=== PATIENT | female | born 1985 | race Caucasian/White ===

== ENCOUNTER 2019-08-31 03:33 | Inpatient (IN) | payer SELFPAY ==
[~2019-08-31] VITALS: Ht 162 cm; Wt 81.0 kg
[2019-08-31] VITALS (14 sets, daily range): BP systolic 118–153; BP diastolic 70–91
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
[2019-08-31 04:26] LABS: BASOPHILS % (AUTO) 0 % (0-10); EOSINOPHILS # (AUTO) 0.4 10^3/uL (0.0-0.3); EOSINOPHILS % (AUTO) 3 % (0-10); HEMATOCRIT 26 % (35-52); HEMOGLOBIN 8.3 G/DL (11.5-16.0); LYMPHOCYTES # (AUTO) 3.6 X 10^3 (1.0-4.0); LYMPHOCYTES % (AUTO) 32 % (12-44); MEAN CORPUSCULAR HEMOGLOBIN 25 PG (25-34); MEAN CORPUSCULAR HGB CONC 32 G/DL (32-36); MEAN CORPUSCULAR VOLUME 80 FL (80-99); MEAN PLATELET VOLUME 10.6 FL (7.4-10.4); MONOCYTES # (AUTO) 0.9 X 10^3 (0.0-1.0); MONOCYTES % (AUTO) 8 % (0-12); NEUTROPHILS # (AUTO) 6.4 X 10^3 (1.8-7.8); NEUTROPHILS % (AUTO) 57 % (42-75); PLATELET COUNT 359 10^3/uL (130-400); RED CELL DISTRIBUTION WIDTH 16.3 % (10.0-14.5); WHITE BLOOD COUNT 11.3 10^3/uL (4.3-11.0)
[2019-08-31 05:22] LABS: ALBUMIN 2.4 GM/DL (3.2-4.5); BILIRUBIN,TOTAL 0.2 MG/DL (0.1-1.0); CALCIUM 8.7 MG/DL (8.5-10.1); CREATININE SERUM 1.35 MG/DL (0.60-1.30); MAGNESIUM 1.5 MG/DL (1.6-2.4); TOTAL PROTEIN 6.1 GM/DL (6.4-8.2)
[2019-08-31] MEDS: NITROGLYCERIN 0.4 MG SL TABS BTL 25'S SL PRN (05:33)
[2019-08-31 05:40] LABS: FIBRIN DEGRADATION PRODUCTS 2.12 UG/ML (0.00-0.49); INR 1.1 (0.8-1.4); PROTHROMBIN TIME PATIENT 14.8 SEC (12.2-14.7)
[2019-08-31] MEDS ORDERED: HEParin 1000 UNIT/ML (10ML VIAL) FOR BOLUS IV ONE (05:54)
[2019-08-31] MEDS ORDERED: HEParin DRIP 25000 UNIT/500ML 500 ML IV ONE (05:54)
[2019-08-31] MEDS ORDERED: morphine INJ 10 MG/ML 1ML (SYR OR VIAL) IVP STA ×2 (05:54→06:23)
[2019-08-31] MEDS ORDERED: meTOprolol SUCCINATE 100 MG (TOPROL XL) TAB PO ONE (06:00)
[2019-08-31] MEDS ORDERED: CLOPIDOGREL 300 MG (PLAVIX) TABLET PO ONE ×2 (06:00→07:51)
[2019-08-31] MEDS ORDERED: meTOproloL SUCCINATE 50 MG (TOPROL XL) TAB PO ONE (06:03)
[2019-08-31] MEDS: meTOproloL SUCCINATE 50 MG (TOPROL XL) TAB PO SCH ×3 (06:13→11:41)
[2019-08-31] MEDS ORDERED: HEParin 1000 UNIT/ML (10ML VIAL) FOR BOLUS ONE (06:17)
[2019-08-31] MEDS ORDERED: LIDOCAINE 1% INJ 20 ML 20 ML VIAL ONE ×2 (06:17→07:09)
[2019-08-31] MEDS ORDERED: NS IV 1000 ML 3,000 ML ONE (06:17)
[2019-08-31] MEDS ORDERED: methylPREDNISolone 125 MG (Solu-MEDROL) VIAL ONE ×2 (06:27→07:26)
[2019-08-31] MEDS ORDERED: MIDAZOLAM 5 MG/5 ML (VERSED) VIAL ONE ×2 (06:27→08:47)
[2019-08-31] MEDS ORDERED: fentaNYL INJECTION 100 MCG/2 ML AMP ONE (06:27)
[2019-08-31] MEDS ORDERED: diphenhydrAMINE 50 MG/ML INJ (BENADRYL) ONE (06:27)
--- NOTE | 2019-08-31 06:44 | Diagnostic Imaging Report ---
INDICATION: Intermittent substernal chest pain that is relieved by lying on her side. Patient has had previous cardiac stents. FINDINGS: Portable upright view of the chest demonstrates cardiomegaly with previous sternotomy changes. Vascularity is slightly increased. Right basilar infiltrates are present. IMPRESSION: There is cardiomegaly with slight increase of the pulmonary vascularity. Right basilar infiltrates are present. Dictated by: Dictated on workstation # [id number]
--- NOTE | 2019-08-31 07:01 | Cardiology History & Physical ---
HPI-Cardiology Cardiology H&P Date of Admission 08/31/19 Primary Care Physician Svetlana Nicholas APRN Attending Physician Consulting Physician [facility] CC: Chest discomfort HPI: 34 yo woman with nearly 24 hours of chest discomfort, waxing and waning, but w/o complete resolution, varying from mild to severe, pressure-like, in the upper mid-chest, at times associated with diaphoresis, somewhat worse with activity, partially improved with NTG, experienced previously with previous myocardial infarctions, still ongoing. Has chronic exertional shortness of breath. Denies palp or syncope. Has had multiple toe amputations for diabetic gangrene. Does not report leg discomfort. Review of Systems-Cardiology Review of Systems Constitutional: malaise, tiredness; No weight loss, No weight gain Eyes: No vision change Ears/Nose/Throat: No ear discharge, No nasal drainage, No recent hearing loss, No ulcerations Respiratory: As described under HPI Cardiovascular: As described under HPI Gastrointestinal: No diarrhea, No nausea, No vomiting, No stool coloration changes Genitourinary: No dysuria, No hematuria, No urine frequency changes Musculoskeletal: No back pain, No joint pain Skin: No rash; other (amputation for 2nd R gangrenous toe several days ago, wound vac in place); No ulcerations Psychiatric/Neurological: No seizure, No focal weakness, No syncope Hematologic: No bleeding abnormalities All Other Systems Reviewed Negative Unless Noted: Yes RYG-Xdzvgy-Weharh Hx Patient Social History Alcohol Use: Denies Use Recreational Drug Use: Yes Drug of Choice: MJ Smoking Status: Current Everyday Smoker Type Used: Cigarettes 2nd Hand Smoke Exposure: Yes Recent Foreign Travel: No Recent Infectious Disease Expo: No Hospitalization with Isolation: Denies Past Medical History PMH As described under Assessment. Family Medical History Family Medical History: Reports fam h/o early CAD (father had DE in his 50s) Allergies and Home Medications Allergies Coded Allergies: codeine (Verified Allergy, Unknown, 08/31/19) nalbuphine (Verified Allergy, Unknown, 08/31/19) tramadol (Verified Allergy, Unknown, 08/31/19) Uncoded Allergies: CONTRAST (Allergy, Unknown, 08/31/19) Patient Home Medication List Home Medication List Reviewed: Yes Physical Exam-Cardiology Physical Exam Vital Signs/I&O 08/31/19 08/31/19 08/31/19 03:38 04:30 06:47 Temp 36.8 36.8 Pulse 101 86 Resp 22 22 B/P (MAP) 189/119 (142) 166/94 (142) Pulse Ox 96 98 O2 Delivery Room Air Room Air Room Air Capillary Refill : Less Than 3 Seconds Constitutional: AAO x 3, well-developed, well-nourished HEENT: EOMI, hearing is well preserved; No xanthelasmas are seen Neck: No carotid pulses are 2 + bilaterally, No with good upstrokes Respiratory: No accessory muscle use; other (good bilat air entry) Cardiovascular: regular rate-rhythm, S1 and S2, systolic murmur (faint HARISH at card base) Gastrointestinal: No tender; soft; No guarding, No rebound; audible bowel sounds Extremities: other (mild, bilateral leg edema; amputated great toes on both sides; s/p amputation of R 2nd toe (under dressing, wound vac in place, not removed)); No clubbing, No cyanosis Neurologic/Psychiatric: oriented x 3, other (moves all limbs equally) Skin: No rash on exposed areas, No ulcerations on exposed areas; other (see above under Extremities exam) Data Review Labs Laboratory Tests 08/31/19 03:49: Glucometer 101 08/31/19 04:15: White Blood Count 11.3H, Red Blood Count 3.29L, Hemoglobin 8.3L, Hematocrit 26L, Mean Corpuscular Volume 80, Mean Corpuscular Hemoglobin 25, Mean Corpuscular Hemoglobin Concent 32, Red Cell Distribution Width 16.3H, Platelet Count 359, M oluise Platelet Volume 10.6H, Neutrophils (%) (Auto) 57, Lymphocytes (%) (Auto) 32, Monocytes (%) (Auto) 8, Eosinophils (%) (Auto) 3, Basophils (%) (Auto) 0, Neutrophils # (Auto) 6.4, Lymphocytes # (Auto) 3.6, Monocytes # (Auto) 0.9, Eosinophils # (Auto) 0.4H, Basophils # (Auto) 0.0, B-Type Natriuretic Peptide 988.9H 08/31/19 04:42: Sodium Level 140, Potassium Level 4.0, Chloride Level 109H, Carbon Dioxide Level 21, Anion Gap 10, Blood Urea Nitrogen 20H, Creatinine 1.35H, Estimat Glomerular Filtration Rate 44, BUN/Creatinine Ratio 15, Glucose Level 93, Calcium Level 8.7, Corrected Calcium 10.0, Magnesium Level 1.5L, Total Bilirubin 0.2, Aspartate Amino Transf (AST/SGOT) 23, Alanine Aminotransferase (ALT/SGPT) 13, Alkaline Phosphatase 139H, Myoglobin 125.4H, Troponin I 1.474*H, Total Protein 6.1L, Albumin 2.4L 08/31/19 05:20: Prothrombin Time 14.8H, INR Comment 1.1, Activated Partial Thromboplast Time 36H , D-Dimer 2.12H Microbiology 08/31/19 Influenza Types A,B Antigen (JEN) - Final, Complete Laboratory Tests 08/31/19 04:15 08/31/19 04:42 A/P-Cardiology Assessment/Admission Diagnosis Ac NSTEMI and continuing unstable angina CAD, treated in the past with coronary stents and CABG at [place], [place]. Details unknown at time of this dictation DM II Amputations for diabetic, gangrenous toes: both great toes and R 2nd toe PAD. Has had stents in leg arteries, but does not know any details Hypertension S/p bilateral tubal ligation. Urine test performed to (01/29/19) is negative for Admission Status: Inpatient Order (span 2 midnights) Reason for Inpatient Admission: Ac DE Discussion and Recomendations * Given presentation with ac NSTEMI, known CAD, and continuing unstable angina, we recommend emergency card cath * I discussed the rationale, procedure, risks, benefits potential complications and alternatives of card cath and possible ad hoc cor / graft intervention. She understands and provides informed consent and wishes to proceed. She does understand risk is higher than usual given extensive h/o CAD and PAD at young age. Clinical Quality Measures AMI/AHF: ASA po Prior to arrival: Yes ([phone]) LEILANI GALE MD FACP [facility] Aug 31, 2019 07:01 POS
[2019-08-31] MEDS ORDERED: FAMOTIDINE 20MG/2ML IV (PEPCID) ONE (07:27)
[2019-08-31] MEDS ORDERED: EPTIFIBATIDE BOLUS 20 ML IV ONE (07:31)
[2019-08-31] MEDS ORDERED: NITRO DRIP 25000 MCG/D5W 250 ML IV ONE (07:36)
[2019-08-31] MEDS ORDERED: NS IV 1000 ML 1,000 ML IV SCH (08:13)
[2019-08-31] MEDS ORDERED: PATIENT MAY USE OWN MEDS, ALL PO SCH (08:15)
[2019-08-31] MEDS ORDERED: ACETAMINOPHEN 325 MG TABLET PO PRN (08:15)
--- NOTE | 2019-08-31 08:20 | CARDIAC CATHETERIZATION ---
DATE OF SERVICE: CARDIAC CATHETERIZATION AND CORONARY INTERVENTION REPORT HISTORY OF PRESENT ILLNESS: The patient is a 34-year-old woman who has an extensive cardiac history and a history of diabetes mellitus that has led to multiple complications. She has had multiple coronary and peripheral interventions performed, but does not know any details. This is the first time that she has presented to this hospital. Upon presentation to the emergency room, she underwent a workup for myocardial infarction and was found to have elevated troponin, indicative of acute non-ST elevation myocardial infarction. She has been continuing to have chest pain and symptoms of unstable angina. Given her history and continuing symptoms of unstable angina and her acute myocardial infarction, emergency cardiac catheterization was recommended. Informed consent was obtained. She understood all the potential risks and benefits and provided informed consent. Unfortunately, she is not aware of the details of all of her percutaneous coronary interventions and coronary artery bypass surgery. She is also unaware of the details of her peripheral intervention. DESCRIPTION OF PROCEDURE: Prior to initiation of the procedure, we did obtain a urine sample for testing and this was negative. The patient did understand the potential risks of the procedure and advised us to proceed. She was brought to the cardiac catheterization laboratory. Both groins were prepared and draped in usual sterile fashion. Under fluoroscopy, we found that the right iliac and femoral arterial system was extensively stented and did not appear suitable for catheterization. We chose the left groin. We used 1% lidocaine for local anesthesia. We used a Modified Seldinger technique to advance a 6-[place] sheath in the right femoral artery. We used a 6-[place] JL4 catheter to carry out angiography. Left internal mammary artery graft to the left anterior descending artery and for angiography of the left coronary system. We used a pigtail catheter to PERCUTANEOUS INTERVENTION TO THE RIGHT CORONARY ARTERY: We used a 6[place] JR4 guide catheter to engage the right coronary artery. We used a 6-[place] JR4 guide catheter with side holes to engage the right coronary artery. The patient had received 5000 units of intravenous heparin in the emergency room and we gave 2000 units in the cardiac catheterization laboratory. The patient also received a double bolus of Integrilin during the procedure. We used the guide catheter to advance a BMW wire across the lesion and a BMW wire to extend across the lesion that was present in a long stented segment of the right coronary artery. The tip of the wire was placed in the distal vessel. We then advanced Emerge 3.0 x 20 mm balloon and carried out balloon angioplasty at the site of the lesion. This reduced the stenosis from approximately 90% to essentially no residual. The patient tolerated the procedure well. Flow throughout the vessel was normal. Angioplasty equipment was removed. Mynx was used to achieve hemostasis. HEMODYNAMICS: Left ventricular end-diastolic pressure following coronary angiography was 30 mmHg. There was no significant pressure gradient on pullback across the aortic valve. Ascending aortic pressure was 147/85 with a mean of 107 mmHg. CORONARY ANGIOGRAPHY: Left main coronary artery does not exhibit significant disease. Left anterior descending artery is occluded in its proximal portion. Left circumflex artery is stented in its proximal portion and in the proximal portion of the terminal obtuse marginal branch. The stents are patent. Mid left circumflex artery has approximately 40% stenosis. Right coronary artery is extensively stented in its proximal and mid portions and had 80% to 90% stenosis within the distal part of the stented segment. To this, successful balloon angioplasty was carried out, which reduced the stenosis to no significant residual. LEFT VENTRICULAR ANGIOGRAPHY: Left ventricular angiography was carried out in the right anterior oblique projection. Global left ventricular systolic function is impaired. There is global hypokinesis. Left ventricular ejection fraction is approximately 40%. AORTIC ROOT ANGIOGRAPHY: Aortic root angiography did not indicate any significant thoracic aortic aneurysm or dissection. Aortic valve leaflets exhibit good leaflet excursion. There is no significant aortic regurgitation. The left and the right coronary arteries are seen. No patent aortocoronary grafts are seen. CONCLUSIONS: 1. Coronary artery disease consisting of proximal occlusion of the left anterior descending and patent proximal and distal stents within the left circumflex and 80% to 90% in-stent restenosis within an extensively stented segment of the right coronary. Balloon angioplasty was carried out to the in- stent restenosis in the right coronary, which reduced the stenosis to no significant residual. 2. Patent left internal mammary artery graft to distal left anterior descending with good runoff. 3. Impaired left ventricular systolic function with ejection fraction of 40% and moderate global hypokinesis of the left ventricle. DISCUSSION AND RECOMMENDATIONS: We discussed findings with her in detail. She is already aware of her coronary artery disease and cardiomyopathy. She states that she has previously been on aspirin, Plavix, beta blockers and JESSE inhibitors (lisinopril). She states that she has mostly been compliant. She is aware that all pregnancies need to be planned because of the nature of the medicines that she is on. She states that she has had tubal ligation and does not intend to be . We have advised her to quit smoking immediately and completely. Other risk factor modification and medication compliance was also reviewed in detail. Job ID: [id number] DocumentID: [id number] Dictated Date: 08/31/2019 08:00:20 Cut [employer] Log Date: 08/31/2019 08:20:30 Dictated By: LEILANI GALE MD, MA, FACP, FACC, MTDD
[2019-08-31] MEDS ORDERED: NS IV 1000 ML 1,000 ML ONE (08:41)
[2019-08-31] MEDS ORDERED: MIDAZOLAM 2 MG/2 ML (VERSED) VIAL IVP ONE (09:00)
[2019-08-31 09:15] LABS: BASOPHILS % (AUTO) 0 % (0-10); EOSINOPHILS # (AUTO) 0.2 10^3/uL (0.0-0.3); EOSINOPHILS % (AUTO) 2 % (0-10); HEMATOCRIT 22 % (35-52); LYMPHOCYTES # (AUTO) 3.7 X 10^3 (1.0-4.0); LYMPHOCYTES % (AUTO) 27 % (12-44); MEAN CORPUSCULAR HEMOGLOBIN 26 PG (25-34); MEAN CORPUSCULAR HGB CONC 31 G/DL (32-36); MEAN CORPUSCULAR VOLUME 82 FL (80-99); MEAN PLATELET VOLUME 10.3 FL (7.4-10.4); MONOCYTES # (AUTO) 0.5 X 10^3 (0.0-1.0); MONOCYTES % (AUTO) 4 % (0-12); NEUTROPHILS # (AUTO) 9.3 X 10^3 (1.8-7.8); NEUTROPHILS % (AUTO) 67 % (42-75); PLATELET COUNT 401 10^3/uL (130-400); RED CELL DISTRIBUTION WIDTH 16.2 % (10.0-14.5); WHITE BLOOD COUNT 13.7 10^3/uL (4.3-11.0)
[2019-08-31] MEDS ORDERED: fentaNYL INJECTION 100 MCG/2 ML AMP IVP PRN (09:15)
[2019-08-31 09:20] LABS: HEMOGLOBIN 6.9 G/DL (11.5-16.0)
--- NOTE | 2019-08-31 09:59 | Consultation - Hospitalist ---
HPI History of Present Illness: HPI/Chief Complaint CC: Severe anemia HPI: This is a 34yoWF with a history of severe comorbidities that was [facility] the [facility] and was admitted for altered mental status, underwent cardiac catheterization due to history of bypass surgery with elevated troponin and currently she is having significant difficulties with managing organ system function. She did lose some blood from the cardiac cath, left pressure bag was placed on the femoral region and at this current time pt appears to be very fatigued. We will initiate Fentanyl 50 micrograms IV Q3hrs and provide supportive care. She is homeless. Source: patient Exam Limitations: no limitations Date Seen 08/31/19 Attending Physician Jennifer Grimes MD [facility]p [facility] PCP Svetlana Nicholas Aprn Referring Physician Date of Admission Aug 31, 2019 at 08:50 Home Medications & Allergies Home Medications Reviewed patient Home Medication Reconciliation performed by pharmacy medication reconciliations elevator service technician and/or nursing. Patients Allergies have been reviewed. Allergies Allergies Coded Allergies codeine (Verified Allergy, Unknown, 08/31/19) nalbuphine (Verified Allergy, Unknown, 08/31/19) tramadol (Verified Allergy, Unknown, 08/31/19) Uncoded Allergies CONTRAST ( Allergy, Unknown, 08/31/19) Past Nyqmwdx-Ageuyk-Cdbfbm Hx Past Med/Social Hx: Reviewed Nursing Past Med/Soc Hx, Reviewed and Corrections made Patient Social History Marrital Status: single Employed/Student: unemployed Alcohol Use: Denies Use Recreational Drug Use: Yes Drug of Choice: MJ Smoking Status: Current Everyday Smoker Type Used: Cigarettes 2nd Hand Smoke Exposure: Yes Recent Foreign Travel: No Contact w/other who traveled: No Recent Hopitalizations: Yes (toe amputation with wound vac 08/2019) Recent Infectious Disease Expo: No Seasonal Allergies Seasonal Allergies: No Past Medical History Surgeries: Amputation, Section, Coronary Stent, Tonsillectomy Cardiac: Hypertension, Peripheral Vascular Neurological: Neuropathy Hysterectomy, 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 Gastrointestinal: Irritable Bowel Musculoskeletal: Amputee Endocrine: Diabetes, Non-Insulin dep Review of Systems Constitutional: see HPI, weakness Cardiovascular: chest pain Psychiatric/Neurological: See HPI Physical Exam Physical Exam Vital Signs Vital Signs - First Documented 08/31/19 08/31/19 03:38 10:09 Temp 36.8 Pulse 101 Resp 22 B/P (MAP) 189/119 (142) Pulse Ox 96 O2 Delivery Room Air O2 Flow Rate 3.00 Capillary Refill : Less Than 3 Seconds Height, Weight, BMI Height: '" Weight: lbs. oz. kg; 30.00 BMI Method: General Appearance: No Apparent Distress, WD/WN, Chronically ill HEENT: PERRL/EOMI, Moist Mucous Membranes Neck: Full Range of Motion, Normal Inspection, Non Tender, Supple Respiratory: No Chest Non Tender (chest wall pain is reproduced by direct palpation over the sternum); Lungs Clear, Normal Breath Sounds, No Accessory Muscle Use, No Respiratory Distress Cardiovascular: Regular Rate, Rhythm, No Edema, No JVD, Normal Peripheral Pulses Gastrointestinal: Normal Bowel Sounds, Non Tender, Soft Extremity: Normal Capillary Refill, No Pedal Edema, Other (wound VAC in place over her right foot from previous forefoot amputation) Neurologic/Psychiatric: Alert, Oriented x3, No Motor/Sensory Deficits, Other (flat affect) Skin: Normal Color, Warm/Dry Results Results/Procedures Labs Laboratory Tests 08/31/19 04:15 08/31/19 04:42 08/31/19 09:05 08/31/19 15:08 Patient resulted labs reviewed. Assessment/Plan Assessment and Plan Assess & Plan/Chief Complaint Assessment: NSTEMI Unstable angina s/p RCA intervention PVD h/o CABG Smoker DM HTN Anemia s/p 1 unit of blood Plan: Monitor hgb Transfusion Pain control Prognosis guarded Diagnosis/Problems Diagnosis/Problems (1) S/P right coronary artery (RCA) stent placement (2) PVD (peripheral vascular disease) (3) Smoker (4) Hx of CABG (5) Homelessness (6) NSTEMI (non-ST elevated myocardial infarction) Status: Acute (7) Acute LA (8) Anemia (9) Transfusion of blood during current hospitalization (10) History of amputation of toe Clinical Quality Measures AMI/AHF: ASA po Prior to arrival: Yes (324) SANDRA MA DO Aug 31, 2019 09:59 POS
[2019-08-31] MEDS: lisINopril 10 MG (PRINIVIL) TABLET PO SCH (11:41)
[2019-08-31] MEDS: SPIRONOLACTONE 25 MG (ALDACTONE) TAB PO SCH (11:41)
[2019-08-31] MEDS: ASPIRIN 81 MG CHEW (CHILDREN'S ASA) PO SCH (12:03)
[2019-08-31] MEDS: CLOPIDOGREL 75 MG (PLAVIX) TABLET PO SCH (12:03)
[2019-08-31] MEDS: NS IV 1000 ML 1,000 ML IV SCH ×2 (12:05→19:03)
[2019-08-31] MEDS: FUROSEMIDE 40 MG (LASIX) TAB PO SCH (12:26)
[2019-08-31] MEDS ORDERED: ISOS30TA3 PO (15:04)
[2019-08-31] MEDS ORDERED: PROM25TA14 PO (15:04)
[2019-08-31] MEDS ORDERED: ASPI-983 PO (15:04)
[2019-08-31] MEDS ORDERED: GBPN600T PO (15:04)
[2019-08-31 15:13] LABS: HEMOGLOBIN 9.1 G/DL (11.5-16.0)
[2019-08-31] MEDS ORDERED: CLOP75TA28 PO (15:19)
[2019-08-31] MEDS ORDERED: INSU100V16 SC (15:19)
[2019-08-31] MEDS ORDERED: INSU100V5 SC (15:19)
[2019-08-31] MEDS ORDERED: AMLO10TA7 PO (15:19)
--- NOTE | 2019-08-31 15:23 | NUR ---
SPOKE WITH THE PATIENT ABOUT HER MEDICATIONS. SHE LISTED WHAT SHE IS TAKING AND SHE STATES SHE FILLS THEM AT [facility]. I CALLED [facility] BUT THEY HAVE ONLY FILLED A FEW MEDICATIONS FOR HER THIS YEAR. I CALLED [facility] IN [place], THEY STATE THE PATIENT HAS INSURANCE SO THEY DO NOT GIVE HER ANY MEDS THROUGH THE REPOSITORY, THEY SEND ALL HER MEDS TO [facility] OR [facility]. THEY DID FAX OVER A CURRENT MEDICATION LIST. [facility] FILLED: 07-02-19 ISOSORBIDE 30MG #30 07-02-19 GABAPENTIN 600MG #90 06-30-19 PROMETHAZINE 25MG #60 [facility] INFORMATION IS SHOWN IN THE EXT MED HX: CYMBALTA - SHE STATES SHE NO LONGER TAKES THIS, IT IS NOT ON MED LIST FROM [facility]. 03-17-19 PLAVIX 75MG #30 01-23-19 LEVEMIR 12 UNITS HS #10 01-23-19 NOVOLOG SSB #20 01-18-19 AMLODIPINE 10MG #30 ALSO ON THE LIST FROM [facility] WAS LIPITOR 80MG HS AND METOPROLOL ER 100MG DAILY. THESE ARE NOT ON FILE WITH [facility] OR [facility]. I HAVE NOT INCLUDED SEVERAL OF THESE MEDS ON THE MED REC DUE TO THE PAST DUE FILL DATES OR NOT BEING ABLE TO IDENTIFY THE LAST TIME THEY WERE FILLED. SHE STATES SHE DOES NOT HAVE THE NITROGLYCERIN, IT WAS PRESCRIBED BUT SHE WAS NOT ABLE TO AFFORD IT SO HAS NOT PICKED THEM UP. SHE STATES SHE TAKES ASPIRIN 81MG OTC.
--- NOTE | 2019-08-31 18:59 | Consultation - Surgery ---
History of Present Illness History of Present Illness Patient Consulted On(darien/time) 08/31/19 18:53 Date Seen by Provider: Aug 31, 2019 Time Seen by Provider: 12:39 History of Present Illness Consult requested for right forefoot partial amputation. patient is a 34 year old female who presented to hospital with chest pain. She had a right forefoot partial amputation about 2 weeks ago in [place], [place] she states. She has a wound vac on it and states she is scheduled to see wound care in [place] tomorrow to have it changed and for follow up. Her pain in the right foot is under control. She states that she has not had any issues with right foot since having surgery. She has had about 3 surgeries on the right foot she states. Patient underwent cardiac catheterization earlier today. She has no other complaints at this time. Denies n/v fever sweats chills shortness of breath or chest pain. Allergies and Home Medications Allergies Coded Allergies: codeine (Verified Allergy, Unknown, 08/31/19) nalbuphine (Verified Allergy, Unknown, 08/31/19) tramadol (Verified Allergy, Unknown, 08/31/19) Uncoded Allergies: CONTRAST (Allergy, Unknown, 08/31/19) Home Medications Aspirin 81 Mg Tablet.dr, 81 MG PO DAILY, (Reported) Gabapentin 600 Mg Tablet, 600 MG PO TID, (Reported) LAST FILLED #90 07-02-19 Isosorbide Mononitrate 30 Mg Tab.er.24h, 30 MG PO DAILY, (Reported) LAST FILLED #30 07-02- Promethazine HCl 25 Mg Tablet, 25 MG PO Q8H PRN for NAUSEA/VOMITING-2ND LINE, (Reported) Patient Home Medication List Home Medication List Reviewed: Yes Past Tpjxqhe-Cfvdjt-Bxaqvf Hx Patient Social History Alcohol Use: Denies Use Recreational Drug Use: Yes Drug of Choice: MJ Smoking Status: Current Everyday Smoker Type Used: Cigarettes 2nd Hand Smoke Exposure: Yes Recent Foreign Travel: No Contact w/Someone Who Travel: No Recent Infectious Disease Expo: No Recent Hopitalizations: Yes (toe amputation with wound vac 08/2019) Seasonal Allergies Seasonal Allergies: No Surgeries History of Surgeries: Yes (3 amputations (foot and toes), 5 stents) Surgeries: Amputation, Section, Coronary Stent, Tonsillectomy Respiratory History of Respiratory Disorde: No Cardiovascular History of Cardiac Disorders: Yes (5 stents) Cardiac Disorders: Hypertension Neurological History of Neurological Disord: Yes Neurological Disorders: Neuropathy 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, 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 Genitourinary History of Genitourinary Disor: No Gastrointestinal History of Gastrointestinal Di: Yes Gastrointestinal Disorders: Irritable Bowel Musculoskeletal History of Musculoskeletal Dis: Yes Musculoskeletal Disorders: Amputee Endocrine History of Endocrine Disorders: Yes Endocrine Disorders: Diabetes, Non-Insulin dep HEENT History of HEENT Disorders: No Cancer History of Cancer: No Psychosocial History of Psychiatric Problem: No Integumentary History of Skin or Integumenta: No Reviewed Nursing Assessment Reviewed/Agree w Nursing PMH: Yes Family Medical History Significant Family History: No Pertinent Family Hx Review of Systems-General Constitutional: no symptoms reported EENTM: no symptoms reported Respiratory: no symptoms reported Cardiovascular: see HPI Gastrointestinal: no symptoms reported Genitourinary: no symptoms reported Musculoskeletal: see HPI Skin: no symptoms reported Psychiatric/Neurological: No Symptoms Reported Physical Exam-General Problems Physical Exam Vital Signs Vital Signs - First Documented 08/31/19 08/31/19 03:38 10:09 Temp 36.8 Pulse 101 Resp 22 B/P (MAP) 189/119 (142) Pulse Ox 96 O2 Delivery Room Air O2 Flow Rate 3.00 Capillary Refill : NONE HEENT: PERRL/EOMI, normal ENT inspection Neck: non-tender Respiratory: chest non-tender, no respiratory distress, no accessory muscle use Cardiovascular: regular rate, rhythm Gastrointestinal: non tender, soft, no organomegaly Back: no CVA tenderness Extremities: other (right foot with partial forefoot amputation with wound vac in place. 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 nml as tested, alert, oriented x 3 Skin: normal color, warm/dry Lymphatic: no adenopathy Data Review Labs Laboratory Tests 08/31/19 03:49: Glucometer 101 08/31/19 04:15: White Blood Count 11.3H, Red Blood Count 3.29L, Hemoglobin 8.3L, Hematocrit 26L, Mean Corpuscular Volume 80, Mean Corpuscular Hemoglobin 25, Mean Corpuscular Hemoglobin Concent 32, Red Cell Distribution Width 16.3H, Platelet Count 359, Mean Platelet Volume 10.6H, Neutrophils (%) (Auto) 57, Lymphocytes (%) (Auto) 32, Monocytes (%) (Auto) 8, Eosinophils (%) (Auto) 3, Basophils (%) (Auto) 0, Neutrophils # (Auto) 6.4, Lymphocytes # (Auto) 3.6, Monocytes # (Auto) 0.9, Eosinophils # (Auto) 0.4H, Basophils # (Auto) 0.0, B-Type Natriuretic Peptide 988.9H 08/31/19 04:42: Sodium Level 140, Potassium Level 4.0, Chloride Level 109H, Carbon Dioxide Level 21, Anion Gap 10, Blood Urea Nitrogen 20H, Creatinine 1.35H, Estimat Glomerular Filtration Rate 44, BUN/Creatinine Ratio 15, Glucose Level 93, Calcium Level 8.7, Corrected Calcium 10.0, Magnesium Level 1.5L, Total Bilirubin 0.2, Aspartate Amino Transf (AST/SGOT) 23, Alanine Aminotransferase (ALT/SGPT) 13, Alkaline Phosphatase 139H, Myoglobin 125.4H, Troponin I 1.474*H, Total Protein 6.1L, Albumin 2.4L 08/31/19 05:20: Prothrombin Time 14.8H, INR Comment 1.1, Activated Partial Thromboplast Time 36H , D-Dimer 2.12H 08/31/19 09:05: White Blood Count 13.7H, Red Blood Count 2.69L, Hemoglobin 6.9*L, Hematocrit 22L , Mean Corpuscular Volume 82, Mean Corpuscular Hemoglobin 26, Mean Corpuscular Hemoglobin Concent 31L, Red Cell Distribution Width 16.2H, Platelet Count 401H, Mean Platelet Volume 10.3, Neutrophils (%) (Auto) 67, Lymphocytes (%) (Auto) 27, Monocytes (%) (Auto) 4, Eosinophils (%) (Auto) 2, Basophils (%) (Auto) 0, Neutrophils # (Auto) 9.3H, Lymphocytes # (Auto) 3.7, Monocytes # (Auto) 0.5, Eosinophils # (Auto) 0.2, Basophils # (Auto) 0.0 08/31/19 15:08: Hemoglobin 9.1#L, Hematocrit 29L Microbiology 08/31/19 Influenza Types A,B Antigen (JEN) - Final, Complete Assessment/Plan Assessment/Plan Assessment/Plan s/p right forefoot partial amputation from outlying facility patient needs continued wound care to the right foot will have wound care nurse come change wound vac will follow no surgical intervention at this time. Clinical Quality Measures AMI/AHF: ASA po Prior to arrival: Yes (324) MIKE TAFOYA DO Aug 31, 2019 18:59 POS
[2019-08-31] MEDS: traZODone 100 MG (DESYREL) TAB PO SCH (20:00)
[2019-08-31] MEDS: HYDROcodone/APAP 5 MG/325 MG (LORTAB) TAB PO PRN ×2 (20:00→20:30)
[2019-08-31] MEDS ORDERED: PROMETHAZINE 25 MG (PHENERGAN) TAB PO PRN (20:45)
[2019-08-31] MEDS: GABAPENTIN 600 MG (NEURONTIN) TAB PO SCH (21:35)
[2019-09-01] VITALS (21 sets, daily range): BP systolic 100–179; BP diastolic 64–119
[2019-09-01] MEDS: NS IV 1000 ML 1,000 ML IV SCH ×2 (01:50→15:02)
[2019-09-01 05:29] LABS: MEAN PLATELET VOLUME 10.4 FL (7.4-10.4); RED CELL DISTRIBUTION WIDTH 16.4 % (10.0-14.5); WHITE BLOOD COUNT 15.6 10^3/uL (4.3-11.0)
[2019-09-01 05:31] LABS: HEMOGLOBIN 6.6 G/DL (11.5-16.0)
[2019-09-01 05:56] LABS: ALBUMIN 2.1 GM/DL (3.2-4.5); BILIRUBIN,TOTAL 0.1 MG/DL (0.1-1.0); CALCIUM 7.3 MG/DL (8.5-10.1); CREATININE SERUM 2.21 MG/DL (0.60-1.30)
[2019-09-01 06:13] LABS: HEMOGLOBIN 6.3 G/DL (11.5-16.0)
--- NOTE | 2019-09-01 06:20 | NUR ---
THIS RN RETRIEVED ONE UNIT PRBC FROM LAB AT THIS TIME. CAMPGROUND MANAGER AND THIS RN VERIFIED PATIENT ID, MEDICAL RECORD NUMBER, PATIENT'S DOCTOR, BLOOD BANK ID NUMBER, BLOOD UNIT NUMBER, PATIENT BLOOD TYPE, UNIT BLOOD TYPE, BLOOD COMPATIBILITY, AND BLOOD EXPIRATION DATE.
--- NOTE | 2019-09-01 08:29 | Progress Note - Surgery ---
NICO CHEEMA MED STUDENT 09/01/19 0829: Subjective Date Seen by a Provider: Sep 01, 2019 Time Seen by a Provider: 07:15 Subjective/Events-last exam Ms. Faust reports feeling slightly improved today, wanted to know when she would be able to go home. Her main complaints today are of the discomfort from the swelling that occurred after her reaction to dye used in her toe amputation, as well as constipation since her toe amputation, with no BM for the past 5 days. She reports that she has had mild pain in her foot by her toe that was recently amputated, describes as 'pain you feel after surgery'. She also reports having LLQ pain, the quality of which she had difficulty describing, which she has been feeling for the past several days. Review of Systems General: No Chills; Fatigue (tired, but normal for her) HEENT: No Sinus Congestion, No Sore Throat Pulmonary: No Dyspnea, No Cough Cardiovascular: Edema (feels as if swollen in LE and abdomen); No: Chest Pain, Palpitations, Lt Headedness Gastrointestinal: Abdominal Pain (LLQ), Constipation (no BM in 5 days); No: Nausea, Vomiting Genitourinary: No Dysuria, No Hematuria Musculoskeletal: foot pain (R foot by toe that was amputated) Neurological: No: Weakness, Numbness Objective Exam Vital Signs Date Time Temp Pulse Resp B/P (MAP) Pulse Ox O2 Delivery O2 Flow Rate FiO2 09/01/19 08:06 36.0 71 18 138/79 (98) 98 Room Air 09/01/19 07:00 36.2 60 14 104/68 95 Room Air 09/01/19 07:00 36.2 60 14 104/68 (80) 94 Room Air 09/01/19 06:45 36.4 66 16 101/65 (77) 94 Room Air 09/01/19 06:45 36.4 66 16 101/65 94 Room Air 09/01/19 06:42 60 09/01/19 06:30 36.0 60 18 100/64 97 Room Air 09/01/19 06:30 36.0 60 18 100/64 (76) 97 Room Air 09/01/19 03:35 35.9 59 14 114/72 (86) 96 Room Air 09/01/19 01:00 56 09/01/19 00:20 35.5 61 14 112/70 (84) 98 Room Air 08/31/19 20:00 Room Air 08/31/19 20:00 36.0 61 18 130/76 (94) 97 08/31/19 19:00 61 08/31/19 16:00 35.7 63 18 128/85 (99) 99 08/31/19 14:00 36.2 63 18 142/90 (107) 98 08/31/19 13:59 78 08/31/19 13:00 36.2 63 18 138/86 (103) 98 08/31/19 12:21 36.2 61 20 153/91 99 Nasal Cannula 3.00 08/31/19 12:00 35.8 61 16 135/84 (101) 98 08/31/19 11:00 35.9 60 16 129/79 (96) 99 08/31/19 10:30 36.2 61 16 136/80 (98) 99 08/31/19 10:29 35.8 61 18 136/86 99 Nasal Cannula 3.00 08/31/19 10:09 35.7 63 18 118/77 99 Nasal Cannula 3.00 08/31/19 10:00 36.2 62 18 126/70 (88) 99 08/31/19 09:45 35.9 65 19 132/86 (101) 99 08/31/19 09:25 36.0 60 18 122/80 (94) 99 08/31/19 09:10 35.7 62 18 119/78 (92) 98 I & O 09/01/19 07:00 Intake Total 2550 ml Output Total 900 ml Balance 1650 ml Capillary Refill : NONE General Appearance: No Apparent Distress, Chronically ill, Obese HEENT: PERRL/EOMI; No Scleral Icterus (L), No Scleral Icterus (R) Neck: Normal Inspection, Non Tender, Supple Respiratory: Lungs Clear, Normal Breath Sounds, No Accessory Muscle Use, No Respiratory Distress Cardiovascular: Regular Rate, Rhythm, No Edema, No Murmur, Normal Peripheral Pulses Peripheral Pulses: 0 Dorsalis Pedis (R) (2+ posterior tibial pulse); 2+ Left Dors-Pedis (L), 2+ Radial Pulses (R), 2+ Radial Pulses (L) Gastrointestinal: soft, no organomegaly, tenderness (LLQ and hypogastric t enderness) Extremity: Non Tender, No Calf Tenderness, Pedal Edema (2+ BLE), Other (wound VAC in place over her right foot from previous forefoot amputation) Neurologic/Psychiatric: Alert, Oriented x3, Normal Mood/Affect Skin: Normal Color, Warm/Dry Results Lab Laboratory Tests 08/31/19 09:05: White Blood Count 13.7H, Red Blood Count 2.69L, Hemoglobin 6.9*L, Hematocrit 22L , Mean Corpuscular Volume 82, Mean Corpuscular Hemoglobin 26, Mean Corpuscular Hemoglobin Concent 31L, Red Cell Distribution Width 16.2H, Platelet Count 401H, Mean Platelet Volume 10.3, Neutrophils (%) (Auto) 67, Lymphocytes (%) (Auto) 27, Monocytes (%) (Auto) 4, Eosinophils (%) (Auto) 2, Basophils (%) (Auto) 0, Neutrophils # (Auto) 9.3H, Lymphocytes # (Auto) 3.7, Monocytes # (Auto) 0.5, Eosinophils # (Auto) 0.2, Basophils # (Auto) 0.0 08/31/19 15:08: Hemoglobin 9.1#L, Hematocrit 29L 09/01/19 05:09: White Blood Count 15.6H, Red Blood Count 2.53L, Hemoglobin 6.6#*L, Hematocrit 20*L, Mean Corpuscular Volume 80, Mean Corpuscular Hemoglobin 26, Mean Corpuscular Hemoglobin Concent 33, Red Cell Distribution Width 16.4H, Platelet Count 269, Mean Platelet Volume 10.4, Sodium Level 136, Potassium Level 5.0, Chloride Level 109H, Carbon Dioxide Level 15L, Anion Gap 12, Blood Urea Nitrogen 32H, Creatinine 2.21H, Estimat Glomerular Filtration Rate 25, BUN/Creatinine Ratio 14, Glucose Level 156H, Calcium Level 7.3L, Corrected Calcium 8.8, Total Bilirubin 0.1, Aspartate Amino Transf (AST/SGOT) 14, Alanine Aminotransferase (ALT/SGPT) 10, Alkaline Phosphatase 94, Total Protein 5.0L, Albumin 2.1L, Triglycerides Level 141, Cholesterol Level 114, LDL Cholesterol Direct 67, VLDL Cholesterol 28, HDL Cholesterol 29L, Thyroid Stimulating Hormone (TSH) 2.39 09/01/19 06:05: Hemoglobin 6.3*L, Hematocrit 19*L Microbiology 08/31/19 Influenza Types A,B Antigen (JEN) - Final, Complete Assessment/Plan Assessment/Plan Assessment/Plan s/p right forefoot partial amputation NSTEMI s/p RCA intervention PVD DM Anemia s/p 1 unit of blood She reports mild pain in her right foot, will assess wound and woundvac today. She has LLQ pain and no BM for past 5 days, consider abdominal x-ray. Hgb and Hct today are 6.6 and 20 respectively, decreased from yesterday. Consider another transfusion. Clinical Quality Measures AMI/AHF: ASA po Prior to arrival: Yes (324) TITI TAFOYA DO 09/01/192137: Subjective Subjective/Events-last exam Pain controlled to right foot. Wound vac changed by wound care nurse and reports looking great no concerns. Patient with drop in hgb. Ct show extraperitoneal pelvic hematoma. Being transfused PRBC. Having BM. No other complaints at this time. Denies n/v fever sweats chills shortness of breath or chest pain. Objective Exam General Appearance: No Apparent Distress HEENT: PERRL/EOMI, Other (slight facial features swollen) Neck: Normal Inspection, Non Tender, Supple Respiratory: Chest Non Tender, No Accessory Muscle Use, No Respiratory Distress Cardiovascular: Regular Rate, Rhythm, No Edema Gastrointestinal: soft, tenderness (LLQ minimal) Extremity: Other (wound VAC in place over her right foot from previous forefoot amputation) Neurologic/Psychiatric: Alert, Oriented x3, Normal Mood/Affect Skin: Normal Color, Warm/Dry Lymphatic: No Adenopathy Assessment/Plan Assessment/Plan Assessment/Plan s/p irght forefoot partial amputation- wound vac in place and wound care nurse also following for wound vac changes. extraperitoneal pelvic hematoma with anemia being transfused, follow hgb, transfuse prn nstemi PVD DM no surgical intervention will follow Supervisory-Addendum Brief Verification & Attestation Participated in pt care: history, MDM, physical Personally performed: exam, history, MDM, supervision of care Care discussed with: Medical Student Procedures: n/a Results interpretation: Verified all documentation Verification and Attestation of Medical Student E/M Service A medical student performed and documented this service in my presence. I reviewed and verified all information documented by the medical student and made modifications to such information, when appropriate. I personally performed the physical exam and medical decision making. Titi Tafoya, Sep 01, 2019,21:38 NICO CHEEMA MED STUDENT Sep 01, 2019 08:29 TITI IBARRA DO Sep 01, 2019 21:38 POS
[2019-09-01] MEDS: SPIRONOLACTONE 25 MG (ALDACTONE) TAB PO SCH (09:06)
[2019-09-01] MEDS: GABAPENTIN 600 MG (NEURONTIN) TAB PO SCH ×3 (09:06→20:47)
[2019-09-01] MEDS: lisINopril 10 MG (PRINIVIL) TABLET PO SCH (09:06)
[2019-09-01] MEDS: FUROSEMIDE 40 MG (LASIX) TAB PO SCH (09:06)
[2019-09-01] MEDS: HYDROcodone/APAP 5 MG/325 MG (LORTAB) TAB PO PRN ×2 (09:06→17:11)
[2019-09-01] MEDS: meTOproloL SUCCINATE 50 MG (TOPROL XL) TAB PO SCH (09:07)
[2019-09-01] MEDS: CLOPIDOGREL 75 MG (PLAVIX) TABLET PO SCH (09:43)
[2019-09-01] MEDS: ASPIRIN 81 MG CHEW (CHILDREN'S ASA) PO SCH (09:43)
[2019-09-01] MEDS ORDERED: NS IV 500 ML 500 ML IV SCH (09:45)
--- NOTE | 2019-09-01 09:56 | Progress Note - Cardiology ---
Cardiology SOAP Progress Note Objective: I&O/Vital Signs 09/01/19 09/01/19 09/01/19 09/01/19 06:30 06:30 06:42 06:45 Temp 36.0 36.0 36.4 Pulse 60 60 60 66 Resp 18 18 16 B/P (MAP) 100/64 (76) 100/64 101/65 Pulse Ox 97 97 94 O2 Delivery Room Air Room Air Room Air 09/01/19 09/01/19 09/01/19 09/01/19 06:45 07:00 07:00 08:00 Temp 36.4 36.2 36.2 Pulse 66 60 60 Resp 16 14 14 B/P (MAP) 101/65 (77) 104/68 (80) 104/68 Pulse Ox 94 94 95 O2 Delivery Room Air Room Air Room Air Room Air 09/01/19 09/01/19 09/01/19 09/01/19 08:06 09:45 10:51 11:06 Temp 36.0 36.3 35.9 35.9 Pulse 71 65 64 63 Resp 18 16 B/P (MAP) 138/79 (98) 136/84 148/88 149/101 Pulse Ox 98 96 97 O2 Delivery Room Air Room Air Room Air 09/01/19 09/01/19 09/01/19 09/01/19 11:42 12:21 12:36 12:50 Temp 35.9 36.5 36.0 Pulse 65 64 72 72 Resp 16 16 18 B/P (MAP) 149/101 (117) 153/97 160/99 Pulse Ox 97 99 99 O2 Delivery Room Air Room Air Room Air 09/01/19 09/01/19 09/01/19 09/01/19 13:20 13:35 14:10 14:18 Temp 36.0 36.1 35.9 36.1 Pulse 67 69 65 65 Resp 18 18 18 18 B/P (MAP) 160/108 150/109 166/114 166/114 Pulse Ox 97 96 95 95 O2 Delivery Room Air Room Air Room Air 09/01/19 09/01/19 09/01/19 14:33 15:58 15:59 Temp 35.9 36.4 36.4 Pulse 65 67 67 Resp 20 18 18 B/P (MAP) 168/103 169/119 169/119 (136) Pulse Ox 95 96 96 O2 Delivery Room Air 09/01/19 00:00 Intake Total 1030 ml Output Total 900 ml Balance 130 ml Constitutional: AAO x 3, well-developed, well-nourished Respiratory: No accessory muscle use; other (good bilat air entry) Cardiovascular: regular rate-rhythm, S1 and S2, systolic murmur (faint HARISH at card base) Gastrointestional: No tender; soft; No guarding, No rebound; audible bowel sounds Extremities: other (mild, bilateral leg edema; amputated great toes on both sides; s/p amputation of R 2nd toe (under dressing, wound vac in place, not removed)); No clubbing, No cyanosis Neurologic/Psychiatric: oriented x 3, other (moves all limbs equally) Skin: No rash on exposed areas, No ulcerations on exposed areas; other (see above under Extremities exam) Results/Procedures: Labs Laboratory Tests 09/01/19 05:09: White Blood Count 15.6H, Red Blood Count 2.53L, Hemoglobin 6.6#*L, Hematocrit 20*L, Mean Corpuscular Volume 80, Mean Corpuscular Hemoglobin 26, Mean Corpuscular Hemoglobin Concent 33, Red Cell Distribution Width 16.4H, Platelet Count 269, Mean Platelet Volume 10.4, Sodium Level 136, Potassium Level 5.0, Chloride Level 109H, Carbon Dioxide Level 15L, Anion Gap 12, Blood Urea Nitrogen 32H, Creatinine 2.21H, Estimat Glomerular Filtration Rate 25, BUN/Creatinine Ratio 14, Glucose Level 156H, Calcium Level 7.3L, Corrected Calcium 8.8, Total Bilirubin 0.1, Aspartate Amino Transf (AST/SGOT) 14, Alanine Aminotransferase (ALT/SGPT) 10, Alkaline Phosphatase 94, Total Protein 5.0L, Albumin 2.1L, Triglycerides Level 141, Cholesterol Level 114, LDL Cholesterol Direct 67, VLDL Cholesterol 28, HDL Cholesterol 29L, Thyroid Stimulating Hormone (TSH) 2.39 09/01/19 06:05: Hemoglobin 6.3*L, Hematocrit 19*L 09/01/19 12:05: Glucometer 169H 09/01/19 15:05: White Blood Count 17.3H, Red Blood Count 4.75, Hemoglobin 12.9#, Hematocrit 39, Mean Corpuscular Volume 82, Mean Corpuscular Hemoglobin 27, Mean Corpuscular Hemoglobin Concent 33, Red Cell Distribution Width 17.8H, Platelet Count 270, Mean Platelet Volume 10.2, Sodium Level 135, Potassium Level 5.5H, Chloride Level 109H, Anion Gap 14, Blood Urea Nitrogen 39H, Creatinine 2.46H, Estimat Glomerular Filtration Rate 22, BUN/Creatinine Ratio 16, Glucose Level 181H, Calcium Level 7.7L Microbiology 08/31/19 Influenza Types A,B Antigen (JEN) - Final, Complete A/P: Assessment: Ac NSTEMI and continuing unstable angina CAD, treated in the past with coronary stents and CABG at [place], [place]. Details unknown at time of this dictation DM II Amputations for diabetic, gangrenous toes: both great toes and R 2nd toe PAD. Has had stents in leg arteries, but does not know any details Hypertension S/p bilateral tubal ligation. Urine test performed toda (01/29/19) is negative for Plan: * S/P cardiac cath with angioplasty - please refer to cardiac cath report of 08-31-19 * Anemia of undetermined etiology - received one unit yesterday - anemia worse today - transfuse * CT of abd/pelvis/groin to eval for possible bleed * Hold Plavix d/t anemia and intervention was angioplasty * Continue ASA * Continue other medications * Worsening renal function * Further recs will be based on her hospital course Clinical Quality Measures AMI/AHF: ASA po Prior to arrival: Yes (324) EVERT HERRMANN Sep 01, 2019 09:56 POS
--- NOTE | 2019-09-01 10:16 | Progress Note - Hospitalist ---
Subjective HPI/CC On Admission Date Seen by Provider: Sep 01, 2019 Time Seen by Provider: 09:00 CC: Severe anemia HPI: This is a 34yoWF with a history of severe comorbidities that [facility] and was admitted for altered mental status, underwent cardiac catheterization due to history of bypass surgery with elevated troponin and currently she is having significant difficulties with managing organ system function. She did lose some blood from the cardiac cath, left pressure bag was placed on the femoral region and at this current time pt appears to be very fatigued. We will initiate Fentanyl 50 micrograms IV Q3hrs and provide supportive care. She is homeless. Subjective/Events-last exam Transfused another unit of blood due to Hgb of 6.6 this morning. Changing wound vac on the left foot partial amputation, it does look good, no infection. Echocardiogram obtained today. Plavix and Aspirin questionable whether we will give that today, but we will consult cardiology regarding that. She had this toe amputation two weeks ago. Review of Systems General: Fatigue Pulmonary: Dyspnea Objective Exam Vital Signs Vital Signs Date Time Temp Pulse Resp B/P (MAP) Pulse Ox O2 Delivery O2 Flow Rate FiO2 09/01/19 20:00 36.4 66 16 169/116 (133) 100 Room Air 08/31/19 12:21 3.00 Capillary Refill : NONE General Appearance: No Apparent Distress, WD/WN, Chronically ill, Other (pale) Respiratory: Chest Non Tender, Lungs Clear, Normal Breath Sounds, No Accessory Muscle Use, No Respiratory Distress Cardiovascular: Regular Rate, Rhythm, No Edema, No Gallop, No JVD, No Murmur, Normal Peripheral Pulses Neurologic/Psychiatric: Alert, Oriented x3, No Motor/Sensory Deficits, Normal Mood/Affect Skin: Normal Color, Warm/Dry, Other (left metatarsal amputation) Results/Procedures Lab Laboratory Tests 09/01/19 05:09 09/01/19 06:05 09/01/19 15:05 Patient resulted labs reviewed. Assessment/Plan Assessment and Plan Assess & Plan/Chief Complaint Assessment: NSTEMI Unstable angina s/p RCA intervention PVD h/o CABG Smoker DM HTN Anemia s/p 2 units of blood since admit Left metatarsal amputation 2 weks ago on wound vac CRI Plan: Monitor hgb Transfusion Pain control Prognosis guarded Wound vac Diagnosis/Problems Diagnosis/Problems (1) S/P right coronary artery (RCA) stent placement (2) PVD (peripheral vascular disease) (3) Smoker (4) Hx of CABG (5) Homelessness (6) NSTEMI (non-ST elevated myocardial infarction) Status: Acute (7) Acute MD (8) Anemia (9) Transfusion of blood during current hospitalization (10) History of amputation of toe Clinical Quality Measures AMI/AHF: ASA po Prior to arrival: Yes (324) SANDRA MA DO Sep 01, 2019 10:16 POS
--- NOTE | 2019-09-01 11:00 | NUR ---
CALL RECEIVED FROM RADIOLOGIST WITH CT RESULTS. RESULTS CALLED TO DR GALE AT 1110.
--- NOTE | 2019-09-01 11:05 | Progress Note - Cardiology ---
Cardiology SOAP Progress Note Subjective: No cp or palp or syncope or shortness of breath or groin discomfort No N/V/D Objective: I&O/Vital Signs 09/01/19 09/01/19 09/01/19 09/01/19 00:20 01:00 03:35 06:30 Temp 35.5 35.9 36.0 Pulse 61 56 59 60 Resp 14 14 18 B/P (MAP) 112/70 (84) 114/72 (86) 100/64 (76) Pulse Ox 98 96 97 O2 Delivery Room Air Room Air Room Air 09/01/19 09/01/19 09/01/19 09/01/19 06:30 06:42 06:45 06:45 Temp 36.0 36.4 36.4 Pulse 60 60 66 66 Resp 18 16 16 B/P (MAP) 100/64 101/65 101/65 (77) Pulse Ox 97 94 94 O2 Delivery Room Air Room Air Room Air 09/01/19 09/01/19 09/01/19 09/01/19 07:00 07:00 08:00 08:06 Temp 36.2 36.2 36.0 Pulse 60 60 71 Resp 14 14 18 B/P (MAP) 104/68 (80) 104/68 138/79 (98) Pulse Ox 94 95 98 O2 Delivery Room Air Room Air Room Air Room Air 09/01/19 09/01/19 09/01/19 09:45 10:51 11:06 Temp 36.3 35.9 35.9 Pulse 65 64 63 Resp 16 B/P (MAP) 136/84 148/88 149/101 Pulse Ox 96 97 O2 Delivery Room Air Room Air 09/01/19 00:00 Intake Total 1030 ml Output Total 900 ml Balance 130 ml Constitutional: AAO x 3, well-developed, well-nourished Respiratory: No accessory muscle use; other (good bilat air entry) Cardiovascular: regular rate-rhythm, S1 and S2, systolic murmur (faint HARISH at card base) Gastrointestional: No tender; soft; No guarding, No rebound; audible bowel sounds Extremities: other (mild, bilateral leg edema; amputated great toes on both sides; s/p amputation of R 2nd toe (under dressing, wound vac in place, not removed)); No clubbing, No cyanosis Neurologic/Psychiatric: oriented x 3, other (moves all limbs equally) Skin: No rash on exposed areas, No ulcerations on exposed areas; other (see above under Extremities exam) Results/Procedures: Labs Laboratory Tests 08/31/19 15:08: Hemoglobin 9.1#L, Hematocrit 29L 09/01/19 05:09: Hemoglobin 6.6#*L, Hematocrit 20*L, White Blood Count 15.6H, Red Blood Count 2.53L, Mean Corpuscular Volume 80, Mean Corpuscular Hemoglobin 26, Mean Corpuscular Hemoglobin Concent 33, Red Cell Distribution Width 16.4H, Platelet Count 269, Mean Platelet Volume 10.4, Sodium Level 136, Potassium Level 5.0, Chloride Level 109H, Carbon Dioxide Level 15L, Anion Gap 12, Blood Urea Nitrogen 32H, Creatinine 2.21H, Estimat Glomerular Filtration Rate 25, BUN/Creatinine Ratio 14, Glucose Level 156H, Calcium Level 7.3L, Corrected Calcium 8.8, Total Bilirubin 0.1, Aspartate Amino Transf (AST/SGOT) 14, Alanine Aminotransferase (ALT/SGPT) 10, Alkaline Phosphatase 94, Total Protein 5.0L, Albumin 2.1L, Triglycerides Level 141, Cholesterol Level 114, LDL Cholesterol Direct 67, VLDL Cholesterol 28, HDL Cholesterol 29L, Thyroid Stimulating Hormone (TSH) 2.39 09/01/19 06:05: Hemoglobin 6.3*L, Hematocrit 19*L Microbiology 08/31/19 Influenza Types A,B Antigen (JEN) - Final, Complete A/P: Assessment: ETHEL - 3 on CKD - 3. ETHEL likely due to contrast nephropathy. CKD likely due to diabetic nephropathy Large L pelvic hematoma post card cath on 08/31/19 Acute blood loss anemia on top of svere chronic anemia of undetermined etiology Ac NSTEMI and continuing unstable angina treated with PCI on 08/31/19 (see below) CAD with multiple coronary interventions at different centers (pt unaware of or unwilling to provide details). She states today that she had CABG in [place], [place], has had PCIs, too, but does not know any details Card cath on 08/31/19: Proximally occluded LAD, patent QIU to LAD, mod stenoses of the LCX, extensively stented RCA with 80% instent (culprit) to which successful balloon angioplasty was carried out, LVEF 40%, global hypokinesis ( more in the inf wall) Echo on 09/01/19: LVEF 40-45%, global hypokinesis (more prominent in the midseptal wall), mild to mod MR & TR, mild AI, RVSP 37 mmHg DM II Amputations for diabetic, gangrenous toes: both great toes and R 2nd toe PAD. Has had stents in leg arteries, but does not know any details Hypertension S/p bilateral tubal ligation. Urine test performed toda (01/29/19) is negative for Plan: * Very complex management due to multiple comorbidities * D/c Plavix: had only balloon angioplasty yesterday and has had a large hematoma and anemia requiring transfusions * D/c lisinopril and spironolactone due renal failure and K at upper end of [place] * Blood transfusion as needed * Monitor closely Clinical Quality Measures AMI/AHF: ASA po Prior to arrival: Yes (324) LEILANI GALE MD FACP FAC CCDS Sep 01, 2019 11:05 POS
--- NOTE | 2019-09-01 11:12 | Diagnostic Imaging Report ---
PROCEDURE: CT abdomen and pelvis without contrast. TECHNIQUE: Multiple contiguous axial images were obtained through the abdomen and pelvis without the use of intravenous contrast. Auto Exposure Controls were utilized during the CT exam to meet ALARA standards for radiation dose reduction. INDICATION: Anemia, post catheterization. Extraperitoneal pelvic hematoma on the left is present blood products are ventral to the partly opacified and largely decompressed urinary bladder along the space of Retzius. In axial plane the largest area of the hematoma is roughly 15 cm by AP thickness or depth of 5 cm. It extends from the pelvic floor terminating below the level of the umbilicus. There is some diffuse integumentary edema and an abnormal persistent retention of contrast media within the unobstructed renal cortices suggestive of a tubular dysfunction, correlate with renal function studies. No ileus or bowel obstruction. The patient has bilateral pleural effusions nonloculated, slightly greater right layering to a maximal depth of 3.2 cm with dependent bibasilar zones of atelectasis. Tiny stones versus vicarious excretion of contrast into the dependent gallbladder. The gallbladder nondilated. There is no bile duct dilatation. The adrenals, pancreas and spleen are unremarkable. Osseous structures nonacute. IMPRESSION: Moderate sized extraperitoneal pelvic hematoma. Abnormal persistent retention of contrast within the renal cortical parenchyma without obstruction suggestive of acute tubular dysfunction. Nonloculated pleural effusions and basilar atelectasis. Questionable cholelithiasis. Results phoned to the inpatient nurse. Dictated by: Dictated on workstation # [id number]
--- NOTE | 2019-09-01 12:26 | NUR ---
PRESSURE APPLIED TO LEFT GROIN BY ALAN FROM NETWORK ENGINEER ADMINISTRATOR PER DR BALJINDER MACDONALD.
[2019-09-01 15:14] LABS: HEMOGLOBIN 12.9 G/DL (11.5-16.0); MEAN PLATELET VOLUME 10.2 FL (7.4-10.4); RED CELL DISTRIBUTION WIDTH 17.8 % (10.0-14.5); WHITE BLOOD COUNT 17.3 10^3/uL (4.3-11.0)
[2019-09-01 15:31] LABS: CALCIUM 7.7 MG/DL (8.5-10.1); POTASSIUM 5.5 MMOL/L (3.6-5.0)
[2019-09-01 15:58] LABS: CREATININE SERUM 2.46 MG/DL (0.60-1.30)
[2019-09-01] MEDS ORDERED: SOD POLYSTYRENE 30 GM/120 ML (KAYEXALATE) BULK BOTTLE PR NR (17:00)
[2019-09-01] MEDS ORDERED: SOD POLYSTERENE 15 GM/60 ML (KAYEXALATE) UNIT DOSE PR NR (17:15)
[2019-09-01] MEDS: SODIUM BICARBONATE 8.4% VIAL 100 MEQ in 1/2 NS IV SOLUTION 1,000 ML IV SCH (18:09)
[2019-09-01] MEDS: NITROGLYCERIN 0.4 MG SL TABS BTL 25'S SL PRN (19:57)
[2019-09-01] MEDS: traZODone 100 MG (DESYREL) TAB PO SCH (20:08)
--- NOTE | 2019-09-01 20:25 | NUR ---
CALLED DR. GALE AND INFORMED HIM THAT PATIENT WAS C/O OF CHEST PAIN. NITRO X2 ADMINISTERED WITH NO RELIEF. EKG OBTAINED WITH NO SIGNIFICANT CHANGE FROM PREVIOUS EKG. REPORTED BP OF 156/98 WITH HR OF 69. RECEIVED ORDER FOR MORPHINE 2MG Q 2 FOR CHEST PAIN.
[2019-09-01] MEDS ORDERED: morphine INJ 4 MG/ML 1 ML (VIAL/SYRINGE) IVP PRN ×2 (20:30→20:45)
[2019-09-01 21:06] LABS: BASOPHILS % (AUTO) 0 % (0-10); EOSINOPHILS % (AUTO) 0 % (0-10); HEMATOCRIT 39 % (35-52); HEMOGLOBIN 13.2 G/DL (11.5-16.0); LYMPHOCYTES # (AUTO) 3.9 X 10^3 (1.0-4.0); LYMPHOCYTES % (AUTO) 26 % (12-44); MEAN CORPUSCULAR HEMOGLOBIN 27 PG (25-34); MEAN CORPUSCULAR HGB CONC 34 G/DL (32-36); MEAN CORPUSCULAR VOLUME 80 FL (80-99); MEAN PLATELET VOLUME 10.4 FL (7.4-10.4); MONOCYTES # (AUTO) 1.2 X 10^3 (0.0-1.0); MONOCYTES % (AUTO) 8 % (0-12); NEUTROPHILS # (AUTO) 9.7 X 10^3 (1.8-7.8); NEUTROPHILS % (AUTO) 66 % (42-75); PLATELET COUNT 249 10^3/uL (130-400); RED CELL DISTRIBUTION WIDTH 16.8 % (10.0-14.5); WHITE BLOOD COUNT 14.8 10^3/uL (4.3-11.0)
[2019-09-01 21:30] LABS: CALCIUM 7.6 MG/DL (8.5-10.1); CREATININE SERUM 2.48 MG/DL (0.60-1.30); POTASSIUM 4.6 MMOL/L (3.6-5.0)
--- NOTE | 2019-09-01 21:55 | NUR ---
CALLED DR. GALE AND INFORMED HIM OF 2044 LAB VALUES INCLUDING BUN/CREAT, POTASSIUM AND CO2. ALSO INFORMED HIM THAT PATIENT IS CURRENTLY SLEEPING AND CHEST PAIN APPEARS IMPROVED. NO NEW ORDERS AT THIS TIME.
[2019-09-02] VITALS (9 sets, daily range): BP systolic 145–177; BP diastolic 90–121
--- NOTE | 2019-09-02 00:30 | NUR ---
CALLED DR. GALE AND INFORMED HIM THAT PATIENT'S CURRENT BLOOD PRESSURE IS 177/113, HEART RATE IS 67. RECEIVED ORDER FOR NORVASC 5MG X1, RECHECK BLOOD PRESSURE IN 2 HOURS AND THEN GIVE AN ADDITIONAL 5 MG NORVASC IF SYSTOLIC PRESSURE IS ABOVE 170.
[2019-09-02] MEDS ORDERED: amLODIPine 5 MG (NORVASC) TAB PO ONE (01:00)
[2019-09-02] MEDS: HYDROcodone/APAP 5 MG/325 MG (LORTAB) TAB PO PRN ×3 (01:15→20:32)
[2019-09-02] MEDS: SODIUM BICARBONATE 8.4% VIAL 100 MEQ in 1/2 NS IV SOLUTION 1,000 ML IV SCH ×3 (01:26→19:21)
[2019-09-02 05:22] LABS: CALCIUM 7.6 MG/DL (8.5-10.1); CREATININE SERUM 2.29 MG/DL (0.60-1.30); POTASSIUM 4.6 MMOL/L (3.6-5.0)
[2019-09-02 05:30] LABS: BASOPHILS % (AUTO) 0 % (0-10); EOSINOPHILS % (AUTO) 1 % (0-10); HEMATOCRIT 39 % (35-52); HEMOGLOBIN 13.3 G/DL (11.5-16.0); LYMPHOCYTES # (AUTO) 4.8 X 10^3 (1.0-4.0); LYMPHOCYTES % (AUTO) 32 % (12-44); MEAN CORPUSCULAR HEMOGLOBIN 28 PG (25-34); MEAN CORPUSCULAR HGB CONC 4 G/DL (32-36); MEAN CORPUSCULAR VOLUME 81 FL (80-99); MEAN PLATELET VOLUME 10.1 FL (7.4-10.4); MONOCYTES # (AUTO) 1.3 X 10^3 (0.0-1.0); MONOCYTES % (AUTO) 9 % (0-12); NEUTROPHILS # (AUTO) 8.9 X 10^3 (1.8-7.8); NEUTROPHILS % (AUTO) 59 % (42-75); PLATELET COUNT 206 10^3/uL (130-400); WHITE BLOOD COUNT 15.2 10^3/uL (4.3-11.0)
[2019-09-02 05:31] LABS: BASOPHILS # (AUTO) 0.1 10^3/uL (0.0-0.1); EOSINOPHILS # (AUTO) 0.1 10^3/uL (0.0-0.3)
[2019-09-02 05:46] LABS: ANISOCYTOSIS MARKED; BAND NEUTROPHILS 0 %; BASOPHILS % (MANUAL) 0 %; EOSINOPHILS % (MANUAL) 1 %; LYMPHOCYTES % (MANUAL) 29 %; MONOCYTES % (MANUAL) 4 %; NEUTROPHILS % (MANUAL) 66 %; POLYCHROMASIA SLIGHT
[2019-09-02] MEDS: ASPIRIN 81 MG CHEW (CHILDREN'S ASA) PO SCH (08:17)
[2019-09-02] MEDS: meTOproloL SUCCINATE 50 MG (TOPROL XL) TAB PO SCH (08:17)
[2019-09-02] MEDS: GABAPENTIN 600 MG (NEURONTIN) TAB PO SCH ×3 (08:17→20:32)
--- NOTE | 2019-09-02 08:28 | Progress Note - Cardiology ---
Cardiology SOAP Progress Note Subjective: Vague chest discomfort last night responsive only to narcotic analgesic No cp this am No palp or syncope or shortness of breath No abd pain or leg pain Objective: I&O/Vital Signs 09/02/19 09/02/19 09/02/19 09/02/19 00:00 01:00 03:15 04:00 Temp 36.2 35.6 Pulse 67 78 81 Resp 16 18 B/P (MAP) 177/113 (134) 162/99 (120) 164/114 (131) Pulse Ox 95 97 O2 Delivery Room Air Room Air 09/01/19 23:59 Intake Total 1788 ml Output Total 200 ml Balance 1588 ml Constitutional: AAO x 3, well-developed, well-nourished Respiratory: No accessory muscle use; other (good bilat air entry) Cardiovascular: regular rate-rhythm, S1 and S2, systolic murmur (faint HARISH at card base) Gastrointestional: No tender; soft; No guarding, No rebound; audible bowel sounds Extremities: other (mild, bilateral leg edema; amputated great toes on both sides; s/p amputation of R 2nd toe (under dressing, wound vac in place, not removed)); No clubbing, No cyanosis Neurologic/Psychiatric: oriented x 3, other (moves all limbs equally) Skin: No rash on exposed areas, No ulcerations on exposed areas; other (see above under Extremities exam) Results/Procedures: Labs Laboratory Tests 09/01/19 12:05: Glucometer 169H 09/01/19 15:05: White Blood Count 17.3H, Red Blood Count 4.75, Hemoglobin 12.9#, Hematocrit 39, Mean Corpuscular Volume 82, Mean Corpuscular Hemoglobin 27, Mean Corpuscular Hemoglobin Concent 33, Red Cell Distribution Width 17.8H, Platelet Count 270, Mean Platelet Volume 10.2, Sodium Level 135, Potassium Level 5.5H, Chloride L evel 109H, Carbon Dioxide Level 12L, Anion Gap 14, Blood Urea Nitrogen 39H, Creatinine 2.46H, Estimat Glomerular Filtration Rate 22, BUN/Creatinine Ratio 16, Glucose Level 181H, Calcium Level 7.7L 09/01/19 16:11: Glucometer 184H 09/01/19 20:33: Glucometer 170H 09/01/19 20:55: White Blood Count 14.8H, Red Blood Count 4.82, Hemoglobin 13.2, Hematocrit 39, Mean Corpuscular Volume 80, Mean Corpuscular Hemoglobin 27, Mean Corpuscular Hemoglobin Concent 34, Red Cell Distribution Width 16.8H, Platelet Count 249, Mean Platelet Volume 10.4, Neutrophils (%) (Auto) 66, Lymphocytes (%) (Auto) 26, Monocytes (%) (Auto) 8, Eosinophils (%) (Auto) 0, Basophils (%) (Auto) 0, Neutrophils # (Auto) 9.7H, Lymphocytes # (Auto) 3.9, Monocytes # (Auto) 1.2H, Eosinophils # (Auto) 0.0, Basophils # (Auto) 0.0, Sodium Level 137, Potassium Level 4.6, Chloride Level 108H, Carbon Dioxide Level 16L, Anion Gap 13, Blood Urea Nitrogen 42H, Creatinine 2.48H, Estimat Glomerular Filtration Rate 22, BUN/Creatinine Ratio 17, Glucose Level 149H, Calcium Level 7.6L 09/02/19 04:03: White Blood Count 15.2H, Red Blood Count 4.80, Hemoglobin 13.3, Hematocrit 39, Mean Corpuscular Volume 81, Mean Corpuscular Hemoglobin 28, Mean Corpuscular Hemoglobin Concent 4L, Red Cell Distribution Width 17.0H, Platelet Count 206, Mean Platelet Volume 10.1, Neutrophils (%) (Auto) 59, Lymphocytes (%) (Auto) 32, Monocytes (%) (Auto) 9, Eosinophils (%) (Auto) 1, Basophils (%) (Auto) 0, Neutrophils # (Auto) 8.9H, Lymphocytes # (Auto) 4.8H, Monocytes # (Auto) 1.3H, Eosinophils # (Auto) 0.1, Basophils # (Auto) 0.1, Sodium Level 139, Potassium Level 4.6, Chloride Level 110H, Carbon Dioxide Level 16L, Anion Gap 13, Blood Urea Nitrogen 41H, Creatinine 2.29H, Estimat Glomerular Filtration Rate 24, BUN/Creatinine Ratio 18, Glucose Level 114H, Calcium Level 7.6L, Neutrophils % (Manual) 66, Lymphocytes % (Manual) 29, Monocytes % (Manual) 4, Eosinophils % (Manual) 1, Basophils % (Manual) 0, Band Neutrophils 0, Polychromasia SLIGHT, Anisocytosis MARKED Microbiology 08/31/19 Influenza Types A,B Antigen (JEN) - Final, Complete Laboratory Tests 08/31/19 09:05 08/31/19 15:08 09/01/19 05:09 09/01/19 06:05 09/01/19 15:05 09/01/19 20:55 09/02/19 04:03 A/P: Assessment: ETHEL - 3 on CKD - 3. ETHEL likely due to contrast nephropathy. CKD likely due to diabetic nephropathy Large L pelvic hematoma post card cath on 08/31/19 Acute blood loss anemia on top of svere chronic anemia of undetermined etiology Ac NSTEMI and continuing unstable angina treated with PCI on 08/31/19 (see below) CAD with multiple coronary interventions at different centers (pt unaware of or unwilling to provide details). She states today that she had CABG in [place], [place], has had PCIs, too, but does not know any details Card cath on 08/31/19: Proximally occluded LAD, patent QIU to LAD, mod stenoses of the LCX, extensively stented RCA with 80% instent (culprit) to which successful balloon angioplasty was carried out, LVEF 40%, global hypokinesis (more in the inf wall) Echo on 09/01/19: LVEF 40-45%, global hypokinesis (more prominent in the midseptal wall), mild to mod MR & TR, mild AI, RVSP 37 mmHg DM II Amputations for diabetic, gangrenous toes: both great toes and R 2nd toe PAD. Has had stents in leg arteries, but does not know any details Hypertension S/p bilateral tubal ligation. Urine test performed toda (01/29/19) is negative for Plan: * Very complex management due to multiple comorbidities * D/c Plavix: had only balloon angioplasty yesterday and has had a large hematoma and anemia requiring transfusions * D/c lisinopril and spironolactone due renal failure and K at upper end of normal * CBC appears stable now after transfusion * Renal function appears to have stabilized and shows mild improvement * Acidosis has improved * Monitor closely Clinical Quality Measures AMI/AHF: ASA po Prior to arrival: Yes (324) LEILANI GALE MD FACP FAC CCDS Sep 02, 2019 08:28
[2019-09-02] MEDS ORDERED: meTOproloL SUCCINATE 50 MG (TOPROL XL) TAB PO NR (08:30)
[2019-09-02] MEDS: amLODIPine 5 MG (NORVASC) TAB PO SCH (08:52)
--- NOTE | 2019-09-02 09:16 | Progress Note - Surgery ---
NICO CHEEMA MED STUDENT 09/02/19 0916: Subjective Date Seen by a Provider: Sep 02, 2019 Time Seen by a Provider: 08:30 Subjective/Events-last exam Ms. Faust reports feeling much improved today. Since she received transfusions she feels much less fatigued. The pain she reported in her LLQ and in her foot yesterday have both improved, are still present but do not bother her much. She reports having diarrhea with Kayexalate, none today. She was constipated before. She does report having chest pain yesterday that did not respond to nitro, but responded to morphine. No CP today. No signs of erythema or drainage around wound vac. Review of Systems General: No Chills, No Fatigue HEENT: No Sinus Congestion, No Sore Throat Pulmonary: No Dyspnea, No Cough Cardiovascular: Chest Pain; No: Palpitations, Lt Headedness Gastrointestinal: Abdominal Pain (LLQ), Diarrhea (none today), Constipation (none today); No: Nausea, Vomiting, Melena Genitourinary: No Dysuria, No Hematuria Neurological: No: Weakness, Numbness Objective Exam Vital Signs Date Time Temp Pulse Resp B/P (MAP) Pulse Ox O2 Delivery O2 Flow Rate FiO2 09/02/19 04:00 35.6 81 18 164/114 (131) 97 Room Air 09/02/19 03:15 162/99 (120) 09/02/19 01:00 78 09/02/19 00:00 36.2 67 16 177/113 (134) 95 Room Air 09/01/19 20:00 Room Air 09/01/19 20:00 36.4 66 16 169/116 (133) 100 Room Air 09/01/19 19:00 73 09/01/19 19:00 72 09/01/19 16:00 36.4 66 21 179/109 (132) 96 Room Air 09/01/19 15:59 36.4 67 18 169/119 (136) 96 09/01/19 15:58 36.4 67 18 169/119 96 Room Air 09/01/19 14:33 35.9 65 20 168/103 95 09/01/19 14:18 36.1 65 18 166/114 95 09/01/19 14:10 35.9 65 18 166/114 95 Room Air 09/01/19 13:35 36.1 69 18 150/109 96 Room Air 09/01/19 13:20 36.0 67 18 160/108 97 Room Air 09/01/19 12:50 72 09/01/19 12:36 36.0 72 18 160/99 99 Room Air 09/01/19 12:21 36.5 64 16 153/97 99 Room Air 09/01/19 11:42 35.9 65 16 149/101 (117) 97 Room Air 09/01/19 11:06 35.9 63 149/101 09/01/19 10:51 35.9 64 148/88 97 Room Air 09/01/19 09:45 36.3 65 16 136/84 96 Room Air I & O 09/02/19 07:00 Intake Total 2188 ml Output Total 1100 ml Balance 1088 ml Capillary Refill : NONE General Appearance: No Apparent Distress, Obese HEENT: PERRL/EOMI; No Pale Conjunctivae (L), No Pale Conjunctivae (R), No Scleral Icterus (L), No Scleral Icterus (R); Other (slight facial features swollen, improved today) Neck: Normal Inspection, Non Tender, Supple Respiratory: Lungs Clear, Normal Breath Sounds, No Accessory Muscle Use, No Respiratory Distress Cardiovascular: Regular Rate, Rhythm, No Edema, No Murmur, Normal Peripheral Pulses Peripheral Pulses: 0 Dorsalis Pedis (R) (2+ posterior tibial pulse); 2+ Left Dors-Pedis (L), 2+ Radial Pulses (R), 2+ Radial Pulses (L) Gastrointestinal: soft, tenderness (LLQ) Extremity: Non Tender, No Calf Tenderness, Pedal Edema (BLE edema, improving), Other (wound VAC in place over her right foot from previous forefoot amputation) Neurologic/Psychiatric: Alert, Oriented x3, Normal Mood/Affect Skin: Normal Color, Warm/Dry Lymphatic: No Adenopathy Results Lab Laboratory Tests 09/01/19 12:05: Glucometer 169H 09/01/19 15:05: White Blood Count 17.3H, Red Blood Count 4.75, Hemoglobin 12.9#, Hematocrit 39, Mean Corpuscular Volume 82, Mean Corpuscular Hemoglobin 27, Mean Corpuscular Hemoglobin Concent 33, Red Cell Distribution Width 17.8H, Platelet Count 270, Mean Platelet Volume 10.2, Sodium Level 135, Potassium Level 5.5H, Chloride Level 109H, Carbon Dioxide Level 12L, Anion Gap 14, Blood Urea Nitrogen 39H, Creatinine 2.46H, Estimat Glomerular Filtration Rate 22, BUN/Creatinine Ratio 16, Glucose Level 181H, Calcium Level 7.7L 09/01/19 16:11: Glucometer 184H 09/01/19 20:33: Glucometer 170H 09/01/19 20:55: White Blood Count 14.8H, Red Blood Count 4.82, Hemoglobin 13.2, Hematocrit 39, Mean Corpuscular Volume 80, Mean Corpuscular Hemoglobin 27, Mean Corpuscular Hemoglobin Concent 34, Red Cell Distribution Width 16.8H, Platelet Count 249, Mean Platelet Volume 10.4, Neutrophils (%) (Auto) 66, Lymphocytes (%) (Auto) 26, Monocytes (%) (Auto) 8, Eosinophils (%) (Auto) 0, Basophils (%) (Auto) 0, Neutrophils # (Auto) 9.7H, Lymphocytes # (Auto) 3.9, Monocytes # (Auto) 1.2H, Eosinophils # (Auto) 0.0, Basophils # (Auto) 0.0, Sodium Level 137, Potassium Level 4.6, Chloride Level 108H, Carbon Dioxide Level 16L, Anion Gap 13, Blood Urea Nitrogen 42H, Creatinine 2.48H, Estimat Glomerular Filtration Rate 22, BUN/Creatinine Ratio 17, Glucose Level 149H, Calcium Level 7.6L 09/02/19 04:03: White Blood Count 15.2H, Red Blood Count 4.80, Hemoglobin 13.3, Hematocrit 39, Mean Corpuscular Volume 81, Mean Corpuscular Hemoglobin 28, Mean Corpuscular Hemoglobin Concent 4L, Red Cell Distribution Width 17.0H, Platelet Count 206, Mean Platelet Volume 10.1, Neutrophils (%) (Auto) 59, Lymphocytes (%) (Auto) 32, Monocytes (%) (Auto) 9, Eosinophils (%) (Auto) 1, Basophils (%) (Auto) 0, Neutrophils # (Auto) 8.9H, Lymphocytes # (Auto) 4.8H, Monocytes # (Auto) 1.3H, Eosinophils # (Auto) 0.1, Basophils # (Auto) 0.1, Sodium Level 139, Potassium Level 4.6, Chloride Level 110H, Carbon Dioxide Level 16L, Anion Gap 13, Blood Urea Nitrogen 41H, Creatinine 2.29H, Estimat Glomerular Filtration Rate 24, BUN/Creatinine Ratio 18, Glucose Level 114H, Calcium Level 7.6L, Neutrophils % (Manual) 66, Lymphocytes % (Manual) 29, Monocytes % (Manual) 4, Eosinophils % (Manual) 1, Basophils % (Manual) 0, Band Neutrophils 0, Polychromasia SLIGHT, Anisocytosis MARKED Microbiology 08/31/19 Influenza Types A,B Antigen (JEN) - Final, Complete Assessment/Plan Assessment/Plan Assessment/Plan s/p right forefoot partial amputation w/ woundvac extraperitoneal pelvic hematoma with anemia NSTEMI PVD DM Wound vac in place for partial amputation, wound care nurse following for wound vac changes. Has undergone several transfusions, hgb and hct in normal range, monitor for anemia Clinical Quality Measures AMI/AHF: ASA po Prior to arrival: Yes (324) TITI PARSONS DO 09/03/19 1213: Subjective Subjective/Events-last exam Feeling better. Less swelling. No issues with right foot. No abdominal discomfort. Denies n/v fever sweats chills shortness of breath or chest pain. Objective Exam General Appearance: No Apparent Distress HEENT: PERRL/EOMI, Other (slight facial features swollen, improved today) Neck: Non Tender, Supple Respiratory: Chest Non Tender, No Accessory Muscle Use, No Respiratory Distress Cardiovascular: Regular Rate, Rhythm Gastrointestinal: soft, tenderness (LLQ minimal) Extremity: Other (wound VAC in place over her right foot from previous parital forefoot amputation) Neurologic/Psychiatric: Alert, Oriented x3, Normal Mood/Affect Skin: Normal Color, Warm/Dry Lymphatic: No Adenopathy Assessment/Plan Assessment/Plan Assessment/Plan s/p right forefoot partial amputation w/ woundvac extraperitoneal pelvic hematoma with anemia NSTEMI PVD DM wound vac in place no issues will change tomorrow anemia replace prbc prn pelivc hematoma should resolve on its own. will follow. Supervisory-Addendum Brief Verification & Attestation Participated in pt care: history, MDM, physical Personally performed: exam, history, MDM, supervision of care Care discussed with: Medical Student Procedures: n/a Results interpretation: Verified all documentation Verification and Attestation of Medical Student E/M Service A medical student performed and documented this service in my presence. I reviewed and verified all information documented by the medical student and made modifications to such information, when appropriate. I personally performed the physical exam and medical decision making. Titi Parsons, Sep 02, 2019,17:13 NICO CHEEMA MED STUDENT Sep 02, 2019 09:16 TITI PARSONS DO Sep 03, 2019 12:13
--- NOTE | 2019-09-02 10:11 | Progress Note - Hospitalist ---
Subjective HPI/CC On Admission Date Seen by Provider: Sep 02, 2019 Time Seen by Provider: 09:00 CC: Severe anemia HPI: This is a 34yoWF with a history of severe comorbidities that was at the crisis long term and was admitted for altered mental status, underwent cardiac catheterization due to history of bypass surgery with elevated troponin and currently she is having significant difficulties with managing organ system function. She did lose some blood from the cardiac cath, left pressure bag was placed on the femoral region and at this current time pt appears to be very fatigued. We will initiate Fentanyl 50 micrograms IV Q3hrs and provide supportive care. She is homeless. Subjective/Events-last exam Pt doing very well Cardiology stated that she will be ready to go home tomorrow Will initiate PT and OT She has her own portable wound vac for her left foot Bowels are moving Hgb now completely normal after blood Review of Systems General: Fatigue Objective Exam Vital Signs Vital Signs Date Time Temp Pulse Resp B/P (MAP) Pulse Ox O2 Delivery O2 Flow Rate FiO2 09/02/19 20:00 36.8 69 16 154/96 (115) 94 Room Air 08/31/19 12:21 3.00 Capillary Refill : NONE General Appearance: No Apparent Distress, WD/WN, Chronically ill Respiratory: Lungs Clear, Normal Breath Sounds Cardiovascular: Regular Rate, Rhythm Neurologic/Psychiatric: Alert, Oriented x3, No Motor/Sensory Deficits, Normal Mood/Affect Results/Procedures Lab Laboratory Tests 09/01/19 20:55 09/02/19 04:03 Patient resulted labs reviewed. Assessment/Plan Assessment and Plan Assess & Plan/Chief Complaint Assessment: NSTEMI Unstable angina s/p RCA intervention PVD h/o CABG Smoker DM HTN Anemia s/p 2 units of blood since admit Left metatarsal amputation 2 weeks ago on wound vac CRI Plan: DC PT/OT Monitor closely Diagnosis/Problems Diagnosis/Problems (1) S/P right coronary artery (RCA) stent placement (2) PVD (peripheral vascular disease) (3) Smoker (4) Hx of CABG (5) Homelessness (6) NSTEMI (non-ST elevated myocardial infarction) Status: Acute (7) Acute [place] (8) Anemia (9) Transfusion of blood during current hospitalization (10) History of amputation of toe Clinical Quality Measures AMI/AHF: ASA po Prior to arrival: Yes (324) SANDRA MA DO Sep 02, 2019 10:11
--- NOTE | 2019-09-02 11:38 | Physical Therapy Evaluation ---
PT Evaluation-General Medical Diagnosis Admission Date Aug 31, 2019 at 08:50 Medical Diagnosis: acute NSTEMI s/p cath Onset Date: Aug 31, 2019 Therapy Diagnosis Therapy Diagnosis: none Precautions Precautions/Isolations: Standard Precautions Weight Bear Status Right Lower Extremity: Right Partial Weight Bearing Left Lower Extremity: Left Full Weight Bearing Pt unable to recall specific weight bearing precautions s/p toe amputation. Reports she has been WB since discharge for amputation. Has post-op shoe but states she hasn't always worn it. 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 Dx acute NSTEMI with continuing unstable angina, s/p cath with balloon angioplasty Reviewed History: Yes Social History Home: Single Level Current Living Status: Spouse Entry Into Home: Stairs Without Railing PT Steps Into Home: 20 Prior Prior Level of Function SCALE: Activities may be completed with or without assistive devices. 9-Zpzbpenobw-lfrgoak completes the activity by him/herself with no assistance from a helper. 5-Set-up or Clean-up Assistance-helper sets up or cleans up; patient completes activity. [place] assists only prior to or following the activity. 4-Supervision or Touching Assistance-helper provides verbal cues and/or touching/steadying and/or contact guard assistance as patient completes activity. Assistance may be provided throughout the activity or intermittently. 3-Partial/Moderate Assistance-helper does LESS THAN HALF the effort. [place] lifts, holds or supports trunk or limbs, but provides less than half the effort. 2-Substantial/Maximal Assistance-helper does MORE THAN HALF the effort. [place] lifts or holds trunk or limbs and provides more than half the effort. 4-Tldmoghhu-venqxe does ALL the effort. Patient does none of the effort to complete the activity. Or, the assistance of 2 or more helpers is required for the patient to complete the activity. If activity was not attempted, code reason: 7-Patient Refused. 9-Not Applicable-not attempted and the patient did not perform the activity before the current illness, exacerbation or injury. 10-Not Attempted due to Environmental Limitations-(lack of equipment, weather restraints, etc.). 88-Not Attempted due to Medical Conditions or Safety Concerns. Bed Mobility: 6 Transfers (B,C,W/C): 6 Gait: 6 Stairs: 3 Wheelchair Mobility: 9 Indoor Mobility (Ambulation): Independent Stairs: Needed Some Help (Just since toe amputation) Prior Devices Use: None Pt reports that prior to toe amputation she was (I). Since toe amputation she reports (I) in the home, no AD, WBAT (R). assisting with flight of stairs at entry with no issues. PT Evaluation-Current Subjective Pt in bed, agreeable. Reports that she has been up to BR with nursing assist with IV. Reports her LE are swollen "due to a reaction to the dye used and my legs just feel so heavy. It's going down, just not as fast as I would like". Pt declined to ambulate farther due to this but states she feels she is near her PLOF prior to this admission. Pt/Family Goals Home Objective Patient Orientation: Person, Place, Time, Situation Attachments: Other-See Comments (wound vac), IV ROM/Strength ROM Upper Extremities See OT ROM Lower Extremities WFL for mobility Strength Upper Extremities See OT Strength Lower Extremities grossly WFL for mobility Integumentary/Posture Integumentary See nurses' notes Sensory Vision: Functional Hearing: Functional Transfers Roll Left to Right (QC): 6 Sit to Lying (QC): 6 Lying to Sitting/Side of Bed(Q: 6 Sit to Stand (QC): 6 Chair/Zhd-wd-Tylhv Xfer(QC): 5 Car Transfer (QC): 10 Gait Mode of Locomotion: Walk Anticipated Mode of Locomotion: Walk Walk 10 feet (QC): 6 Walk 50 ft with 2 Turns(QC): 7 Walk 150 ft (QC): 7 Walking 10ft/uneven surface-QC: 7 Distance: 20 Gait Assistive Device: None Comments/Gait Description Pt ambulated to/from BR in room without AD. Safe gait, no safety concerns. Wheelchair Training Does the Pt Use a Wheelchair?: No Wheel 50 ft with 2 turns (QC): 9 Wheel 150 ft (QC): 99 Type of Wheelchair: Manual Stairs 1 Step (curb) (QC): 7 4 Steps (QC): 7 12 Steps (QC): 7 Balance Sitting Static: Normal Sitting Dynamic: Normal Standing Static: Good Standing Dynamic: Good Picking up an Object (QC): 6 Treatment Eval. Pt requested up to chair with all needs met. Assessment/Needs Pt is a 34 y.o. female who is mod (I) with functional mobility within the room, no safety concerns. Pt reports she is near PLOF s/p (R) toe amputation as she was limiting ambulation secondary to this. Encouraged Pt to utilize post-op shoe and WB through heel to allow good seal on wound vac and promote healing, verbalized understanding. At this time, skilled PT intervention is not indicated. Rehab Potential: Good PT Half-Way Goals Half-Way Goals PT Fish Cake Maker Goals Time Frame: Sep 02, 2019 Roll Left & Right (QC): 6 Sit to Lying (QC): 6 Lying-Sitting on Side/Bed(QC): 6 Sit to Stand (QC): 6 Chair/Pqw-rg-Xwgro Xfer(QC): 6 Toilet Transfer (QC): 6 Car Transfer (QC): 6 Does the Patient Walk: Yes Walk 10 feet (QC): 6 Walk 50ft with 2 Turns (QC): 9 Walk 150 ft (QC): 9 Walking 10ft on Uneven Surface: 9 1 Step (curb) (QC): 3 4 Steps (QC): 3 12 Steps (QC): 3 Picking up an Object (QC): 6 Does the Pt use WC or Scooter?: No Type: N/A Type: N/A PT goals met this date. Pt reports she is at PLOF s/p (R) toe amputation as spouse was assisting with stairs and she was limiting herself to household mobility to/from BR. PT Plan Problem List Problem List: Gait (limited by recent (R) toe amputation) Treatment/Plan Treatment Plan: Discontinue PT Treatment Duration: Sep 02, 2019 Frequency: 1 time per week Estimated Hrs Per Day: .25 hour per day Patient and/or Family Agrees t: Yes Pt reports at PLOF s/p (R) toe amputation, agreeable to PT discharge at this time as skilled intervention is not indicated. Safety Risks/Education Patient Education: Gait Training Teaching Recipient: Patient Teaching Methods: Discussion Response to Teaching: Verbalize Understanding Discussed use of post-op shoe (issued previously) and WB through heel to promote healing, good seal on wound vac. Discharge Recommendations Therapy Discharge Recommendati: Home & Family Time/GCodes Time In: 1055 Time Out: 1109 Total Billed Treatment Time: 14 Total Billed Treatment 1, ESHA HUNTER DPT Sep 02, 2019 11:38
--- NOTE | 2019-09-02 12:56 | Occupational Therapy Eval ---
OT Evaluation-General/PLF Medical Diagnosis Admission Date Aug 31, 2019 at 08:50 Medical Diagnosis: acute NSTEMI s/p cath Onset Date: Aug 31, 2019 Therapy Diagnosis Therapy Diagnosis: Decreased ADL abilities Precautions Precautions/Isolations: Standard Precautions Weight Bear Status Weight Bearing Restriction: Partial Weight Bearing Location Restriction: R LE Referral Physician: Mari Escudero Reason: Activity Tolerance, Self Care, Evaluation/Treatment, Strengthening/ROM Medical History Pertinent Medical History: CABG, CAD, DM, HTN Additional Medical History toe amputation 09/03, HTN, PVD, NIDDM, unstable angina, CABG (3 vessel), [place], anemia, 3 toe amputation (2 RLE, 1 LLE), high cholesterol Reviewed History: Yes Social History Home: Single Level Current Living Status: Spouse Entry Into Home: Stairs Without Railing Steps Into Home: 20 ADL-Prior Level of Function SCALE: Activities may be completed with or without assistive devices. 3-Yjzdixqqbf-ljstklk completes the activity by him/herself with no assistance from a helper. 5-Set-up or Clean-up Assistance-helper sets up or cleans up; patient completes activity. [place] assists only prior to or following the activity. 4-Supervision or Touching Assistance-helper provides verbal cues and/or touching/steadying and/or contact guard assistance as patient completes activity. Assistance may be provided throughout the activity or intermittently. 3-Partial/Moderate Assistance-helper does LESS THAN HALF the effort. [place] lifts, holds or supports trunk or limbs, but provides less than half the effort. 2-Substantial/Maximal Assistance-helper does MORE THAN HALF the effort. [place] lifts or holds trunk or limbs and provides more than half the effort. 5-Cqmrtswwo-tqemfg does ALL the effort. Patient does none of the effort to complete the activity. Or, the assistance of 2 or more helpers is required for the patient to complete the activity. If activity was not attempted, code reason: 7-Patient Refused. 9-Not Applicable-not attempted and the patient did not perform the activity before the current illness, exacerbation or injury. 10-Not Attempted due to Environmental Limitations-(lack of equipment, weather restraints, etc.). 88-Not Attempted due to Medical Conditions or Safety Concerns. ADL PLOF Comments Pt states IND with ADL abilities with use of single point cane. Self Care: Independent Functional Cognition: Independent DME/Equipment: Tub/Shower Occupation: disabled Drive Self: No Leisure Interests: TV OT Current Status Subjective Pt seen in recliner, alert/ awake. Pt's vitals being assessed by nursing educator, pt on phone. Pt agreeable to OT eval. Pt denies pain, states more "pressure" in LE. Mental Status/Objective Patient Orientation: Person, Place, Situation, Normal For Age Attachments: IV, Telemetry, Other-See Comments (wound vac) Current Glasses/Contacts: Yes Hearing Aids: No Dentures/Partials: No Hand Dominance: Right Upper Extremity ROM WFL BUE Upper Extremity Coordination WFL BUE Upper Extremity Sensation WFL BUE Upper Extremity Strength WFL BUE ADL-Treatment Eating (QC): 6 Oral Hygiene (QC): 7 Shower/Bathe Self (QC): 7 Upper Body Dressing (QC): 7 Lower Body Dressing (QC): 6 (Per pt) On/Off Footwear (QC): 6 (Per pt) Toileting Hygiene (QC): 6 (Per pt, pt has been taking self to bathroom and hygiene with IND.) Toilet Transfer (QC): 6 (with use of FWW) Other Treatments Pt seen in recliner, BP: 160/100, 65 BPM, 98% O2. Pt states she was having chest pain and came into EMS. Pt completed R toe amputation last week, wound vac in place. Pt states limbs feel "heavy," pitting edema to proximal thigh, non-p itting distal calf. Pt denies taking socks off, states minimal pain but "bloated" but would be able to with increased time. Pt describes home lay-out as apartment with ~20 stairs to get into home, assists pt with functional mobility and safety outside of home. Pt states she does not complete IADLs, but is IND with ADLs with cane. Pt states she is excited both children are being adopted, states is "very good to (her)." and that there was "stuff" that went on that lead her to [facility]. Pt plans to d/c to home with , states main concern is swelling but states is home throughout the day as he is disabled as well. Pt states is physically capable of assisting pt if needed. OT recommends tub transfer bench and grab bars at toilet and shower. Pt educated of elevation of LE to decrease swelling, feet brought up with recliner chair; pt educated on alerting someone if feeling SOB/ chest pains. Pt states knowledge of doing so. Pt left in recliner chair, all needs met, call light in reach. Education OT Patient Education: Correct positioning, Modified ADL techniques, Progress toward Goal/Update tx plan, Safety issues Teaching Recipient: Patient Teaching Methods: Demonstration, Discussion Response to Teaching: Verbalize Understanding, Return Demonstration OT Make Up Artist Goals Make Up Artist Goals Time Frame: Sep 02, 2019 Eating (QC): 6 Oral Hygiene (QC): 7 Toileting Hygiene (QC): 6 Shower/Bathe Self (QC): 7 Upper Body Dressing (QC): 7 Lower Body Dressing (QC): 6 On/Off Footwear (QC): 6 1=Demonstrate adherence to instructed precautions during ADL tasks. 2=Patient will verbalize/demonstrate understanding of assistive devices/modifications for ADL. 3=Patient will improve strength/tolerance for activity to enable patient to perform ADL's. OT Education/Plan Problem List/Assessment Assessment: No Skilled OT Needs ID'd Discharge Recommendations Plan/Recommendations: Discharge/Goals Met Therapy Discharge Recommendati: Home & Family Equpiment Recommendations-D/C: Extended Bath Bench, Rails on Tub/Shower, Rails on Toilet Treatment Plan/Plan of Care Treatment,Training & Education: Yes Patient would benefit from OT for education, treatment and training to promote independence in ADL's, mobility, safety and/or upper extremity function for ADL's. Plan of Care: OTHER (eval only) Treatment Duration: Sep 02, 2019 Frequency: 1 time per week (eval only) Agreement: Yes Rehab Potential: Good Time/GCodes Start Time: 11:38 Stop Time: 11:54 Total Time Billed (hr/min): 16 Billed Treatment Time 1, LEONEL (16) RONALDO MICHEL OTR Sep 02, 2019 12:56
--- NOTE | 2019-09-02 15:58 | NUR ---
CM/SS: Visited with pt as to plan for discharge per consult. Plan: Pt is unclear about returning to the [facility] or returning to her home in [place], [place]. DME: Pt has a wound vac and at this time no other identified equipment Summary: Pt reports she is in recovering from having had toes removed at [facility], and heart procedure here at the hospital. Pt reports extensive heart history and medical issues. Pt reports having applied for Medicaid, however she has not been approved. Call to financial services, pt does not have medicaid. Pt reports having issues with transportation, she will need to get back to her home in [place] if she decides that. Pt reports no supports. [facility] ( [phone]) [facility] is contacted and pt is ok for them to come and talk with her about services or supports. Pt can return there if she should desire. Pt is unclear as to if she want to return home or return to [facility]. This worker talks with pt about safety and getting her medical needs met. Pt is tearful and shares that having all of these health issues is difficult and can put stress on relationships. Pt feels as if things will be better between her and spouse. Spouse is identified as being on disability and having some mental health issues. Pt is encouraged to get into some mental health services and also establish a primary care physician. This worker will follow up and determine where pt has decided to go.
[2019-09-02] MEDS: traZODone 100 MG (DESYREL) TAB PO SCH (20:32)
[2019-09-03 03:18] VITALS: BP 157/100
[2019-09-03] MEDS: HYDROcodone/APAP 5 MG/325 MG (LORTAB) TAB PO PRN (04:12)
[2019-09-03 05:43] LABS: CALCIUM 7.5 MG/DL (8.5-10.1); CREATININE SERUM 1.81 MG/DL (0.60-1.30); MAGNESIUM 1.5 MG/DL (1.6-2.4); POTASSIUM 4.1 MMOL/L (3.6-5.0)
[2019-09-03 06:11] LABS: BASOPHILS % (AUTO) 0 % (0-10); EOSINOPHILS # (AUTO) 0.3 10^3/uL (0.0-0.3); EOSINOPHILS % (AUTO) 3 % (0-10); HEMATOCRIT 39 % (35-52); HEMOGLOBIN 12.9 G/DL (11.5-16.0); LYMPHOCYTES # (AUTO) 3.4 X 10^3 (1.0-4.0); LYMPHOCYTES % (AUTO) 26 % (12-44); MEAN CORPUSCULAR HEMOGLOBIN 27 PG (25-34); MEAN CORPUSCULAR HGB CONC 33 G/DL (32-36); MEAN CORPUSCULAR VOLUME 82 FL (80-99); MEAN PLATELET VOLUME 10.3 FL (7.4-10.4); MONOCYTES # (AUTO) 1.1 X 10^3 (0.0-1.0); MONOCYTES % (AUTO) 9 % (0-12); NEUTROPHILS % (AUTO) 62 % (42-75); PLATELET COUNT 209 10^3/uL (130-400); RED CELL DISTRIBUTION WIDTH 17.7 % (10.0-14.5); WHITE BLOOD COUNT 12.8 10^3/uL (4.3-11.0)
--- NOTE | 2019-09-03 07:00 | Progress Note - Surgery ---
NICO CHEEMA MED STUDENT 09/03/19 0700: Subjective Date Seen by a Provider: Sep 03, 2019 Time Seen by a Provider: 06:10 Subjective/Events-last exam Ms. Faust reports feeling improved today, and that she may go home today. Her swelling has improved, and she denies having any pain in her foot. The woundvac on her forefoot does not have any erythema or drainage. She denies feeling fatigued like she did before while anemic, and denies any LLQ pain at rest. Review of Systems General: No Chills, No Fatigue HEENT: No Sinus Congestion, No Sore Throat Pulmonary: No Dyspnea, No Cough Cardiovascular: No: Chest Pain, Lt Headedness Gastrointestinal: No: Nausea, Abdominal Pain, Diarrhea, Constipation, Melena Genitourinary: No Dysuria, No Hematuria Neurological: No: Weakness, Numbness Objective Exam Vital Signs Date Time Temp Pulse Resp B/P (MAP) Pulse Ox O2 Delivery O2 Flow Rate FiO2 09/03/19 03:18 36.9 66 16 157/100 (119) 96 Room Air 09/03/19 01:00 60 09/02/19 23:44 36.0 60 18 145/90 (108) 93 Room Air 09/02/19 20:00 Room Air 09/02/19 20:00 36.8 69 16 154/96 (115) 94 Room Air 09/02/19 19:00 73 09/02/19 15:17 35.5 65 20 160/96 (117) 100 Room Air 09/02/19 12:48 67 09/02/19 12:00 36.2 83 20 158/98 (118) 98 Room Air 09/02/19 08:00 36.5 77 18 165/121 (136) 98 Room Air 09/02/19 08:00 Room Air I & O 09/03/19 07:00 Intake Total 1480 ml Output Total 1775 ml Balance -295 ml Capillary Refill : NONE General Appearance: No Apparent Distress, WD/WN, Chronically ill HEENT: PERRL/EOMI; No Pale Conjunctivae (L), No Pale Conjunctivae (R), No Scleral Icterus (L), No Scleral Icterus (R); Other (slight facial features swollen, improved today) Neck: Normal Inspection, Non Tender, Supple Respiratory: Lungs Clear, Normal Breath Sounds, No Accessory Muscle Use, No Respiratory Distress Cardiovascular: Regular Rate, Rhythm, No Murmur, Normal Peripheral Pulses Peripheral Pulses: 0 Dorsalis Pedis (R) (2+ posterior tibial pulse); 2+ Left Dors-Pedis (L), 2+ Radial Pulses (R), 2+ Radial Pulses (L) Gastrointestinal: normal bowel sounds, soft, tenderness (LLQ) Extremity: Non Tender, No Calf Tenderness, Pedal Edema (BLE edema), Other (wound VAC in place over her right foot from previous forefoot amputation) Neurologic/Psychiatric: Alert, Oriented x3, No Motor/Sensory Deficits, Normal Mood/Affect Skin: Normal Color, Warm/Dry Results Lab Laboratory Tests 09/02/19 11:36: Glucometer 115H 09/02/19 15:37: Glucometer 138H 09/02/19 20:38: Glucometer 147H 09/03/19 04:12: Sodium Level 139, Potassium Level 4.1, Chloride Level 110H, Carbon Dioxide Level 15L, Anion Gap 14, Blood Urea Nitrogen 39H, Creatinine 1.81H, Estimat Glomerular Filtration Rate 32, BUN/Creatinine Ratio 22, Glucose Level 153H, Calcium Level 7.5L, Magnesium Level 1.5L 09/03/19 05:34: White Blood Count 12.8H, Red Blood Count 4.77, Hemoglobin 12.9, Hematocrit 39, Mean Corpuscular Volume 82, Mean Corpuscular Hemoglobin 27, Mean Corpuscular Hemoglobin Concent 33, Red Cell Distribution Width 17.7H, Platelet Count 209, Me an Platelet Volume 10.3, Neutrophils (%) (Auto) 62, Lymphocytes (%) (Auto) 26, Monocytes (%) (Auto) 9, Eosinophils (%) (Auto) 3, Basophils (%) (Auto) 0, Neutrophils # (Auto) 8.0H, Lymphocytes # (Auto) 3.4, Monocytes # (Auto) 1.1H, Eosinophils # (Auto) 0.3, Basophils # (Auto) 0.0 09/03/19 05:41: Glucometer 191H Microbiology 08/31/19 Influenza Types A,B Antigen (JEN) - Final, Complete Assessment/Plan Assessment/Plan Assessment/Plan s/p right forefoot partial amputation w/ woundvac extraperitoneal pelvic hematoma with anemia NSTEMI PVD DM Wound vac in place for partial amputation, wound care nurse following for wound vac changes. Wound vac looks fine as it is today, and patient denies any issues, continue to monitor. Hgb and Hct in normal range and about the same as the past several days, much improved from prior anemia. She denies having any bruising in her LLQ. Continue to monitor for anemia. Clinical Quality Measures AMI/AHF: ASA po Prior to arrival: Yes (324) TITI PARSONS DO 09/03/19 1220: Subjective Subjective/Events-last exam Feeling well. No issues or complaints at this time. Denies n/v fever sweats chills shortness of breath or chest pain at this time. No issues with wound vac. Objective Exam General Appearance: No Apparent Distress Neck: Normal Inspection, Non Tender Respiratory: Chest Non Tender, No Accessory Muscle Use, No Respiratory Distress Cardiovascular: Regular Rate, Rhythm Gastrointestinal: non tender, soft; No tenderness Extremity: Non Tender, Other (wound right foot clean good granulation tissue) Neurologic/Psychiatric: Alert, Oriented x3, No Motor/Sensory Deficits, Normal Mood/Affect Skin: Normal Color, Warm/Dry Lymphatic: No Adenopathy Assessment/Plan Assessment/Plan Assessment/Plan s/p right forefoot partial amputation w/ woundvac extraperitoneal pelvic hematoma with anemia NSTEMI PVD DM anemia stable wound vac changed today at bedside, continue follow up with her wound care dr outpatient will sign off call if needed. Supervisory-Addendum Brief Verification & Attestation Participated in pt care: history, MDM, physical Personally performed: exam, history, MDM, supervision of care Care discussed with: Medical Student Procedures: n/a Results interpretation: Verified all documentation Verification and Attestation of Medical Student E/M Service A medical student performed and documented this service in my presence. I reviewed and verified all information documented by the medical student and made modifications to such information, when appropriate. I personally performed the physical exam and medical decision making. Titi Parsons, Sep 03, 2019,12:20 NICO CHEEMA MED STUDENT Sep 03, 2019 07:00 TITI PARSONS DO Sep 03, 2019 12:20
[2019-09-03 08:00] VITALS: BP 158/95
--- NOTE | 2019-09-03 08:53 | Progress Note - Cardiology ---
Cardiology SOAP Progress Note Subjective: Sitting up in bed. States she feels much better today. No c/o CP, palpitations. C/O gen fatigue. Wants to go home. Objective: I&O/Vital Signs 09/02/19 09/03/19 09/03/19 09/03/19 23:44 01:00 03:18 07:00 Temp 36.0 36.9 Pulse 60 60 66 74 Resp 18 16 B/P (MAP) 145/90 (108) 157/100 (119) Pulse Ox 93 96 O2 Delivery Room Air Room Air 09/03/19 00:00 Intake Total 1280 ml Output Total 875 ml Balance 405 ml Constitutional: AAO x 3, well-developed, well-nourished Respiratory: No accessory muscle use; other (good bilat air entry) Cardiovascular: regular rate-rhythm, S1 and S2, systolic murmur (faint HARISH at card base) Gastrointestional: No tender; soft; No guarding, No rebound; audible bowel sounds Extremities: other (mild, bilateral leg edema; amputated great toes on both sides; s/p amputation of R 2nd toe (under dressing, wound vac in place, not removed)); No clubbing, No cyanosis Neurologic/Psychiatric: oriented x 3, other (moves all limbs equally) Skin: No rash on exposed areas, No ulcerations on exposed areas; other (see above under Extremities exam) Results/Procedures: Labs Laboratory Tests 09/02/19 11:36: Glucometer 115H 09/02/19 15:37: Glucometer 138H 09/02/19 20:38: Glucometer 147H 09/03/19 04:12: Sodium Level 139, Potassium Level 4.1, Chloride Level 110H, Carbon Dioxide Level 15L, Anion Gap 14, Blood Urea Nitrogen 39H, Creatinine 1.81H, Estimat Glomerular Filtration Rate 32, BUN/Creatinine Ratio 22, Glucose Level 153H, Calcium Level 7.5L, Magnesium Level 1.5L 09/03/19 05:34: White Blood Count 12.8H, Red Blood Count 4.77, Hemoglobin 12.9, Hematocrit 39, Mean Corpuscular Volume 82, Mean Corpuscular Hemoglobin 27, Mean Corpuscular Hemoglobin Concent 33, Red Cell Distribution Width 17.7H, Platelet Count 209, Mean Platelet Volume 10.3, Neutrophils (%) (Auto) 62, Lymphocytes (%) (Auto) 26, Monocytes (%) (Auto) 9, Eosinophils (%) (Auto) 3, Basophils (%) (Auto) 0, Neutrophils # (Auto) 8.0H, Lymphocytes # (Auto) 3.4, Monocytes # (Auto) 1.1H, Eosinophils # (Auto) 0.3, Basophils # (Auto) 0.0 09/03/19 05:41: Glucometer 191H Microbiology 08/31/19 Influenza Types A,B Antigen (JEN) - Final, Complete A/P: Assessment: ETHEL - 3 on CKD - 3. ETHEL likely due to contrast nephropathy. CKD likely due to diabetic nephropathy - renal function improved Large L pelvic hematoma post card cath on 08/31/19 Acute blood loss anemia on top of svere chronic anemia of undetermined etiology - H/H stable Ac NSTEMI and continuing unstable angina treated with PCI on 08/31/19 (see below) CAD with multiple coronary interventions at different centers (pt unaware of or unwilling to provide details). She states today that she had CABG in [place], [place], has had PCIs, too, but does not know any details Card cath on 08/31/19: Proximally occluded LAD, patent QIU to LAD, mod stenoses of the LCX, extensively stented RCA with 80% instent (culprit) to which successful balloon angioplasty was carried out, LVEF 40%, global hypokinesis (more in the inf wall) Echo on 09/01/19: LVEF 40-45%, global hypokinesis (more prominent in the midseptal wall), mild to mod MR & TR, mild AI, RVSP 37 mmHg DM II Amputations for diabetic, gangrenous toes: both great toes and R 2nd toe Peripheral angio of Aug 21, [address] Mcgovern at [facility] showed widely patent aorta. Angioplasty of the deep femoral artery, stenting of the external iliac and common femoral and SFA with a total of 3 stents, 2 of which were drug-eluting (7 x 140 drug eluting Zilver PTX proximally followed by a 6 x 140 Zilver PTX in the mid to distal SFA and an 8 x 150 Innova stent from the common iliac artery down into the distal common femoral artery) PAD. Has had stents in leg arteries, but does not know any details Hypertension S/p bilateral tubal ligation. Urine test performed (01/29/19) is negative for Plan: * Very complex management due to multiple comorbidities * D/c Plavix: had only balloon angioplasty and has had a large hematoma and anemia requiring transfusions * BP not well controlled - BB increased * CBC appears stable now after transfusion * Renal function appears to have stabilized and shows continued improvement * hosted services analyst has been to see to eval for in home needs * Discharge today - she wishes to f/u with Dr. Mcgovern of [facility] - advise appt in 2 weeks. She wishes to f/u with Yanick Nicholas APRN of [facility] - advise f/u in one week. * Discharge meds to [facility] Clinical Quality Measures AMI/AHF: ASA po Prior to arrival: Yes (324) EVERT HERRMANN Sep 03, 2019 08:53
[2019-09-03] MEDS ORDERED: meTOprolol SUCCINATE 100 MG (TOPROL XL) TAB PO SCH (09:00)
--- NOTE | 2019-09-03 09:28 | NUR ---
CM/SS: Visited with pt about discharge plan per consult Plan: Pt plans to return to her home in [place], [place] Summary: Pt reports that she talked with [facility] staff (Shellie [phone]) and they are willing and able to provide transportation to her back to her home in [place], [place]. [facility] has also given her some resources to help pt in her current situation with spouse. This worker will follow up and arrange transportation upon discharge.
[2019-09-03] MEDS ORDERED: AMLO5TAB9 PO (09:36)
[2019-09-03] MEDS ORDERED: METO-395 PO (09:36)
[2019-09-03] MEDS ORDERED: ASPI-999 PO (09:36)
[2019-09-03] MEDS ORDERED: ATOR80TA76 PO (09:36)
--- NOTE | 2019-09-03 09:38 | Discharge Inst-Cardiology ---
Discharge Inst-Cardiac Discharge Medications New Medications: Amlodipine Besylate (Amlodipine Besylate) 5 Mg Tablet 5 MG PO DAILY, #20 TAB 1 Refill Aspirin (Aspirin) 81 Mg Tab.chew 81 MG PO DAILY, #30 TAB 1 Refill Atorvastatin Calcium (Atorvastatin Calcium) 80 Mg Tablet 80 MG PO HS, #30 TAB 1 Refill Metoprolol Succinate (Metoprolol Succinate) 100 Mg Tab.er.24h 100 MG PO DAILY, #30 TAB 1 Refill Continued Medications: Gabapentin (Gabapentin) 600 Mg Tablet 600 MG PO TID, TAB LAST FILLED #90 07-02-19 Promethazine HCl (Promethazine Tablet) 25 Mg Tablet 25 MG PO Q8H PRN for NAUSEA/VOMITING-2ND LINE, TAB Discontinued Medications: Aspirin (Aspirin EC) 81 Mg Tablet.dr 81 MG PO DAILY, TAB Isosorbide Mononitrate (Isosorbide Mononitrate ER) 30 Mg Tab.er.24h 30 MG PO DAILY, TAB LAST FILLED #30 07-02-19 New, Converted or Re-Newed RX: Transmitted to Pharmacy Patient Instructions Patient Instructions: Please schedule follow up appointment to see Dr. Mcgovern in 2 weeks Please schedule follow up appointment to see Svetlana Nicholas APRN in one week EVERT HERRMANN Sep 03, 2019 09:38
--- NOTE | 2019-09-03 10:02 | Progress Note - Hospitalist ---
Subjective HPI/CC On Admission Date Seen by Provider: Sep 03, 2019 Time Seen by Provider: 09:00 CC: Severe anemia HPI: This is a 34yoWF with a history of severe comorbidities that [facility] and was admitted for altered mental status, underwent cardiac catheterization due to history of bypass surgery with elevated troponin and currently she is having significant difficulties with managing organ system function. She did lose some blood from the cardiac cath, left pressure bag was placed on the femoral region and at this current time pt appears to be very fatigued. We will initiate Fentanyl 50 micrograms IV Q3hrs and provide supportive care. She is homeless. Subjective/Events-last exam Pt doing well. Will heplock IV fluid. Creatinine down to 1.8. Has a portable wound vac. Discharge today. Cardiology will have nurse arrange for follow up with Dr. Mcgovern since that is where she wants to go. [facility]. Review of Systems General: Fatigue Objective Exam Vital Signs Vital Signs Date Time Temp Pulse Resp B/P (MAP) Pulse Ox O2 Delivery O2 Flow Rate FiO2 09/03/19 12:29 36.2 71 18 158/95 94 Room Air 08/31/19 12:21 3.00 Capillary Refill : NONE General Appearance: No Apparent Distress, WD/WN, Chronically ill Respiratory: Lungs Clear Cardiovascular: Regular Rate, Rhythm Neurologic/Psychiatric: Alert, Oriented x3, No Motor/Sensory Deficits, Normal Mood/Affect Results/Procedures Lab Patient resulted labs reviewed. Assessment/Plan Assessment and Plan Assess & Plan/Chief Complaint Assessment: NSTEMI Unstable angina s/p RCA intervention PVD h/o CABG Smoker DM HTN Anemia s/p 2 units of blood since admit Left metatarsal amputation 2 weeks ago on wound vac CRI Plan: DC today PT/OT Monitor closely Diagnosis/Problems Diagnosis/Problems (1) S/P right coronary artery (RCA) stent placement (2) PVD (peripheral vascular disease) (3) Smoker (4) Hx of CABG (5) Homelessness (6) NSTEMI (non-ST elevated myocardial infarction) Status: Acute (7) Acute OK (8) Anemia (9) Transfusion of blood during current hospitalization (10) History of amputation of toe Clinical Quality Measures AMI/AHF: ASA po Prior to arrival: Yes (324) SANDRA MA DO Sep 03, 2019 10:02
[2019-09-03] MEDS: GABAPENTIN 600 MG (NEURONTIN) TAB PO SCH (10:28)
[2019-09-03] MEDS: amLODIPine 5 MG (NORVASC) TAB PO SCH (10:29)
[2019-09-03] MEDS: ASPIRIN 81 MG CHEW (CHILDREN'S ASA) PO SCH (10:29)
[2019-09-03 12:29] VITALS: BP 158/95
--- NOTE | 2019-09-03 17:42 | Progress Note - Cardiology ---
Cardiology SOAP Progress Note Subjective: No cp or palp or syncope or shortness of breath No weakness No groin or leg or abd pain No N/V Wishes to go home Objective: I&O/Vital Signs 09/03/19 09/03/19 09/03/19 09/03/19 07:00 08:00 08:15 12:29 Temp 36.2 36.2 Pulse 74 71 71 Resp 18 18 B/P (MAP) 158/95 (116) 158/95 Pulse Ox 94 94 O2 Delivery Room Air Room Air Room Air 09/03/19 00:00 Intake Total 1280 ml Output Total 875 ml Balance 405 ml Constitutional: AAO x 3, well-developed, well-nourished Respiratory: No accessory muscle use; other (good bilat air entry) Cardiovascular: regular rate-rhythm, S1 and S2, systolic murmur (faint HARISH at card base) Gastrointestional: No tender; soft; No guarding, No rebound; audible bowel sounds Extremities: other (mild, bilateral leg edema; amputated great toes on both sides; s/p amputation of R 2nd toe (under dressing, wound vac in place, not removed)); No clubbing, No cyanosis Neurologic/Psychiatric: oriented x 3, other (moves all limbs equally) Skin: No rash on exposed areas, No ulcerations on exposed areas; other (see above under Extremities exam) Results/Procedures: Labs Laboratory Tests 09/02/19 20:38: Glucometer 147H 09/03/19 04:12: Sodium Level 139, Potassium Level 4.1, Chloride Level 110H, Carbon Dioxide Level 15L, Anion Gap 14, Blood Urea Nitrogen 39H, Creatinine 1.81H, Estimat Glomerular Filtration Rate 32, BUN/Creatinine Ratio 22, Glucose Level 153H, Calcium Level 7.5L, Magnesium Level 1.5L 09/03/19 05:34: White Blood Count 12.8H, Red Blood Count 4.77, Hemoglobin 12.9, Hematocrit 39, Mean Corpuscular Volume 82, Mean Corpuscular Hemoglobin 27, Mean Corpuscular Hemoglobin Concent 33, Red Cell Distribution Width 17.7H, Platelet Count 209, Mean Platelet Volume 10.3, Neutrophils (%) (Auto) 62, Lymphocytes (%) (Auto) 26, Monocytes (%) (Auto) 9, Eosinophils (%) (Auto) 3, Basophils (%) (Auto) 0, Neutrophils # (Auto) 8.0H, Lymphocytes # (Auto) 3.4, Monocytes # (Auto) 1.1H, Eosinophils # (Auto) 0.3, Basophils # (Auto) 0.0 09/03/19 05:41: Glucometer 191H 09/03/19 11:16: Glucometer 147H Microbiology 08/31/19 Influenza Types A,B Antigen (JEN) - Final, Complete Laboratory Tests 09/01/19 20:55 09/02/19 04:03 09/03/19 04:12 09/03/19 05:34 A/P: Assessment: ETHEL - 3 on CKD - 3. ETHEL likely due to contrast nephropathy. CKD likely due to diabetic nephropathy. Renal function now much improved Large L pelvic hematoma post card cath on 08/31/19, stable Acute blood loss anemia on top of svere chronic anemia of undetermined etiology - H/H stable Ac NSTEMI and continuing unstable angina treated with PCI on 08/31/19 (see below) CAD with multiple coronary interventions at different centers (pt unaware of or unwilling to provide details). She states today that she had CABG in [place], [place], has had PCIs, too, but does not know any details Card cath on 08/31/19: Proximally occluded LAD, patent QIU to LAD, mod stenoses of the LCX, extensively stented RCA with 80% instent (culprit) to which successful balloon angioplasty was carried out, LVEF 40%, global hypokinesis (more in the inf wall) Echo on 09/01/19: LVEF 40-45%, global hypokinesis (more prominent in the mids eptal wall), mild to mod MR & TR, mild AI, RVSP 37 mmHg DM II Amputations for diabetic, gangrenous toes: both great toes and R 2nd toe Peripheral angio of Aug 21, [address] Mcgovern at [facility] showed widely patent aorta. Angioplasty of the deep femoral artery, stenting of the external iliac and common femoral and SFA with a total of 3 stents, 2 of which were drug-eluting (7 x 140 drug eluting Zilver PTX proximally followed by a 6 x 140 Zilver PTX in the mid to distal SFA and an 8 x 150 Innova stent from the common iliac artery down into the distal common femoral artery) Hypertension S/p bilateral tubal ligation. Urine test performed (01/29/19) is negative for Plan: * Very complex management due to multiple comorbidities * She insists on going home today * Reasons for d/c Plavix: had only balloon angioplasty and has had a large hematoma and anemia requiring transfusions * BP not well controlled - BB increased * CBC appears stable now after transfusion * Renal function appears to have stabilized and shows continued improvement * web services manager has been to see to eval for in home needs. We reviewed their plan * Discharge today - she wishes to f/u with Dr. Mcgovern of [facility] - advise appt in 2 weeks. She wishes to f/u with Yanick Nicholas APRN of [facility] - advise f/u in one week. * Discharge meds to [place], [place] * I had long and detailed discussion with her regarding her CV issues, i nterventions undertaken, and her multiple comorbidities. I advised compliance with meds and close outpt f/u with her physicians (see above) Clinical Quality Measures AMI/AHF: ASA po Prior to arrival: Yes (324) ELILANI GALE MD FACP FAC CCDS Sep 03, 2019 17:41
--- NOTE | 2019-09-03 17:45 | Cardiology Discharge Summary ---
Diagnosis/Chief Complaint Date of Admission Aug 31, 2019 at 08:50 Date of Discharge Sep 03, 2019 at 12:25 Final/Discharge Diagnosis ETHEL - 3 on CKD - 3. ETHEL likely due to contrast nephropathy. CKD likely due to diabetic nephropathy. Renal function now much improved Large L pelvic hematoma post card cath on 08/31/19, stable Acute blood loss anemia on top of svere chronic anemia of undetermined etiology - H/H stable Ac NSTEMI and continuing unstable angina treated with PCI on 08/31/19 (see below) CAD with multiple coronary interventions at different centers (pt unaware of or unwilling to provide details). She states today that she had CABG in [place], [place], has had PCIs, too, but does not know any details Card cath on 08/31/19: Proximally occluded LAD, patent QIU to LAD, mod stenoses of the LCX, extensively stented RCA with 80% instent (culprit) to which successful balloon angioplasty was carried out, LVEF 40%, global hypokinesis (more in the inf wall) Echo on 09/01/19: LVEF 40-45%, global hypokinesis (more prominent in the midseptal wall), mild to mod MR & TR, mild AI, RVSP 37 mmHg DM II Amputations for diabetic, gangrenous toes: both great toes and R 2nd toe Peripheral angio of Aug 21, [address] Mcgovern at [facility] showed wi antolin patent aorta. Angioplasty of the deep femoral artery, stenting of the external iliac and common femoral and SFA with a total of 3 stents, 2 of which were drug-eluting (7 x 140 drug eluting Zilver PTX proximally followed by a 6 x 140 Zilver PTX in the mid to distal SFA and an 8 x 150 Innova stent from the common iliac artery down into the distal common femoral artery) Hypertension S/p bilateral tubal ligation. Urine test performed (01/29/19) is negative for Chief Complaint/HPI Chief Complaint/HPI CC: Chest discomfort HPI: 34 yo woman with nearly 24 hours of chest discomfort, waxing and waning, but w/o complete resolution, varying from mild to severe, pressure-like, in the upper mid-chest, at times associated with diaphoresis, somewhat worse with activity, partially improved with NTG, experienced previously with previous myocardial infarctions, still ongoing. Has chronic exertional shortness of breath. Denies palp or syncope. Has had multiple toe amputations for diabetic gangrene. Does not report leg discomfort. Hospital course: Please refer to our progress note of today's date for hosp course and condition at discharge * Very complex management due to multiple comorbidities * She insists on going home today * Reasons for d/c Plavix: had only balloon angioplasty and has had a large hematoma and anemia requiring transfusions * BP not well controlled - BB increased * CBC appears stable now after transfusion * Renal function appears to have stabilized and shows continued improvement * financial services internship has been to see to eval for in home needs. We reviewed their plan * Discharge today - she wishes to f/u with Dr. Mcgovern of [facility] - advise appt in 2 weeks. She wishes to f/u with Yanick Nicholas APRN of [facility] - advise f/u in one week. * Discharge meds to [place], [place] * I had long and detailed discussion with her regarding her CV issues, interventions undertaken, and her multiple comorbidities. I advised compliance with meds and close outpt f/u with her physicians (see above) Time spent by us in seeing pt, evaluating her needs, answering questions, reviewing d/c plan, ordering meds: 09:15 - 09:50 Discharge Summary Procedures None. Hospital Course Pending Labs Laboratory Tests 09/03/19 11:16: Glucometer 147 Discussion & Recommendations Home Medications Reviewed patient Home Medication Reconciliation performed by pharmacy medication reconciliations all source intelligence technician and/or nursing. Patients Allergies have been reviewed. Discharge Home Medications: Reviewed and agree with Discharge Medication list on patient's Discharge Instruction sheet Clinical Quality Measures AMI/AHF: ASA po Prior to arrival: Yes ([phone]) LEILANI GALE MD FACP FACC CCDS Sep 03, 2019 17:45
== END 2019-09-03 12:25 | disposition home or self-care (01) | DRG 250 ==
LOC: ER 03:35 → ICU 08:50 → CSD 08:51
PROVIDERS: ADMIT Internal Medicine Cardiovascular Disease; ATTEND Internal Medicine Cardiovascular Disease
PROC: 02703ZZ Dilation of Coronary Artery, One Artery, Percutaneous Approach (ICD-10-PCS; principal; 2019-08-31)
PROC: 4A023N7 Measurement of Cardiac Sampling and Pressure, Left Heart, Percutaneous Approach (ICD-10-PCS; 2019-08-31)
PROC: B2111ZZ Fluoroscopy of Multiple Coronary Arteries using Low Osmolar Contrast (ICD-10-PCS; 2019-08-31)
PROC: B2151ZZ Fluoroscopy of Left Heart using Low Osmolar Contrast (ICD-10-PCS; 2019-08-31)
PROC: B3101ZZ Fluoroscopy of Thoracic Aorta using Low Osmolar Contrast (ICD-10-PCS; 2019-08-31)
DX: T82.855A Stenosis of coronary artery stent, initial encounter (principal); I21.4 Non-ST elevation (NSTEMI) myocardial infarction; I25.110 Atherosclerotic heart disease of native coronary artery with unstable angina pectoris; I42.9 Cardiomyopathy, unspecified; I97.630 Postprocedural hematoma of a circulatory system organ or structure following a cardiac catheterization; N17.9 Acute kidney failure, unspecified; D62 Acute posthemorrhagic anemia; I12.9 Hypertensive chronic kidney disease with stage 1 through stage 4 chronic kidney disease, or unspecified chronic kidney disease; N18.3 Chronic kidney disease, stage 3 (moderate); I70.201 Unspecified atherosclerosis of native arteries of extremities, right leg; E11.59 Type 2 diabetes mellitus with other circulatory complications; E11.40 Type 2 diabetes mellitus with diabetic neuropathy, unspecified; E11.22 Type 2 diabetes mellitus with diabetic chronic kidney disease; K59.00 Constipation, unspecified; E78.00 Pure hypercholesterolemia, unspecified; F17.210 Nicotine dependence, cigarettes, uncomplicated; Z79.4 Long term (current) use of insulin; Z95.828 Presence of other vascular implants and grafts; Z95.1 Presence of aortocoronary bypass graft; Z95.5 Presence of coronary angioplasty implant and graft; Z82.49 Family history of ischemic heart disease and other diseases of the circulatory system; Z89.411 Acquired absence of right great toe; Z89.412 Acquired absence of left great toe; Z89.421 Acquired absence of other right toe(s); Z59.0 Homelessness; T50.8X5A Adverse effect of diagnostic agents, initial encounter
CPT/HCPCS: 36415; 71045; 74176; 80048; 80053; 80061; 82962; 83735; 83874; 83880; 84443; 84484; 85007; 85014; 85018; 85025; 85027; 85379; 85610; 85730; 86850; 86900; 86901; 86920; 87804; 93005; 93041; 93306; 93459; 93567; 96365; 96375

== ENCOUNTER 2020-07-20 03:36 | Emergency (ER) | payer MEDICAID ==
[~2020-07-20] VITALS: Ht 162 cm; Wt 100.0 kg
[~2020-07-20 03:36] MED LIST: ACET-2840 PO; ACHD5005 PO; AMLO-250 PO; AMLO-251 PO; AMPI500C9 PO; ASPI-1238 PO; ASPI-999 PO; ATOR40TA70 PO; ATOR80TA76 PO; BENZ5.1G MM; BISA10SU58 RC; BLOO-625 MC; CALC500T64 PO; CARV3.12 PO; CARV6.252 PO; CITA20TA9 PO; CLOP75TA28 PO; CYAN-41 PO; DOCU100C37 PO; FERR325T18 PO; FOLI0.8C PO; FOLIC ACID PO; FURO40TA4 PO; GBPN600T PO; HYDR-3781 PO; HYDR-3923 PO; HYDR-3924 PO; HYDR-700 PO; INSU100I29 SQ; INSU100V16 SC; INSU100V5 SC; ISOS120T9 PO; ISOS30TA3 PO; LANC-659 MC; LANC1COM6 MC; LORA-405 PO; MELA3TAB39 PO; MTP100TCR PO; NF-SODBICA PO; NICO1PAT38 TD; ONDA4TAB11 PO; PANT40TA2 PO; PANT40TA52 PO; PATI8.4P PO; PROM25TA14 PO; ZOLP5TAB PO; [UNRECOGNIZED DRUG - CODE] MC
--- NOTE | 2020-07-20 03:40 | NUR ---
Pt arrives by EMS after falling while transferring to her w/c to get to the bathroom. Pt has a R. AKA from April. Rehab also has concerns about weight gain; pt has large, round and distended abdomen. Records indicate a 40lb weight gain since April. Pt is alert and oriented x 3 but appears sleepy. Nurse from rehab reports she had Ambien and Hydrocodone at midnight and fell at 0200.
[2020-07-20 03:54] LABS: BASOPHILS # (AUTO) 0.1 10^3/uL (0.0-0.1); BASOPHILS % (AUTO) 1 % (0-10); EOSINOPHILS # (AUTO) 0.3 10^3/uL (0.0-0.3); EOSINOPHILS % (AUTO) 4 % (0-10); HEMATOCRIT 29 % (35-52); HEMOGLOBIN 9.3 g/dL (11.5-16.0); LYMPHOCYTES # (AUTO) 1.8 10^3/uL (1.0-4.0); LYMPHOCYTES % (AUTO) 26 % (12-44); MEAN CORPUSCULAR HEMOGLOBIN 28 pg (25-34); MEAN CORPUSCULAR HGB CONC 32 g/dL (32-36); MEAN CORPUSCULAR VOLUME 87 fL (80-99); MEAN PLATELET VOLUME 10.8 fL (9.0-12.2); MONOCYTES # (AUTO) 0.7 10^3/uL (0.0-1.0); MONOCYTES % (AUTO) 9 % (0-12); NEUTROPHILS # (AUTO) 4.2 10^3/uL (1.8-7.8); NEUTROPHILS % (AUTO) 60 % (42-75); PLATELET COUNT 177 10^3/uL (130-400)
--- NOTE | 2020-07-20 03:58 | NUR ---
Pt to CT.
--- NOTE | 2020-07-20 04:01 | NUR ---
Rehab also reports significant weight gain since her admission. Reports she was taken off Lasix last wk.
[2020-07-20 04:03] LABS: ALBUMIN 3.1 GM/DL (3.2-4.5); POTASSIUM 5.4 MMOL/L (3.6-5.0)
[2020-07-20 04:04] LABS: CALCIUM 8.1 MG/DL (8.5-10.1)
[2020-07-20 04:05] LABS: TOTAL PROTEIN 6.7 GM/DL (6.4-8.2)
[2020-07-20 04:07] LABS: BILIRUBIN,TOTAL 0.3 MG/DL (0.1-1.0); INR 1.2 (0.8-1.4); PROTHROMBIN TIME PATIENT 15.9 SEC (12.2-14.7)
[2020-07-20 04:09] LABS: CREATININE SERUM 3.81 MG/DL (0.60-1.30)
--- NOTE | 2020-07-20 04:13 | NUR ---
Pt back from CT.
--- NOTE | 2020-07-20 04:31 | ED Fall/Injury ---
General Chief Complaint: Trauma-Non Activation Stated Complaint: FALL Nursing Triage Note: Pt fell trying to transfer to her w/c to use the restroom; pt is a new RAKA. Source: patient (VERY LIMITED HISTORIAN--FALLS ASLEEP MID-SENTENCE AND IS OTHERWISE IS VERY POOR HISTORIAN ABOUT PAST MEDICAL HISTORY ), EMS, care home records, old records (ALL PMH IS FROM OLD CHARTS) History of Present Illness Date Seen by Provider: Jul 20, 2020 Time Seen by Provider: 03:39 Initial Comments PT ARRIVES VIA EMS FROM [facility] PT HAD AN UNWITNESSED FALL JUST PRIOR TO ARRIVAL PT HAS HAD A RIGHT AKA IN MARCH OF THIS YEAR AT [place], AND USES A WHEELCHAIR FOR AMBULATION--DOES NOT HAVE A PROSTHETIC--GOT UP TO GO TO THE BATHROOM, USING HER WHEELCHAIR ( REPORTEDLY DID NOT CALL NURSING STAFF FOR ASSISTANCE) AND FELL AND HIT THE BACK OF HER HEAD ON THE WALL. DENIES LOSS OF CONSCIOUSNESS C/O PAIN TO BACK OF HEAD ALSO C/O NECK PAIN--CERVICAL COLLAR IMMEDIATELY PLACED ON ARRIVAL NO VISION CHANGES NO PARESTHESIAS OR MOTOR DEFICITS NO NAUSEA/VOMITING NO DIZZINESS PT IS ON ASPIRIN AND PLAVIX NO PRIOR HEAD INJURIES, OR SIGNIFICANT NECK INJURIES NO FEVER OR RECENT ILLNESS PT HAS CHRONIC RENAL FAILURE, NOT ON DIALYSIS. HAS FIRST APPOINTMENT WITH PLANNING OFFICIAL 08/02/20--AT [place] PT'S PIEDAD WAS DC'D A COUPLE OF WEEKS AGO AND HAS HAD A 40 # WEIGHT GAIN SINCE THE END OF APRIL, AND HAS GAINED 7# IN THE LAST WEEK HAS AN APPOINTMENT WITH DR. GALE TOMORROW. PT HAS HISTORY OF CAD WITH CABG AND STENTS AND ANGIOPLASTIES Location Injury Occurred: Head Allergies and Home Medications Allergies Coded Allergies: codeine (Verified Allergy, Unknown, has received Lortab and Hydromorphone in the past, 04/22/20) nalbuphine (Verified Allergy, Unknown, 08/31/19) tramadol (Verified Allergy, Unknown, 08/31/19) Uncoded Allergies: CONTRAST (Allergy, Unknown, 08/31/19) Home Medications Aspirin 81 Mg Tablet., 81 MG PO HS Prescribed by: SANDRA MA on 04/24/202037 Atorvastatin Calcium 40 Mg Tablet, 40 MG PO DAILY Prescribed by: SANDRA AM on 04/24/202037 Benzocaine/Menthol/Zinc Chlor 5.1 Gm Gel..gram., 1 APPLIC MM Q4H PRN for ORAL PAIN, (Reported) Bisacodyl 10 Mg Supp.rect, 10 MG RC DAILY PRN for CONSTIPATION-1ST LINE Prescribed by: SANDRA MA on 04/27/20 112 Carvedilol 6.25 Mg Tablet, 6.25 MG PO BID Prescribed by: SANDRA MA on 04/24/202037 Citalopram Hydrobromide 20 Mg Tablet, 20 MG PO DAILY Prescribed by: SANDRA MA on 04/24/202037 Clopidogrel Bisulfate 75 Mg Tablet, 75 MG PO DAILY Prescribed by: SANDRA MA on 04/24/202037 Cyanocobalamin (Vitamin B-12) 1,000 Mcg Tablet, 1,000 MCG PO DAILY Prescribed by: SANDRA MA on 04/24/202037 Docusate Sodium 100 Mg Capsule, 100 MG PO BID PRN for CONSTIPATION-1ST LINE Prescribed by: SANDRA MA on 04/24/202037 Ferrous Sulfate 325 Mg Tablet, 325 MG PO BID WITH MEALS Prescribed by: SANDRA MA on 04/24/202037 Folic Acid 0.8 Mg Capsule, 0.8 MG PO DAILY Prescribed by: SANDRA MA on 04/24/202037 Hydralazine HCl 50 Mg Tablet, 75 MG PO Q8H TAKES 1.5 OF A 50MG TAB Prescribed by: SANDRA MA on 04/24/202037 Hydrocodone/Acetaminophen 1 Each Tablet, 2 TAB PO Q4H PRN for PAIN-MODERATE (5- 7) Prescribed by: SANDRA MA on 04/24/202038 Hydroxyzine Pamoate 25 Mg Capsule, 25 MG PO TID PRN for ANXIETY Prescribed by: SANDRA MA on 04/24/202037 Insulin Detemir 100 Unit/1 Ml Insuln.pen, 10 UNIT SQ HS Prescribed by: SANDRA MA on 04/24/202037 Isosorbide Mononitrate 120 Mg Tab.er.24h, 120 MG PO DAILY Prescribed by: SANDRA MA on 04/24/202037 Lorazepam 1 Mg Tablet, 1 MG PO Q8H PRN for ANXIETY Prescribed by: SANDRA MA on 04/24/202038 Melatonin 3 Mg Tablet, 3 MG PO HS PRN for INSOMNIA Prescribed by: SANDRA MA on 04/24/202037 Nicotine 1 Each Patch.td24, 14 MG TD DAILY@0900 Prescribed by: SANDRA MA on 04/24/202037 Ondansetron 4 Mg Tab.rapdis, 4 MG PO Q6H PRN for NAUSEA/VOMITING-1ST LINE Prescribed by: SANDRA MA on 04/24/202037 Pantoprazole Sodium 40 Mg Tablet.dr, 40 MG PO DAILY Prescribed by: SANDRA MA on 04/24/202037 Patiromer Calcium Sorbitex 8.4 Gm Powd.pack, 8.4 GM PO DAILY, (Reported) Promethazine HCl 25 Mg Tablet, 25 MG PO Q8H PRN for NAUSEA/VOMITING-2ND LINE Prescribed by: SANDRA MA on 04/24/202037 Zolpidem Tartrate 5 Mg Tablet, 5 MG PO HS PRN for INSOMNIA Prescribed by: SANDRA MA on 04/24/202038 Patient Home Medication List Home Medication List Reviewed: Yes Review of Systems Review of Systems Constitutional: no symptoms reported Eyes: No Symptoms Reported Ears, Nose, Mouth, Throat: no symptoms reported Respiratory: no symptoms reported Cardiovascular: no symptoms reported Gastrointestinal: no symptoms reported Genitourinary: no symptoms reported Musculoskeletal: see HPI, neck pain Skin: no symptoms reported Psychiatric/Neurological: See HPI; Denies Numbness, Denies Paresthesia, Denies Seizure, Denies Tingling, Denies Weakness Past Flnqcry-Ugmevr-Tjglac Hx Past Med/Social Hx: Reviewed and Corrections made Patient Social History Alcohol Use: Occasionally Uses Recreational Drug Use: Yes (THC) Drug of Choice: THC Smoking Status: Former Smoker Type Used: Cigarettes 2nd Hand Smoke Exposure: Yes Recent Foreign Travel: No Contact w/Someone Who Travel: No Recent Infectious Disease Expo: No Recent Hopitalizations: Yes (toe amputation with wound vac 08/2019) Immunizations Up To Date Date of Pneumonia Vaccine: Jul 25, 2018 Seasonal Allergies Seasonal Allergies: No Past Medical History Surgeries: Yes (4 amputations (foot and toes, right ATK), 5 stents) Amputation, Section, Coronary Stent, Tonsillectomy Respiratory: No Cardiac: Yes (5 stents; NSTEMI 07/2019) Coronary Artery Disease, Heart Attack, High Cholesterol, Hypertension, Peripheral Vascular Neurological: Yes Neuropathy 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[employer] History: Hysterectomy, 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 Genitourinary: Yes (CKD) Bladder Infection, Renal Failure Gastrointestinal: Yes (CHRONIC NAUSEA/VOMITING) Irritable Bowel Musculoskeletal: Yes Amputee, Spasms Endocrine: Yes Diabetes, Non-Insulin dep HEENT: No Cancer: No Psychosocial: Yes Anxiety Integumentary: Yes (CHRONIC FOOT WOUNDS) Blood Disorders: Yes (ANEMIA) Adverse Reaction/Blood Tranf: No YES--MOST RECENT TRANSFUSION 04/2020 Family Medical History No Pertinent Family Hx SOCIAL HISTORY: -ETOH--OCCASIONAL USE, NO RECENT USE, PER PT 07/20/20 -DRUGS-+THC USE ( ALSO HX OF OPIATES AND BENZODIAZEPINE ABUSE) -SMOKED 1 PPD, QUIT 03/2020 PAST SURGICAL HISTORY: -CARDIAC CATHS--MULTIPLE STENTS PLUS ANGIOPLASTIES AT MULTIPLE FACILITIES--LAST CATH HERE 08/31/[address] GALE-- RCA ANGIOPLASTY -MULTIPLE CARDIAC AND PERIPHERAL INTERVENTIONS AT MULTIPLE FACILITIES--PERIPHERAL ANGIOGRAM AT [place] 08/21/2019--ANGIOPLASTY OF DEEP FEMORAL ARTERY, STENTS X 3 TO EXTERNAL ILIAC, COMMON FEMORAL AND SUPERFICIAL FEMORAL ARTERY -S/P 3 VESSEL CABG -RIGHT TOES AND PARTIAL FOOT AMPUTATIONS (MULTIPLE SURGERIES) , EVENTUALLY FOLLOWED BY RIGHT ABOVE THE KNEE AMPUTATION 03/27/20- AT [place] - -HYSTERECTOMY -BILATERAL TUBAL LIGATION -TONSILLECTOMY ADDITIONAL PAST MEDICAL HISTORY: -VENTRICULAR ARRHYTHMIA DURING DOBUTAMINE TEST -NSTEMI 07/2019 LONG HISTORY OF NON-COMPLIANCE HX OF HOMELESSNESS UNTIL ADMITTED TO [facility] AFTER LAST HOSPITALIZATION HX OF NARCOTIC AND BENZODIAZEPAM ABUSE Physical Exam Vital Signs Vital Signs - First Documented 07/20/20 03:40 Temp 35.9 Pulse 70 Resp 18 B/P (MAP) 107/73 (84) Pulse Ox 94 O2 Delivery Room Air Capillary Refill : Less Than 3 Seconds Height, Weight, BMI Height: '" Weight: lbs. oz. kg; 38.00 BMI Method: General Appearance: no apparent distress, obese, other (DROWSY AND FALLS ASLEEP MID SENTENCE. ) HEENT: PERRL/EOMI, TMs normal, other (PUPILS PIN POINT AND EQUAL. NO EXTERNAL EVIDENCE OF TRAUMA TO HEAD AND NO TENDERNESS TO HEAD) Neck: other (CERVICAL COLLAR APPLIED ON ADMIT) Cardiovascular: regular rate, rhythm, no murmur Respiratory: chest non-tender, normal breath sounds Gastrointestinal: non tender, distended, other (ABDOMEN IS MASSIVE AND VERY FIRM, AND APPEARS TO BE EDEMATOUS) Extremities: other (RIGHT AKA. LEFT LOWER LEG WITH 3+ EDEMA) Neurologic/Psychiatric: no motor/sensory deficits (GROSSLY INTACT. MOVES ALL EXTREMITIES), other (DROWSY, FALLS ASLEEP MID SENTENCE. VERY POOR MEMORY) Shereen Coma Score Best Eye Response: (4) Open Spontaneously Best Verbal Response: (5) Oriented Best Motor Response: (6) Obeys Commands [place] Total: 15 Progress/Results/Core Measures Results/Orders Lab Results Laboratory Tests Test 07/20/20 03:40 Range/Units White Blood Count 7.0 4.3-11.0 10^3/uL Red Blood Count 3.38 L 3.80-5.11 10^6/uL Hemoglobin 9.3 L 11.5-16.0 g/dL Hematocrit 29 L 35-52 % Mean Corpuscular Volume 87 80-99 fL Mean Corpuscular Hemoglobin 28 25-34 pg Mean Corpuscular Hemoglobin Concent 32 32-36 g/dL Red Cell Distribution Width 14.7 H 10.0-14.5 % Platelet Count 177 130-400 10^3/uL Mean Platelet Volume 10.8 9.0-12.2 fL Immature Granulocyte % (Auto) 1 % Neutrophils (%) (Auto) 60 42-75 % Lymphocytes (%) (Auto) 26 12-44 % Monocytes (%) (Auto) 9 0-12 % Eosinophils (%) (Auto) 4 0-10 % Basophils (%) (Auto) 1 0-10 % Neutrophils # (Auto) 4.2 1.8-7.8 10^3/uL Lymphocytes # (Auto) 1.8 1.0-4.0 10^3/uL Monocytes # (Auto) 0.7 0.0-1.0 10^3/uL Eosinophils # (Auto) 0.3 0.0-0.3 10^3/uL Basophils # (Auto) 0.1 0.0-0.1 10^3/uL Immature Granulocyte # (Auto) 0.0 0.0-0.1 10^3/uL Prothrombin Time 15.9 H 12.2-14.7 SEC INR Comment 1.2 0.8-1.4 Activated Partial Thromboplast Time 32 24-35 SEC Sodium Level 138 135-145 MMOL/L Potassium Level 5.4 H 3.6-5.0 MMOL/L Chloride Level 106 98-107 MMOL/L Carbon Dioxide Level 19 L 21-32 MMOL/L Anion Gap 13 5-14 MMOL/L Blood Urea Nitrogen 71 H 7-18 MG/DL Creatinine 3.81 H 0.60-1.30 MG/DL Estimat Glomerular Filtration Rate 13 BUN/Creatinine Ratio 19 Glucose Level 117 H 70-105 MG/DL Calcium Level 8.1 L 8.5-10.1 MG/DL Corrected Calcium 8.8 8.5-10.1 MG/DL Total Bilirubin 0.3 0.1-1.0 MG/DL Aspartate Amino Transf (AST/SGOT) 52 H 5-34 U/L Alanine Aminotransferase (ALT/SGPT) 45 0-55 U/L Alkaline Phosphatase 141 H 40-136 U/L Total Protein 6.7 6.4-8.2 GM/DL Albumin 3.1 L 3.2-4.5 GM/DL My Orders Orders - OPAL MORENO DO Ed Iv/Invasive Line Start (07/20/20 03:46) Monitor-Rhythm Ecg Trace Only (07/20/20 03:46) Ct Head/Cervical Spine Wo (07/20/20 03:46) Chest 1 View, Ap/Pa Only (07/20/20 03:46) Cbc With Automated Diff (07/20/20 03:46) Comprehensive Metabolic Panel (07/20/20 03:46) Protime With Inr (07/20/20 03:46) Partial Thromboplastin Time (07/20/20 03:46) Vital Signs/I&O 07/20/20 07/20/20 03:40 03:45 Temp 35.9 Pulse 70 64 Resp 18 18 B/P (MAP) 107/73 (84) 135/78 (97) Pulse Ox 94 96 O2 Delivery Room Air Room Air Blood Pressure Mean: 84 Progress Progress Note : Progress Note CERVICAL COLLAR IMMEDIATELY PLACED ON ARRIVAL LATER REMOVED AFTER RECEIVING CT OF CERVICAL SPINE RADIOLOGIST REPORT OF NO ACUTE PROCESS PT DOES NOT HAVE ANY NECK TENDERNESS. [facility] LATER REPORTS THAT PT DID HAVE AMBIEN AND HYDROCODONE AT BEDTIME TONIGHT SLEPT SOUNDLY THROUGH ENTIRE ER STAY. NO SNORING OR APNEA. O2 SATS NORMAL VITALS STABLE NO DETERIORATION IN PT'S CONDITION DURING ER STAY, AND PT HAD NO COMPLAINTS OF ANY KIND DURING ENTIRE ER STAY Diagnostic Imaging Comments CXR--NO ACUTE PROCESS, OVERLYING BREAST TISSUE--PENDING RADIOLOGIST REVIEW CT HEAD/CERVICAL SPINE--5 MM HYERDENSE AREA IN LEFT TEMPORAL LOBE--ARTIFACT VS SMALL INTRAPARENCHYMAL BLEED --SUSPECT SMALL HEMORRHAGIC CONTUSION.DUE TO PT BEING ON PLAVIX AND ASPIRIN. ADVISES REPEAT CT IN 6 HOURS. NO ACUTE ABNORMALITIES OF CERVICAL SPINE PER [facility] RADIOLOGIST VIA PHONE AT 0503 Reviewed: Reviewed by Dc Departure Communication (Admissions) 0512--SPOKE WITH DR. TAFOYA, TRAUMA SURGEON, ADVISES TRANSFER 0516--CALLED [place]. 0525--SPOKE WITH DR. MAYORGA, NEUROSURGEON, ACCEPTS PT FOR TRANSFER. 0527--SPOKE WITH DR. BLAND, ER PHYSICIAN, ACCEPTS PT FOR TRANSFER. 0614--EMS HERE FOR TRANSPORT Impression Primary Impression: S/P UNWITNESSED FALL Additional Impressions: Closed head injury without loss of consciousness Worsening body fluid retention WORSENING OF CHRONIC RENAL FAILURE PLAVIX AND ASPIRIN THERAPY IDDM (insulin dependent diabetes mellitus) INTRAPARENCHYMAL BLEED LEFT TEMPORAL LOBE Right above-knee amputee HX OF CAD WITH CABG, STENTS AND ANGIOPLASTIES HX OF SEVERE PERIPHERAL VASCULAR DISEASE Disposition: 02 XFER SHT-TRM HOSP Condition: Stable Transfer Transfer Reason: Exceeds level of care Transfer Facility: [place], [place] Method of Transfer: EMS Departure-Patient Inst. Referrals: FRANCI COLE APRN (PCP/Family) Primary Care Physician OPAL MORENO DO Jul 20, 2020 04:31
--- NOTE | 2020-07-20 05:15 | NUR ---
Pt will go to [facility]
--- NOTE | 2020-07-20 05:30 | NUR ---
Report to STEFANIE Landon called to [facility].
--- NOTE | 2020-07-20 06:15 | NUR ---
EMS here for patient transport; Report given and care assumed by EMS. Pt remains oriented when aroused by name.
[2020-07-20 06:30] VITALS: BP 115/83
--- NOTE | 2020-07-20 07:01 | Diagnostic Imaging Report ---
INDICATION: Fall. Comparison with 08/31/2019. FINDINGS: There is mild cardiomegaly with median sternotomy changes. The lungs are well-aerated and clear. No pneumothorax or pleural effusion. IMPRESSION: Cardiomegaly without evidence of pulmonary edema. The interstitial infiltrates noted previously are not present today. Dictated by: Dictated on workstation # [id number]
--- NOTE | 2020-07-20 07:04 | Diagnostic Imaging Report ---
PROCEDURE: CT head and CT cervical spine without contrast. TECHNIQUE: Multiple contiguous axial images were obtained through the brain and cervical spine without the use of intravenous contrast. Sagittal and coronal reformations through the cervical spine were then performed. Auto Exposure Controls were utilized during the CT exam to meet ALARA standards for radiation dose reduction. INDICATION: Trauma. Altered mental status. FINDINGS: Ventricles and cortical gyral pattern appear normal. There is question of very subtle area of increased density along the lateral left temporal gyri measuring approximately 5 mm demonstrated both on the coronal and axial images on series two-page 28 and series 601 page 44. There is calcification noted in the basal nuclei bilaterally. Ventricles are not dilated. The basal cisterns are clear. Mastoid air cells are clear. Pituitary is not enlarged. No evidence of calvarial fracture. There is noted mucosal thickening with polyps in right maxillary sinus. IMPRESSION: 1. There is a 5 mm hyperdense area noted laterally in the left temporal cortical gyri which may represent hemorrhage with patient's symptoms. This does correlate with the preliminary report. Would recommend short-term CT follow-up depending on patient's symptoms. 2. Benign calcifications basal nuclei bilaterally. This is concordant with the preliminary report. CT cervical spine: Sagittal and coronal reformatted images show good alignment. Body heights and disc spaces are well-maintained. The atlantoaxial joint appears normal. No spinal stenosis. No fracture. There are scattered cervical chain and submandibular lymph nodes noted throughout both sides largest measuring approximately 1.5 cm. IMPRESSION: 1. Negative bony CT cervical spine. 2. Nonspecific scattered bilateral cervical chain adenopathy and submandibular adenopathy noted. This was not mentioned on the preliminary report. Dictated by: Dictated on workstation # [id number]
== END 2020-07-20 06:21 | disposition short-term general hospital (02) ==
LOC: EDUNIT# 03:36 → ER 03:38
DX: S09.90XA Unspecified injury of head, initial encounter (principal); M54.2 Cervicalgia; I12.9 Hypertensive chronic kidney disease with stage 1 through stage 4 chronic kidney disease, or unspecified chronic kidney disease; E11.22 Type 2 diabetes mellitus with diabetic chronic kidney disease; N18.9 Chronic kidney disease, unspecified; I61.8 Other nontraumatic intracerebral hemorrhage; E11.51 Type 2 diabetes mellitus with diabetic peripheral angiopathy without gangrene; I25.10 Atherosclerotic heart disease of native coronary artery without angina pectoris; I25.2 Old myocardial infarction; E78.00 Pure hypercholesterolemia, unspecified; D64.9 Anemia, unspecified; F41.9 Anxiety disorder, unspecified; Z77.22 Contact with and (suspected) exposure to environmental tobacco smoke (acute) (chronic); Z91.19 Patient's noncompliance with other medical treatment and regimen; Z95.1 Presence of aortocoronary bypass graft; Z95.5 Presence of coronary angioplasty implant and graft; Z95.9 Presence of cardiac and vascular implant and graft, unspecified; Z79.4 Long term (current) use of insulin; Z79.82 Long term (current) use of aspirin; Z79.02 Long term (current) use of antithrombotics/antiplatelets; Z89.611 Acquired absence of right leg above knee; Z89.421 Acquired absence of other right toe(s); Z88.5 Allergy status to narcotic agent; Z91.041 Radiographic dye allergy status; Z98.51 Tubal ligation status; Z99.3 Dependence on wheelchair; V00.811A Fall from moving wheelchair (powered), initial encounter
CPT/HCPCS: 36415; 70450; 71045; 72125; 80053; 85025; 85610; 85730; 93041

== ENCOUNTER 2020-07-20 15:37 | Emergency (ER) | payer MEDICAID ==
[~2020-07-20] VITALS: Ht 162 cm; Wt 104.0 kg
--- NOTE | 2020-07-20 16:00 | NUR ---
PT IS A/O X2. CONFUSED ON WHAT HAPPENED THIS AM ET STATES SHE DOES NOT REMEMBER GOING TO ANOTHER HOSPITAL. WILL FALL ASLEEP QUICKLY AFTER BEING TALKED TOO.
[2020-07-20 16:03] LABS: BASOPHILS % (AUTO) 1 % (0-10); EOSINOPHILS # (AUTO) 0.3 10^3/uL (0.0-0.3); EOSINOPHILS % (AUTO) 4 % (0-10); HEMATOCRIT 31 % (35-52); HEMOGLOBIN 9.8 g/dL (11.5-16.0); LYMPHOCYTES # (AUTO) 1.7 10^3/uL (1.0-4.0); LYMPHOCYTES % (AUTO) 25 % (12-44); MEAN CORPUSCULAR HEMOGLOBIN 28 pg (25-34); MEAN CORPUSCULAR HGB CONC 31 g/dL (32-36); MEAN CORPUSCULAR VOLUME 88 fL (80-99); MONOCYTES # (AUTO) 0.6 10^3/uL (0.0-1.0); MONOCYTES % (AUTO) 8 % (0-12); NEUTROPHILS # (AUTO) 4.2 10^3/uL (1.8-7.8); NEUTROPHILS % (AUTO) 62 % (42-75); PLATELET COUNT 168 10^3/uL (130-400); WHITE BLOOD COUNT 6.8 10^3/uL (4.3-11.0)
--- NOTE | 2020-07-20 16:05 | ED General ---
General Stated Complaint: ABDOMINAL SWELLING;FACIAL SWELLING;LEG SWELLING Source of Information: Patient Exam Limitations: No Limitations History of Present Illness Date Seen by Provider: Jul 20, 2020 Time Seen by Provider: 16:00 Initial Comments To ER by retirement van from Dr. Pyle (cardiology) office with altered mental status including falling asleep in a wheelchair during exam and confused, disoriented to events of this morning. Apparently, she was here early this morning about 530 and diagnosed with intracranial hemorrhage (5 mm hyperdense area laterally in the left temporal cortical gyri) after a fall and sent to [facility]. She is on aspirin and Plavix for history of coronary stenting. She had right ywerj-ofi-elzt amputation at [facility] in March of this year for vascular disease and ulcerations of the lower extremity. She was briefly observed at [facility] and discharged home. Timing/Duration: 1-2 Days Severity: Moderate Associated Systoms: Denies Symptoms Allergies and Home Medications Allergies Coded Allergies: codeine (Verified Allergy, Unknown, has received Lortab and Hydromorphone in the past, 04/22/20) nalbuphine (Verified Allergy, Unknown, 08/31/19) tramadol (Verified Allergy, Unknown, 08/31/19) Uncoded Allergies: CONTRAST (Allergy, Unknown, 08/31/19) Home Medications Aspirin 81 Mg Tablet.dr, 81 MG PO HS Prescribed by: SANDRA MA on 04/24/202037 Atorvastatin Calcium 40 Mg Tablet, 40 MG PO DAILY Prescribed by: SANDRA MA on 04/24/202037 Benzocaine/Menthol/Zinc Chlor 5.1 Gm Gel..gram., 1 APPLIC MM Q4H PRN for ORAL PAIN, (Reported) Bisacodyl 10 Mg Supp.rect, 10 MG RC DAILY PRN for CONSTIPATION-1ST LINE Prescribed by: SANDRA MA on 04/27/20 112 Carvedilol 6.25 Mg Tablet, 6.25 MG PO BID Prescribed by: SANDRA MA on 04/24/202037 Citalopram Hydrobromide 20 Mg Tablet, 20 MG PO DAILY Prescribed by: SANDRA MA on 04/24/202037 Clopidogrel Bisulfate 75 Mg Tablet, 75 MG PO DAILY Prescribed by: SANDRA MA on 04/24/202037 Cyanocobalamin (Vitamin B-12) 1,000 Mcg Tablet, 1,000 MCG PO DAILY Prescribed by: SANDRA MA on 04/24/202037 Docusate Sodium 100 Mg Capsule, 100 MG PO BID PRN for CONSTIPATION-1ST LINE Prescribed by: SANDRA MA on 04/24/202037 Ferrous Sulfate 325 Mg Tablet, 325 MG PO BID WITH MEALS Prescribed by: SANDRA MA on 04/24/202037 Folic Acid 0.8 Mg Capsule, 0.8 MG PO DAILY Prescribed by: SANDRA MA on 04/24/202037 Hydralazine HCl 50 Mg Tablet, 75 MG PO Q8H TAKES 1.5 OF A 50MG TAB Prescribed by: SANDRA MA on 04/24/202037 Hydrocodone/Acetaminophen 1 Each Tablet, 2 TAB PO Q4H PRN for PAIN-MODERATE (5- 7) Prescribed by: SANDRA MA on 04/24/202038 Hydroxyzine Pamoate 25 Mg Capsule, 25 MG PO TID PRN for ANXIETY Prescribed by: SANDRA MA on 04/24/202037 Insulin Detemir 100 Unit/1 Ml Insuln.pen, 10 UNIT SQ HS Prescribed by: SANDRA MA on 04/24/202037 Isosorbide Mononitrate 120 Mg Tab.er.24h, 120 MG PO DAILY Prescribed by: SANDRA MA on 04/24/202037 Lorazepam 1 Mg Tablet, 1 MG PO Q8H PRN for ANXIETY Prescribed by: SANDRA MA on 04/24/202038 Melatonin 3 Mg Tablet, 3 MG PO HS PRN for INSOMNIA Prescribed by: SANDRA MA on 04/24/202037 Nicotine 1 Each Patch.td24, 14 MG TD DAILY@0900 Prescribed by: SANDRA MA on 04/24/202037 Ondansetron 4 Mg Tab.rapdis, 4 MG PO Q6H PRN for NAUSEA/VOMITING-1ST LINE Prescribed by: SANDRA MA on 04/24/202037 Pantoprazole Sodium 40 Mg Tablet.dr, 40 MG PO DAILY Prescribed by: SANDRA MA on 04/24/202037 Patiromer Calcium Sorbitex 8.4 Gm Powd.pack, 8.4 GM PO DAILY, (Reported) Promethazine HCl 25 Mg Tablet, 25 MG PO Q8H PRN for NAUSEA/VOMITING-2ND LINE Prescribed by: SANDRA MA on 04/24/202037 Zolpidem Tartrate 5 Mg Tablet, 5 MG PO HS PRN for INSOMNIA Prescribed by: SANDRA MA on 04/24/202038 Patient Home Medication List Home Medication List Reviewed: Yes Review of Systems Review of Systems Constitutional: see HPI EENTM: see HPI Respiratory: no symptoms reported Cardiovascular: no symptoms reported Genitourinary: no symptoms reported Musculoskeletal: no symptoms reported Skin: no symptoms reported Psychiatric/Neurological: No Symptoms Reported Hematologic/Lymphatic: No Symptoms Reported Immunological/Allergic: no symptoms reported Past Tfvyffn-Bmcwac-Cfyurf Hx Patient Social History Drug of Choice: THC Type Used: Cigarettes 2nd Hand Smoke Exposure: Yes Recent Foreign Travel: No Contact w/Someone Who Travel: No Recent Hopitalizations: Yes (toe amputation with wound vac 08/2019) Immunizations Up To Date Date of Pneumonia Vaccine: Jul 25, 2018 Seasonal Allergies Seasonal Allergies: No Past Medical History Surgeries: Yes (4 amputations (foot and toes, right ATK), 5 stents) Amputation, Section, Coronary Stent, Tonsillectomy Respiratory: No Cardiac: Yes (5 stents; NSTEMI 07/2019) Coronary Artery Disease, Heart Attack, High Cholesterol, Hypertension, Peripheral Vascular Neurological: Yes Neuropathy 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, 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 Genitourinary: Yes (CKD) Bladder Infection, Renal Failure Gastrointestinal: Yes (CHRONIC NAUSEA/VOMITING) Irritable Bowel Musculoskeletal: Yes Amputee, Spasms Endocrine: Yes Diabetes, Non-Insulin dep HEENT: No Cancer: No Psychosocial: Yes Anxiety Integumentary: Yes (CHRONIC FOOT WOUNDS) Blood Disorders: Yes (ANEMIA) Adverse Reaction/Blood Tranf: No Family Medical History No Pertinent Family Hx SOCIAL HISTORY: -ETOH--OCCASIONAL USE, NO RECENT USE, PER PT 07/20/20 -DRUGS-+THC USE ( ALSO HX OF OPIATES AND BENZODIAZEPINE ABUSE) -SMOKED 1 PPD, QUIT 03/2020 PAST SURGICAL HISTORY: -CARDIAC CATHS--MULTIPLE STENTS PLUS ANGIOPLASTIES AT MULTIPLE FACILITIES--LAST CATH HERE 08/31/[address] GALE-- RCA ANGIOPLASTY -MULTIPLE CARDIAC AND PERIPHERAL INTERVENTIONS AT MULTIPLE FACILITIES--PERIPHERAL ANGIOGRAM AT [place] 08/21/2019--ANGIOPLASTY OF DEEP FEMORAL ARTERY, STENTS X 3 TO EXTERNAL ILIAC, COMMON FEMORAL AND SUPERFICIAL FEMORAL ARTERY -S/P 3 VESSEL CABG -RIGHT TOES AND PARTIAL FOOT AMPUTATIONS (MULTIPLE SURGERIES) , EVENTUALLY FOLLOWED BY RIGHT ABOVE THE KNEE AMPUTATION 03/27/20- AT [place] - -HYSTERECTOMY -BILATERAL TUBAL LIGATION -TONSILLECTOMY ADDITIONAL PAST MEDICAL HISTORY: -VENTRICULAR ARRHYTHMIA DURING DOBUTAMINE TEST -NSTEMI 07/2019 LONG HISTORY OF NON-COMPLIANCE HX OF HOMELESSNESS UNTIL ADMITTED TO [facility] AFTER LAST HOSPITALIZATION HX OF NARCOTIC AND BENZODIAZEPAM ABUSE Physical Exam Vital Signs Vital Signs - First Documented 07/20/20 15:40 Temp 35.0 Pulse 71 Resp 16 B/P (MAP) 130/87 (101) Pulse Ox 89 O2 Delivery Room Air Capillary Refill : Height, Weight, BMI Height: '" Weight: lbs. oz. kg; 38.00 BMI Method: General Appearance: Obese, Other (anasarca, diffusely edematous. O2 sats 89% room air. up to 98% with 2L per NC. Falls asleep during conversation. Doesnt remember what happened this morning. ) Eyes: Bilateral Eye Normal Inspection, Bilateral Eye PERRL HEENT: PERRL/EOMI, TMs Normal Neck: Full Range of Motion, Normal Inspection Respiratory: No Accessory Muscle Use, No Respiratory Distress Cardiovascular: Regular Rate, Rhythm, Normal Peripheral Pulses Gastrointestinal: Non Tender, Soft Extremity: Normal Capillary Refill, Normal Inspection, Other (right AKA amputation) Neurologic/Psychiatric: Other (lethargic) Skin: Normal Color, Warm/Dry Focused Exam Lactate Level 07/20/20 18:20: Lactic Acid Level 0.73 Lactic Acid Level Laboratory Tests Test 07/20/20 18:20 Lactic Acid Level 0.73 MMOL/L (0.50-2.00) Progress/Results/Core Measures Suspected Sepsis SIRS Temperature: Pulse: Respiratory Rate: Laboratory Tests 07/20/20 15:50: White Blood Count 6.8 Blood Pressure / Mean: 07/20/20 18:20: Lactic Acid Level 0.73 Laboratory Tests 07/20/20 15:50: Creatinine 3.68H, INR Comment 1.2, Platelet Count 168, Total Bilirubin 0.3 Results/Orders Lab Results Laboratory Tests Test 07/20/20 15:50 11/4/20 16:19 07/20/20 18:20 Range/Units White Blood Count 6.8 4.3-11.0 10^3/uL Red Blood Count 3.57 L 3.80-5.11 10^6/uL Hemoglobin 9.8 L 11.5-16.0 g/dL Hematocrit 31 L 35-52 % Mean Corpuscular Volume 88 80-99 fL Mean Corpuscular Hemoglobin 28 25-34 pg Mean Corpuscular Hemoglobin Concent 31 L 32-36 g/dL Red Cell Distribution Width 14.7 H 10.0-14.5 % Platelet Count 168 130-400 10^3/uL Mean Platelet Volume 10.0 9.0-12.2 fL Immature Granulocyte % (Auto) 0 % Neutrophils (%) (Auto) 62 42-75 % Lymphocytes (%) (Auto) 25 12-44 % Monocytes (%) (Auto) 8 0-12 % Eosinophils (%) (Auto) 4 0-10 % Basophils (%) (Auto) 1 0-10 % Neutrophils # (Auto) 4.2 1.8-7.8 10^3/uL Lymphocytes # (Auto) 1.7 1.0-4.0 10^3/uL Monocytes # (Auto) 0.6 0.0-1.0 10^3/uL Eosinophils # (Auto) 0.3 0.0-0.3 10^3/uL Basophils # (Auto) 0.0 0.0-0.1 10^3/uL Immature Granulocyte # (Auto) 0.0 0.0-0.1 10^3/uL Prothrombin Time 15.7 H 12.2-14.7 SEC INR Comment 1.2 0.8-1.4 Sodium Level 137 135-145 MMOL/L Potassium Level 6.0 H 3.6-5.0 MMOL/L Chloride Level 107 98-107 MMOL/L Carbon Dioxide Level 17 L 21-32 MMOL/L Anion Gap 13 5-14 MMOL/L Blood Urea Nitrogen 72 H 7-18 MG/DL Creatinine 3.68 H 0.60-1.30 MG/DL Estimat Glomerular Filtration Rate 14 BUN/Creatinine Ratio 20 Glucose Level 108 H 70-105 MG/DL Calcium Level 8.2 L 8.5-10.1 MG/DL Corrected Calcium 8.8 8.5-10.1 MG/DL Phosphorus Level 6.9 H 2.3-4.7 MG/DL Total Bilirubin 0.3 0.1-1.0 MG/DL Aspartate Amino Transf (AST/SGOT) 62 H 5-34 U/L Alanine Aminotransferase (ALT/SGPT) 50 0-55 U/L Alkaline Phosphatase 147 H 40-136 U/L Ammonia 106 H 11-32 UMOL/L B-Type Natriuretic Peptide 289.8 H <100.0 PG/ML Total Protein 7.0 6.4-8.2 GM/DL Albumin 3.3 3.2-4.5 GM/DL Procalcitonin 0.72 H <0.10 NG/ML Serum Test, Qualitative NEGATIVE NEGATIVE Urine Color YELLOW Urine Clarity CLEAR Urine pH 7.0 5-9 Urine Specific Sherwood 1.020 1.016-1.022 Urine Protein 3+ H NEGATIVE Urine Glucose (UA) NEGATIVE NEGATIVE Urine Ketones NEGATIVE NEGATIVE Urine Nitrite NEGATIVE NEGATIVE Urine Bilirubin NEGATIVE NEGATIVE Urine Urobilinogen 0.2 < = 1.0 MG/DL Urine Leukocyte Esterase NEGATIVE NEGATIVE Urine RBC (Auto) TRACE-L NEGATIVE Urine RBC RARE /HPF Urine WBC RARE /HPF Urine Squamous Epithelial Cells RARE /HPF Urine Crystals NONE /LPF Urine Bacteria TRACE /HPF Urine Casts NONE /LPF Urine Mucus NEGATIVE /LPF Urine Culture Indicated NO Urine Opiates Screen POSITIVE H NEGATIVE Urine Oxycodone Screen NEGATIVE NEGATIVE Urine Methadone Screen NEGATIVE NEGATIVE Urine Propoxyphene Screen NEGATIVE NEGATIVE Urine Barbiturates Screen NEGATIVE NEGATIVE Ur Tricyclic Antidepressants Screen NEGATIVE NEGATIVE Urine Phencyclidine Screen NEGATIVE NEGATIVE Urine Amphetamines Screen NEGATIVE NEGATIVE Urine Methamphetamines Screen NEGATIVE NEGATIVE Urine Benzodiazepines Screen NEGATIVE NEGATIVE Urine Cocaine Screen NEGATIVE NEGATIVE Urine Cannabinoids Screen NEGATIVE NEGATIVE Lactic Acid Level 0.73 0.50-2.00 MMOL/L My Orders Orders - NENA NICOLE APRN Ct Head Wo (07/20/20 15:39) Cbc With Automated Diff (07/20/20 15:39) Comprehensive Metabolic Panel (07/20/20 15:39) Ua Culture If Indicated (07/20/20 15:39) Drug Screen Stat (Urine) (07/20/20 15:39) Ammonia (07/20/20 15:39) Ed Iv/Invasive Line Start (07/20/20 15:39) Protime With Inr (07/20/20 15:39) Ekg Tracing (07/20/20 15:39) BNP (07/20/20 15:40) Phosphorus (07/20/20 15:45) Chest 1 View, Ap/Pa Only (07/20/20 16:35) Sodium Polystyrene Sulfonate (Kayexalate (07/20/20 16:45) Ns Iv 1000 Ml (Sodium Chloride 0.9%) (07/20/20 16:45) Hcg,Qualitative Serum (07/20/20 16:46) Procalcitonin (Pct) (07/20/20 17:03) Furosemide Injection (Lasix Injection) (07/20/20 17:15) Blood Culture (07/20/20 17:56) Lactic Acid Analyzer (07/20/20 17:56) Ceftriaxone For Iv Use (Rocephin For I (07/20/20 18:00) Promethazine Injection (Phenergan Injec (07/20/20 20:30) Medications Given in ED Current Medications Medications Dose Ordered Sig/Mary Jo Route Start Time Stop Time Status Last Admin Dose Admin Ceftriaxone Sodium 1000 mg/ Sterile Water 10 ml @ 200 mls/hr ONCE ONCE IV 07/20/20 18:00 07/20/20 18:02 DC 07/20/20 18:21 200 MLS/HR Furosemide 40 mg ONCE ONCE IVP 07/20/20 17:15 07/20/20 17:16 DC 07/20/20 17:13 40 MG Promethazine HCl 6.25 mg ONCE ONCE IVP 07/20/20 20:30 07/20/20 20:31 DC 07/20/20 20:38 6.25 MG Sodium Polystyrene Sulfonate 45 gm ONCE ONCE PO 07/20/20 16:45 07/20/20 16:46 DC 07/20/20 17:19 45 GM Vital Signs/I&O 07/20/20 15:40 Temp 35.0 Pulse 71 Resp 16 B/P (MAP) 130/87 (101) Pulse Ox 89 O2 Delivery Room Air Capillary Refill : Diagnostic Imaging Diagonstic Imaging: Xray Plain Films/CT/US/NM/MRI: chest Comments NAME: [facility] REC#: [id number] PT STATUS: REG ER : 1985 PHYSICIAN: NENA NICOLE APRN ADMIT DATE: 07/20/20/ER Signed Date of Exam:07/20/20 CT HEAD WO PROCEDURE: CT head without contrast. TECHNIQUE: Multiple contiguous axial images were obtained through the brain without the use of intravenous contrast. Auto Exposure Controls were utilized during the CT exam to meet ALARA standards for radiation dose reduction. INDICATION: Altered mental status after a fall The ventricles are normal in size, shape and position. There are no masses or hemorrhages. There were small basal ganglia calcifications bilaterally which are stable from earlier in the day. There are no masses or hemorrhages. There are no extra-axial fluid collections. IMPRESSION: Stable unremarkable CT head. There is mild inflammatory change in the mucosa of the right maxillary sinus. Dictated by: Dictated on workstation # [id number] Dict: 07/20/20 1629 Trans: 07/20/20 1632 TB [id number] Interpreted by: CAROLIN ABDULLAHI MD Electronically signed by: CAROLIN ABDULLAHI MD 07/20/20 163 NAME: ADWOA [facility] REC#: [id number] PT STATUS: REG ER : 1985 PHYSICIAN: NENA NICOLE APRN ADMIT DATE: 07/20/20/ER Signed Date of Exam:07/20/20 CHEST 1 VIEW, AP/PA ONLY EXAMINATION: Chest 1 view HISTORY: Altered mental status COMPARISON: None available. FINDINGS: Heart size is enlarged with surgical changes from median sternotomy. Low lung volumes with patchy interstitial opacities. Airspace opacities within the mid and lower lungs. No pleural effusion or pneumothorax. The osseous structures are intact. IMPRESSION: 1. Cardiomegaly with patchy interstitial opacities which could represent pulmonary edema. 2. Patchy opacities in the lung bases could represent a superimposed pneumonia or atelectasis. Dictated by: Dictated on workstation # [id number] Dict: 07/20/20 1658 Trans: 07/20/201658 JCB [id number] Interpreted by: JOSE ABDULLAHI DO Electronically signed by: JOSE ABDULLAHI DO 07/20/201658 Departure Communication (Admissions) [facility] on Diversion. Patient will need hospital with nephrology services as she was a former hemodialysis patient and based on kidney function and potassium she may be heading back that direction. 1741-spoke with Dr. Castelan from over the [facility]. We will transfer the patient there. Oxygen saturation main 99% on 2 L. She is arousable to verbal stimuli and drinking her 45 g of Kayexalate. She has also been given 40 mg of IV Lasix. 2110-She is more alert now, requests phenergan as she takes this at the retirement. Due to sedation earlier during her visit im only ordering 6.25mg. Vitals stable at 164/97, HR 75, O2 98% on 2L. Impression Primary Impression: Anasarca Additional Impressions: Hepatic encephalopathy Metabolic encephalopathy Acute on chronic kidney failure Hyperkalemia Disposition: XFER SHT-TRM HOSP Condition: Stable Transfer Transfer Reason: Exceeds level of care Time Spoke to Accepting Phy: 17:23 Departure-Patient Inst. Referrals: JOSE SMITH MD (PCP) Primary Care Physician NISHA VEE (Family) Primary Care Physician NENA NICOLE APRN Jul 20, 2020 16:04
[2020-07-20 16:18] LABS: INR 1.2 (0.8-1.4); PROTHROMBIN TIME PATIENT 15.7 SEC (12.2-14.7)
--- NOTE | 2020-07-20 16:19 | NUR ---
DRAINED APPPX 200CC OF URINE WHEN SHE WAS ST C[facility].
[2020-07-20 16:30] LABS: ALBUMIN 3.3 GM/DL (3.2-4.5); BILIRUBIN,TOTAL 0.3 MG/DL (0.1-1.0); CALCIUM 8.2 MG/DL (8.5-10.1); PHOSPHORUS 6.9 MG/DL (2.3-4.7)
[2020-07-20 16:31] LABS: CREATININE SERUM 3.68 MG/DL (0.60-1.30)
[2020-07-20 16:32] LABS: BILIRUBIN,URINE NEGATIVE (NEGATIVE); CLARITY,URINE CLEAR; COLOR,URINE YELLOW; GLUCOSE, URINE (UA) NEGATIVE (NEGATIVE); KETONES,URINE NEGATIVE (NEGATIVE); LEUKOCYTE ESTERASE ,URINE NEGATIVE (NEGATIVE); NITRITE,URINE NEGATIVE (NEGATIVE); PROTEIN,URINE 3+ (NEGATIVE)
--- NOTE | 2020-07-20 16:33 | Diagnostic Imaging Report ---
PROCEDURE: CT head without contrast. TECHNIQUE: Multiple contiguous axial images were obtained through the brain without the use of intravenous contrast. Auto Exposure Controls were utilized during the CT exam to meet ALARA standards for radiation dose reduction. INDICATION: Altered mental status after a fall The ventricles are normal in size, shape and position. There are no masses or hemorrhages. There were small basal ganglia calcifications bilaterally which are stable from earlier in the day. There are no masses or hemorrhages. There are no extra-axial fluid collections. IMPRESSION: Stable unremarkable CT head. There is mild inflammatory change in the mucosa of the right maxillary sinus. Dictated by: Dictated on workstation # [id number]
[2020-07-20 16:38] LABS: BACTERIA,URINE TRACE /HPF; RBC,URINE RARE /HPF; SQUAMOUS EPITHELIAL CELL,UR RARE /HPF; WBC,URINE RARE /HPF
[2020-07-20 16:43] LABS: AMPHETAMINE SCREEN, URINE NEGATIVE (NEGATIVE); BARBITURATE SCREEN URINE NEGATIVE (NEGATIVE); BENZODIAZEPINES SCREEN URINE NEGATIVE (NEGATIVE); CANNABINOID SCREEN, URINE NEGATIVE (NEGATIVE); COCAINE SCREEN URINE NEGATIVE (NEGATIVE); METHAMPHETAMINE SCREEN URINE S NEGATIVE (NEGATIVE); OPIATE SCREEN URINE POSITIVE (NEGATIVE)
[2020-07-20 16:44] LABS: METHADONE STAT NEGATIVE (NEGATIVE); OXYCODONE STAT NEGATIVE (NEGATIVE); PROPOXYPHENE STAT NEGATIVE (NEGATIVE); TRICYCLIC ANTIDEPRESSANTS SCRE NEGATIVE (NEGATIVE)
[2020-07-20] MEDS ORDERED: NS IV 1000 ML 1,000 ML IV SCH (16:45)
[2020-07-20] MEDS ORDERED: SOD POLYSTERENE 15 GM/60 ML (KAYEXALATE) UNIT DOSE PO ONE (16:45)
--- NOTE | 2020-07-20 17:01 | Diagnostic Imaging Report ---
EXAMINATION: Chest 1 view HISTORY: Altered mental status COMPARISON: None available. FINDINGS: Heart size is enlarged with surgical changes from median sternotomy. Low lung volumes with patchy interstitial opacities. Airspace opacities within the mid and lower lungs. No pleural effusion or pneumothorax. The osseous structures are intact. IMPRESSION: 1. Cardiomegaly with patchy interstitial opacities which could represent pulmonary edema. 2. Patchy opacities in the lung bases could represent a superimposed pneumonia or atelectasis. Dictated by: Dictated on workstation # [id number]
--- NOTE | 2020-07-20 17:11 | NUR ---
PT SIGNED TRANSFER FORM. REMINDED THAT SHE NEEDED TO DRINK THE KAYEXALATE.
[2020-07-20] MEDS ORDERED: FUROSEMIDE 40 MG/4 ML INJ (LASIX) IVP ONE (17:15)
--- NOTE | 2020-07-20 17:40 | NUR ---
NENA IN ROOM AT THIS TIME.
[2020-07-20] MEDS ORDERED: cefTRIAXone FOR IV USE 1,000 MG in WATER (STERILE) FOR INJECTION 10 ML IV ONE (18:00)
--- NOTE | 2020-07-20 18:16 | NUR ---
LAB IN ROOM AT THIS TIME.
--- NOTE | 2020-07-20 18:19 | NUR ---
[facility] UPDATED ABOUT TRANSFER ET THEY STATE THEY WILL UPDATE THE FAMILY.
--- NOTE | 2020-07-20 18:24 | NUR ---
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
--- NOTE | 2020-07-20 18:50 | NUR ---
NENA TALKED WITH [facility] AGAIN AND WE ARE STILL WAITING ON A BED.
[2020-07-20] MEDS ORDERED: PROMETHAZINE INJ 25 MG/ML (PHENERGAN) AMP IVP ONE (20:30)
[2020-07-20 21:15] VITALS: BP 164/97
--- NOTE | 2020-07-20 21:45 | NUR ---
PT HAD SALAZAR CATHETER PLACED PREVIOUSLY AND ASKED FOR IT TO BE REMOVED. PT REQUESTED ANOTHER SALAZAR TO BE PLACED PRIOR TO BEING SENT TO [facility] VIA AMBULANCE. SOON SALAZAR CATHETER WAS PLACED PT REQUESTED FOR IT TO BE REMOVED. Brenda NICOLE APRN TOLD PT THE SALAZAR WOULD NOT BE REMOVED AT THIS TIME.
--- NOTE | 2020-07-20 22:00 | NUR ---
[facility] NOTIFIED PT W/C AND CLOTHING NEED TO BE PICKED UP W/C UNABLE TO BE TAKING VIA AMBULANCE TO [facility].
== END 2020-07-20 21:54 | disposition short-term general hospital (02) ==
LOC: EDUNIT# 15:37 → ER 15:38
DX: R60.1 Generalized edema (principal); K72.90 Hepatic failure, unspecified without coma; G93.41 Metabolic encephalopathy; E87.5 Hyperkalemia; I12.9 Hypertensive chronic kidney disease with stage 1 through stage 4 chronic kidney disease, or unspecified chronic kidney disease; N18.9 Chronic kidney disease, unspecified; E78.00 Pure hypercholesterolemia, unspecified; E66.9 Obesity, unspecified; F41.9 Anxiety disorder, unspecified; I25.2 Old myocardial infarction; Z68.38 Body mass index [BMI] 38.0-38.9, adult; Z95.5 Presence of coronary angioplasty implant and graft; Z77.22 Contact with and (suspected) exposure to environmental tobacco smoke (acute) (chronic); Z79.82 Long term (current) use of aspirin; Z88.5 Allergy status to narcotic agent; Z88.8 Allergy status to other drugs, medicaments and biological substances; Z91.041 Radiographic dye allergy status
CPT/HCPCS: 36415; 51701; 51702; 70450; 71045; 80053; 80306; 81000; 82140; 83605; 83880; 84100; 84145; 84703; 85025; 85610; 87040; 93005

== ENCOUNTER 2020-10-21 09:05 | Emergency (ER) | payer MEDICAID ==
[~2020-10-21] VITALS: Ht 162.5 cm; Wt 89.8 kg
--- NOTE | 2020-10-21 09:35 | NUR ---
ATTEMPT FOR IV UNSUCCESSFUL. DAY SURGERY CONTACTED FOR MIDLINE.
--- NOTE | 2020-10-21 09:41 | ED General ---
General Chief Complaint: General Problems/Pain Stated Complaint: WANTS TO BE ADMITTED TO [facility] Nursing Triage Note: PT BR[facility] IN BY [facility] WITH COMPLAINT OF INCREASED SWELLING AND WEIGHT GAIN. PT STATES SHE HAS GAINED ALMOST 40LBS IN THE LAST MONTH. STATES HAS STAGE 4 KIDNEY DISEASE, BUT DOES NOT RECIEVE REGULAR DIAYLSIS. PCP WOULD LIKE PT TRANSFERRED TO [facility] Nursing Sepsis Screen: No Definite Risk Source of Information: Patient, EMS, Long Term Records, Old Records Exam Limitations: No Limitations History of Present Illness Date Seen by Provider: Oct 21, 2020 Time Seen by Provider: 09:08 Initial Comments This 35-year-old young lady presents to the emergency room via EMS from [facility] with concerns about swelling and worsening renal failure. She has multiple serious health conditions including insulin-dependent type 2 diabetes, coronary artery disease status post CABG and stenting, congestive heart failure with EF of 35 to 40%, hepatic failure with history of hepatic encephalopathy, and renal failure on the verge of requiring dialysis. She reports a nearly 40 pound weight gain in the last month. She has tight anasarca of her lower extremities and abdomen. She describes some chest discomfort and shortness of breath that occurred this morning which she attributes to anxiety about coming to the emergency room. She seeks her nephrology and cardiology care at [facility]. She received dialysis once last July but is not routinely on dialysis. She denies any cough, fever, or GI symptoms. She continues to make urine. Labs from her longterm chart were reviewed. On October 14 creatinine was 4.3, BUN was 61, and GFR was 12. Albumin was 2.7. Hemoglobin was 8.2. Allergies and Home Medications Allergies Coded Allergies: codeine (Verified Allergy, Unknown, has received Lortab and Hydromorphone in the past, 04/22/20) nalbuphine (Verified Allergy, Unknown, 08/31/19) tramadol (Verified Allergy, Unknown, 08/31/19) Uncoded Allergies: CONTRAST (Allergy, Unknown, 08/31/19) Home Medications Aspirin 81 Mg Tablet.dr, 81 MG PO HS Prescribed by: SANDRA MA on 04/24/202037 Atorvastatin Calcium 40 Mg Tablet, 40 MG PO DAILY Prescribed by: SANDRA MA on 04/24/202037 Benzocaine/Menthol/Zinc Chlor 5.1 Gm Gel..gram., 1 APPLIC MM Q4H PRN for ORAL PAIN, (Reported) Bisacodyl 10 Mg Supp.rect, 10 MG RC DAILY PRN for CONSTIPATION-1ST LINE Prescribed by: SANDRA MA on 04/27/201128 Carvedilol 6.25 Mg Tablet, 6.25 MG PO BID Prescribed by: SANDRA MA on 04/24/202037 Citalopram Hydrobromide 20 Mg Tablet, 20 MG PO DAILY Prescribed by: SANDRA MA on 04/24/202037 Clopidogrel Bisulfate 75 Mg Tablet, 75 MG PO DAILY Prescribed by: SANDRA MA on 04/24/202037 Cyanocobalamin (Vitamin B-12) 1,000 Mcg Tablet, 1,000 MCG PO DAILY Prescribed by: SANDRA MA on 04/24/202037 Docusate Sodium 100 Mg Capsule, 100 MG PO BID PRN for CONSTIPATION-1ST LINE Prescribed by: SANDRA MA on 04/24/202037 Ferrous Sulfate 325 Mg Tablet, 325 MG PO BID WITH MEALS Prescribed by: SANDRA MA on 04/24/202037 Folic Acid 0.8 Mg Capsule, 0.8 MG PO DAILY Prescribed by: SANDRA MA on 04/24/202037 Hydralazine HCl 50 Mg Tablet, 75 MG PO Q8H TAKES 1.5 OF A 50MG TAB Prescribed by: SANDRA MA on 04/24/202037 Hydrocodone/Acetaminophen 1 Each Tablet, 2 TAB PO Q4H PRN for PAIN-MODERATE (5- 7) Prescribed by: SANDRA MA on 04/24/202038 Hydroxyzine Pamoate 25 Mg Capsule, 25 MG PO TID PRN for ANXIETY Prescribed by: SANDRA MA on 04/24/202037 Insulin Detemir 100 Unit/1 Ml Insuln.pen, 10 UNIT SQ HS Prescribed by: SANDRA MA on 04/24/202037 Isosorbide Mononitrate 120 Mg Tab.er.24h, 120 MG PO DAILY Prescribed by: SANDRA MA on 04/24/202037 Lorazepam 1 Mg Tablet, 1 MG PO Q8H PRN for ANXIETY Prescribed by: SANDRA MA on 04/24/202038 Melatonin 3 Mg Tablet, 3 MG PO HS PRN for INSOMNIA Prescribed by: SANDRA MA on 04/24/202037 Metolazone 10 Mg Tablet, 10 MG PO DAILY Prescribed by: MARGARITA VASQUES on 10/21/20 1247 Nicotine 1 Each Patch.td24, 14 MG TD DAILY@0900 Prescribed by: SANDRA MA on 04/24/202037 Ondansetron 4 Mg Tab.rapdis, 4 MG PO Q6H PRN for NAUSEA/VOMITING-1ST LINE Prescribed by: SANDRA MA on 04/24/202037 Pantoprazole Sodium 40 Mg Tablet.dr, 40 MG PO DAILY Prescribed by: SANDRA MA on 04/24/202037 Patiromer Calcium Sorbitex 8.4 Gm Powd.pack, 8.4 GM PO DAILY, (Reported) Promethazine HCl 25 Mg Tablet, 25 MG PO Q8H PRN for NAUSEA/VOMITING-2ND LINE Prescribed by: SANDRA MA on 04/24/202037 Torsemide 100 Mg Tablet, 100 MG PO DAILY Prescribed by: MARGARITA VASQUES on 10/21/20 1247 Zolpidem Tartrate 5 Mg Tablet, 5 MG PO HS PRN for INSOMNIA Prescribed by: SANDRA MA on 04/24/202038 Patient Home Medication List Home Medication List Reviewed: Yes Review of Systems Review of Systems Constitutional: see HPI EENTM: no symptoms reported Respiratory: see HPI Cardiovascular: see HPI Gastrointestinal: see HPI : No Musculoskeletal: no symptoms reported Skin: no symptoms reported Psychiatric/Neurological: No Symptoms Reported Hematologic/Lymphatic: No Symptoms Reported Immunological/Allergic: no symptoms reported Past Cjujwuu-Tajcim-Mhuclv Hx Past Med/Social Hx: Reviewed and Corrections made Patient Social History Alcohol Use: Denies Use Drug of Choice: THC Smoking Status: Former Smoker Type Used: Cigarettes 2nd Hand Smoke Exposure: Yes Recent Infectious Disease Expo: No Recent Hopitalizations: No Immunizations Up To Date Tetanus Booster (TDap): Unknown PED Vaccines UTD: Yes Date of Pneumonia Vaccine: Jul 25, 2018 Seasonal Allergies Seasonal Allergies: No Past Medical History Surgeries: Yes (4 amputations (foot and toes, right ATK), 5 stents) Amputation, CABG, Section, Coronary Stent, Tonsillectomy, 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 Respiratory: No Cardiac: Yes (5 stents; NSTEMI 07/2019, congestive heart failure) Coronary Artery Disease, Heart Attack, High Cholesterol, Hypertension, Peripheral Vascular Neurological: Yes Neuropathy : No 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, 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 Genitourinary: Yes (CKD) Bladder Infection, Renal Failure Gastrointestinal: Yes (CHRONIC NAUSEA/VOMITING) Irritable Bowel Musculoskeletal: Yes Amputee (Right AKA), Spasms Endocrine: Yes Diabetes, Insulin dep HEENT: No Cancer: No Psychosocial: Yes Anxiety Integumentary: Yes (CHRONIC FOOT WOUNDS) Blood Disorders: Yes (ANEMIA) Adverse Reaction/Blood Tranf: No Family Medical History No Pertinent Family Hx SOCIAL HISTORY: -ETOH--OCCASIONAL USE, NO RECENT USE, PER PT 07/20/20 -DRUGS-+THC USE ( ALSO HX OF OPIATES AND BENZODIAZEPINE ABUSE) -SMOKED 1 PPD, QUIT 03/2020 PAST SURGICAL HISTORY: -CARDIAC CATHS--MULTIPLE STENTS PLUS ANGIOPLASTIES AT MULTIPLE FACILITIES--LAST CATH HERE 08/31/[address] GALE-- RCA ANGIOPLASTY -MULTIPLE CARDIAC AND PERIPHERAL INTERVENTIONS AT MULTIPLE FACILITIES--PERIPHERAL ANGIOGRAM AT [facility] 08/21/2019--ANGIOPLASTY OF DEEP FEMORAL ARTERY, STENTS X 3 TO EXTERNAL ILIAC, COMMON FEMORAL AND SUPERFICIAL FEMORAL ARTERY -S/P 3 VESSEL CABG -RIGHT TOES AND PARTIAL FOOT AMPUTATIONS (MULTIPLE SURGERIES) , EVENTUALLY FOLLOWED BY RIGHT ABOVE THE KNEE AMPUTATION 03/27/20- AT [facility] - -HYSTERECTOMY -BILATERAL TUBAL LIGATION -TONSILLECTOMY ADDITIONAL PAST MEDICAL HISTORY: -VENTRICULAR ARRHYTHMIA DURING DOBUTAMINE TEST -NSTEMI 07/2019 LONG HISTORY OF NON-COMPLIANCE HX OF HOMELESSNESS UNTIL ADMITTED TO SENIOR CARE AFTER LAST HOSPITALIZATION HX OF NARCOTIC AND BENZODIAZEPAM ABUSE Physical Exam Vital Signs Vital Signs - First Documented 10/21/20 09:06 Temp 36.7 Pulse 75 Resp 16 B/P (MAP) 129/66 (87) Pulse Ox 100 O2 Delivery Room Air Capillary Refill : Less Than 3 Seconds Height, Weight, BMI Height: '" Weight: lbs. oz. 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 Norm as Tested Skin: Normal Color, Warm/Dry Progress/Results/Core Measures Suspected Sepsis Recent Fever Within 48 Hours: No Infection Criteria Present: None New/Unexplained Altered Menta: No Sepsis Screen: No Definite Risk SIRS Temperature: Pulse: 75 Respiratory Rate: 16 Laboratory Tests 10/21/20 10:15: White Blood Count 8.3 Blood Pressure 129 /66 Mean: 87 Laboratory Tests 10/21/20 10:15: Creatinine 3.83H, INR Comment 1.2, Platelet Count 175, Total Bilirubin 0.2 Results/Orders Lab Results Laboratory Tests Test 10/21/20 10:15 Range/Units White Blood Count 8.3 4.3-11.0 10^3/uL Red Blood Count 3.09 L 3.80-5.11 10^6/uL Hemoglobin 8.0 L 11.5-16.0 g/dL Hematocrit 26 L 35-52 % Mean Corpuscular Volume 85 80-99 fL Mean Corpuscular Hemoglobin 26 25-34 pg Mean Corpuscular Hemoglobin Concent 30 L 32-36 g/dL Red Cell Distribution Width 17.7 H 10.0-14.5 % Platelet Count 175 130-400 10^3/uL Mean Platelet Volume 11.2 9.0-12.2 fL Immature Granulocyte % (Auto) 1 % Neutrophils (%) (Auto) 64 42-75 % Lymphocytes (%) (Auto) 23 12-44 % Monocytes (%) (Auto) 7 0-12 % Eosinophils (%) (Auto) 5 0-10 % Basophils (%) (Auto) 1 0-10 % Neutrophils # (Auto) 5.3 1.8-7.8 10^3/uL Lymphocytes # (Auto) 1.9 1.0-4.0 10^3/uL Monocytes # (Auto) 0.6 0.0-1.0 10^3/uL Eosinophils # (Auto) 0.4 H 0.0-0.3 10^3/uL Basophils # (Auto) 0.1 0.0-0.1 10^3/uL Immature Granulocyte # (Auto) 0.1 0.0-0.1 10^3/uL Prothrombin Time 15.4 H 12.2-14.7 SEC INR Comment 1.2 0.8-1.4 Sodium Level 138 135-145 MMOL/L Potassium Level 5.5 H 3.6-5.0 MMOL/L Chloride Level 112 H 98-107 MMOL/L Carbon Dioxide Level 17 L 21-32 MMOL/L Anion Gap 9 5-14 MMOL/L Blood Urea Nitrogen 54 H 7-18 MG/DL Creatinine 3.83 H 0.60-1.30 MG/DL Estimat Glomerular Filtration Rate 13 BUN/Creatinine Ratio 14 Glucose Level 197 H 70-105 MG/DL Calcium Level 8.0 L 8.5-10.1 MG/DL Corrected Calcium 9.0 8.5-10.1 MG/DL Phosphorus Level 5.2 H 2.3-4.7 MG/DL Magnesium Level 1.9 1.6-2.4 MG/DL Total Bilirubin 0.2 0.1-1.0 MG/DL Aspartate Amino Transf (AST/SGOT) 17 5-34 U/L Alanine Aminotransferase (ALT/SGPT) 14 0-55 U/L Alkaline Phosphatase 122 40-136 U/L Troponin I < 0.028 <0.028 NG/ML B-Type Natriuretic Peptide 481.6 H <100.0 PG/ML Total Protein 6.1 L 6.4-8.2 GM/DL Albumin 2.7 L 3.2-4.5 GM/DL My Orders Orders - MARGARITA HUNT MD BNP (10/21/20 09:13) Cbc With Automated Diff (10/21/20 09:13) Comprehensive Metabolic Panel (10/21/20 09:13) Protime With Inr (10/21/20 09:13) Troponin I (10/21/20 09:13) Ekg Tracing (10/21/20 09:13) Chest 1 View, Ap/Pa Only (10/21/20 09:13) Ua Culture If Indicated (10/21/20 09:13) Magnesium (10/21/20 09:13) Ed Iv/Invasive Line Start (10/21/20 09:13) Phosphorus (10/21/20 09:34) Alprazolam Tablet (Xanax Tablet) (10/21/20 10:30) Torsemide Tablet (Demadex Tablet) (10/21/20 12:30) Metolazone Tablet (Zaroxolyn Tablet) (10/21/20 12:30) Hydrocodone/Apap 5/325 Tablet (Lortab 5 (10/21/20 12:45) Medications Given in ED Current Medications Medications Dose Ordered Sig/Mary Jo Route Start Time Stop Time Status Last Admin Dose Admin Acetaminophen/ Hydrocodone Bitart 1.5 tab ONCE ONCE PO 10/21/20 12:45 10/21/20 12:46 DC 10/21/20 12:54 1.5 TAB Alprazolam 0.5 mg ONCE ONCE PO 10/21/20 10:30 10/21/20 10:31 DC 10/21/20 10:37 0.5 MG Metolazone 10 mg ONCE ONCE PO 10/21/20 12:30 10/21/20 12:31 DC 10/21/20 12:54 10 MG Torsemide 100 mg ONCE ONCE PO 10/21/20 12:30 10/21/20 12:31 DC 10/21/20 12:54 100 MG Vital Signs/I&O 10/21/20 10/21/20 09:06 14:03 Temp 36.7 Pulse 75 67 Resp 16 16 B/P (MAP) 129/66 (87) 121/84 Pulse Ox 100 97 O2 Delivery Room Air Room Air Capillary Refill : Less Than 3 Seconds Blood Pressure Mean: 87 Progress Note : Progress Note Patient was treated with an anxiolytic and work-up was pursued. Creatinine was minimally elevated in comparison to creatinine on October 14. I discussed the situation with Dr. Gwen Luque who recommended stopping the Lasix and starting Demadex 100 mg daily and metolazone 10 mg daily. The first doses were administered in the ER. Patient was stable in regard to her renal function and her vital signs. She did not require admission or emergent dialysis. Instructions from Dr. Painter were to follow-up promptly on Saturday morning to be seen in the office. I discussed the situation with Dr. Issa with [facility] and advised that this patient be monitored closely and repeat labs be obtained if they are not done with nephrology on Saturday. I advised the patient of the same thing. ECG Initial ECG Impression Date: Oct 21, 2020 Initial ECG Impression Time: 09:25 Initial ECG Rate: 72 Initial ECG Rhythm: Normal Sinus Comment Normal sinus rhythm with no ST elevation or depression. No abnormal intervals or axis deviation. Diagnostic Imaging Diagonstic Imaging: Xray Plain Films/CT/US/NM/MRI: chest Comments Chest x-ray viewed by me and report reviewed. See report below: NAME: ADWOA [facility]UM[facility] REC#: [id number] PT STATUS: DEP ER : 1985 PHYSICIAN: MARGARITA HUNT MD ADMIT DATE: 10/21/20/ER Signed Date of Exam:10/21/20 CHEST 1 VIEW, AP/PA ONLY Indication: Dyspnea. Time of exam: 9:50 AM Correlation is made with prior chest from 07/20/2020. Changes of median sternotomy and CABG are noted. Lungs are clear. No infiltrates are seen. There is no effusion or pneumothorax. Impression: No acute abnormality is detected. Dictated by: Dictated on workstation # [id number] Dict: 10/21/20 0949 Trans: 10/21/20 1535 CV [id number] Interpreted by: ELVIRA ROCA MD Electronically signed by: ELVIRA ROCA MD 10/21/20 1535 Departure Impression Primary Impression: Chronic kidney disease Qualified Codes: N18.5 - Chronic kidney disease, stage 5 Additional Impressions: Anasarca Anxiety Disposition: 01 HOME, SELF-CARE Condition: Stable Departure-Patient Inst. Decision time for Depature: 12:41 Referrals: JOSE SMITH MD (PCP) Primary Care Physician NISHA VEE (Family) Primary Care Physician Patient Instructions: Chronic Kidney Disease Add. Discharge Instructions: 1. Stop Lasix (furosemide). 2. Start Demadex (torsemide) 100 mg daily and metolazone 10 mg daily. The first doses of these medications were given in the ER. Fax Rx to pharmacy. Please start them on October 22. 3. Please call Dr. Kym Hidalgo the morning for further instructions. 4. Labs need to be repeated in 48 to 72 hours. Please coordinate this with medical provider. 5. Return to the emergency room for worsening symptoms. All discharge instructions reviewed with patient and/or family. Voiced understanding. Scripts Metolazone (Metolazone) 10 Mg Tablet 10 MG PO DAILY, #30 TAB Prov: MARGARITA HUNT MD 10/21/20 Torsemide (Torsemide) 100 Mg Tablet 100 MG PO DAILY, #30 TAB Prov: MARGARITA HUNT MD 10/21/20 Copy Copies To 1: ARIAN ISSA MD, JOSHUA T MD Oct 21, 2020 09:41
--- NOTE | 2020-10-21 09:56 | Diagnostic Imaging Report ---
Indication: Dyspnea. Time of exam: 9:50 AM Correlation is made with prior chest from 07/20/2020. Changes of median sternotomy and CABG are noted. Lungs are clear. No infiltrates are seen. There is no effusion or pneumothorax. Impression: No acute abnormality is detected. Dictated by: Dictated on workstation # [id number]
[2020-10-21 10:22] LABS: BASOPHILS # (AUTO) 0.1 10^3/uL (0.0-0.1); BASOPHILS % (AUTO) 1 % (0-10); EOSINOPHILS # (AUTO) 0.4 10^3/uL (0.0-0.3); EOSINOPHILS % (AUTO) 5 % (0-10); HEMATOCRIT 26 % (35-52); LYMPHOCYTES # (AUTO) 1.9 10^3/uL (1.0-4.0); LYMPHOCYTES % (AUTO) 23 % (12-44); MEAN CORPUSCULAR HEMOGLOBIN 26 pg (25-34); MEAN CORPUSCULAR HGB CONC 30 g/dL (32-36); MEAN CORPUSCULAR VOLUME 85 fL (80-99); MEAN PLATELET VOLUME 11.2 fL (9.0-12.2); MONOCYTES # (AUTO) 0.6 10^3/uL (0.0-1.0); MONOCYTES % (AUTO) 7 % (0-12); NEUTROPHILS # (AUTO) 5.3 10^3/uL (1.8-7.8); NEUTROPHILS % (AUTO) 64 % (42-75); PLATELET COUNT 175 10^3/uL (130-400); WHITE BLOOD COUNT 8.3 10^3/uL (4.3-11.0)
[2020-10-21] MEDS ORDERED: ALPRAZolam 0.5 MG (XANAX) TAB PO ONE (10:30)
[2020-10-21 10:33] LABS: ALBUMIN 2.7 GM/DL (3.2-4.5); CHLORIDE 112 MMOL/L (98-107); INR 1.2 (0.8-1.4); POTASSIUM 5.5 MMOL/L (3.6-5.0); PROTHROMBIN TIME PATIENT 15.4 SEC (12.2-14.7); SODIUM 138 MMOL/L (135-145)
[2020-10-21 10:35] LABS: GLUCOSE 197 MG/DL (70-105); TOTAL PROTEIN 6.1 GM/DL (6.4-8.2)
[2020-10-21 10:36] LABS: CARBON DIOXIDE 17 MMOL/L (21-32)
[2020-10-21 10:37] LABS: BILIRUBIN,TOTAL 0.2 MG/DL (0.1-1.0)
[2020-10-21 10:38] LABS: PHOSPHORUS 5.2 MG/DL (2.3-4.7)
[2020-10-21 10:39] LABS: ALKALINE PHOSPHATASE 122 U/L (40-136); CREATININE SERUM 3.83 MG/DL (0.60-1.30); GFR ESTIMATED 13
[2020-10-21 10:42] LABS: ALANINE AMINOTRANSFERASE 14 U/L (0-55); MAGNESIUM 1.9 MG/DL (1.6-2.4)
[2020-10-21 11:07] LABS: BUN/CREATININE RATIO 14
[2020-10-21] MEDS ORDERED: TORSEMIDE 20 MG (DEMADEX) TAB PO ONE (12:30)
[2020-10-21] MEDS ORDERED: METOLAZONE 5 MG (ZAROXOLYN) TAB PO ONE (12:30)
[2020-10-21] MEDS ORDERED: METO10TA7 PO ×2 (12:45→12:47)
[2020-10-21] MEDS ORDERED: HYDROcodone/APAP 5 MG/325 MG (LORTAB) TAB PO ONE (12:45)
[2020-10-21] MEDS ORDERED: TORS100T4 PO ×2 (12:45→12:47)
[2020-10-21 14:03] VITALS: BP 121/84
[2020-10-24] MEDS ORDERED: LACT10SO PO (10:13)
== END 2020-10-21 14:03 | disposition home or self-care (01) ==
LOC: EDBD → EDUNIT# 09:05 → ER 09:07
DX: E11.22 Type 2 diabetes mellitus with diabetic chronic kidney disease (principal); I12.9 Hypertensive chronic kidney disease with stage 1 through stage 4 chronic kidney disease, or unspecified chronic kidney disease; N18.9 Chronic kidney disease, unspecified; R60.1 Generalized edema; F41.9 Anxiety disorder, unspecified; E78.00 Pure hypercholesterolemia, unspecified; I25.2 Old myocardial infarction; Z95.5 Presence of coronary angioplasty implant and graft; Z95.1 Presence of aortocoronary bypass graft; Z87.891 Personal history of nicotine dependence; Z88.5 Allergy status to narcotic agent; Z91.041 Radiographic dye allergy status; Z88.8 Allergy status to other drugs, medicaments and biological substances; Z79.4 Long term (current) use of insulin; Z79.82 Long term (current) use of aspirin
CPT/HCPCS: 36415; 71045; 80053; 83735; 83880; 84100; 84484; 85025; 85610; 93005

== ENCOUNTER 2020-10-23 09:38 | Observation (INO) | payer MEDICAID ==
[~2020-10-23] VITALS: Ht 162.5 cm; Wt 88.9 kg
[~2020-10-23 09:38] MED LIST changes: -ISOS30TA3 PO; +ISOS30TA82 PO; +METO10TA7 PO; +TORS100T4 PO
--- NOTE | 2020-10-23 10:04 | ED General ---
General Chief Complaint: Abdominal/GI Problems Stated Complaint: SOB Source of Information: Patient, Old Records Exam Limitations: No Limitations (NOAH MADDOX MD) History of Present Illness Date Seen by Provider: Oct 23, 2020 Time Seen by Provider: 09:50 Initial Comments Patient is a 46-year-old female who presents to the emergency department today with a chief complaint of shortness of breath and "pressure" on her chest. Patient states it feels like her abdomen is pushing up on her chest secondary to swelling possibly from her abdomen. Patient was seen in the emergency department 2 days ago with similar complaints and was started on metolazone and demadex diuretic therapy. Patient states since starting that medication she does not feel like she is urinated quite as frequently as she did before when she was on Lasix 80 mg 4 times daily. She states she woke up with this "pressure" and not feeling well. Patient states that she has had a significant weight gain about 40 pounds in the last month. She has a known history of coronary artery disease, congestive heart failure, end-stage renal disease, high cholesterol and diabetes. Patient recently had right mycts-fdp-mzix amputation in March 2020. She has had coronary artery interventions within the last year at [facility] per Dr. Mcgovern. Patient denies any recent febrile illnesses, cough, congestion, URI symptoms. No other GI or complaints. Per review of the medical record from October 21, Dr. Domingo spoke with Dr. Howard about this patient. He indicated they would follow the patient on October 24. All other review of systems reviewed and negative except as stated. Timing/Duration: Getting Worse Severity: Moderate Associated Systoms: Shortness of Air (NOAH MADDOX MD) Allergies and Home Medications Allergies Coded Allergies: codeine (Verified Allergy, Unknown, has received Lortab and Hydromorphone in the past, 04/22/20) nalbuphine (Verified Allergy, Unknown, 08/31/19) tramadol (Verified Allergy, Unknown, 08/31/19) Uncoded Allergies: CONTRAST (Allergy, Unknown, 08/31/19) Home Medications Aspirin 81 Mg Tablet., 81 MG PO HS Prescribed by: SANDRA MA on 04/24/202037 Atorvastatin Calcium 40 Mg Tablet, 40 MG PO DAILY Prescribed by: SANDRA MA on 04/24/202037 Benzocaine/Menthol/Zinc Chlor 5.1 Gm Gel..gram., 1 APPLIC MM Q4H PRN for ORAL PAIN, (Reported) Bisacodyl 10 Mg Supp.rect, 10 MG RC DAILY PRN for CONSTIPATION-1ST LINE Prescribed by: SANDRA MA on 04/27/201128 Carvedilol 6.25 Mg Tablet, 6.25 MG PO BID Prescribed by: SANDRA MA on 04/24/202037 Citalopram Hydrobromide 20 Mg Tablet, 20 MG PO DAILY Prescribed by: SANDRA MA on 04/24/202037 Clopidogrel Bisulfate 75 Mg Tablet, 75 MG PO DAILY Prescribed by: SANDRA MA on 04/24/202037 Cyanocobalamin (Vitamin B-12) 1,000 Mcg Tablet, 1,000 MCG PO DAILY Prescribed by: SANDRA MA on 04/24/202037 Docusate Sodium 100 Mg Capsule, 100 MG PO BID PRN for CONSTIPATION-1ST LINE Prescribed by: SANDRA MA on 04/24/202037 Ferrous Sulfate 325 Mg Tablet, 325 MG PO BID WITH MEALS Prescribed by: SANDRA MA on 04/24/202037 Folic Acid 0.8 Mg Capsule, 0.8 MG PO DAILY Prescribed by: SANDRA MA on 04/24/202037 Hydralazine HCl 50 Mg Tablet, 75 MG PO Q8H TAKES 1.5 OF A 50MG TAB Prescribed by: SANDRA MA on 04/24/202037 Hydrocodone/Acetaminophen 1 Each Tablet, 2 TAB PO Q4H PRN for PAIN-MODERATE (5- 7) Prescribed by: SANDRA MA on 04/24/202038 Hydroxyzine Pamoate 25 Mg Capsule, 25 MG PO TID PRN for ANXIETY Prescribed by: SANDRA MA on 04/24/202037 Insulin Detemir 100 Unit/1 Ml Insuln.pen, 10 UNIT SQ HS Prescribed by: SANDRA MA on 04/24/202037 Isosorbide Mononitrate 120 Mg Tab.er.24h, 120 MG PO DAILY Prescribed by: SANDRA MA on 04/24/202037 Lorazepam 1 Mg Tablet, 1 MG PO Q8H PRN for ANXIETY Prescribed by: SANDRA MA on 04/24/202038 Melatonin 3 Mg Tablet, 3 MG PO HS PRN for INSOMNIA Prescribed by: SANDRA MA on 04/24/202037 Metolazone 10 Mg Tablet, 10 MG PO DAILY Prescribed by: MARGARITA HAYES on 10/21/20 1247 Nicotine 1 Each Patch.td24, 14 MG TD DAILY@0900 Prescribed by: SANDRA MA on 04/24/202037 Ondansetron 4 Mg Tab.rapdis, 4 MG PO Q6H PRN for NAUSEA/VOMITING-1ST LINE Prescribed by: SANDRA MA on 04/24/202037 Pantoprazole Sodium 40 Mg Tablet.dr, 40 MG PO DAILY Prescribed by: SANDRA MA on 04/24/202037 Patiromer Calcium Sorbitex 8.4 Gm Powd.pack, 8.4 GM PO DAILY, (Reported) Promethazine HCl 25 Mg Tablet, 25 MG PO Q8H PRN for NAUSEA/VOMITING-2ND LINE Prescribed by: SANDRA MA on 04/24/202037 Torsemide 100 Mg Tablet, 100 MG PO DAILY Prescribed by: MARGARITA HAYES on 10/21/20 1247 Zolpidem Tartrate 5 Mg Tablet, 5 MG PO HS PRN for INSOMNIA Prescribed by: SANDRA MA on 04/24/202038 Patient Home Medication List Home Medication List Reviewed: Yes (NOAH MADDOX MD) Review of Systems Review of Systems Constitutional: see HPI EENTM: no symptoms reported Respiratory: dyspnea on exertion, short of breath Cardiovascular: chest pain ("pressure") Gastrointestinal: no symptoms reported Genitourinary: decreased output Musculoskeletal: no symptoms reported Skin: other Psychiatric/Neurological: Anxiety (NOAH MADDOX MD) All Other Systems Reviewed Negative Unless Noted: Yes (NOAH MADDOX MD) Past Yklonbc-Zyjszc-Rubpip Hx Patient Social History Drug of Choice: THC Type Used: Cigarettes 2nd Hand Smoke Exposure: Yes Recent Hopitalizations: No (NOAH MADDOX MD) Immunizations Up To Date Tetanus Booster (TDap): Unknown PED Vaccines UTD: Yes Date of Pneumonia Vaccine: Jul 25, 2018 (NOAH MADDOX MD) Seasonal Allergies Seasonal Allergies: No (NOAH MADDOX MD) Past Medical History Surgeries: Yes (4 amputations (foot and toes, right ATK), 5 stents) Amputation, CABG, Section, Coronary Stent, Tonsillectomy, 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 Respiratory: No Cardiac: Yes (5 stents; NSTEMI 07/2019, congestive heart failure) Coronary Artery Disease, Heart Attack, High Cholesterol, Hypertension, Perip heral Vascular Neurological: Yes Neuropathy 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, 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 Genitourinary: Yes (CKD) Bladder Infection, Renal Failure Gastrointestinal: Yes (CHRONIC NAUSEA/VOMITING) Irritable Bowel Musculoskeletal: Yes Amputee, Spasms Endocrine: Yes Diabetes, Insulin dep HEENT: No Cancer: No Psychosocial: Yes Anxiety Integumentary: Yes (CHRONIC FOOT WOUNDS) Blood Disorders: Yes (ANEMIA) Adverse Reaction/Blood Tranf: No (NOAH MADDOX MD) Family Medical History No Pertinent Family Hx SOCIAL HISTORY: -ETOH--OCCASIONAL USE, NO RECENT USE, PER PT 07/20/20 -DRUGS-+THC USE ( ALSO HX OF OPIATES AND BENZODIAZEPINE ABUSE) -SMOKED 1 PPD, QUIT 03/2020 PAST SURGICAL HISTORY: -CARDIAC CATHS--MULTIPLE STENTS PLUS ANGIOPLASTIES AT MULTIPLE FACILITIES--LAST CATH HERE 08/31/[address] GALE-- RCA ANGIOPLASTY -MULTIPLE CARDIAC AND PERIPHERAL INTERVENTIONS AT MULTIPLE FACILITIES--PERIPHERAL ANGIOGRAM AT [place] 08/21/2019--ANGIOPLASTY OF DEEP FEMORAL ARTERY, STENTS X 3 TO EXTERNAL ILIAC, COMMON FEMORAL AND SUPERFICIAL FEMORAL ARTERY -S/P 3 VESSEL CABG -RIGHT TOES AND PARTIAL FOOT AMPUTATIONS (MULTIPLE SURGERIES) , EVENTUALLY FOLLOWED BY RIGHT ABOVE THE KNEE AMPUTATION 03/27/20- AT [place] - -HYSTERECTOMY -BILATERAL TUBAL LIGATION -TONSILLECTOMY ADDITIONAL PAST MEDICAL HISTORY: -VENTRICULAR ARRHYTHMIA DURING DOBUTAMINE TEST -NSTEMI 07/2019 LONG HISTORY OF NON-COMPLIANCE HX OF HOMELESSNESS UNTIL ADMITTED TO [facility] AFTER LAST HOSPITALIZATION HX OF NARCOTIC AND BENZODIAZEPAM ABUSE (NOAH MADDOX MD) Physical Exam Vital Signs Vital Signs - First Documented 10/23/20 09:40 Temp 37.3 Pulse 83 Resp 16 B/P (MAP) 156/96 (116) Pulse Ox 97 O2 Delivery Room Air (NENA NICOLE APRN) Vital Signs Capillary Refill : (NOAH MADDOX MD) Height, Weight, BMI Height: '" Weight: lbs. oz. kg; 34.00 BMI Method: General Appearance: No Apparent Distress, WD/WN Eyes: Bilateral Eye Normal Inspection, Bilateral Eye PERRL, Bilateral Eye EOMI HEENT: PERRL/EOMI Neck: Normal Inspection Respiratory: Lungs Clear, Normal Breath Sounds, No Respiratory Distress, Other (poor inspiratory effort secondary to enlarged abdomen and discomfort) Cardiovascular: Regular Rate, Rhythm, No Murmur, Normal Peripheral Pulses, Other (significant peripheral edema) Gastrointestinal: Soft, Tenderness (right flank and left flank, secondary to edema in the abdominal wall) Extremity: Normal Capillary Refill, Normal Range of Motion, Pedal Edema, Other (RLE AKA) Neurologic/Psychiatric: Alert, Oriented x3, No Motor/Sensory Deficits, Normal Mood/Affect Skin: Normal Color, Warm/Dry, Other (Skin changes to the anterior abdominal wall bilaterally, peau d'orange changes) (NOAH MADDOX MD) Progress/Results/Core Measures Suspected Sepsis SIRS Temperature: Pulse: Respiratory Rate: Laboratory Tests 10/23/20 09:47: White Blood Count 9.1 Blood Pressure / Mean: Laboratory Tests 10/23/20 09:47: Creatinine 4.33#H, Platelet Count 199 (NOAH MADDOX MD) Results/Orders Lab Results Laboratory Tests Test 10/23/20 09:47 10/23/20 09:53 10/23/20 13:21 10/23/20 18:21 Range/Units White Blood Count 9.1 4.3-11.0 10^3/uL Red Blood Count 3.26 L 3.80-5.11 10^6/uL Hemoglobin 8.5 L 11.5-16.0 g/dL Hematocrit 28 L 35-52 % Mean Corpuscular Volume 85 80-99 fL Mean Corpuscular Hemoglobin 26 25-34 pg Mean Corpuscular Hemoglobin Concent 31 L 32-36 g/dL Red Cell Distribution Width 17.6 H 10.0-14.5 % Platelet Count 199 130-400 10^3/uL Mean Platelet Volume 12.0 9.0-12.2 fL Immature Granulocyte % (Auto) 1 % Neutrophils (%) (Auto) 62 42-75 % Lymphocytes (%) (Auto) 23 12-44 % Monocytes (%) (Auto) 9 0-12 % Eosinophils (%) (Auto) 5 0-10 % Basophils (%) (Auto) 0 0-10 % Neutrophils # (Auto) 5.6 1.8-7.8 10^3/uL Lymphocytes # (Auto) 2.1 1.0-4.0 10^3/uL Monocytes # (Auto) 0.8 0.0-1.0 10^3/uL Eosinophils # (Auto) 0.4 H 0.0-0.3 10^3/uL Basophils # (Auto) 0.0 0.0-0.1 10^3/uL Immature Granulocyte # (Auto) 0.1 0.0-0.1 10^3/uL Sodium Level 138 135-145 MMOL/L Potassium Level 5.2 H 3.6-5.0 MMOL/L Chloride Level 111 H 98-107 MMOL/L Carbon Dioxide Level 16 L 21-32 MMOL/L Anion Gap 11 5-14 MMOL/L Blood Urea Nitrogen 56 H 7-18 MG/DL Creatinine 4.33 #H 0.60-1.30 MG/DL Estimat Glomerular Filtration Rate 11 BUN/Creatinine Ratio 13 Glucose Level 103 70-105 MG/DL Calcium Level 8.1 L 8.5-10.1 MG/DL Troponin I 0.030 H 0.039 H 0.034 H <0.028 NG/ML Glucometer 101 70-110 MG/DL (NENA NICOLE APRN) My Orders Orders - NENA NICOLE APRN Diphenhydramine Tablet (Benadryl Tablet) (10/23/20 18:45) Carvedilol Tablet (Coreg Tablet) (10/23/20 18:45) Clopidogrel Tablet (Plavix Tablet) (10/23/20 18:45) Citalopram Tablet (Celexa Tablet) (10/23/20 18:45) Cyanocobalamin Tablet (Vitamin B-12 Tabl (10/23/20 18:45) Folic Acid Tablet (Folic Acid Tablet) (10/23/20 18:45) Lactulose Oral Solution (Enulose Oral So (10/23/20 18:45) Insulin Determir (Per Unit) (Levemir (Pe (10/23/20 18:45) Hydrocodone/Apap 7.5/325 Tab (Lortab 7. (10/23/20 18:45) Pregabalin Capsule (Lyrica Capsule) (10/23/20 18:45) Melatonin Tablet (Melatonin Tablet) (10/23/20 21:00) Metolazone Tablet (Zaroxolyn Tablet) (10/23/20 18:45) Pantoprazole Tablet (Protonix Tablet) (10/23/20 18:45) Sevelamer Carbonate Tablet (Renvela Tabl (10/23/20 18:45) Torsemide Tablet (Demadex Tablet) (10/23/20 18:45) Zinc Sulfate Capsule (Zinc 50 Mg Capsule (10/23/20 18:45) Enoxaparin Injection (Lovenox Injection) (10/23/20 19:00) (NENA NICOLE APRN) Medications Given in ED Current Medications Medications Dose Ordered Sig/Mary Jo Route Start Time Stop Time Status Last Admin Dose Admin Bumetanide 1 mg ONCE ONCE IV 10/23/20 12:00 10/23/20 12:01 DC 10/23/20 12:33 1 MG (NENA NICOLE APRN) Vital Signs/I&O 10/23/20 10/23/20 09:40 14:14 Temp 37.3 37.3 Pulse 83 81 Resp 16 17 B/P (MAP) 156/96 (116) 156/92 (113) Pulse Ox 97 97 O2 Delivery Room Air Room Air (NENA NICOLE APRN) Vital Signs/I&O Capillary Refill : (NOAH MADDOX MD) Progress Note : Time: 11:17 Progress Note I called and spoke with Dr. Howard at [facility] in [place] as that is who Dr Hayes spoke with on Saturday. They will follow up with her tomorrow. I informed him of the increase in her Creatinine (from 3.83 on Saturday the to 4.33 today) and he stated if her potassium was not elevated (it is not) and she is not i heart failure (she is not), then she should be stable enough to follow up with them tomorrow. Tambi did state she was following up in November with Dr Matthew from [facility], however, Dr Howard stated they would talk to her tomorrow about follow up. I am keeping her for another hour and a half to repeat her troponiin as it was very minimally elevated on her first lab draw at 0.030. SHe is comfortable with this - she also has not taken her morning medications yet this morning. Im going to give her a one time shot of Bumex and then instruct her to continue her Demadex and Metolazone. SHe is comfortable with this plan of care. SHe will be given contact information for nephrology follow up. She is currently pending the second troponin at 12:30. 1413 second troponin is even higher now at 0.039. Discussed transfer with patient and she is agreeable. Secondary to inability to diurese, the elevated troponin, worsening renal failure and anasarca, will transfer to [facility] to her able bodied watchman and nephrology. Dr Baker has graciously accepted the patient to his service. 1736 Weather has been making it difficult to obtain transfer to [facility]. None of the ambulance services will transport at this time. Faustin called back and stated after 5 hours they will need another doc to doc done. Will go ahead and repeat her troponin at this time. Patient's vital signs have been stable. No ongoing complaints of chest pain at this time. (NOAH MADDOX MD) ECG Initial ECG Impression Date: Oct 23, 2020 Initial ECG Impression Time: 10:03 Initial ECG Rate: 79 Initial ECG Rhythm: Normal Sinus Initial ECG Intervals: Normal Initial ECG Impression: Nonspecific Changes Initial ECG Comparisson: Unchanged (NOAH MADDOX MD) Diagnostic Imaging Diagonstic Imaging: Xray Plain Films/CT/US/NM/MRI: chest Comments [facility], [place] NAME: ADWOA CUMMINGS [facility] REC#: [id number] PT STATUS: REG ER : 1985 PHYSICIAN: NOAH MADDOX MD ADMIT DATE: 10/23/20/ER Signed Date of Exam:10/23/20 CHEST 1 VIEW, AP/PA ONLY CHEST 1 VIEW, AP/PA ONLY Indication: Chest pressure and shortness of breath Comparison: 10/21/2020 Findings: Right basilar opacities have mildly increased. No pleural effusion or pneumothorax. Stable cardiomegaly status post CABG. Stable configuration of sternotomy wires. Impression: 1. Increased right basilar opacities could be due to atelectasis. Pneumonia or aspiration could also give this appearance. Dictated by: Dictated on workstation # [id number] Dict: 10/23/20 1038 Trans: 10/23/20 1300 [facility] [id number] Interpreted by: ALICE CLARK MD Electronically signed by: ALICE CLARK MD 10/23/20 1300 (NOAH MADDOX MD) Departure Communication (Admissions) 1833-we have acceptance at [facility] however we have no way to get her there. She does not need to be flown and with the [facility] aircraft are not flying anyway. [facility] has refused to transport given the icy roads. [facility] has refused to transport given the icy roads. [facility] ambulance service from [place] has refused to come get the patient due to icy roads. Her third troponin is pending. Her vitals are stable and she voices no complaints at this time. 1850-roads are forecasted to become more slick overnight. Do not anticipate transfer in the immediate future. Discussed with Dr. Coleman, will admit here observation status until [facility] is able to transport. (NENA NICOLE APRN) Impression Primary Impression: Ireac-ku-vjlykbe renal failure Qualified Codes: N17.9 - Acute kidney failure, unspecified; N18.5 - Chronic kidney disease, stage 5 Additional Impressions: Anasarca Chest pain Qualified Codes: R07.9 - Chest pain, unspecified Elevated troponin I level Disposition: 62 DISC/XFER TO IRF Condition: Stable Transfer Transfer Reason: Exceeds level of care Time Spoke to Accepting Phy: 13:56 Transfer Progress Notes Discussed with Dr Baker at [facility]; Accepts patient for transfer Transfer Facility: [facility] (NOAH MADDOX MD) Departure-Patient Inst. Referrals: KYM HOWARD MD Add. Discharge Instructions: Please call and follow up with Dr Kym Howard TOMORROW regarding your worsening renal failure. Their address and phone number are: [address] [place] [phone] Continue taking your Demadex and Metolazone daily. Continue your other routine daily medications as prescribed. Return to the Emergency Department for any worsening shortness of breath, pain or other emergent concerns. All discharge instructions reviewed with patient and/or family. Voiced understanding. NOAH MADDOX MD Oct 23, 2020 10:04 NENA NICOLE APRN Oct 23, 2020 18:34
[2020-10-23 10:17] LABS: BASOPHILS % (AUTO) 0 % (0-10); EOSINOPHILS # (AUTO) 0.4 10^3/uL (0.0-0.3); EOSINOPHILS % (AUTO) 5 % (0-10); HEMATOCRIT 28 % (35-52); HEMOGLOBIN 8.5 g/dL (11.5-16.0); LYMPHOCYTES # (AUTO) 2.1 10^3/uL (1.0-4.0); LYMPHOCYTES % (AUTO) 23 % (12-44); MEAN CORPUSCULAR HEMOGLOBIN 26 pg (25-34); MEAN CORPUSCULAR HGB CONC 31 g/dL (32-36); MEAN CORPUSCULAR VOLUME 85 fL (80-99); MONOCYTES # (AUTO) 0.8 10^3/uL (0.0-1.0); MONOCYTES % (AUTO) 9 % (0-12); NEUTROPHILS # (AUTO) 5.6 10^3/uL (1.8-7.8); NEUTROPHILS % (AUTO) 62 % (42-75); PLATELET COUNT 199 10^3/uL (130-400); WHITE BLOOD COUNT 9.1 10^3/uL (4.3-11.0)
[2020-10-23 10:21] LABS: POTASSIUM 5.2 MMOL/L (3.6-5.0)
[2020-10-23 10:22] LABS: CALCIUM 8.1 MG/DL (8.5-10.1)
[2020-10-23 10:27] LABS: CREATININE SERUM 4.33 MG/DL (0.60-1.30)
--- NOTE | 2020-10-23 10:43 | Diagnostic Imaging Report ---
CHEST 1 VIEW, AP/PA ONLY Indication: Chest pressure and shortness of breath Comparison: 10/21/2020 Findings: Right basilar opacities have mildly increased. No pleural effusion or pneumothorax. Stable cardiomegaly status post CABG. Stable configuration of sternotomy wires. Impression: 1. Increased right basilar opacities could be due to atelectasis. Pneumonia or aspiration could also give this appearance. Dictated by: Dictated on workstation # [id number]
[2020-10-23] MEDS ORDERED: BUMETANIDE 1 MG/4 ML (BUMEX) VIAL IV ONE (12:00)
[2020-10-23] MEDS ORDERED: ASPIRIN 81 MG CHEW (CHILDREN'S ASA) ONE (14:26)
[2020-10-23] MEDS: ASPIRIN 81 MG CHEW (CHILDREN'S ASA) PO SCH (14:36)
[2020-10-23] MEDS ORDERED: FOLIC ACID 1 MG TAB PO ONE (18:45)
[2020-10-23] MEDS ORDERED: diphenhydrAMINE 25 MG TAB (BENADRYL) PO ONE (18:45)
[2020-10-23] MEDS ORDERED: SEVELAMER CARBONATE 800 MG TABLET (RENVELA) PO SCH (18:45)
[2020-10-23] MEDS ORDERED: PREGABALIN 25 MG (LYRICA) CAPSULE PO ONE (18:45)
[2020-10-23] MEDS ORDERED: PANTOPRAZOLE 40 MG (PROTONIX) TAB PO ONE (18:45)
[2020-10-23] MEDS ORDERED: ZINC SULFATE 220 MG CAPSULE PO SCH (18:45)
[2020-10-23] MEDS ORDERED: METOLAZONE 5 MG (ZAROXOLYN) TAB PO ONE (18:45)
[2020-10-23] MEDS ORDERED: HYDROcodone/APAP 7.5 MG/325 MG (LORTAB, LORCET PLUS) TABLET PO ONE (18:45)
[2020-10-23] MEDS ORDERED: CLOPIDOGREL 75 MG (PLAVIX) TABLET PO ONE (18:45)
[2020-10-23] MEDS ORDERED: CYANOCOBALAMIN 1,000 MCG (VITAMIN B-12) TABLET PO SCH (18:45)
[2020-10-23] MEDS ORDERED: TORSEMIDE 20 MG (DEMADEX) TAB PO ONE (18:45)
[2020-10-23] MEDS ORDERED: CARVEDILOL 6.25 MG (COREG) TAB PO ONE (18:45)
[2020-10-23] MEDS ORDERED: ENOXAPARIN 100 MG/1 ML (LOVENOX) SYR SC ONE (19:00)
[2020-10-23] MEDS: LACTULOSE SYRUP 10GM/15ML (ENULOSE) 30ML UDC PO ONE ×2 (19:06→19:17)
[2020-10-23] MEDS: MELATONIN 3 MG TABLET PO SCH ×2 (19:07→21:23)
[2020-10-23] MEDS ORDERED: ONDANSETRON 4 MG (ZOFRAN) ORAL DISSOLVE TAB PO PRN (20:30)
[2020-10-23] MEDS ORDERED: CATHETER FLUSH 10 ML SYR IV PRN (20:45)
[2020-10-23] MEDS ORDERED: PREGABALIN 25 MG (LYRICA) CAPSULE ONE (20:54)
[2020-10-23] MEDS ORDERED: TORSEMIDE 20 MG (DEMADEX) TAB ONE (20:54)
[2020-10-23] MEDS: CATHETER FLUSH 10 ML SYR IV SCH (21:23)
[2020-10-23 23:54] VITALS: BP 125/70
[2020-10-24 04:00] VITALS: BP 137/75
[2020-10-24] MEDS: CATHETER FLUSH 10 ML SYR IV SCH ×3 (06:12→19:59)
[2020-10-24 07:25] LABS: BASOPHILS # (AUTO) 0.1 10^3/uL (0.0-0.1); BASOPHILS % (AUTO) 1 % (0-10); EOSINOPHILS # (AUTO) 0.5 10^3/uL (0.0-0.3); EOSINOPHILS % (AUTO) 6 % (0-10); HEMATOCRIT 26 % (35-52); HEMOGLOBIN 8.2 g/dL (11.5-16.0); LYMPHOCYTES # (AUTO) 2.4 10^3/uL (1.0-4.0); LYMPHOCYTES % (AUTO) 31 % (12-44); MEAN CORPUSCULAR HEMOGLOBIN 26 pg (25-34); MEAN CORPUSCULAR HGB CONC 31 g/dL (32-36); MEAN CORPUSCULAR VOLUME 84 fL (80-99); MEAN PLATELET VOLUME 11.3 fL (9.0-12.2); MONOCYTES # (AUTO) 0.7 10^3/uL (0.0-1.0); MONOCYTES % (AUTO) 8 % (0-12); NEUTROPHILS # (AUTO) 4.1 10^3/uL (1.8-7.8); NEUTROPHILS % (AUTO) 53 % (42-75); PLATELET COUNT 189 10^3/uL (130-400); WHITE BLOOD COUNT 7.7 10^3/uL (4.3-11.0)
[2020-10-24 07:42] LABS: ALBUMIN 2.5 GM/DL (3.2-4.5); BILIRUBIN,TOTAL 0.3 MG/DL (0.1-1.0); CALCIUM 8.4 MG/DL (8.5-10.1); CREATININE SERUM 4.48 MG/DL (0.60-1.30); POTASSIUM 4.6 MMOL/L (3.6-5.0)
[2020-10-24 08:00] VITALS: BP 136/78
--- NOTE | 2020-10-24 10:12 | History & Physical-Hospitalist ---
History of Present Illness HPI/Chief Complaint CC: Chest pain with elevated Troponin HPI: This is a 35yoWF known to me from right ewuls-fax-caid amputation history i n rehab, sent to [facility] who had been doing pretty well but getting close to dialysis when she presented to the ER with chest pain, found to have creatinine of 4.3 and EMS was not transferring the Pt because of road conditions so she was admitted, I will consult Dr. Grimes, she denies any significant chest pain at this current time and she is needing to see cardiology for possible uma-dialysis in the future. Source: patient Exam Limitations: no limitations Date Seen 10/24/20 Time Seen by a Provider: 10:00 Attending Physician Gertrudis Coleman MD PCP Dawit Giraldo MD Referring Physician Date of Admission Oct 23, 2020 at 18:45 Home Medications & Allergies Home Medications Reviewed patient Home Medication Reconciliation performed by pharmacy medication reconciliations precision lens technician and/or nursing. Patients Allergies have been reviewed. Allergies Allergies Coded Allergies codeine (Verified Allergy, Unknown, has received Lortab and Hydromorphone in the past, 04/22/20) nalbuphine (Verified Allergy, Unknown, 08/31/19) tramadol (Verified Allergy, Unknown, 08/31/19) Uncoded Allergies CONTRAST ( Allergy, Unknown, 08/31/19) Past Qjwdjrs-Xmurmj-Nfhxny Hx Past Med/Social Hx: Reviewed Nursing Past Med/Soc Hx, Reviewed and Corrections made Patient Social History Marrital Status: single Employed/Student: unemployed Alcohol Use: Denies Use Recreational Drug Use: Yes (THC) Drug of Choice: THC Smoking Status: Former Smoker Type Used: Cigarettes 2nd Hand Smoke Exposure: Yes Recent Foreign Travel: No Contact w/other who traveled: No Recent Hopitalizations: No Recent Infectious Disease Expo: No Immunizations Up To Date Tetanus Booster (TDap): Unknown Pediatric: Yes Date of Pneumonia Vaccine: Jul 25, 2018 Seasonal Allergies Seasonal Allergies: No Past Medical History Surgeries: Amputation, CABG, Section, Coronary Stent, Orthopedic, Tonsillectomy, 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 Respiratory: COPD Cardiac: Coronary Artery Disease, Heart Attack, High Cholesterol, Hypertension, Peripheral Vascular Neurological: Neuropathy Hysterectomy, 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 Genitourinary: Bladder Infection, Renal Failure Gastrointestinal: Irritable Bowel Musculoskeletal: Amputee, Spasms Endocrine: Diabetes, Insulin dep Psychosocial: Anxiety History of Blood Disorders: Yes (ANEMIA) Adverse Reaction to Blood Meza: No Family History No Pertinent Family Hx SOCIAL HISTORY: -ETOH--OCCASIONAL USE, NO RECENT USE, PER PT 07/20/20 -DRUGS-+THC USE ( ALSO HX OF OPIATES AND BENZODIAZEPINE ABUSE) -SMOKED 1 PPD, QUIT 03/2020 PAST SURGICAL HISTORY: -CARDIAC CATHS--MULTIPLE STENTS PLUS ANGIOPLASTIES AT MULTIPLE FACILITIES--LAST CATH HERE 08/31/[address] GRIMES-- RCA ANGIOPLASTY -MULTIPLE CARDIAC AND PERIPHERAL INTERVENTIONS AT MULTIPLE FACILITIES--PERIPHERAL ANGIOGRAM AT [place] 08/21/2019--ANGIOPLASTY OF DEEP FEMORAL ARTERY, STENTS X 3 TO EXTERNAL ILIAC, COMMON FEMORAL AND SUPERFICIAL FEMORAL ARTERY -S/P 3 VESSEL CABG -RIGHT TOES AND PARTIAL FOOT AMPUTATIONS (MULTIPLE SURGERIES) , EVENTUALLY FOLLOWED BY RIGHT ABOVE THE KNEE AMPUTATION 03/27/20- AT [place] - -HYSTERECTOMY -BILATERAL TUBAL LIGATION -TONSILLECTOMY ADDITIONAL PAST MEDICAL HISTORY: -VENTRICULAR ARRHYTHMIA DURING DOBUTAMINE TEST -NSTEMI 07/2019 LONG HISTORY OF NON-COMPLIANCE HX OF HOMELESSNESS UNTIL ADMITTED TO [facility] AFTER LAST HOSPITALIZATION HX OF NARCOTIC AND BENZODIAZEPAM ABUSE Review of Systems Constitutional: see HPI Cardiovascular: chest pain Physical Exam Physical Exam Vital Signs Vital Signs - First Documented 10/23/20 09:40 Temp 37.3 Pulse 83 Resp 16 B/P (MAP) 156/96 (116) Pulse Ox 97 O2 Delivery Room Air Capillary Refill : Less Than 3 Seconds Height, Weight, BMI Height: '" Weight: lbs. oz. kg; 33.66 BMI Method: General Appearance: No Apparent Distress, Anxious, Chronically ill Respiratory: Chest Non Tender, Lungs Clear, Normal Breath Sounds, No Accessory Muscle Use, No Respiratory Distress Cardiovascular: Regular Rate, Rhythm, No Edema, No Gallop, No JVD, No Murmur, Normal Peripheral Pulses Neurologic/Psychiatric: Alert, Oriented x3 Results Results/Procedures Labs Laboratory Tests 10/23/20 09:47 10/24/20 07:17 10/25/20 05:31 Patient resulted labs reviewed. Assessment/Plan Admission Diagnosis Assessment: Chest pain Type 2 AK CKD Plan: May need to move to [place] for dialysis Admission Status: Observation Diagnosis/Problems Diagnosis/Problems (1) Elevated troponin I level Status: Acute (2) Muupb-no-tjchanm renal failure Status: Acute Qualifiers: Acute renal failure type: unspecified Chronic kidney disease stage: stage 5, not on chronic dialysis Qualified Codes: N17.9 - Acute kidney failure, unspecified; N18.5 - Chronic kidney disease, stage 5 (3) Chest pain Status: Acute Qualifiers: Chest pain type: unspecified Qualified Codes: R07.9 - Chest pain, unspecified SANDRA MA DO Oct 24, 2020 10:12
[2020-10-24] MEDS ORDERED: CARV6.252 PO (10:13)
[2020-10-24] MEDS ORDERED: MELA3TAB39 PO (10:13)
[2020-10-24] MEDS ORDERED: AMOX500C2 (10:13)
[2020-10-24] MEDS ORDERED: LOPE-134 PO (10:13)
[2020-10-24] MEDS ORDERED: ZINC50TA58 PO (10:13)
[2020-10-24] MEDS ORDERED: FURO80TA3 PO (10:13)
[2020-10-24] MEDS ORDERED: PREG25CA19 PO (10:13)
[2020-10-24] MEDS ORDERED: HYDR-3817 PO ×2 (10:13→10:20)
[2020-10-24] MEDS ORDERED: CHOL500044 PO (10:13)
[2020-10-24] MEDS ORDERED: FURO40TA4 PO (10:13)
[2020-10-24] MEDS ORDERED: PANT40TA52 PO (10:13)
[2020-10-24] MEDS ORDERED: SEVE800T13 PO (10:13)
[2020-10-24] MEDS ORDERED: METO10TA7 PO (10:13)
[2020-10-24] MEDS ORDERED: CYAN-41 PO (10:13)
[2020-10-24] MEDS ORDERED: CLOP75TA69 PO (10:13)
[2020-10-24] MEDS ORDERED: LACT10SO3 PO (10:13)
[2020-10-24] MEDS ORDERED: TORS100T4 PO (10:13)
[2020-10-24] MEDS ORDERED: ONDA-105 PO (10:13)
[2020-10-24] MEDS ORDERED: ASPI-1238 PO (10:13)
[2020-10-24] MEDS ORDERED: CITA20TA9 PO (10:13)
[2020-10-24] MEDS ORDERED: FOLI0.8C PO (10:13)
[2020-10-24] MEDS ORDERED: DIPH25CA48 PO (10:13)
[2020-10-24] MEDS ORDERED: PROM25TA14 PO (10:20)
[2020-10-24] MEDS ORDERED: BISA10SU8 RC (10:20)
[2020-10-24] MEDS ORDERED: INSU100V16 SQ (10:20)
[2020-10-24] MEDS ORDERED: INSU100I29 SQ (10:20)
[2020-10-24 12:00] VITALS: BP 154/70
[2020-10-24] MEDS: HYDROcodone/APAP 7.5 MG/325 MG (LORTAB, LORCET PLUS) TABLET PO PRN ×2 (15:03→22:04)
[2020-10-24 16:00] VITALS: BP 169/81
--- NOTE | 2020-10-24 17:25 | Consultation-Cardiology ---
HPI-Cardiology Cardiology Consultation: Date of Consultation 10/24/20 Time Seen by a Provider: 13:30 Date of Admission Attending Physician Gertrudis Coleman MD Admitting Physician Dawit Giraldo MD Consulting Physician LEILANI GALE MD, MA, FACP, FACC, FSCAI, CCDS HPI: Chief Complaint: Reason for consultation: Elevated troponin HPI 35 yo woman with multiple, longstanding comorbidities admitted to Dr Guerra's surface with gen malaise and feeling unwell and a feeling of shortness of breath and abdominal swelling. She doesn't report any cp to me, today or at time of admission. Is vague in answering questions and providing history. Denies palp or syncope. Review of Systems-Cardiology Review of Systems Constitutional: As described under HPI Eyes: No vision change Ears/Nose/Throat: No ear discharge, No nasal drainage, No recent hearing loss Respiratory: As described under HPI Cardiovascular: As described under HPI Gastrointestinal: No diarrhea, No nausea, No vomiting Genitourinary: No dysuria, No hematuria, No urine frequency changes Musculoskeletal: No back pain, No joint pain Skin: No rash, No ulcerations Psychiatric/Neurological: No seizure, No focal weakness, No syncope Hematologic: No bleeding abnormalities All Other Systems Reviewed Negative Unless Noted: Yes MLM-[id number] Hx Patient Social History Smoking Status: Former Smoker 2nd Hand Smoke Exposure: Yes Have you traveled recently?: No Alcohol Use?: No Pt feels they are or have been: No Immunizations Up To Date Tetanus Booster (TDap): Unknown Date of Pneumonia Vaccine: Jul 25, 2018 Past Medical History PMH As described under Assessment. Family Medical History Family Medical History: Reports fam h/o early CAD (father had VT in his 50s) Allergies and Home Medications Allergies Coded Allergies: codeine (Verified Allergy, Unknown, has received Lortab and Hydromorphone in the past, 04/22/20) nalbuphine (Verified Allergy, Unknown, 08/31/19) tramadol (Verified Allergy, Unknown, 08/31/19) Uncoded Allergies: CONTRAST (Allergy, Unknown, 08/31/19) Home Medications Aspirin 81 Mg Tablet.dr, 81 MG PO DAILY, (Reported) Bisacodyl 10 Mg Supp.rect, 10 MG RC DAILY PRN for CONSTIPATION-4TH LINE, (Reported) Carvedilol 6.25 Mg Tablet, 6.25 MG PO BID, (Reported) Cholecalciferol (Vitamin D3) 125 Mcg Tablet, 125 MCG PO MON, (Reported) Citalopram Hydrobromide 20 Mg Tablet, 20 MG PO DAILY, (Reported) Clopidogrel Bisulfate 75 Mg Tablet, 75 MG PO DAILY, (Reported) Cyanocobalamin (Vitamin B-12) 1,000 Mcg Tablet, 1,000 MCG PO DAILY, (Reported) Diphenhydramine HCl 25 Mg Capsule, 25 MG PO HS, (Reported) Folic Acid 0.8 Mg Capsule, 0.8 MG PO DAILY, (Reported) Hydrocodone/Acetaminophen 1 Each Tablet, 1 EA PO HS, (Reported) Hydrocodone/Acetaminophen 1 Each Tablet, 1 EACH PO BID PRN for PAIN-MODERATE (5- 7), (Reported) Insulin Aspart 100 Unit/1 Ml Susp, 10 UNIT SQ AC, (Reported) Insulin Detemir 100 Unit/1 Ml Insuln.pen, 10 UNIT SQ BID, (Reported) Lactulose 10 Gm/15 Ml Solution, 15 ML PO DAILY, (Reported) Loperamide HCl 2 Mg Tablet, 2-4 MG PO PRN PRN for LOOSE STOOLS, (Reported) Melatonin 3 Mg Tablet, 3 MG PO HS, (Reported) Metolazone 10 Mg Tablet, 10 MG PO DAILY, (Reported) Ondansetron HCl 4 Mg Tablet, 4 MG PO Q6H PRN for NAUSEA/VOMITING-1ST LINE, (Reported) Pantoprazole Sodium 40 Mg Tablet.dr, 40 MG PO DAILY, (Reported) Pregabalin 25 Mg Capsule, 25 MG PO TID, (Reported) Promethazine HCl 25 Mg Tablet, 25 MG PO Q8H PRN for NAUSEA/VOMITING-2ND LINE, (Reported) Sevelamer Carbonate 800 Mg Tablet, 1,600 MG PO TID, (Reported) TAKES 2 (800MG) TABS Torsemide 100 Mg Tablet, 100 MG PO DAILY, (Reported) Zinc 50 Mg Tablet, 50 MG PO DAILY, (Reported) Patient Home Medication List Home Medication List Reviewed: Yes Physical Exam-Cardiology Physical Exam Vital Signs/I&O 10/24/20 10/24/20 10/24/20 10/24/20 06:52 08:00 08:00 12:00 Temp 36.3 36.5 Pulse 62 65 68 Resp 18 18 B/P (MAP) 136/78 (97) 154/70 (98) Pulse Ox 96 96 95 O2 Delivery Room Air Room Air Room Air 10/24/20 10/24/20 12:36 16:00 Temp 36.0 Pulse 67 75 Resp 19 B/P (MAP) 169/81 (110) Pulse Ox 99 O2 Delivery Room Air 10/23/20 23:59 Intake Total 0 ml Output Total 500 ml Balance -500 ml Capillary Refill : Less Than 3 Seconds Constitutional: AAO x 3, well-developed, well-nourished HEENT: EOMI, hearing is well preserved, xanthelasmas are seen Neck: carotid pulses are 2 + bilaterally, with good upstrokes Respiratory: No accessory muscle use; other (good bilateral air entry) Cardiovascular: regular rate-rhythm, S1 and S2, systolic murmur (soft HARISH at card base) Gastrointestinal: No tender, No guarding, No rebound; audible bowel sounds Extremities: other (R AKA); No clubbing, No cyanosis, No significant edema Neurologic/Psychiatric: oriented x 3, other (moves all limbs equally) Skin: No rash on exposed areas, No ulcerations on exposed areas Data Review Labs Laboratory Tests 10/23/20 18:21: Troponin I 0.034H 10/23/20 19:04: Glucometer 123H 10/24/20 07:17: White Blood Count 7.7, Red Blood Count 3.15L, Hemoglobin 8.2L, Hematocrit 26L, Mean Corpuscular Volume 84, Mean Corpuscular Hemoglobin 26, Mean Corpuscular Hemoglobin Concent 31L, Red Cell Distribution Width 17.3H, Platelet Count 189, Mean Platelet Volume 11.3, Immature Granulocyte % (Auto) 1, Neutrophils (%) (Auto) 53, Lymphocytes (%) (Auto) 31, Monocytes (%) (Auto) 8, Eosinophils (%) (Auto) 6, Basophils (%) (Auto) 1, Neutrophils # (Auto) 4.1, Lymphocytes # (Auto) 2.4, Monocytes # (Auto) 0.7, Eosinophils # (Auto) 0.5H, Basophils # (Auto) 0.1, Immature Granulocyte # (Auto) 0.1, Sodium Level 140, Potassium Level 4.6, Chloride Level 113H, Carbon Dioxide Level 17L, Anion Gap 10, Blood Urea Nitrogen 56H, Creatinine 4.48H, Estimat Glomerular Filtration Rate 11, BUN/Creatinine Ratio 13, Glucose Level 70, Calcium Level 8.4L, Corrected Calcium 9.6, Total Bilirubin 0.3, Aspartate Amino Transf (AST/SGOT) 18, Alanine Aminotransferase (ALT/SGPT) 16, Alkaline Phosphatase 126, Total Protein 6.0L, Albumin 2.5L Laboratory Tests 10/23/20 09:47 10/24/20 07:17 A/P-Cardiology Assessment/Admission Diagnosis Ac renal failure on CKD-4, being managed by Dr Guerra Minimal troponin elevation, likely type-2 VT due to uncontrolled hypertension and ac on chroni renal failure CAD - H/O CABG at [facility] in [place], [place] in Jul 2018 - Card cath on 08/31/19 at this facility: Proximally occluded LAD, patent QIU to LAD, mod stenoses of the LCX, extensively stented RCA with 80% instent (culprit) to which successful balloon angioplasty was carried out, LVEF 40%, global hypokinesis (more in the inf wall) - Dobutamine stress test November [address] Cortez did not show any gross ischemia, but did have NSVT at the time - advised med tx at that time. CAD with multiple coronary interventions at different centers (pt unaware of details). Has had multiple coronary PCIs at [facility] (Dr Mcgovern) last in February or March 2020, according to the patient, but we have not been able to find records of this - Last card cath in Apr [address] Matthew: occluded stents in the mid RCA. Successfully revascularized. Severe distal RCA stenosis treated with a bare metal stent 2.0 x 12 mm. ICM - Echo on 09/01/19: LVEF 40-45%, global hypokinesis (more prominent in the midseptal wall), mild to mod MR & TR, mild AI, RVSP 37 mmHg. LVEF 40-45%, global hypokinesis (more prominent in the midseptal wall), mild to mod MR & TR, mild AI, RVSP 37 mmHg. 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
[2020-10-24] MEDS ORDERED: CLOPIDOGREL 75 MG (PLAVIX) TABLET PO NR (17:45)
[2020-10-24 19:34] VITALS: BP_SYST 143; BP_SYST 158; BP_DIAS 74; BP_DIAS 77
[2020-10-24] MEDS: CARVEDILOL 12.5 MG (COREG) TABLET PO SCH (19:57)
[2020-10-24] MEDS ORDERED: diphenhydrAMINE 25 MG TAB (BENADRYL) PO PRN (22:00)
[2020-10-24] MEDS: MELATONIN 3 MG TABLET PO SCH (22:04)
[2020-10-25 00:06] VITALS: BP 160/83
[2020-10-25 03:38] VITALS: BP 119/65
[2020-10-25] MEDS: CATHETER FLUSH 10 ML SYR IV SCH ×2 (05:35→14:18)
[2020-10-25 05:39] LABS: BASOPHILS % (AUTO) 1 % (0-10); EOSINOPHILS # (AUTO) 0.5 10^3/uL (0.0-0.3); EOSINOPHILS % (AUTO) 7 % (0-10); HEMATOCRIT 28 % (35-52); HEMOGLOBIN 8.7 g/dL (11.5-16.0); LYMPHOCYTES # (AUTO) 2.6 10^3/uL (1.0-4.0); LYMPHOCYTES % (AUTO) 34 % (12-44); MEAN CORPUSCULAR HEMOGLOBIN 26 pg (25-34); MEAN CORPUSCULAR HGB CONC 31 g/dL (32-36); MEAN CORPUSCULAR VOLUME 84 fL (80-99); MEAN PLATELET VOLUME 11.5 fL (9.0-12.2); MONOCYTES # (AUTO) 0.6 10^3/uL (0.0-1.0); MONOCYTES % (AUTO) 8 % (0-12); NEUTROPHILS # (AUTO) 3.7 10^3/uL (1.8-7.8); NEUTROPHILS % (AUTO) 49 % (42-75); PLATELET COUNT 186 10^3/uL (130-400); WHITE BLOOD COUNT 7.5 10^3/uL (4.3-11.0)
[2020-10-25 05:43] LABS: ALBUMIN 2.8 GM/DL (3.2-4.5); POTASSIUM 4.9 MMOL/L (3.6-5.0)
[2020-10-25 05:44] LABS: CALCIUM 8.1 MG/DL (8.5-10.1)
[2020-10-25 05:46] LABS: TOTAL PROTEIN 6.3 GM/DL (6.4-8.2)
[2020-10-25 05:47] LABS: BILIRUBIN,TOTAL 0.3 MG/DL (0.1-1.0)
[2020-10-25 05:49] LABS: CREATININE SERUM 4.29 MG/DL (0.60-1.30)
[2020-10-25 08:00] VITALS: BP 127/67
[2020-10-25] MEDS: ASPIRIN 81 MG CHEW (CHILDREN'S ASA) PO SCH (08:03)
[2020-10-25] MEDS: CARVEDILOL 12.5 MG (COREG) TABLET PO SCH (08:03)
[2020-10-25] MEDS ORDERED: CLOPIDOGREL 75 MG (PLAVIX) TABLET PO SCH (09:00)
--- NOTE | 2020-10-25 10:44 | Discharge Summary ---
Discharge Summary Hospital Course Was the Problem List Reviewed?: Yes Problems/Dx: (1) Elevated troponin I level Status: Acute (2) [id number]-tl-[id number] renal failure Status: Acute Qualifiers: Qualified Codes: N17.9 - Acute kidney failure, unspecified; N18.5 - Chronic kidney disease, stage 5 (3) Chest pain Status: Acute Qualifiers: Qualified Codes: R07.9 - Chest pain, unspecified Hospital Course Date of Admission: Oct 23, 2020 at 18:45 Admission Diagnosis : Family Physician/Provider: Vilma Ireland Date of Discharge: 10/25/20 Discharge Diagnosis: chest pain, Type 2 AK, end stage kidney disease Hospital Course: Hospital Course: Pt had an uneventful hospital course, she was admitted for chest pain, elevated Troponin but it was assessed to be type 2 AK with chronic renal insufficiency. Creatinine was 4.5, pt as in need of starting dialysis [facility] non emergently. She was set up for a meeting with the professor of visual arts to set dialysis up, I did update case assistant Stephanie Serrano, and pt was willing to DC back to [facility] and have a zoom meeting. I did add acute viral hepatitis panel to [facility] lab at nephrology request. Labs and Pending Lab Test: Laboratory Tests 10/25/20 05:31: White Blood Count 7.5, Red Blood Count 3.34L, Hemoglobin 8.7L, Hematocrit 28L, Mean Corpuscular Volume 84, Mean Corpuscular Hemoglobin 26, Mean Corpuscular Hemoglobin Concent 31L, Red Cell Distribution Width 17.7H, Platelet Count 186, Mean Platelet Volume 11.5, Immature Granulocyte % (Auto) 1, Neutrophils (%) (Auto) 49, Lymphocytes (%) (Auto) 34, Monocytes (%) (Auto) 8, Eosinophils (%) (Auto) 7, Basophils (%) (Auto) 1, Neutrophils # (Auto) 3.7, Lymphocytes # (Auto) 2.6, Monocytes # (Auto) 0.6, Eosinophils # (Auto) 0.5H, Basophils # (Auto) 0.0, Immature Granulocyte # (Auto) 0.1, Sodium Level 137, Potassium Level 4.9, Chloride Level 110H, Carbon Dioxide Level 16L, Anion Gap 11, Blood Urea Nitrogen 53H, Creatinine 4.29H, Estimat Glomerular Filtration Rate 12, BUN/Creatinine Ratio 12, Glucose Level 132H, Calcium Level 8.1L, Corrected Calcium 9.1, Total Bilirubin 0.3, Aspartate Amino Transf (AST/SGOT) 17, Alanine Aminotransferase (ALT/SGPT) 18, Alkaline Phosphatase 137H, Total Protein 6.3L, Albumin 2.8L Home Meds Active Reported Promethazine Tablet (Promethazine HCl) 25 Mg Tablet 25 Mg PO Q8H PRN Levemir Flextouch (Insulin Detemir) 100 Unit/1 Ml Insuln.pen 10 Unit SQ BID Novolog (Insulin Aspart) 100 Unit/1 Ml Susp 10 Unit SQ AC Hydrocodone-Acetamin 7.5-325 (Hydrocodone/Acetaminophen) 1 Each Tablet 1 Each PO BID PRN Bisacodyl 10 Mg Supp.rect 10 Mg RC DAILY PRN Ondansetron HCl 4 Mg Tablet 4 Mg PO Q6H PRN Imodium A-D (Loperamide HCl) 2 Mg Tablet 2-4 Mg PO PRN PRN Sevelamer Carbonate 800 Mg Tablet 1,600 Mg PO TID TAKES 2 (800MG) TABS Pregabalin 25 Mg Capsule 25 Mg PO TID Carvedilol 6.25 Mg Tablet 6.25 Mg PO BID Zinc 50 Mg Tablet 50 Mg PO DAILY Vitamin D3 (Cholecalciferol (Vitamin D3)) 125 Mcg Tablet 125 Mcg PO MON Torsemide 100 Mg Tablet 100 Mg PO DAILY Pantoprazole Sodium 40 Mg Tablet.dr 40 Mg PO DAILY Metolazone 10 Mg Tablet 10 Mg PO DAILY Melatonin 3 Mg Tablet 3 Mg PO HS Hydrocodone-Acetamin 7.5-325 (Hydrocodone/Acetaminophen) 1 Each Tablet 1 Ea PO HS Lactulose 10 Gm/15 Ml Solution 15 Ml PO DAILY Folic Acid 0.8 Mg Capsule 0.8 Mg PO DAILY Vitamin B-12 (Cyanocobalamin (Vitamin B-12)) 1,000 Mcg Tablet 1,000 Mcg PO DAILY Plavix (Clopidogrel Bisulfate) 75 Mg Tablet 75 Mg PO DAILY Citalopram HBr (Citalopram Hydrobromide) 20 Mg Tablet 20 Mg PO DAILY Diphenhydramine HCl 25 Mg Capsule 25 Mg PO HS Aspirin EC (Aspirin) 81 Mg Tablet. 81 Mg PO DAILY Assessment/Pt Instructions Nephrology appt via Zoom this week Discharge Planning: <30 minutes discharge planning Discharge Instructions Discharge Diet: ADA Diet Activity as Tolerated: Yes Discharge Physical Examination Vital Signs Vital Signs Date Time Temp Pulse Resp B/P (MAP) Pulse Ox O2 Delivery O2 Flow Rate FiO2 10/25/20 08:00 96 Room Air 10/25/20 08:00 35.6 64 20 127/67 (87) 10/24/20 19:34 General Appearance: No Apparent Distress, WD/WN, Chronically ill Allergies: Coded Allergies: codeine (Verified Allergy, Unknown, has received Lortab and Hydromorphone in the past, 04/22/20) nalbuphine (Verified Allergy, Unknown, 08/31/19) tramadol (Verified Allergy, Unknown, 08/31/19) Uncoded Allergies: CONTRAST (Allergy, Unknown, 08/31/19) Discharge Summary Date of Admission Oct 23, 2020 at 18:45 Date of Discharge Discharge Date: Oct 25, 2020 Admission Diagnosis Assessment: Chest pain Type 2 AK CKD Plan: May need to move to [place] for dialysis Discharge Diagnosis (1) Elevated troponin I level Status: Acute (2) Kaniv-io-whezdsn renal failure Status: Acute Qualifiers: Qualified Codes: N17.9 - Acute kidney failure, unspecified; N18.5 - Chronic kidney disease, stage 5 (3) Chest pain Status: Acute Qualifiers: Qualified Codes: R07.9 - Chest pain, unspecified SANDRA MA DO Oct 25, 2020 10:43
--- NOTE | 2020-10-25 11:36 | Progress Note - Cardiology ---
Cardiology SOAP Progress Note Subjective: States she is tired this morning No c/o CP, SOB or palpitations Objective: I&O/Vital Signs 10/25/20 10/25/20 10/25/20 10/25/20 00:06 01:00 03:38 06:26 Temp 36.0 35.9 Pulse 68 71 62 61 Resp 20 18 B/P (MAP) 160/83 (108) 119/65 (83) Pulse Ox 96 94 O2 Delivery Room Air Room Air 10/25/20 10/25/20 08:00 08:00 Temp 35.6 Pulse 64 Resp 20 B/P (MAP) 127/67 (87) Pulse Ox 95 96 O2 Delivery Room Air Room Air 10/25/20 00:00 Intake Total 1115 ml Output Total 675 ml Balance 440 ml Constitutional: AAO x 3, well-developed, well-nourished Respiratory: No accessory muscle use; other (good bilateral air entry) Cardiovascular: regular rate-rhythm, S1 and S2, systolic murmur (soft HARISH at card base) Gastrointestional: No tender, No guarding, No rebound; audible bowel sounds Extremities: other (R AKA); No clubbing, No cyanosis, No significant edema Neurologic/Psychiatric: oriented x 3, other (moves all limbs equally) Skin: No rash on exposed areas, No ulcerations on exposed areas Results/Procedures: Labs Laboratory Tests 10/25/20 05:31: White Blood Count 7.5, Red Blood Count 3.34L, Hemoglobin 8.7L, Hematocrit 28L, Mean Corpuscular Volume 84, Mean Corpuscular Hemoglobin 26, Mean Corpuscular Hemoglobin Concent 31L, Red Cell Distribution Width 17.7H, Platelet Count 186, Mean Platelet Volume 11.5, Immature Granulocyte % (Auto) 1, Neutrophils (%) (Auto) 49, Lymphocytes (%) (Auto) 34, Monocytes (%) (Auto) 8, Eosinophils (%) (Auto) 7, Basophils (%) (Auto) 1, Neutrophils # (Auto) 3.7, Lymphocytes # (Auto) 2.6, Monocytes # (Auto) 0.6, Eosinophils # (Auto) 0.5H, Basophils # (Auto) 0.0, Immature Granulocyte # (Auto) 0.1, Sodium Level 137, Potassium Level 4.9, Chloride Level 110H, Carbon Dioxide Level 16L, Anion Gap 11, Blood Urea Nitrogen 53H, Creatinine 4.29H, Estimat Glomerular Filtration Rate 12, BUN/Creatinine Ratio 12, Glucose Level 132H, Calcium Level 8.1L, Corrected Calcium 9.1, Total Bilirubin 0.3, Aspartate Amino Transf (AST/SGOT) 17, Alanine Aminotransferase (ALT/SGPT) 18, Alkaline Phosphatase 137H, Total Protein 6.3L, Albumin 2.8L 10/25/20 11:00: Laboratory Tests 10/24/20 07:17 10/25/20 05:31 A/P: Assessment: Ac renal failure on CKD-4, being managed by Dr Guerra Minimal troponin elevation, likely type-2 PR due to uncontrolled hypertension and ac on chroni renal failure CAD - H/O CABG at [facility] in [place], [place] in Jul 2018 - Card cath on 08/31/19 at this facility: Proximally occluded LAD, patent QIU to LAD, mod stenoses of the LCX, extensively stented RCA with 80% instent (culprit) to which successful balloon angioplasty was carried out, LVEF 40%, global hypokinesis (more in the inf wall) - Dobutamine stress test November [address] Cortez did not show any gross ischemia, but did have NSVT at the time - advised med tx at that time. CAD with multiple coronary interventions at different centers (pt unaware of details). Has had multiple coronary PCIs at [facility] (Dr Mcgovern) last in February or March 2020, according to the patient, but we have not been able to find records of this - Last card cath in Apr [address] Matthew: occluded stents in the mid RCA. Successfully revascularized. Severe distal RCA stenosis treated with a bare metal stent 2.0 x 12 mm. ICM - Echo on 09/01/19: LVEF 40-45%, global hypokinesis (more prominent in the m idseptal wall), mild to mod MR & TR, mild AI, RVSP 37 mmHg. LVEF 40-45%, global hypokinesis (more prominent in the midseptal wall), mild to mod MR & TR, mild AI, RVSP 37 mmHg. - Echocardiogram of April 08, 2020 at [facility] document to show LVEF 35- 40%; MR and TR PAD - multiple peripheral interventions by Dr Mcgovern at [facility] - R AKA on March 27, 2020 at [facility] d/t advanced PAD and leg ischemia HTN HLD DM 2 S/p bilateral tubal ligation Tobaccoism from which she was again advised, during this hospitalization, to refrain Plan: * We recommend transfer to tertiary care facility for management of renal failure, vamsi if it continues to worse * Continue ASA and Plavix and beta-obey * Monitor labs closely EVERT HERRMANN Oct 25, 2020 11:36
[2020-10-25 12:16] VITALS: BP 131/71
--- NOTE | 2020-10-25 14:25 | Progress Note - Cardiology ---
Cardiology SOAP Progress Note Subjective: No cp or palp or syncope No shortness of breath at this time Chronic malaise Feels better than at time of admission Objective: I&O/Vital Signs 10/25/20 10/25/20 10/25/20 10/25/20 03:38 06:26 08:00 08:00 Temp 35.9 35.6 Pulse 62 61 64 Resp 18 20 B/P (MAP) 119/65 (83) 127/67 (87) Pulse Ox 94 95 96 O2 Delivery Room Air Room Air Room Air 10/25/20 12:16 Temp 36.6 Pulse 65 Resp 20 B/P (MAP) 131/71 (91) Pulse Ox 97 O2 Delivery Room Air 10/25/20 00:00 Intake Total 1115 ml Output Total 675 ml Balance 440 ml Constitutional: AAO x 3, well-developed, well-nourished Respiratory: No accessory muscle use; other (good bilateral air entry) Cardiovascular: regular rate-rhythm, S1 and S2, systolic murmur (soft HARISH at card base) Gastrointestional: No tender, No guarding, No rebound; audible bowel sounds Extremities: other (R AKA); No clubbing, No cyanosis, No significant edema Neurologic/Psychiatric: oriented x 3, other (moves all limbs equally) Skin: No rash on exposed areas, No ulcerations on exposed areas Results/Procedures: Labs Laboratory Tests 10/25/20 05:31: White Blood Count 7.5, Red Blood Count 3.34L, Hemoglobin 8.7L, Hematocrit 28L, Mean Corpuscular Volume 84, Mean Corpuscular Hemoglobin 26, Mean Corpuscular Hemoglobin Concent 31L, Red Cell Distribution Width 17.7H, Platelet Count 186, Mean Platelet Volume 11.5, Immature Granulocyte % (Auto) 1, Neutrophils (%) (Auto) 49, Lymphocytes (%) (Auto) 34, Monocytes (%) (Auto) 8, Eosinophils (%) (Auto) 7, Basophils (%) (Auto) 1, Neutrophils # (Auto) 3.7, Lymphocytes # (Auto) 2.6, Monocytes # (Auto) 0.6, Eosinophils # (Auto) 0.5H, Basophils # (Auto) 0.0, Immature Granulocyte # (Auto) 0.1, Sodium Level 137, Potassium Level 4.9, Chloride Level 110H, Carbon Dioxide Level 16L, Anion Gap 11, Blood Urea Nitrogen 53H, Creatinine 4.29H, Estimat Glomerular Filtration Rate 12, BUN/Creatinine Ratio 12, Glucose Level 132H, Calcium Level 8.1L, Corrected Calcium 9.1, Total Bilirubin 0.3, Aspartate Amino Transf (AST/SGOT) 17, Alanine Aminotransferase (ALT/SGPT) 18, Alkaline Phosphatase 137H, Total Protein 6.3L, Albumin 2.8L 10/25/20 11:00: Laboratory Tests 10/24/20 07:17 10/25/20 05:31 A/P: Assessment: Ac renal failure on CKD-4, being managed by Dr Guerra Minimal troponin elevation, likely type-2 [place] due to uncontrolled hypertension and ac on chroni renal failure CAD - H/O CABG at [facility] in [place], [place] in Jul 2018 - Card cath on 08/31/19 at this facility: Proximally occluded LAD, patent QIU to LAD, mod stenoses of the LCX, extensively stented RCA with 80% instent (culprit) to which successful balloon angioplasty was carried out, LVEF 40%, global hypokinesis (more in the inf wall) - Dobutamine stress test November [address] Cortez did not show any gross ischemia, but did have NSVT at the time - advised med tx at that time. CAD with multiple coronary interventions at different centers (pt unaware of details). Has had multiple coronary PCIs at [facility] (Dr Mcgovern) last in February or March 2020, according to the patient, but we have not been able to find records of this - Last card cath in Apr [address] Matthew: occluded stents in the mid RCA. Successfully revascularized. Severe distal RCA stenosis treated with a bare metal stent 2.0 x 12 mm. ICM - Echo on 09/01/19: LVEF 40-45%, global hypokinesis (more prominent in the midseptal wall), mild to mod MR & TR, mild AI, RVSP 37 mmHg. LVEF 40-45%, global hypokinesis (more prominent in the midseptal wall), mild to mod MR & TR, mild AI, RVSP 37 mmHg. - Echocardiogram of April 08, 2020 at [facility] document to show LVEF 35-40%; MR and TR PAD - multiple peripheral interventions by Dr Mcgovern at [facility] - R AKA on March 27, 2020 at [facility] d/t advanced PAD and leg ischemia HTN HLD DM 2 S/p bilateral tubal ligation Tobaccoism from which she was again advised, during this hospitalization, to refrain Plan: * We recommend transfer to tertiary care facility for management of renal fail ure if renal failure worsens * Continue ASA and Plavix and beta-obey * Monitor labs closely LEILANI GALE MD FACP FACC CCDS Oct 25, 2020 14:25
[2020-10-25 21:22] LABS: HEPATITIS C ANTIBODY C Non-Reactive (Non-Reactive)
== END 2020-10-25 15:15 ==
LOC: EDUNIT# 09:38 → ER 09:42 → EDBD 09:42 → 4TH 18:45
PROVIDERS: ADMIT Internal Medicine; ATTEND Internal Medicine
DX: I12.0 Hypertensive chronic kidney disease with stage 5 chronic kidney disease or end stage renal disease (principal); N17.9 Acute kidney failure, unspecified; N18.5 Chronic kidney disease, stage 5; E11.22 Type 2 diabetes mellitus with diabetic chronic kidney disease; E11.40 Type 2 diabetes mellitus with diabetic neuropathy, unspecified; E11.51 Type 2 diabetes mellitus with diabetic peripheral angiopathy without gangrene; R77.8 Other specified abnormalities of plasma proteins; R07.9 Chest pain, unspecified; I21.A1 Myocardial infarction type 2; I25.10 Atherosclerotic heart disease of native coronary artery without angina pectoris; E78.00 Pure hypercholesterolemia, unspecified; F41.9 Anxiety disorder, unspecified; Z79.4 Long term (current) use of insulin; Z79.899 Other long term (current) drug therapy; Z79.82 Long term (current) use of aspirin; Z91.041 Radiographic dye allergy status; Z88.5 Allergy status to narcotic agent; Z87.891 Personal history of nicotine dependence
CPT/HCPCS: 36415; 71045; 80048; 80053; 80074; 82962; 84484; 85025; 93005; 96372; G0378

== ENCOUNTER 2021-02-17 07:25 | Emergency (ER) | payer MEDICAID ==
[~2021-02-17] VITALS: Ht 160 cm; Wt 90.7 kg
[~2021-02-17 07:25] MED LIST changes: +AMOX500C2; +BISA10SU8 RC; +CHOL500044 PO; +CLOP75TA69 PO; +DIPH25CA48 PO; +FURO80TA3 PO; +HYDR-3817 PO; +INSU100V16 SQ; +LACT10SO3 PO; +LOPE-134 PO; +ONDA-105 PO; +PREG25CA19 PO; +SEVE800T13 PO; +ZINC50TA58 PO
--- NOTE | 2021-02-17 07:41 | ED General ---
General Chief Complaint: Glucose Problems Stated Complaint: HIGH BLOOD SUGAR Source of Information: Patient Exam Limitations: No Limitations History of Present Illness Date Seen by Provider: Feb 17, 2021 Time Seen by Provider: 07:25 Initial Comments Dolores is a 36-year-old female with a history of end-stage renal disease on hemodialysis for the last 3 months who presents to the emergency department at from a local [facility] with a chief complaint of feeling short of breath and like she is retaining fluid. She states she woke up nauseated this morning and also had significantly high blood sugar. She is a known diabetic. Her last dialysis was yesterday. She states that she dialyze for the full amount of time , about 4 hours. She is uncertain what her dry weight is. She is uncertain what her weight was pre and post dialysis. Patient has had previous right [id number] amputation for peripheral arterial disease on the right. She is complaining of some tingling in her foot and pain in her left ankle. She denies any recent fevers, chills. No cough or congestion. She feels a little short of breath this morning. No chest pain. No abdominal pain. She has a little bit of discomfort where her fistula was just placed by Dr. Wall at [facility] a couple of weeks ago. No fevers or chills. She still makes urine and denies dysuria, urgency or vaginal discharge. No diarrhea. Patient complains of a mild to moderate headache as well as chest discomfort that seems reproducible on examination. She does have a history of coronary artery disease and as stated above peripheral arterial disease. She is chronically anticoagulated. All other review of systems reviewed and negative except as stated above. Timing/Duration: 1 Day Severity: Moderate Associated Systoms: Malaise, Nausea/Vomiting (nausea without vomiting), Shortness of Air, Weakness Allergies and Home Medications Allergies Coded Allergies: codeine (Verified Allergy, Unknown, has received Lortab and Hydromorphone in the past, 04/22/20) nalbuphine (Verified Allergy, Unknown, 08/31/19) tramadol (Verified Allergy, Unknown, 08/31/19) Uncoded Allergies: CONTRAST (Allergy, Unknown, 08/31/19) Home Medications Aspirin 81 Mg Tablet.dr, 81 MG PO DAILY, (Reported) Bisacodyl 10 Mg Supp.rect, 10 MG RC DAILY PRN for CONSTIPATION-4TH LINE, (Reported) Carvedilol 6.25 Mg Tablet, 6.25 MG PO BID, (Reported) Cholecalciferol (Vitamin D3) 125 Mcg Tablet, 125 MCG PO MON, (Reported) Citalopram Hydrobromide 20 Mg Tablet, 20 MG PO DAILY, (Reported) Clopidogrel Bisulfate 75 Mg Tablet, 75 MG PO DAILY, (Reported) Cyanocobalamin (Vitamin B-12) 1,000 Mcg Tablet, 1,000 MCG PO DAILY, (Reported) Diphenhydramine HCl 25 Mg Capsule, 25 MG PO HS, (Reported) Folic Acid 0.8 Mg Capsule, 0.8 MG PO DAILY, (Reported) Hydrocodone/Acetaminophen 1 Each Tablet, 1 EA PO HS, (Reported) Hydrocodone/Acetaminophen 1 Each Tablet, 1 EACH PO BID PRN for PAIN-MODERATE (5- 7), (Reported) Insulin Aspart 100 Unit/1 Ml Susp, 10 UNIT SQ AC, (Reported) Insulin Detemir 100 Unit/1 Ml Insuln.pen, 10 UNIT SQ BID, (Reported) Lactulose 10 Gm/15 Ml Solution, 15 ML PO DAILY, (Reported) Loperamide HCl 2 Mg Tablet, 2-4 MG PO PRN PRN for LOOSE STOOLS, (Reported) Melatonin 3 Mg Tablet, 3 MG PO HS, (Reported) Metolazone 10 Mg Tablet, 10 MG PO DAILY, (Reported) Ondansetron HCl 4 Mg Tablet, 4 MG PO Q6H PRN for NAUSEA/VOMITING-1ST LINE, (Reported) Pantoprazole Sodium 40 Mg Tablet.dr, 40 MG PO DAILY, (Reported) Pregabalin 25 Mg Capsule, 25 MG PO TID, (Reported) Promethazine HCl 25 Mg Tablet, 25 MG PO Q8H PRN for NAUSEA/VOMITING-2ND LINE, (R eported) Sevelamer Carbonate 800 Mg Tablet, 1,600 MG PO TID, (Reported) TAKES 2 (800MG) TABS Torsemide 100 Mg Tablet, 100 MG PO DAILY, (Reported) Zinc 50 Mg Tablet, 50 MG PO DAILY, (Reported) Patient Home Medication List Home Medication List Reviewed: Yes Review of Systems Review of Systems Constitutional: see HPI EENTM: no symptoms reported Respiratory: short of breath Cardiovascular: edema Gastrointestinal: nausea Genitourinary: no symptoms reported : No Musculoskeletal: joint pain (left ankle) Skin: no symptoms reported All Other Systems Reviewed Negative Unless Noted: Yes Past Aqbqhez-Yeidmk-Gnujjh Hx Patient Social History Drug of Choice: THC Type Used: Cigarettes 2nd Hand Smoke Exposure: Yes Recent Hopitalizations: No Immunizations Up To Date Tetanus Booster (TDap): Unknown PED Vaccines UTD: Yes Date of Pneumonia Vaccine: Jul 25, 2018 Seasonal Allergies Seasonal Allergies: No Past Medical History Surgeries: Yes (4 amputations (foot and toes, right ATK), 5 stents) Amputation, CABG, Section, Coronary Stent, Orthopedic, Tonsillectomy, 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 Respiratory: No Cardiac: Yes (5 stents; NSTEMI 07/2019, congestive heart failure) Coronary Artery Disease, Heart Attack, High Cholesterol, Hypertension, Peripheral Vascular Neurological: Yes Neuropathy ENDODONTIST History: Hysterectomy, 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 Genitourinary: Yes (CKD) Bladder Infection, Renal Failure Gastrointestinal: Yes (CHRONIC NAUSEA/VOMITING) Irritable Bowel Musculoskeletal: Yes Amputee, Spasms Endocrine: Yes Diabetes, Insulin dep HEENT: No Cancer: No Psychosocial: Yes Anxiety Integumentary: Yes (CHRONIC FOOT WOUNDS) Blood Disorders: Yes (ANEMIA) Adverse Reaction/Blood Tranf: No Family Medical History No Pertinent Family Hx SOCIAL HISTORY: -ETOH--OCCASIONAL USE, NO RECENT USE, PER PT 07/20/20 -DRUGS-+THC USE ( ALSO HX OF OPIATES AND BENZODIAZEPINE ABUSE) -SMOKED 1 PPD, QUIT 03/2020 PAST SURGICAL HISTORY: -CARDIAC CATHS--MULTIPLE STENTS PLUS ANGIOPLASTIES AT MULTIPLE FACILITIES--LAST CATH HERE 08/31/[address] GALE-- RCA ANGIOPLASTY -MULTIPLE CARDIAC AND PERIPHERAL INTERVENTIONS AT MULTIPLE FACILITIES--PERIPHERAL ANGIOGRAM AT [facility] 08/21/2019--ANGIOPLASTY OF DEEP FEMORAL ARTERY, STENTS X 3 TO EXTERNAL ILIAC, COMMON FEMORAL AND SUPERFICIAL FEMORAL ARTERY -S/P 3 VESSEL CABG -RIGHT TOES AND PARTIAL FOOT AMPUTATIONS (MULTIPLE SURGERIES) , EVENTUALLY FOLLOWED BY RIGHT ABOVE THE KNEE AMPUTATION 03/27/20- AT [facility] - -HYSTERECTOMY -BILATERAL TUBAL LIGATION -TONSILLECTOMY ADDITIONAL PAST MEDICAL HISTORY: -VENTRICULAR ARRHYTHMIA DURING DOBUTAMINE TEST -NSTEMI 07/2019 LONG HISTORY OF NON-COMPLIANCE HX OF HOMELESSNESS UNTIL ADMITTED TO RETIREMENT AFTER LAST HOSPITALIZATION HX OF NARCOTIC AND BENZODIAZEPAM ABUSE Physical Exam Vital Signs Vital Signs - First Documented 02/17/21 07:25 Temp 37.0 Pulse 91 Resp 16 B/P (MAP) 175/88 (117) Pulse Ox 94 O2 Delivery Room Air Capillary Refill : Height, Weight, BMI Height: '" Weight: lbs. oz. kg; 33.66 BMI Method: General Appearance: No Apparent Distress, WD/WN Eyes: Bilateral Eye Normal Inspection, Bilateral Eye PERRL, Bilateral Eye EOMI HEENT: Normal ENT Inspection Respiratory: Lungs Clear, Normal Breath Sounds, No Accessory Muscle Use, No Respiratory Distress, Other (Tenderness to palpation over the anterior chest wall which reproduces the patient's complaint of discomfort) Cardiovascular: Regular Rate, Rhythm Gastrointestinal: Normal Bowel Sounds, Non Tender, Soft Extremity: Normal Inspection, Pedal Edema (1-2+ pitting edema LLE), Other (Right kkfij-vyz-pkit amputation, left great toe amputation) Neurologic/Psychiatric: Alert, Oriented x3, No Motor/Sensory Deficits, Normal Mood/Affect Skin: Warm/Dry, Pallor Progress/Results/Core Measures Suspected Sepsis SIRS Temperature: Pulse: Respiratory Rate: Laboratory Tests 02/17/21 08:30: White Blood Count 9.0 Blood Pressure / Mean: Laboratory Tests 02/17/21 08:30: Creatinine 4.82H, Platelet Count 191, Total Bilirubin 0.3 Results/Orders Lab Results Laboratory Tests Test 02/17/21 07:32 02/17/21 08:30 02/17/21 08:43 02/17/21 08:57 Range/Units Glucometer 517 *H 70-110 MG/DL White Blood Count 9.0 4.3-11.0 10^3/uL Red Blood Count 2.69 L 3.80-5.11 10^6/uL Hemoglobin 7.6 L 11.5-16.0 g/dL Hematocrit 23 L 35-52 % Mean Corpuscular Volume 85 80-99 fL Mean Corpuscular Hemoglobin 28 25-34 pg Mean Corpuscular Hemoglobin Concent 33 32-36 g/dL Red Cell Distribution Width 16.6 H 10.0-14.5 % Platelet Count 191 130-400 10^3/uL Mean Platelet Volume 11.1 9.0-12.2 fL Immature Granulocyte % (Auto) 2 % Neutrophils (%) (Auto) 67 42-75 % Lymphocytes (%) (Auto) 23 12-44 % Monocytes (%) (Auto) 6 0-12 % Eosinophils (%) (Auto) 2 0-10 % Basophils (%) (Auto) 0 0-10 % Neutrophils # (Auto) 6.0 1.8-7.8 10^3/uL Lymphocytes # (Auto) 2.1 1.0-4.0 10^3/uL Monocytes # (Auto) 0.6 0.0-1.0 10^3/uL Eosinophils # (Auto) 0.2 0.0-0.3 10^3/uL Basophils # (Auto) 0.0 0.0-0.1 10^3/uL Immature Granulocyte # (Auto) 0.1 0.0-0.1 10^3/uL Sodium Level 135 135-145 MMOL/L Potassium Level 4.4 3.6-5.0 MMOL/L Chloride Level 94 L 98-107 MMOL/L Carbon Dioxide Level 22 21-32 MMOL/L Anion Gap 19 H 5-14 MMOL/L Blood Urea Nitrogen 43 H 7-18 MG/DL Creatinine 4.82 H 0.60-1.30 MG/DL Estimat Glomerular Filtration Rate 10 BUN/Creatinine Ratio 9 Glucose Level 520 *H 70-105 MG/DL Calcium Level 8.5 8.5-10.1 MG/DL Corrected Calcium 9.1 8.5-10.1 MG/DL Total Bilirubin 0.3 0.1-1.0 MG/DL Aspartate Amino Transf (AST/SGOT) 16 5-34 U/L Alanine Aminotransferase (ALT/SGPT) 10 0-55 U/L Alkaline Phosphatase 214 H 40-136 U/L Total Protein 6.9 6.4-8.2 GM/DL Albumin 3.2 3.2-4.5 GM/DL Beta-Hydroxybutyrate (Chem panel) 0.13 0.00-0.27 MMOL/L Blood Gas Puncture Site LT Blood Gas Patient Temperature 36.6 Arterial Blood pH 7.41 7.37-7.43 Arterial Blood Partial Pressure CO2 47 H 35-45 MMHG Arterial Blood Partial Pressure O2 48 L 79-93 MMHG Arterial Blood HCO3 29 H 23-27 MMOL/L Arterial Blood Total CO2 30.7 21.0-31.0 MMOL/L Arterial Blood Oxygen Saturation 82 L 94-100 % Arterial Blood Base Excess 4.7 H -2.5-2.5 MMOL/L Kimani Test NA Blood Gas Ventilator Setting NO Blood Gas Inspired Oxygen NA Urine Color RICHIE H Urine Clarity TURBID Urine pH 8.5 5-9 Urine Specific [place] 1.020 1.016-1.022 Urine Protein 3+ H NEGATIVE Urine Glucose (UA) 3+ H NEGATIVE Urine Ketones NEGATIVE NEGATIVE Urine Nitrite NEGATIVE NEGATIVE Urine Bilirubin NEGATIVE NEGATIVE Urine Urobilinogen 0.2 < = 1.0 MG/DL Urine Leukocyte Esterase NEGATIVE NEGATIVE Urine RBC (Auto) 3+ H NEGATIVE Urine RBC >100 H /HPF Urine WBC 2-5 /HPF Urine Squamous Epithelial Cells RARE /HPF Urine Crystals NONE /LPF Urine Bacteria TRACE /HPF Urine Casts NONE /LPF Urine Mucus NEGATIVE /LPF Urine Culture Indicated NO Test 02/17/21 09:57 02/17/21 11:11 Range/Units Glucometer 390 H 300 H 70-110 MG/DL My Orders Orders - NOAH MADDOX MD Ed Iv/Invasive Line Start (02/17/21 07:41) Cbc With Automated Diff (02/17/21 07:41) Ekg Tracing (02/17/21 07:41) Beta Hydroxybutyrate (02/17/21 07:41) Comprehensive Metabolic Panel (02/17/21 07:41) Ua Culture If Indicated (02/17/21 07:41) Chest 1 View, Ap/Pa Only (02/17/21 07:41) Venous Access Request Order (02/17/21 07:41) Hydrocodone/Apap 7.5/325 Tab (Lortab 7. (02/17/21 08:00) Lorazepam Tablet (Ativan Tablet) (02/17/21 08:22) Arterial Blood Gas (02/17/21 08:34) Insulin (Regular) Human (Novolin R (Per (02/17/21 08:45) Insulin (Regular) Human (Novolin R (Per (02/17/21 10:30) Medications Given in ED Current Medications Medications Dose Ordered Sig/Mary Jo Route Start Time Stop Time Status Last Admin Dose Admin Acetaminophen/ Hydrocodone Bitart 1 ea ONCE ONCE PO 02/17/21 08:00 02/17/21 08:01 DC 02/17/21 08:05 1 EA Insulin Human Regular 10 unit ONCE ONCE SC 02/17/21 08:45 02/17/21 08:46 DC 02/17/21 09:14 10 UNIT Vital Signs/I&O 02/17/21 07:25 Temp 37.0 Pulse 91 Resp 16 B/P (MAP) 175/88 (117) Pulse Ox 94 O2 Delivery Room Air Capillary Refill : Progress Note : Time: 11:08 Progress Note Patient seen and examined, 36-year-old with a significant past medical history for coronary artery disease, peripheral arterial disease, end-stage renal disease on hemodialysis. Evaluation today includes a physical exam, CBC, Chem- 12, urinalysis, EKG, chest x-ray. Patient's labs have been reviewed and the patient is found to be quite anemic with a hemoglobin of 7. Her chemistry is significant for hyperglycemia with a serum blood sugar above 500 and anion gap of 19. Patient's venous blood gas shows a pH of 7.41. Patient is not acidotic she does have a little bit of an anion gap metabolic acidosis however. Patient is treated in the emergency department with insulin, 10 mg subcu and 5 mg IV. Her chest x-ray shows no overt signs of pulmonary edema. She does have some edema in her abdomen and in her left leg. This is not significant. She is not dyspneic. She is satting normally her blood pressure is good her pulse is good. Patient is also given 1 mg of Ativan p.o. as well as 7.5 mg of hydrocodone. I anticipate discharging the patient to home for her dialysis tomorrow. We will rechecking her blood sugar currently. No signs of infection. No complaints of infectious etiology. 1145 Patient reevaluated again resting comfortably. Her chest discomfort is completely gone as is her headache. I have reviewed her findings with her. She is comfortable with going home. She has dialysis scheduled tomorrow she will need to talk to them about how anemic she is. Her vital signs are stable her oxygen is good on her home oxygen. She has no clinical or objective findings at this point for which to admit her. She is not in failure or volume overload. Her potassium is normal. Her blood sugar is down to 300. I have advised her to keep a close eye on her blood sugar over the next 24 hours. She verbalizes understanding. All questions were sought and answered. Patient is stable for discharge. ECG Initial ECG Impression Date: Feb 17, 2021 Initial ECG Impression Time: 08:17 Initial ECG Rate: 87 Initial ECG Rhythm: Normal Sinus Initial ECG Intervals: Normal Initial ECG Comparisson: Unchanged Comment Septal leads show Q waves, flattened and slightly depressed ST segments in leads V4, V5 and V6. Nonspecific ST-T wave changes inferiorly Diagnostic Imaging Diagonstic Imaging: Xray Plain Films/CT/US/NM/MRI: chest Comments [facility] [place], [place] NAME: ADWOA CUMMINGS [facility] REC#: [id number] PT STATUS: REG ER : 1985 PHYSICIAN: NOAH MADDOX MD ADMIT DATE: 02/17/21/ER Draft Date of Exam:02/17/21 CHEST 1 VIEW, AP/PA ONLY INDICATION: Swollen hyperglycemia COMPARISON: 10/23/2020 FINDINGS: A right IJ dialysis catheter tip is at the cavoatrial junction. The heart size is felt to be within normal limits. There is however mild prominence of the upper lobe pulmonary veins. No focal consolidating pneumonia. No convincing evidence for pulmonary edema. No effusion or pneumothorax. IMPRESSION: Central line in good position. There is mild vascular congestion but no pleural pathology, focal consolidating pneumonia or convincing evidence for pulmonary edema. Dictated on workstation # [id number] Dict: 02/17/21 [id number] Trans: 02/17/21 0900 [facility] [id number] Interpreted by: CHRISTI MUÑOZ Electronically signed by: Departure Impression Primary Impression: Dyspnea Qualified Codes: R06.02 - Shortness of breath Additional Impressions: Hyperglycemia due to type 1 diabetes mellitus Chest wall pain Disposition: 01 HOME, SELF-CARE Condition: Stable Departure-Patient Inst. Decision time for Depature: 11:46 Referrals: JOSE SMITH MD (PCP) Primary Care Physician NISHA VEE (Family) Primary Care Physician Patient Instructions: Shortness of Breath (Dyspnea) Add. Discharge Instructions: Keep a close eye on your blood sugars over the next 24 hours. Please talk to the dialysis nurses and your kidney doctor tomorrow regarding your anemia. Your hemoglobin is 7. Do not miss your dialysis appointment tomorrow. Come back to the emergency room for any worsening shortness of breath especially with chest pain, fever or any other emergent concerning symptoms. NOAH MADDOX MD Feb 17, 2021 07:40
[2021-02-17] MEDS ORDERED: HYDROcodone/APAP 7.5 MG/325 MG (LORTAB, LORCET PLUS) TABLET PO ONE (08:00)
[2021-02-17] MEDS ORDERED: LORazepam 0.5 MG (ATIVAN) TABLET PO STA (08:22)
[2021-02-17 08:40] LABS: BASOPHILS % (AUTO) 0 % (0-10); EOSINOPHILS # (AUTO) 0.2 10^3/uL (0.0-0.3); EOSINOPHILS % (AUTO) 2 % (0-10); HEMATOCRIT 23 % (35-52); HEMOGLOBIN 7.6 g/dL (11.5-16.0); LYMPHOCYTES # (AUTO) 2.1 10^3/uL (1.0-4.0); LYMPHOCYTES % (AUTO) 23 % (12-44); MEAN CORPUSCULAR HEMOGLOBIN 28 pg (25-34); MEAN CORPUSCULAR HGB CONC 33 g/dL (32-36); MEAN CORPUSCULAR VOLUME 85 fL (80-99); MEAN PLATELET VOLUME 11.1 fL (9.0-12.2); MONOCYTES # (AUTO) 0.6 10^3/uL (0.0-1.0); MONOCYTES % (AUTO) 6 % (0-12); NEUTROPHILS % (AUTO) 67 % (42-75); PLATELET COUNT 191 10^3/uL (130-400)
[2021-02-17] MEDS ORDERED: inSUlin (REGULAR) HUMAN 1 UNIT/0.01 ML (CHARGE PER UNIT) SC ONE (08:45)
[2021-02-17 08:50] LABS: ABG BASE EXCESS 4.7 MMOL/L (-2.5-2.5); ABG OXYGEN SATURATION 82 % (94-100); ABG PCO2 47 MMHG (35-45); ABG PH 7.41 (7.37-7.43); ABG PO2 48 MMHG (79-93); ABG TCO2 30.7 MMOL/L (21.0-31.0)
[2021-02-17 08:51] LABS: PATIENT TEMP 36.6; VENTILATOR NO
[2021-02-17 08:52] LABS: ALBUMIN 3.2 GM/DL (3.2-4.5); POTASSIUM 4.4 MMOL/L (3.6-5.0)
[2021-02-17 08:53] LABS: CALCIUM 8.5 MG/DL (8.5-10.1)
[2021-02-17 08:54] LABS: TOTAL PROTEIN 6.9 GM/DL (6.4-8.2)
[2021-02-17 08:56] LABS: BILIRUBIN,TOTAL 0.3 MG/DL (0.1-1.0)
[2021-02-17 08:58] LABS: CREATININE SERUM 4.82 MG/DL (0.60-1.30)
--- NOTE | 2021-02-17 09:01 | Diagnostic Imaging Report ---
INDICATION: Swollen hyperglycemia COMPARISON: 10/23/2020 FINDINGS: A right IJ dialysis catheter tip is at the cavoatrial junction. The heart size is felt to be within normal limits. There is however mild prominence of the upper lobe pulmonary veins. No focal consolidating pneumonia. No convincing evidence for pulmonary edema. No effusion or pneumothorax. IMPRESSION: Central line in good position. There is mild vascular congestion but no pleural pathology, focal consolidating pneumonia or convincing evidence for pulmonary edema. Dictated by: Dictated on workstation # [id number]
[2021-02-17 09:02] LABS: BILIRUBIN,URINE NEGATIVE (NEGATIVE); CLARITY,URINE TURBID; COLOR,URINE AMBER; GLUCOSE, URINE (UA) 3+ (NEGATIVE); KETONES,URINE NEGATIVE (NEGATIVE); LEUKOCYTE ESTERASE ,URINE NEGATIVE (NEGATIVE); NITRITE,URINE NEGATIVE (NEGATIVE); PH,URINE 8.5 (5-9); PROTEIN,URINE 3+ (NEGATIVE)
[2021-02-17 09:22] LABS: BACTERIA,URINE TRACE /HPF; RBC,URINE >100 /HPF; SQUAMOUS EPITHELIAL CELL,UR RARE /HPF
[2021-02-17] MEDS ORDERED: inSUlin (REGULAR) HUMAN 1 UNIT/0.01 ML (CHARGE PER UNIT) IV SCH (10:30)
[2021-02-17 12:21] VITALS: BP 115/63
== END 2021-02-17 12:21 | disposition home or self-care (01) ==
LOC: EDUNIT# 07:25 → ER 07:29
DX: R06.00 Dyspnea, unspecified (principal); E10.65 Type 1 diabetes mellitus with hyperglycemia; R07.89 Other chest pain; I25.2 Old myocardial infarction; I11.0 Hypertensive heart disease with heart failure; I50.9 Heart failure, unspecified; Z77.22 Contact with and (suspected) exposure to environmental tobacco smoke (acute) (chronic); Z95.5 Presence of coronary angioplasty implant and graft; Z95.1 Presence of aortocoronary bypass graft; Z88.5 Allergy status to narcotic agent; Z91.041 Radiographic dye allergy status; Z88.8 Allergy status to other drugs, medicaments and biological substances; Z79.82 Long term (current) use of aspirin
CPT/HCPCS: 36415; 71045; 80053; 81000; 82010; 82805; 82947; 85025

== ENCOUNTER 2021-02-22 19:55 | Emergency (ER) | payer MEDICAID ==
[~2021-02-22] VITALS: Ht 162.5 cm; Wt 77.1 kg
--- NOTE | 2021-02-22 20:17 | ED General ---
General Chief Complaint: Glucose Problems Stated Complaint: HYPERGLYCEMIA Source of Information: Patient, Old Records Exam Limitations: No Limitations (DEYANIRA BERKOWITZ APRN) History of Present Illness Date Seen by Provider: Feb 22, 2021 Time Seen by Provider: 20:07 Initial Comments This is a chronically ill 36-year-old female with a significant past medical history of coronary artery disease, diabetes, end-stage renal disease on hemodialysis, CABG x3, and coronary stents who presents to the ER via [facility] from [facility] for complaints of elevated blood sugar. EMS reports that patient's blood sugar was reading "HI" at the custodial, but was in the 500's when checked. Upon arrival she is complaining of intermittent chest pain x 3 days. States that she has these episodes frequently and is usually given a hydrocodone or her anxiety medicine from the custodial. However, recently she is only allowed to have 15 tabs per month of her anxiety medicine and states that this has caused her symptoms to increase due to stress. Currently rates pain 8/10, heavy sensation, localized to her mid chest. States discomfort is worse when she takes a deep breath. She dialyzes every Saturday, , Saturday. Her last dialysis was 02/21/2021. Currently utilized [facility] in right chest. Had fistula graft at [facility]. 2 weeks ago. She does not know if any fluid was added or removed, does not know her pre or post weight. No fevers, chills, cough, shortness of breath, nausea, vomiting, diarrhea, abdominal pain. (DEYANIRA BERKOWITZ CURRICULUM DESIGNER) Allergies and Home Medications Allergies Coded Allergies: codeine (Verified Allergy, Unknown, has received Lortab and Hydromorphone in the past, 04/22/20) nalbuphine (Verified Allergy, Unknown, 08/31/19) tramadol (Verified Allergy, Unknown, 08/31/19) Uncoded Allergies: CONTRAST (Allergy, Unknown, 08/31/19) Home Medications Aspirin 81 Mg Tablet.dr, 81 MG PO DAILY, (Reported) Bisacodyl 10 Mg Supp.rect, 10 MG RC DAILY PRN for CONSTIPATION-4TH LINE, (Reported) Carvedilol 6.25 Mg Tablet, 6.25 MG PO BID, (Reported) Cholecalciferol (Vitamin D3) 125 Mcg Tablet, 125 MCG PO MON, (Reported) Citalopram Hydrobromide 20 Mg Tablet, 20 MG PO DAILY, (Reported) Clopidogrel Bisulfate 75 Mg Tablet, 75 MG PO DAILY, (Reported) Cyanocobalamin (Vitamin B-12) 1,000 Mcg Tablet, 1,000 MCG PO DAILY, (Reported) Diphenhydramine HCl 25 Mg Capsule, 25 MG PO HS, (Reported) Folic Acid 0.8 Mg Capsule, 0.8 MG PO DAILY, (Reported) Hydrocodone/Acetaminophen 1 Each Tablet, 1 EA PO HS, (Reported) Hydrocodone/Acetaminophen 1 Each Tablet, 1 EACH PO BID PRN for PAIN-MODERATE (5- 7), (Reported) Insulin Aspart 100 Unit/1 Ml Susp, 10 UNIT SQ AC, (Reported) Insulin Detemir 100 Unit/1 Ml Insuln.pen, 10 UNIT SQ BID, (Reported) Lactulose 10 Gm/15 Ml Solution, 15 ML PO DAILY, (Reported) Loperamide HCl 2 Mg Tablet, 2-4 MG PO PRN PRN for LOOSE STOOLS, (Reported) Melatonin 3 Mg Tablet, 3 MG PO HS, (Reported) Metolazone 10 Mg Tablet, 10 MG PO DAILY, (Reported) Ondansetron HCl 4 Mg Tablet, 4 MG PO Q6H PRN for NAUSEA/VOMITING-1ST LINE, (Reported) Pantoprazole Sodium 40 Mg Tablet.dr, 40 MG PO DAILY, (Reported) Pregabalin 25 Mg Capsule, 25 MG PO TID, (Reported) Promethazine HCl 25 Mg Tablet, 25 MG PO Q8H PRN for NAUSEA/VOMITING-2ND LINE, (Reported) Sevelamer Carbonate 800 Mg Tablet, 1,600 MG PO TID, (Reported) TAKES 2 (800MG) TABS Torsemide 100 Mg Tablet, 100 MG PO DAILY, (Reported) Zinc 50 Mg Tablet, 50 MG PO DAILY, (Reported) Patient Home Medication List Home Medication List Reviewed: Yes (DEYANIRA BERKOWITZ CURRICULUM DESIGNER) Review of Systems Review of Systems Constitutional: see HPI EENTM: no symptoms reported Respiratory: see HPI Cardiovascular: see HPI Gastrointestinal: see HPI Genitourinary: no symptoms reported Musculoskeletal: no symptoms reported Skin: no symptoms reported Psychiatric/Neurological: See HPI, Anxiety Hematologic/Lymphatic: No Symptoms Reported Immunological/Allergic: no symptoms reported (DEYANIRA BERKOWITZ APRN) Past Hrhtnsz-Pptyin-Miaexf Hx Patient Social History Drug of Choice: THC Type Used: Cigarettes 2nd Hand Smoke Exposure: Yes Recent Hopitalizations: No (DEYANIRA BERKOWITZ APRN) Immunizations Up To Date Tetanus Booster (TDap): Unknown PED Vaccines UTD: Yes Date of Pneumonia Vaccine: Jul 25, 2018 (DEYANIRA BERKOWITZ APRN) Seasonal Allergies Seasonal Allergies: No (DEYANIRA BERKOWITZ APRN) Past Medical History Surgeries: Yes (4 amputations (foot and toes, right ATK), 5 stents) Amputation, CABG, Section, Coronary Stent, Orthopedic, Tonsillectomy, 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 Respiratory: No Cardiac: Yes (5 stents; NSTEMI 07/2019, congestive heart failure) Coronary Artery Disease, Heart Attack, High Cholesterol, Hypertension, Peripheral Vascular Neurological: Yes Neuropathy 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, 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 Genitourinary: Yes (CKD) Bladder Infection, Renal Failure Gastrointestinal: Yes (CHRONIC NAUSEA/VOMITING) Irritable Bowel Musculoskeletal: Yes Amputee, Spasms Endocrine: Yes Diabetes, Insulin dep HEENT: No Cancer: No Psychosocial: Yes Anxiety Integumentary: Yes (CHRONIC FOOT WOUNDS) Blood Disorders: Yes (ANEMIA) Adverse Reaction/Blood Tranf: No (DEYANIRA BERKOWITZ APRN) Family Medical History No Pertinent Family Hx SOCIAL HISTORY: -ETOH--OCCASIONAL USE, NO RECENT USE, PER PT 07/20/20 -DRUGS-+THC USE ( ALSO HX OF OPIATES AND BENZODIAZEPINE ABUSE) -SMOKED 1 PPD, QUIT 03/2020 PAST SURGICAL HISTORY: -CARDIAC CATHS--MULTIPLE STENTS PLUS ANGIOPLASTIES AT MULTIPLE FACILITIES--LAST CATH HERE 08/31/[address] GALE-- RCA ANGIOPLASTY -MULTIPLE CARDIAC AND PERIPHERAL INTERVENTIONS AT [facility] F[facility]--PERIPHERAL ANGIOGRAM AT [facility] 08/21/2019--ANGIOPLASTY OF DEEP FEMORAL ARTERY, STENTS X 3 TO EXTERNAL ILIAC, COMMON FEMORAL AND SUPERFICIAL FEMORAL ARTERY -S/P 3 VESSEL CABG -RIGHT TOES AND PARTIAL FOOT AMPUTATIONS (MULTIPLE SURGERIES) , EVENTUALLY FOLLOWED BY RIGHT ABOVE THE KNEE AMPUTATION 03/27/20- AT [facility] - -HYSTERECTOMY -BILATERAL TUBAL LIGATION -TONSILLECTOMY ADDITIONAL PAST MEDICAL HISTORY: -VENTRICULAR ARRHYTHMIA DURING DOBUTAMINE TEST -NSTEMI 07/2019 LONG HISTORY OF NON-COMPLIANCE HX OF HOMELESSNESS UNTIL ADMITTED TO PENITENTIARY AFTER LAST HOSPITALIZATION HX OF NARCOTIC AND BENZODIAZEPAM ABUSE (DEYANIRA BERKOWITZ APRN) Physical Exam Vital Signs Capillary Refill : (DEYANIRA BERKOWITZ APRN) Height, Weight, BMI Height: '" Weight: lbs. oz. kg; 35.00 BMI Method: General Appearance: No Apparent Distress, WD/WN Eyes: Bilateral Eye Normal Inspection, Bilateral Eye PERRL, Bilateral Eye EOMI HEENT: PERRL/EOMI, Normal ENT Inspection, Pharynx Normal, Moist Mucous Membranes Neck: Full Range of Motion, Normal Inspection, Supple Respiratory: Lungs Clear, Normal Breath Sounds, No Accessory Muscle Use, No Respiratory Distress, Other (Left chest wall tender to palpation. ) Cardiovascular: Regular Rate, Rhythm, No Edema, No Murmur, Other ([facility] right chest wall) Gastrointestinal: Normal Bowel Sounds, Non Tender, Distended; No Guarding Back: Normal Inspection Extremity: Other (Left lower extremity warm, pink, dry. Dorsalis pedis pulses 2+ and regular. Has right AKA. ) Neurologic/Psychiatric: Alert, Oriented x3, No Motor/Sensory Deficits, Normal Mood/Affect Skin: Normal Color, Warm/Dry (DEYANIRA BERKOWITZ APRN) Progress/Results/Core Measures Suspected Sepsis SIRS Temperature: Pulse: Respiratory Rate: Laboratory Tests 02/22/21 20:17: White Blood Count 8.4 Blood Pressure / Mean: Laboratory Tests 02/22/21 20:17: Creatinine 4.73H, Platelet Count 198, Total Bilirubin 0.3 (DEYANIRA BERKOWITZ APRN) Results/Orders Lab Results Laboratory Tests Test 02/22/21 20:15 02/22/21 20:17 02/22/21 21:59 02/22/21 22:07 Range/Units Glucometer 370 H 277 H 70-110 MG/DL White Blood Count 8.4 4.3-11.0 10^3/uL Red Blood Count 2.54 L 3.80-5.11 10^6/uL Hemoglobin 7.1 L 11.5-16.0 g/dL Hematocrit 22 L 35-52 % Mean Corpuscular Volume 87 80-99 fL Mean Corpuscular Hemoglobin 28 25-34 pg Mean Corpuscular Hemoglobin Concent 32 32-36 g/dL Red Cell Distribution Width 18.1 H 10.0-14.5 % Platelet Count 198 130-400 10^3/uL Mean Platelet Volume 11.1 9.0-12.2 fL Immature Granulocyte % (Auto) 2 % Neutrophils (%) (Auto) 64 42-75 % Lymphocytes (%) (Auto) 24 12-44 % Monocytes (%) (Auto) 7 0-12 % Eosinophils (%) (Auto) 2 0-10 % Basophils (%) (Auto) 1 0-10 % Neutrophils # (Auto) 5.4 1.8-7.8 10^3/uL Lymphocytes # (Auto) 2.0 1.0-4.0 10^3/uL Monocytes # (Auto) 0.6 0.0-1.0 10^3/uL Eosinophils # (Auto) 0.1 0.0-0.3 10^3/uL Basophils # (Auto) 0.0 0.0-0.1 10^3/uL Immature Granulocyte # (Auto) 0.2 H 0.0-0.1 10^3/uL Sodium Level 137 135-145 MMOL/L Potassium Level 4.0 3.6-5.0 MMOL/L Chloride Level 97 L 98-107 MMOL/L Carbon Dioxide Level 25 21-32 MMOL/L Anion Gap 15 H 5-14 MMOL/L Blood Urea Nitrogen 33 H 7-18 MG/DL Creatinine 4.73 H 0.60-1.30 MG/DL Estimat Glomerular Filtration Rate 10 BUN/Creatinine Ratio 7 Glucose Level 373 H 70-105 MG/DL Calcium Level 8.5 8.5-10.1 MG/DL Corrected Calcium 9.0 8.5-10.1 MG/DL Total Bilirubin 0.3 0.1-1.0 MG/DL Aspartate Amino Transf (AST/SGOT) 14 5-34 U/L Alanine Aminotransferase (ALT/SGPT) 12 0-55 U/L Alkaline Phosphatase 138 H 40-136 U/L Troponin I 0.031 H 0.049 H <0.028 NG/ML Total Protein 7.0 6.4-8.2 GM/DL Albumin 3.4 3.2-4.5 GM/DL (MARGARITA HUTN MD) Medications Given in ED Current Medications Medications Dose Ordered Sig/Mary Jo Route Start Time Stop Time Status Last Admin Dose Admin Acetaminophen/ Hydrocodone Bitart 1 ea ONCE ONCE PO 02/22/21 20:45 02/22/21 21:25 DC 02/22/21 21:16 1 EA Isosorbide Mononitrate 30 mg ONCE ONCE PO 02/23/21 00:00 02/23/21 00:01 DC 02/23/21 00:13 30 MG Nitroglycerin 1 inch ONCE ONCE TOP 02/22/21 23:15 02/22/21 23:16 DC 02/22/21 23:20 1 INCH (MARGARITA HUNT MD) Vital Signs/I&O Capillary Refill : (DEYANIRA BERKOWITZ APRN) Progress Note : Progress Note Patient examined and in no acute distress. EMS reports that custodial had treated her with her long-acting Levemir insulin 30 units prior to arrival to see if this would lower her blood sugar. They rechecked within an hour and her blood sugar had not come down so they sent her to the emergency department. Upon arrival she is stating she is having intermittent chest discomfort over the past 3 days and that it feels like her typical anxiety. States that when this happens she asks for her pain/anxiety medication and this usually helps. Currently requesting anxiety medication at this time. BG upon arrival 370. Received Ativan 1mg PO and her home Hydrocodone 7.5/325mg tablet. Labs reviewed, H&H at baseline, Creatinine and BUN baseline. Due for dialysis tomorrow. On 02/17/21 her hemoglobin was 7.6 today it is down to 7.1. Initial troponin elevated at 0.031. Will obtain 2-hour repeat due to extensive cardiac history and reports of chest pain. Her baseline troponin is noted around 0.032- 0.039. 2-hour repeat troponin- 0.049. Reports improvement of symptoms with Ativan and Hydrocodone. Still rates 5/10. Discussed case with Dr. Rosenberg with Cardiology, see above. Called [facility] ([phone]) [facility] and [facility] ([phone]) [facility] in [place], both are at capacity. Called [facility] for transfer. Orders given for Nitro paste 1" to see if this will improve symptoms. [facility] accepted transfer. Reports pain is stil present and rates 4/10 after Nitro paste application. Discussed risk/benefits of transfer. She is agreeable to transfer to [facility] for further evaluation. She is noted to be resting comfortably on ED cot playing on phone. Does not appear in any distress. Orders given to given Imdur 30mg PO x1 prior to transfer. Called [facility] for transfer. VSS. (DEYANIRA BERKOWITZ APRN) ECG Initial ECG Impression Date: Feb 22, 2021 Initial ECG Impression Time: 20:14 Initial ECG Rate: 84 Initial ECG Rhythm: Normal Sinus Initial ECG Intervals: Normal Initial ECG Impression: Normal Initial ECG Comparisson: Unchanged (DEYANIRA BERKOWITZ APRN) Diagnostic Imaging Diagonstic Imaging: Xray Plain Films/CT/US/NM/MRI: chest Comments [facility] [place], [place] NAME: ADWOA CUMMINGS [facility] REC#: [id number] PT STATUS: REG ER : 1985 PHYSICIAN: DEYANIRA BERKOWITZ APRN ADMIT DATE: 02/22/21/ER Draft Date of Exam:02/22/21 CHEST 1 VIEW, AP/PA ONLY EXAMINATION: Chest 1 view. HISTORY: Chest Pain COMPARISON: 02/18/2020. FINDINGS: Median sternotomy wires are aligned. Right internal jugular central venous catheter tip terminates in the superior vena cava. No pleural effusion or pneumothorax. No edema or pneumonia. IMPRESSION: Clear lungs. Dictated on workstation # [id number] Dict: 02/22/212025 Trans: 02/22/212027 PJE [id number] Interpreted by: VAUGHN PAL MD Electronically signed by: Reviewed: Reviewed by Me (DEYANIRA BERKOWITZ APRN) Departure Communication (Admissions) Time/Spoke to Consulting Phy: 22:[address] Rosenberg, recommended giving patient Imdur 30 mg p.o. now. States that he is willing to accept patient to observe overnight and released in the morning for dialysis pending troponin. Requested to have patient admitted to hospitalist. Discussed case with Dr. Walsh, hospitalist on- call. Request patient be transferred due to no dialysis capabilities at this facility. Updated Dr. Rosenberg. Patient will be transferred to higher level of care. (DEYANIRA BERKOWITZ APRN) Impression Primary Impression: Hyperglycemia Additional Impressions: Anemia ESRD on hemodialysis Anxiety Disposition: XFER [facility], [facility] HOSP Condition: Stable Transfer Transfer Reason: Exceeds level of care Time Spoke to Accepting Phy: 22:[address] Rodarte at [facility] accepted transfer. Transfer Time: 23:52 Transfer Facility: [facility] Method of Transfer: EMS (DEYANIRA BERKOWITZ CURRICULUM DESIGNER) Departure-Patient Inst. Referrals: JOSE SMITH MD (PCP) Primary Care Physician NISHA VEE (Family) Primary Care Physician Patient Instructions: Anxiety, Adult ED, Kidney Failure (DC), Hyperglycemia, Adult (DC) Add. Discharge Instructions: Plan: 1. FPC to perform daily weights. 2. Continue carbohydrate consistent diet. 3. Follow up with your doctor regarding persist elevations in blood glucose. 4. Return to ER for any new, concerning, or worsening symptoms. All discharge instructions reviewed with patient and/or family. Voiced understanding. Attending physician note: I was the attending physician physically present in the emergency department during the care of this patient, but I was not directly involved in this patient's care. (MARGARITA HUNT MD) DEYANIRA BERKOWITZ CURRICULUM DESIGNER Feb 22, 2021 20:17 MARGARITA HUNT MD Feb 23, 2021 05:15
[2021-02-22 20:26] LABS: BASOPHILS % (AUTO) 1 % (0-10); EOSINOPHILS # (AUTO) 0.1 10^3/uL (0.0-0.3); EOSINOPHILS % (AUTO) 2 % (0-10); HEMATOCRIT 22 % (35-52); HEMOGLOBIN 7.1 g/dL (11.5-16.0); LYMPHOCYTES % (AUTO) 24 % (12-44); MEAN CORPUSCULAR HEMOGLOBIN 28 pg (25-34); MEAN CORPUSCULAR HGB CONC 32 g/dL (32-36); MEAN CORPUSCULAR VOLUME 87 fL (80-99); MEAN PLATELET VOLUME 11.1 fL (9.0-12.2); MONOCYTES # (AUTO) 0.6 10^3/uL (0.0-1.0); MONOCYTES % (AUTO) 7 % (0-12); NEUTROPHILS # (AUTO) 5.4 10^3/uL (1.8-7.8); NEUTROPHILS % (AUTO) 64 % (42-75); PLATELET COUNT 198 10^3/uL (130-400); WHITE BLOOD COUNT 8.4 10^3/uL (4.3-11.0)
--- NOTE | 2021-02-22 20:29 | Diagnostic Imaging Report ---
EXAMINATION: Chest 1 view. HISTORY: Chest Pain COMPARISON: 02/18/2020. FINDINGS: Median sternotomy wires are aligned. Right internal jugular central venous catheter tip terminates in the superior vena cava. No pleural effusion or pneumothorax. No edema or pneumonia. IMPRESSION: Clear lungs. Dictated by: Dictated on workstation # [id number]
[2021-02-22 20:35] LABS: ALBUMIN 3.4 GM/DL (3.2-4.5)
[2021-02-22 20:36] LABS: CALCIUM 8.5 MG/DL (8.5-10.1)
[2021-02-22 20:39] LABS: BILIRUBIN,TOTAL 0.3 MG/DL (0.1-1.0)
[2021-02-22] MEDS ORDERED: LORazepam 0.5 MG (ATIVAN) TABLET PO STA (20:40)
[2021-02-22 20:41] LABS: CREATININE SERUM 4.73 MG/DL (0.60-1.30)
[2021-02-22] MEDS ORDERED: HYDROcodone/APAP 7.5 MG/325 MG (LORTAB, LORCET PLUS) TABLET PO ONE ×2 (20:45→21:03)
[2021-02-22] MEDS ORDERED: LORazepam 1 MG (ATIVAN) TAB ONE (21:09)
[2021-02-22] MEDS ORDERED: NITROGLYCERIN 2% OINT 1 GM UNIT DOSE PACKET TOP ONE (23:15)
[2021-02-23] MEDS ORDERED: ISOSORBIDE MONONITRATE 30 MG (IMDUR) TAB PO ONE
[2021-02-23 00:39] VITALS: BP 164/74
== END 2021-02-23 00:41 | disposition short-term general hospital (02) ==
LOC: EDUNIT# 19:55 → ER 19:56
DX: E11.65 Type 2 diabetes mellitus with hyperglycemia (principal); D64.9 Anemia, unspecified; E11.22 Type 2 diabetes mellitus with diabetic chronic kidney disease; I12.0 Hypertensive chronic kidney disease with stage 5 chronic kidney disease or end stage renal disease; N18.6 End stage renal disease; F41.9 Anxiety disorder, unspecified; I25.2 Old myocardial infarction; Z88.5 Allergy status to narcotic agent; Z77.22 Contact with and (suspected) exposure to environmental tobacco smoke (acute) (chronic); Z95.1 Presence of aortocoronary bypass graft; Z95.5 Presence of coronary angioplasty implant and graft; Z79.4 Long term (current) use of insulin; Z79.82 Long term (current) use of aspirin; Z79.899 Other long term (current) drug therapy
CPT/HCPCS: 36415; 71045; 80053; 82947; 84484; 85025; 93005

== ENCOUNTER 2021-06-13 12:18 | Emergency (ER) | payer MEDICAID ==
[~2021-06-13] VITALS: Ht 162.5 cm; Wt 77.1 kg
--- OUTSIDE RECORDS SUMMARY | 2021-06-13 12:23 | XMS REPORT | Clinical Summary ---
Author Author [facility] Organization [facility] Address Unknown Phone Unavailable Care Team Providers Care Art Glass Designer Name Role Phone Dawit Giraldo MD PCP Source Comments Some departments are not documenting in the electronic medical record. If you d o not see the information that you expected, contact Release of Information in [facility] [employer] Information Management department at [phone] for further assistan ce in locating additional records.[facility] Allergies Comments Active Allergy Reactions Severity Noted Date Iodinated Contrast Media EDEMA Medium 02/23 Nalbuphine NAUSEA AND Low 02/23/2021 VOMITING Tramadol NAUSEA ONLY, Low 02/23/2021 ANXIETY Acetaminophen-Codeine NAUSEA AND Low 02/24/20 21 VOMITING Medications End Date Status Medication Sig Dispensed Refills Start Date Active amoxicillin (AMOXIL) 500 Take 500 mg 0 02/20 mg capsule by mouth 1 three times daily. Take for 10 days Active aspirin EC 81 mg tablet Take 81 mg by 0 mouth daily. Take with food. Active diphenhydrAMINE (BENADRYL Take 50 mg by 0 ALLERGY) 25 mg tablet mouth at bedtime as needed. Active bisacodyL (DULCOLAX) 10 Insert or 0 mg rectal suppository Apply 10 mg to rectal area as directed daily as needed. Active carvediloL (COREG) 6.25 Take 6.25 mg 0 mg tablet by mouth 1 twice daily. Do not give AM dose on dialysis days. Active clopiDOGrel (PLAVIX) 75 Take 75 mg by 0 mg tablet mouth daily. 1 Active cyanocobalamin 1,000 mcg Take 100 mcg 0 tablet by mouth daily. Active folic acid 400 mcg tablet Take 800 mcg 0 by mouth daily. Active insulin lispro (HUMALOG Inject 10 0 KWIKPEN) 100 unit/mL Units under 1 injection PEN the skin three times daily with meals. Inject 30 units one time only for BS outside of parameters Active lactulose 20 gram/30 mL Take 15 mL by 0 soln mouth twice daily as needed. Active insulin detemir U-100(+) Inject under 0 (LEVEMIR) 100 unit/mL the skin vial daily. Inject 20 units in the afternoon and 35 units at bedtime Active loperamide (IMODIUM A-D) Take 2 mg by 0 2 mg capsule mouth as Needed. Active HYDROcodone/acetaminophen Take 1 tablet 0 05/2 (NORCO) 7.5/325 mg tablet by mouth 1 every 8 hours as needed Active pregabalin (LYRICA) 25 mg Take 25 mg by 0 /2 capsule mouth three 1 times daily. Active melatonin 3 mg tab Take 3 mg by 0 mouth at bedtime daily. Active metOLazone (ZAROXOLYN) 10 Give 1 tablet 0 /2 mg tablet by mouth on 1 Sat, Wed, and Fri Active ondansetron (ZOFRAN) 4 mg Take 4 mg by 0 /2 tablet mouth every 6 1 hours as needed. Active desvenlafaxine succinate Take 50 mg by 0 01/30 (PRISTIQ) 25 mg tablet mouth at 1 bedtime daily. Active promethazine (PHENERGAN) Take 25 mg by 0 25 mg tablet mouth every 8 hours as needed. Active pantoprazole DR Take 40 mg by 0 (PROTONIX) 40 mg tablet mouth daily. 1 Active sevelamer carbonate Take 1,600 mg 0 (RENVELA) 800 mg tablet by mouth 1 three times daily with meals. Active torsemide (DEMADEX) 100 Give 1 tablet 0 mg tablet by mouth on 1 Sat, Wed, Fri, Sat, and Sun Active TRULICITY 0.75 mg/0.5 mL Inject 0.75 0 02/14 injection pen mg under the 1 skin every 7 days. Active cholecalciferol (VITAMIN Take 5,000 0 D-3) 5000 unit tablet Units by mouth every 7 days. Active zinc sulfate 220 mg (50 Take 220 mg 0 mg elemental zinc) by mouth capsule daily. Active zolpidem (AMBIEN) 5 mg Take 5 mg by 0 02 tablet mouth at 1 bedtime as needed. Active atorvastatin (LIPITOR) 80 Take one 90 tablet 0 mg tablet tablet by 1 mouth daily. Active Problems Problem Noted Date Chest pain 02/23/2021 Immunizations Name Administration Dates Next Due Surgical History Surgery Date Site/Laterality Comments HX CORONARY ARTERY BYPASS 09/16/2017 - GRAFT 09/15/2018 PERCUTANEOUS CORONARY 03/16/2020 - PCI x 4 INTERVENTION 04/15/2020 AMPUTATION 09/16/2019 - right leg, HX OF FE MORAL ARTERY STENT 09/15/2020 SECTION TUBAL LIGATION Medical History Medical History Date Comments Anxiety ESRD (end stage renal disease) ([facility]) 11/2020 CAD (coronary artery disease) Ventricular arrhythmia during dobutamin test NSTEMI (non-ST elevated myocardial 2019 infarction) ([facility]) DM (diabetes mellitus) ([facility]) 2005 type 2 pe r patient Family History Medical History Relation Name Comments Coronary Artery Disease Other Renal problems Other Relation Name Status Comments Other Social History Date Tobacco Use Types Packs/Day Years Used Quit: 04/25/2020 Former Smoker Cigarettes Smokeless Tobacco: Never Used Comments Alcohol Use Standard Drinks/Week Not Currently 0 (1 standard drink = 0.6 o z pure alcohol) Sex Assigned at Date Recorded Not on file Last Filed Vital Signs Reading Time Taken Comments Vital Sign 138/99 02/25/2021 4:57 PM CDT Blood Pressure 74 02/25/2021 4:57 PM CDT Pulse 37 C (98.6 F) 02/25/2021 4:57 PM CDT Temperature - - Respiratory Rate 98% 02/25/2021 4:00 PM CDT Oxygen Saturation - - Inhaled Oxygen Concentration 85.6 kg (188 lb 11.4 oz) 02/25/2021 4:16 PM CDT Weight 162.6 cm (5' 4") 02/23/2021 12:00 PM CDT Height 32.39 02/23/2021 12:00 PM CDT Body Mass Index Plan of Treatment Health Maintenance Due Date Last Done Comments HIV SCREENING 1998 DTAP/TDAP VACCINES (1 - 2001 Tdap) HEPATITIS C SCREENING 2001 PHYSICAL (COMPREHENSIVE) 2001 EXAM CERVICAL CANCER SCREENING 01/25/2004 INFLUENZA VACCINE 04/16/2021 COVID-19 VACCINE Completed 10/20/2020, 10/01/2020 Results Not on filefrom Last 3 Months Insurance Type Payer Benefit Subscriber ID Effective Phone Address Plan / Dates Group AETNA MEDICAID AETNA [id number] 2020- BETTER Present [place] [place] Advance Directives Patient [employer] Offbearer Explanation Type Date Recorded Advance 02/23/2021 2:32 PM Directive/DPOA Date Inactivated Comments Code Status Date Activated 02/25/2021 8:12 PM Full Code 02/23/2021 3:48 AM Provider has discussed Code Status Yes w/Patient or Family? 02/23/2021 3:48 AM Full Code 02/23/2021 2:58 AM Provider has discussed Code Status No, more discussi on w/Patient or Family? needed
--- NOTE | 2021-06-13 12:26 | ED Head Injury ---
General Chief Complaint: Trauma-Non Activation Stated Complaint: FALL HEAD INJ Source: patient Exam Limitations: no limitations (NENA NICOLE APRN) History of Present Illness Date Seen by Provider: Jun 13, 2021 Time Seen by Provider: 12:24 Initial Comments To ER by EMS from [facility] with reports that she was getting out of the van from hemodialysis this morning when she tipped backwards in her wheelchair and struck her head. No loss of consciousness does complain of a headache and some neck pain. She does have nausea but she also had that before the fall. Occurred: just prior to arrival Severity: moderate Location: occipital Method of Injury: fell Loss of Consciousness: no loss of consciousness Associated Systoms: Headaches (NENA NICOLE APRN) Allergies and Home Medications Allergies Coded Allergies: codeine (Verified Allergy, Unknown, has received Lortab and Hydromorphone in the past, 04/22/20) nalbuphine (Verified Allergy, Unknown, 08/31/19) tramadol (Verified Allergy, Unknown, 08/31/19) Uncoded Allergies: CONTRAST (Allergy, Unknown, 08/31/19) Patient Home Medication List Home Medication List Reviewed: Yes (NENA NICOLE APRN) Aspirin (Aspirin EC) 81 Mg Tablet.dr, 81 MG PO DAILY, (Reported) Entered as Reported by: EMRE JAIMES on 10/24/20 1013 Bisacodyl (Bisacodyl) 10 Mg Supp.rect, 10 MG RC DAILY PRN for CONSTIPATION-4TH LINE, (Reported) Entered as Reported by: EMRE JAIMES on 10/24/20 1020 Carvedilol (Carvedilol) 6.25 Mg Tablet, 6.25 MG PO BID, (Reported) Entered as Reported by: EMRE JAIMES on 10/24/20 1013 Cholecalciferol (Vitamin D3) (Vitamin D3) 125 Mcg Tablet, 125 MCG PO MON, (Reported) Entered as Reported by: EMRE JAIMES on 10/24/20 1013 Citalopram Hydrobromide (Citalopram HBr) 20 Mg Tablet, 20 MG PO DAILY, (Reported) Entered as Reported by: EMRE JAIMES on 10/24/20 1013 Clopidogrel Bisulfate (Plavix) 75 Mg Tablet, 75 MG PO DAILY, (Reported) Entered as Reported by: EMRE JAIMES on 10/24/20 1013 Cyanocobalamin (Vitamin B-12) (Vitamin B-12) 1,000 Mcg Tablet, 1,000 MCG PO DAILY, (Reported) Entered as Reported by: EMRE JAIMES on 10/24/20 101 Diphenhydramine HCl (Diphenhydramine HCl) 25 Mg Capsule, 25 MG PO HS, (Reported) Entered as Reported by: EMRE JAIMES on 10/24/20 101 Folic Acid (Folic Acid) 0.8 Mg Capsule, 0.8 MG PO DAILY, (Reported) Entered as Reported by: EMRE JAIMES on 10/24/20 101 Hydrocodone/Acetaminophen (Hydrocodone-Acetamin 7.5-325) 1 Each Tablet, 1 EA PO HS, (Reported) Entered as Reported by: EMRE JAIMES on 10/24/201012 Hydrocodone/Acetaminophen (Hydrocodone-Acetamin 7.5-325) 1 Each Tablet, 1 EACH PO BID PRN for PAIN-MODERATE (5-7), (Reported) Entered as Reported by: EMRE JAIMES on 10/24/20 1020 Insulin Aspart (Novolog) 100 Unit/1 Ml Susp, 10 UNIT SQ AC, (Reported) Entered as Reported by: EMRE JAIMES on 10/24/20 1020 Insulin Detemir (Levemir Flextouch) 100 Unit/1 Ml Insuln.pen, 10 UNIT SQ BID, (Reported) Entered as Reported by: EMRE JAIMES on 10/24/20 1020 Lactulose (Lactulose) 10 Gm/15 Ml Solution, 15 ML PO DAILY, (Reported) Entered as Reported by: EMRE JAIMES on 10/24/20 101 Loperamide HCl (Imodium A-D) 2 Mg Tablet, 2-4 MG PO PRN PRN for LOOSE STOOLS, (Reported) Entered as Reported by: EMRE JAIMES on 10/24/20 101 Melatonin (Melatonin) 3 Mg Tablet, 3 MG PO HS, (Reported) Entered as Reported by: EMRE JAIMES on 10/24/20 101 Metolazone (Metolazone) 10 Mg Tablet, 10 MG PO DAILY, (Reported) Entered as Reported by: EMRE JAIMES on 10/24/20 1013 Ondansetron HCl (Ondansetron HCl) 4 Mg Tablet, 4 MG PO Q6H PRN for NAUSE A/VOMITING-1ST LINE, (Reported) Entered as Reported by: EMRE JAIMES on 10/24/20 1013 Pantoprazole Sodium (Pantoprazole Sodium) 40 Mg Tablet.dr, 40 MG PO DAILY, (Reported) Entered as Reported by: EMRE JAIMES on 10/24/20 1013 Pregabalin (Pregabalin) 25 Mg Capsule, 25 MG PO TID, (Reported) Entered as Reported by: EMRE JAIMES on 10/24/20 1013 Promethazine HCl (Promethazine Tablet) 25 Mg Tablet, 25 MG PO Q8H PRN for NAUSEA/VOMITING-2ND LINE, (Reported) Entered as Reported by: EMRE JAIMES on 10/24/20 1020 Sevelamer Carbonate (Sevelamer Carbonate) 800 Mg Tablet, 1,600 MG PO TID, (Reported) Entered as Reported by: EMRE JAIMES on 10/24/20 1013 Torsemide (Torsemide) 100 Mg Tablet, 100 MG PO DAILY, (Reported) Entered as Reported by: EMRE JAIMES on 10/24/20 1013 Zinc (Zinc) 50 Mg Tablet, 50 MG PO DAILY, (Reported) Entered as Reported by: EMRE JAIMES on 10/24/20 1013 Review of Systems Review of Systems Constitutional: see HPI Eyes: No Symptoms Reported Ears, Nose, Mouth, Throat: no symptoms reported Respiratory: no symptoms reported Cardiovascular: no symptoms reported Genitourinary: no symptoms reported Musculoskeletal: no symptoms reported Skin: no symptoms reported Psychiatric/Neurological: No Symptoms Reported Endocrine: No Symptoms Reported Hematologic/Lymphatic: No Symptoms Reported (NENA NICOLE APRN) Past Jybcmuw-Mkppwk-Vtwriy Hx Immunizations Up To Date Tetanus Booster (TDap): Unknown PED Vaccines UTD: Yes (NENA NICOLE APRN) Seasonal Allergies Seasonal Allergies: No (NENA NICOLE APRN) Past Medical History Surgeries: Yes (7 amputations (foot and toes, right ATK), 5 stents, LEFT GREAT TOE) Amputation, CABG, Section, Coronary Stent, Orthopedic, Tonsillectomy, 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 Respiratory: No Cardiac: Yes (5 stents; NSTEMI 07/2019, congestive heart failure) Coronary Artery Disease, Heart Attack, High Cholesterol, Hypertension, Peripheral Vascular Neurological: Yes Neuropathy [employer] History: Hysterectomy, 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 Genitourinary: Yes (CKD) Bladder Infection, Renal Failure, Dialysis Gastrointestinal: Yes (CHRONIC NAUSEA/VOMITING) Irritable Bowel Musculoskeletal: Yes Amputee, Spasms Endocrine: Yes Diabetes, Insulin dep HEENT: No Cancer: No Psychosocial: Yes Anxiety Integumentary: Yes (CHRONIC FOOT WOUNDS) Blood Disorders: Yes (ANEMIA) Adverse Reaction/Blood Tranf: No (NENA NICOLE APRN) Family Medical History No Pertinent Family Hx SOCIAL HISTORY: -ETOH--OCCASIONAL USE, NO RECENT USE, PER PT 07/20/20 -DRUGS-+THC USE ( ALSO HX OF OPIATES AND BENZODIAZEPINE ABUSE) -SMOKED 1 PPD, QUIT 03/2020 PAST SURGICAL HISTORY: -CARDIAC CATHS--MULTIPLE STENTS PLUS ANGIOPLASTIES AT MULTIPLE FACILITIES--LAST CATH HERE 08/31/[address] GALE-- RCA ANGIOPLASTY -MULTIPLE CARDIAC AND PERIPHERAL INTERVENTIONS AT MULTIPLE FACILITIES--PERIPHERAL ANGIOGRAM AT [facility] 08/21/2019--ANGIOPLASTY OF DEEP FEMORAL ARTERY, STENTS X 3 TO EXTERNAL ILIAC, COMMON FEMORAL AND SUPERFICIAL FEMORAL ARTERY -S/P 3 VESSEL CABG -RIGHT TOES AND PARTIAL FOOT AMPUTATIONS (MULTIPLE SURGERIES) , EVENTUALLY FOLLOWED BY RIGHT ABOVE THE KNEE AMPUTATION 03/27/20- AT [facility] - -HYSTERECTOMY -BILATERAL TUBAL LIGATION -TONSILLECTOMY ADDITIONAL PAST MEDICAL HISTORY: -VENTRICULAR ARRHYTHMIA DURING DOBUTAMINE TEST -NSTEMI 07/2019 LONG HISTORY OF NON-COMPLIANCE HX OF HOMELESSNESS UNTIL ADMITTED TO [facility]F-WAY AFTER LAST HOSPITALIZATION HX OF NARCOTIC AND BENZODIAZEPAM ABUSE (NENA NICOLE APRN) Physical Exam Vital Signs Vital Signs - First Documented (MARGARITA HUNT MD) Vital Signs Capillary Refill : (NENA NICOLE APRN) Height, Weight, BMI Height: '" Weight: lbs. oz. kg; 29.00 BMI Method: General Appearance: WD/WN, no apparent distress HEENT: PERRL/EOMI, normal ENT inspection Neck: non-tender Respiratory: no respiratory distress, no accessory muscle use Gastrointestinal: normal bowel sounds, non tender Extremities: normal range of motion, non-tender Psychiatric: alert, oriented x 3 Motor/Sensory: no motor deficit, no sensory deficit Skin: normal color, warm/dry (NENA NICOLE APRN) Shereen Coma Score Best Eye Response: (4) Open Spontaneously Best Verbal Response: (5) Oriented Best Motor Response: (6) Obeys Commands [place] Total: 15 (NENA NICOLE APRN) Departure Impression Primary Impression: Closed head injury without loss of consciousness Disposition: HOME, SELF-CARE Condition: Stable Departure-Patient Inst. Decision time for Depature: 12:25 (NENA NICOLE APRN) Referrals: JOSE SMITH MD (PCP/Family) Primary Care Physician Patient Instructions: Minor Head Injury, Adult ED ATTENDING PHYSICIAN NOTE: I was physically present as attending physician in the emergency department during the care of this patient, but I was not directly involved in the decision making or delivery of care for this patient. (MARGARITA HUNT MD) NENA NICOLE APRN Jun 13, 2021 12:26 MARGARITA HUNT MD Jun 15, 2021 11:01
--- NOTE | 2021-06-13 13:06 | Diagnostic Imaging Report ---
PROCEDURE: CT head and CT cervical spine without contrast. TECHNIQUE: Multiple contiguous axial images were obtained through the brain and cervical spine without the use of intravenous contrast. Sagittal and coronal reformations through the cervical spine were then performed. Auto Exposure Controls were utilized during the CT exam to meet ALARA standards for radiation dose reduction. INDICATION: Head and neck injury, fall. COMPARISON: 07/20/2020. CT head. FINDINGS: Ventricles normal in size, shape and position. There is no midline shift or mass effect. There is no hemorrhage or evidence of acute ischemia. No skull fracture seen. Senescent calcifications seen in the basal ganglia. Paranasal sinuses and mastoids are unremarkable. IMPRESSION: Negative CT head. CT cervical spine: Alignment is normal. There is no subluxation or fracture. No osseous lesion or significant degeneration is seen. Soft tissues are intact. IMPRESSION: No traumatic malalignment or fracture. Dictated by: Dictated on workstation # [id number]
[2021-06-13] MEDS ORDERED: ORPHENADRINE 60 MG/2 ML (NORFLEX) AMP (ED ONLY) IM ONE ×2 (13:15→13:30)
[2021-06-13] MEDS ORDERED: KETOROLAC 60 MG/2 ML VIAL IM ONE ×2 (13:15→13:30)
[2021-06-13 13:27] VITALS: BP 123/86
== END 2021-06-13 14:43 | disposition home or self-care (01) ==
LOC: EDUNIT# 12:18 → ER 12:20
DX: S09.90XA Unspecified injury of head, initial encounter (principal); I25.2 Old myocardial infarction; I10 Essential (primary) hypertension; E11.9 Type 2 diabetes mellitus without complications; F41.9 Anxiety disorder, unspecified; Z79.82 Long term (current) use of aspirin; Z79.01 Long term (current) use of anticoagulants; Z79.4 Long term (current) use of insulin; Z79.899 Other long term (current) drug therapy; W01.198A Fall on same level from slipping, tripping and stumbling with subsequent striking against other object, initial encounter
CPT/HCPCS: 70450; 72125

== ENCOUNTER → 2021-06-20 | Outpatient (CLI) | payer MEDICAID | LOC: CARD 08:10 | PROVIDERS: ATTEND Internal Medicine Cardiovascular Disease | DX: I35.1 Nonrheumatic aortic (valve) insufficiency (principal); I25.5 Ischemic cardiomyopathy; Z99.2 Dependence on renal dialysis | CPT/HCPCS: 93306 ==

== ENCOUNTER → 2021-06-23 | Outpatient (CLI) | payer MEDICAID | LOC: WOUNDCARE 08:18 | PROVIDERS: ATTEND Surgery | DX: E11.621 Type 2 diabetes mellitus with foot ulcer (principal); E11.42 Type 2 diabetes mellitus with diabetic polyneuropathy; E11.65 Type 2 diabetes mellitus with hyperglycemia; L97.524 Non-pressure chronic ulcer of other part of left foot with necrosis of bone; M86.472 Chronic osteomyelitis with draining sinus, left ankle and foot; N18.6 End stage renal disease; I70.245 Atherosclerosis of native arteries of left leg with ulceration of other part of foot; E66.01 Morbid (severe) obesity due to excess calories; Z68.35 Body mass index [BMI] 35.0-35.9, adult | CPT/HCPCS: 11042 ==

== ENCOUNTER → 2021-06-30 | Outpatient (CLI) | payer MEDICAID | LOC: WOUNDCARE 09:28 | PROVIDERS: ATTEND Surgery | DX: E11.621 Type 2 diabetes mellitus with foot ulcer (principal); E11.52 Type 2 diabetes mellitus with diabetic peripheral angiopathy with gangrene; E11.42 Type 2 diabetes mellitus with diabetic polyneuropathy; E11.65 Type 2 diabetes mellitus with hyperglycemia; L97.524 Non-pressure chronic ulcer of other part of left foot with necrosis of bone; M86.472 Chronic osteomyelitis with draining sinus, left ankle and foot; E11.22 Type 2 diabetes mellitus with diabetic chronic kidney disease; N18.6 End stage renal disease; I70.245 Atherosclerosis of native arteries of left leg with ulceration of other part of foot; E66.01 Morbid (severe) obesity due to excess calories; Z68.35 Body mass index [BMI] 35.0-35.9, adult | CPT/HCPCS: 99213 ==

== ENCOUNTER → 2021-07-06 | Outpatient (CLI) | payer MEDICAID | LOC: WOUNDCARE 14:02 | PROVIDERS: ATTEND Family Medicine | DX: E11.621 Type 2 diabetes mellitus with foot ulcer (principal); E11.42 Type 2 diabetes mellitus with diabetic polyneuropathy; E11.65 Type 2 diabetes mellitus with hyperglycemia; L97.524 Non-pressure chronic ulcer of other part of left foot with necrosis of bone; M86.472 Chronic osteomyelitis with draining sinus, left ankle and foot; E11.22 Type 2 diabetes mellitus with diabetic chronic kidney disease; N18.6 End stage renal disease; I70.245 Atherosclerosis of native arteries of left leg with ulceration of other part of foot; E66.01 Morbid (severe) obesity due to excess calories; E11.52 Type 2 diabetes mellitus with diabetic peripheral angiopathy with gangrene | CPT/HCPCS: 99213 ==

== ENCOUNTER → 2021-07-12 | Outpatient (CLI) | payer MEDICAID | LOC: WOUNDCARE 12:39 | PROVIDERS: ATTEND Family Medicine | DX: E11.621 Type 2 diabetes mellitus with foot ulcer (principal); E11.42 Type 2 diabetes mellitus with diabetic polyneuropathy; E11.52 Type 2 diabetes mellitus with diabetic peripheral angiopathy with gangrene; L97.522 Non-pressure chronic ulcer of other part of left foot with fat layer exposed; M86.472 Chronic osteomyelitis with draining sinus, left ankle and foot; E11.22 Type 2 diabetes mellitus with diabetic chronic kidney disease; N18.6 End stage renal disease; I70.245 Atherosclerosis of native arteries of left leg with ulceration of other part of foot; E66.01 Morbid (severe) obesity due to excess calories; L03.116 Cellulitis of left lower limb; I95.3 Hypotension of hemodialysis; Z68.35 Body mass index [BMI] 35.0-35.9, adult | CPT/HCPCS: 99213 ==

== ENCOUNTER → 2021-07-19 | Outpatient (CLI) | payer MEDICAID | LOC: WOUNDCARE 09:06 | PROVIDERS: ATTEND Family Medicine | DX: E11.621 Type 2 diabetes mellitus with foot ulcer (principal); E11.42 Type 2 diabetes mellitus with diabetic polyneuropathy; E11.52 Type 2 diabetes mellitus with diabetic peripheral angiopathy with gangrene; E11.65 Type 2 diabetes mellitus with hyperglycemia; E11.22 Type 2 diabetes mellitus with diabetic chronic kidney disease; N18.6 End stage renal disease; L97.524 Non-pressure chronic ulcer of other part of left foot with necrosis of bone; I70.245 Atherosclerosis of native arteries of left leg with ulceration of other part of foot; E66.01 Morbid (severe) obesity due to excess calories; Z68.35 Body mass index [BMI] 35.0-35.9, adult | CPT/HCPCS: 99213 ==

== ENCOUNTER → 2021-07-26 | Outpatient (CLI) | payer MEDICAID | LOC: WOUNDCARE 09:23 | PROVIDERS: ATTEND Family Medicine | DX: E11.621 Type 2 diabetes mellitus with foot ulcer (principal); E11.42 Type 2 diabetes mellitus with diabetic polyneuropathy; E11.52 Type 2 diabetes mellitus with diabetic peripheral angiopathy with gangrene; E11.65 Type 2 diabetes mellitus with hyperglycemia; L97.524 Non-pressure chronic ulcer of other part of left foot with necrosis of bone; E11.22 Type 2 diabetes mellitus with diabetic chronic kidney disease; N18.6 End stage renal disease; E66.01 Morbid (severe) obesity due to excess calories; L03.032 Cellulitis of left toe; Z68.35 Body mass index [BMI] 35.0-35.9, adult | CPT/HCPCS: 11042 ==

== ENCOUNTER → 2021-08-04 | Outpatient (CLI) | payer MEDICAID | LOC: WOUNDCARE 08:31 | PROVIDERS: ATTEND Family Medicine | DX: E11.621 Type 2 diabetes mellitus with foot ulcer (principal); E11.42 Type 2 diabetes mellitus with diabetic polyneuropathy; E11.65 Type 2 diabetes mellitus with hyperglycemia; L97.524 Non-pressure chronic ulcer of other part of left foot with necrosis of bone; E11.22 Type 2 diabetes mellitus with diabetic chronic kidney disease; N18.6 End stage renal disease; I70.245 Atherosclerosis of native arteries of left leg with ulceration of other part of foot; E66.01 Morbid (severe) obesity due to excess calories; L03.032 Cellulitis of left toe; E11.52 Type 2 diabetes mellitus with diabetic peripheral angiopathy with gangrene | CPT/HCPCS: 11042 ==

== ENCOUNTER → 2021-08-08 | Outpatient (CLI) | payer MEDICAID ==
--- NOTE | 2021-08-08 15:42 | Diagnostic Imaging Report ---
INDICATION: Nonhealing diabetic ulcer. COMPARISON: None. FINDINGS: Three radiographic views of the left foot were obtained. Patient is status post previous amputation of the great toe and partial amputation of the distal margins of the first metatarsal. There is also absence of the distal margins of the second distal phalanx. It is unclear if this is postsurgical or related to underlying osteolytic process. Overlying soft tissue defect appears to be present as well. No unexpected radiopaque foreign bodies are seen. Joint spaces are maintained. IMPRESSION: 1. Partial absence involving the distal margins of the second distal phalanx. Again, it is unclear if this is related to previous partial amputation or from underlying osteolytic process such as osteomyelitis. Clinical correlation is advised. If further imaging evaluation is indicated, MRI is recommended. Dictated by: Dictated on workstation # [id number]
== END ==
LOC: RAD 14:08
PROVIDERS: ATTEND Family Medicine
DX: E11.621 Type 2 diabetes mellitus with foot ulcer (principal)
CPT/HCPCS: 36415; 73630; 85652; 86141

== ENCOUNTER → 2021-08-08 | Outpatient (CLI) | payer MEDICAID | LOC: WOUNDCARE 13:03 | PROVIDERS: ATTEND Family Medicine | DX: E11.621 Type 2 diabetes mellitus with foot ulcer (principal); E11.42 Type 2 diabetes mellitus with diabetic polyneuropathy; E11.52 Type 2 diabetes mellitus with diabetic peripheral angiopathy with gangrene; E11.65 Type 2 diabetes mellitus with hyperglycemia; L97.524 Non-pressure chronic ulcer of other part of left foot with necrosis of bone; E11.22 Type 2 diabetes mellitus with diabetic chronic kidney disease; N18.6 End stage renal disease; I70.248 Atherosclerosis of native arteries of left leg with ulceration of other part of lower leg; E66.01 Morbid (severe) obesity due to excess calories; L03.032 Cellulitis of left toe; Z68.35 Body mass index [BMI] 35.0-35.9, adult | CPT/HCPCS: 11042 ==

== ENCOUNTER → 2021-08-17 | Outpatient (CLI) | payer MEDICAID | LOC: WOUNDCARE 12:33 | PROVIDERS: ATTEND Family Medicine | DX: E11.621 Type 2 diabetes mellitus with foot ulcer (principal); E11.42 Type 2 diabetes mellitus with diabetic polyneuropathy; E11.52 Type 2 diabetes mellitus with diabetic peripheral angiopathy with gangrene; E11.65 Type 2 diabetes mellitus with hyperglycemia; L97.524 Non-pressure chronic ulcer of other part of left foot with necrosis of bone; E11.22 Type 2 diabetes mellitus with diabetic chronic kidney disease; N18.6 End stage renal disease; I70.245 Atherosclerosis of native arteries of left leg with ulceration of other part of foot; E66.01 Morbid (severe) obesity due to excess calories; Z68.35 Body mass index [BMI] 35.0-35.9, adult | CPT/HCPCS: 11042 ==

== ENCOUNTER → 2021-08-23 | Outpatient (CLI) | payer MEDICAID | LOC: WOUNDCARE 08:04 | PROVIDERS: ATTEND Family Medicine | DX: E11.621 Type 2 diabetes mellitus with foot ulcer (principal); E11.42 Type 2 diabetes mellitus with diabetic polyneuropathy; E11.65 Type 2 diabetes mellitus with hyperglycemia; E11.52 Type 2 diabetes mellitus with diabetic peripheral angiopathy with gangrene; L97.524 Non-pressure chronic ulcer of other part of left foot with necrosis of bone; E11.22 Type 2 diabetes mellitus with diabetic chronic kidney disease; N18.6 End stage renal disease; I70.245 Atherosclerosis of native arteries of left leg with ulceration of other part of foot; E66.01 Morbid (severe) obesity due to excess calories; L03.032 Cellulitis of left toe; Z68.35 Body mass index [BMI] 35.0-35.9, adult | CPT/HCPCS: 99213 ==

== ENCOUNTER → 2021-08-28 | Outpatient (CLI) | payer MEDICAID | LOC: WOUNDCARE 10:37 | PROVIDERS: ATTEND Family Medicine | DX: E11.621 Type 2 diabetes mellitus with foot ulcer (principal); E11.42 Type 2 diabetes mellitus with diabetic polyneuropathy; E11.65 Type 2 diabetes mellitus with hyperglycemia; L97.524 Non-pressure chronic ulcer of other part of left foot with necrosis of bone; E11.22 Type 2 diabetes mellitus with diabetic chronic kidney disease; N18.6 End stage renal disease; I70.245 Atherosclerosis of native arteries of left leg with ulceration of other part of foot; E66.01 Morbid (severe) obesity due to excess calories; L03.032 Cellulitis of left toe; M86.372 Chronic multifocal osteomyelitis, left ankle and foot; E11.52 Type 2 diabetes mellitus with diabetic peripheral angiopathy with gangrene | CPT/HCPCS: 99213 ==

== ENCOUNTER → 2021-08-28 | Outpatient (CLI) | payer MEDICAID ==
--- NOTE | 2021-08-28 11:44 | Diagnostic Imaging Report ---
PROCEDURE: MR imaging left lower extremity without contrast. TECHNIQUE: Multiplanar, multisequence non contrast enhanced MR imaging of the left lower extremity was accomplished. INDICATION: Open ulcer at the tip of the 2nd toe. COMPARISON: Radiograph from 08/08/2021 FINDINGS: There has been prior amputation of the 1st toe at the distal metatarsal. There is a soft tissue ulceration at the distal 2nd toe at the dorsal aspect. There is erosion or prior amputation of the 2nd toe distal phalanx. There is associated bone marrow edema (image 16 series 10), there appears to be T1-weighted hypointensity (image 17 series 9). The flexor and extensor tendons appear intact. There is mild generalized muscular atrophy. There is mild edema in the musculature, which may be neurogenic. The Lisfranc ligament is intact. No soft tissue masses or fluid collections are seen. IMPRESSION: 1. 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 No soft tissue fluid collection is seen. 2. Redemonstrated amputation of the 1st toe. Dictated by: Dictated on workstation # [id number]
== END ==
LOC: RAD 10:15
PROVIDERS: ATTEND Family Medicine
DX: E11.621 Type 2 diabetes mellitus with foot ulcer (principal); E11.42 Type 2 diabetes mellitus with diabetic polyneuropathy; E11.65 Type 2 diabetes mellitus with hyperglycemia; L97.524 Non-pressure chronic ulcer of other part of left foot with necrosis of bone; E11.22 Type 2 diabetes mellitus with diabetic chronic kidney disease; N18.6 End stage renal disease; I70.245 Atherosclerosis of native arteries of left leg with ulceration of other part of foot; E66.01 Morbid (severe) obesity due to excess calories; M86.172 Other acute osteomyelitis, left ankle and foot

== ENCOUNTER → 2021-09-04 | Outpatient (CLI) | payer MEDICAID | LOC: WOUNDCARE 08:41 | PROVIDERS: ATTEND Family Medicine | DX: E11.621 Type 2 diabetes mellitus with foot ulcer (principal); E11.42 Type 2 diabetes mellitus with diabetic polyneuropathy; E11.52 Type 2 diabetes mellitus with diabetic peripheral angiopathy with gangrene; E11.65 Type 2 diabetes mellitus with hyperglycemia; E11.22 Type 2 diabetes mellitus with diabetic chronic kidney disease; E66.01 Morbid (severe) obesity due to excess calories; L97.524 Non-pressure chronic ulcer of other part of left foot with necrosis of bone; L03.032 Cellulitis of left toe; M86.372 Chronic multifocal osteomyelitis, left ankle and foot; N18.6 End stage renal disease; I70.245 Atherosclerosis of native arteries of left leg with ulceration of other part of foot; Z68.35 Body mass index [BMI] 35.0-35.9, adult | CPT/HCPCS: 99213 ==

== ENCOUNTER → 2021-09-13 | Outpatient (CLI) | payer MEDICAID | LOC: WOUNDCARE 11:12 | PROVIDERS: ATTEND Family Medicine | DX: E11.621 Type 2 diabetes mellitus with foot ulcer (principal); E11.42 Type 2 diabetes mellitus with diabetic polyneuropathy; E11.65 Type 2 diabetes mellitus with hyperglycemia; E11.52 Type 2 diabetes mellitus with diabetic peripheral angiopathy with gangrene; L97.524 Non-pressure chronic ulcer of other part of left foot with necrosis of bone; E11.22 Type 2 diabetes mellitus with diabetic chronic kidney disease; N18.6 End stage renal disease; I70.245 Atherosclerosis of native arteries of left leg with ulceration of other part of foot; E66.01 Morbid (severe) obesity due to excess calories; M86.372 Chronic multifocal osteomyelitis, left ankle and foot; Z68.35 Body mass index [BMI] 35.0-35.9, adult | CPT/HCPCS: 99213 ==

== ENCOUNTER → 2021-09-21 | Outpatient (CLI) | payer MEDICAID | LOC: WOUNDCARE 13:32 | PROVIDERS: ATTEND Family Medicine | DX: E11.621 Type 2 diabetes mellitus with foot ulcer (principal); E11.42 Type 2 diabetes mellitus with diabetic polyneuropathy; E11.65 Type 2 diabetes mellitus with hyperglycemia; L97.524 Non-pressure chronic ulcer of other part of left foot with necrosis of bone; E11.22 Type 2 diabetes mellitus with diabetic chronic kidney disease; N18.6 End stage renal disease; I70.245 Atherosclerosis of native arteries of left leg with ulceration of other part of foot; E66.01 Morbid (severe) obesity due to excess calories; M86.372 Chronic multifocal osteomyelitis, left ankle and foot; E11.52 Type 2 diabetes mellitus with diabetic peripheral angiopathy with gangrene; R19.7 Diarrhea, unspecified | CPT/HCPCS: 99213 ==

== ENCOUNTER → 2021-09-29 | Outpatient (CLI) | payer MEDICAID | LOC: WOUNDCARE 08:36 | PROVIDERS: ATTEND Family Medicine | DX: E11.621 Type 2 diabetes mellitus with foot ulcer (principal); E11.42 Type 2 diabetes mellitus with diabetic polyneuropathy; E11.65 Type 2 diabetes mellitus with hyperglycemia; L97.524 Non-pressure chronic ulcer of other part of left foot with necrosis of bone; E11.22 Type 2 diabetes mellitus with diabetic chronic kidney disease; N18.6 End stage renal disease; I70.245 Atherosclerosis of native arteries of left leg with ulceration of other part of foot; E66.01 Morbid (severe) obesity due to excess calories; M86.372 Chronic multifocal osteomyelitis, left ankle and foot; E11.52 Type 2 diabetes mellitus with diabetic peripheral angiopathy with gangrene | CPT/HCPCS: 99212 ==

== ENCOUNTER → 2021-10-04 | Outpatient (CLI) | payer MEDICAID | LOC: WOUNDCARE 08:27 | PROVIDERS: ATTEND Family Medicine | DX: E11.621 Type 2 diabetes mellitus with foot ulcer (principal); E11.42 Type 2 diabetes mellitus with diabetic polyneuropathy; E11.65 Type 2 diabetes mellitus with hyperglycemia; L97.524 Non-pressure chronic ulcer of other part of left foot with necrosis of bone; E11.22 Type 2 diabetes mellitus with diabetic chronic kidney disease; N18.6 End stage renal disease; I70.245 Atherosclerosis of native arteries of left leg with ulceration of other part of foot; E66.01 Morbid (severe) obesity due to excess calories; M86.372 Chronic multifocal osteomyelitis, left ankle and foot; E11.52 Type 2 diabetes mellitus with diabetic peripheral angiopathy with gangrene | CPT/HCPCS: 99213 ==

== ENCOUNTER → 2021-10-11 | Outpatient (CLI) | payer MEDICAID | LOC: WOUNDCARE 08:37 | PROVIDERS: ATTEND Family Medicine | DX: I96 Gangrene, not elsewhere classified (principal); E11.65 Type 2 diabetes mellitus with hyperglycemia; E11.42 Type 2 diabetes mellitus with diabetic polyneuropathy; E11.22 Type 2 diabetes mellitus with diabetic chronic kidney disease; E11.621 Type 2 diabetes mellitus with foot ulcer; N18.6 End stage renal disease; L97.524 Non-pressure chronic ulcer of other part of left foot with necrosis of bone; E66.01 Morbid (severe) obesity due to excess calories; M86.372 Chronic multifocal osteomyelitis, left ankle and foot; Z99.2 Dependence on renal dialysis | CPT/HCPCS: 99213 ==

== ENCOUNTER 2021-10-12 04:26 | Emergency (ER) | payer MEDICAID ==
[2021-10-12] MEDS ORDERED: fentaNYL INJ 100 MCG/2 ML AMP IVP ONE (04:45)
--- NOTE | 2021-10-12 05:04 | ED General ---
General Chief Complaint: General Problems/Pain Stated Complaint: PAIN ALL OVER,WEAK Nursing Triage Note: TO ED VIA ROOM [address] [facility]. PT C/O BILATERAL ARM PAIN AND LEG PAIN. PT IS ON DIALYSIS AND IS DUE TO GO TODAY. HX ESRD, DM. EMS ACCESSED PORT, BUT IT WOULD NOT DRAW BLOOD OR FLUSH. PT STATES LAST USED YESTERDAY AND STATED CATH JESSICA NEEDING TO BE USED, BUT WOULD NOT CLARIFY IF CATH JESSICA WAS USED YESTERDAY OR HAD BEEN USED ON PORT IN PAST AND BEGAN REQUESTING PAIN MEDICATION AND STATING SHE COULD NOT BE IN THE ROOM WITH MALES ALONE, BUT A MALE DOCTOR WAS OK. Source of Information: Patient, EMS, Jail Records Exam Limitations: No Limitations (PAXTON GUERRERO) History of Present Illness Date Seen by Provider: Oct 12, 2021 Time Seen by Provider: 04:26 Initial Comments Patient to the ER by EMS from [facility] with chief complaint she has been having some pain in her left leg as well as both of her arms her whole body she states since she got out of [place] on the , yesterday for a fistulogram of her left arm. She is concerned she has a blood clot. She has a history of vasculopathy, [id number] amputation and multiple stents and ball ooning. The patient has type 1 diabetes and is on dialysis Saturday, and Saturday. She did receive her Saturday dialysis per schedule. No fevers or chills cough or worsening shortness of breath. While she denies fever she says she feels extremely hot. Dr. Mcgovern as the person has been taking care of her vascular disease most recently. (PAXTON GUERRERO) Allergies and Home Medications Allergies Coded Allergies: codeine (Verified Allergy, Unknown, has received Lortab and Hydromorphone in the past, 04/22/20) nalbuphine (Verified Allergy, Unknown, 08/31/19) tramadol (Verified Allergy, Unknown, 08/31/19) Uncoded Allergies: CONTRAST (Allergy, Unknown, 08/31/19) Patient Home Medication List Home Medication List Reviewed: Yes (PAXTON GUERRERO) Aspirin (Aspirin EC) 81 Mg Tablet., 81 MG PO DAILY, (Reported) Entered as Reported by: EMRE JAIMES on 10/24/20 1013 Bisacodyl (Bisacodyl) 10 Mg Supp.rect, 10 MG RC DAILY PRN for CONSTIPATION-4TH LINE, (Reported) Entered as Reported by: EMRE JAIMES on 10/24/20 1020 Carvedilol (Carvedilol) 6.25 Mg Tablet, 6.25 MG PO BID, (Reported) Entered as Reported by: EMRE JAIMES on 10/24/20 101 Cholecalciferol (Vitamin D3) (Vitamin D3) 125 Mcg Tablet, 125 MCG PO MON, (Reported) Entered as Reported by: EMRE JAIMES on 10/24/20 1013 Citalopram Hydrobromide (Citalopram HBr) 20 Mg Tablet, 20 MG PO DAILY, (Reported) Entered as Reported by: EMRE JAIMES on 10/24/20 1013 Clopidogrel Bisulfate (Plavix) 75 Mg Tablet, 75 MG PO DAILY, (Reported) Entered as Reported by: EMRE JAIMES on 10/24/20 101 Cyanocobalamin (Vitamin B-12) (Vitamin B-12) 1,000 Mcg Tablet, 1,000 MCG PO DAILY, (Reported) Entered as Reported by: EMRE JAIMES on 10/24/20 1013 Diphenhydramine HCl (Diphenhydramine HCl) 25 Mg Capsule, 25 MG PO HS, (Reported) Entered as Reported by: EMRE JAIMES on 10/24/20 101 Folic Acid (Folic Acid) 0.8 Mg Capsule, 0.8 MG PO DAILY, (Reported) Entered as Reported by: EMRE JAIMES on 10/24/20 1013 Hydrocodone/Acetaminophen (Hydrocodone-Acetamin 7.5-325) 1 Each Tablet, 1 EA PO HS, (Reported) Entered as Reported by: EMRE JAIMES on 10/24/20 1013 Hydrocodone/Acetaminophen (Hydrocodone-Acetamin 7.5-325) 1 Each Tablet, 1 EACH PO BID PRN for PAIN-MODERATE (5-7), (Reported) Entered as Reported by: EMRE JAIMES on 10/24/20 1020 Insulin Aspart (Novolog) 100 Unit/1 Ml Susp, 10 UNIT SQ AC, (Reported) Entered as Reported by: EMRE JAIMES on 10/24/20 1020 Insulin Detemir (Levemir Flextouch) 100 Unit/1 Ml Insuln.pen, 10 UNIT SQ BID, (Reported) Entered as Reported by: EMRE JAIMES on 10/24/20 1020 Lactulose (Lactulose) 10 Gm/15 Ml Solution, 15 ML PO DAILY, (Reported) Entered as Reported by: EMRE JAIMES on 10/24/20 1013 Loperamide HCl (Imodium A-D) 2 Mg Tablet, 2-4 MG PO PRN PRN for LOOSE STOOLS, (Reported) Entered as Reported by: EMRE JAIMES on 10/24/20 1013 Melatonin (Melatonin) 3 Mg Tablet, 3 MG PO HS, (Reported) Entered as Reported by: EMRE JAIMES on 10/24/20 1013 Metolazone (Metolazone) 10 Mg Tablet, 10 MG PO DAILY, (Reported) Entered as Reported by: EMRE JAIMES on 10/24/20 1013 Ondansetron HCl (Ondansetron HCl) 4 Mg Tablet, 4 MG PO Q6H PRN for NAUSEA/VOMITING-1ST LINE, (Reported) Entered as Reported by: EMRE JAIMES on 10/24/20 1013 Pantoprazole Sodium (Pantoprazole Sodium) 40 Mg Tablet.dr, 40 MG PO DAILY, (Reported) Entered as Reported by: EMRE JAIMES on 10/24/20 1013 Pregabalin (Pregabalin) 25 Mg Capsule, 25 MG PO TID, (Reported) Entered as Reported by: EMRE JAIMES on 10/24/20 1013 Promethazine HCl (Promethazine Tablet) 25 Mg Tablet, 25 MG PO Q8H PRN for NAUSEA/VOMITING-2ND LINE, (Reported) Entered as Reported by: EMRE JAIMES on 10/24/20 1020 Sevelamer Carbonate (Sevelamer Carbonate) 800 Mg Tablet, 1,600 MG PO TID, (Reported) Entered as Reported by: EMRE JAIMES on 10/24/20 1013 Torsemide (Torsemide) 100 Mg Tablet, 100 MG PO DAILY, (Reported) Entered as Reported by: EMRE JAIMES on 10/24/20 1013 Zinc (Zinc) 50 Mg Tablet, 50 MG PO DAILY, (Reported) Entered as Reported by: EMRE JAIMES on 10/24/20 1013 Review of Systems Review of Systems Constitutional: No chills, No diaphoresis EENTM: No ear discharge, No ear pain Respiratory: No cough; short of breath Cardiovascular: chest pain, Hx of Intervention; No palpitations Gastrointestinal: No abdominal pain, No constipation, No diarrhea, No nausea Genitourinary: No discharge, No dysuria Musculoskeletal: No back pain, No joint pain; muscle pain, muscle stiffness, muscle cramps Skin: No change in color, No pruritus Psychiatric/Neurological: Denies Anxiety, Denies Depressed (PAXTON GUERRERO) All Other Systems Reviewed Negative Unless Noted: Yes (PAXTON GUERRERO) Past Njofqlb-Yixbsr-Ktfpjy Hx Patient Social History Tobacco Use?: No Use of E-Cig and/or Vaping dev: No Substance use?: No (PAXTON GUERRERO) Immunizations Up To Date Tetanus Booster (TDap): Unknown PED Vaccines UTD: Yes First/Initial COVID19 Vaccinat: SPRING 2020 Second COVID19 Vaccination Bennie: SPRING 2020 Third COVID19 Vaccination Date: SPRING 2020 (PAXTON GUERRERO) Seasonal Allergies Seasonal Allergies: No (PAXTON GUERRERO) Past Medical History Surgeries: Yes (7 amputations (foot and toes, right ATK), 5 stents, LEFT GREAT TOE) Amputation, CABG, Section, Coronary Stent, Orthopedic, Tonsillectomy, 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 Respiratory: No Cardiac: Yes (5 stents; NSTEMI 07/2019, congestive heart failure) Coronary Artery Disease, Heart Attack, High Cholesterol, Hypertension, Peripheral Vascular Neurological: Yes Neuropathy 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, 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 Genitourinary: Yes (CKD) Bladder Infection, Renal Failure, Dialysis Gastrointestinal: Yes (CHRONIC NAUSEA/VOMITING) Irritable Bowel Musculoskeletal: Yes Amputee, Spasms Endocrine: Yes Diabetes, Insulin dep HEENT: No Cancer: No Psychosocial: Yes Anxiety Integumentary: Yes (CHRONIC FOOT WOUNDS) Blood Disorders: Yes (ANEMIA) Adverse Reaction/Blood Tranf: No (PAXTON GUERRERO) Family Medical History No Pertinent Family Hx SOCIAL HISTORY: -ETOH--OCCASIONAL USE, NO RECENT USE, PER PT 07/20/20 -DRUGS-+THC USE ( ALSO HX OF OPIATES AND BENZODIAZEPINE ABUSE) -SMOKED 1 PPD, QUIT 03/2020 PAST SURGICAL HISTORY: -CARDIAC CATHS--MULTIPLE STENTS PLUS ANGIOPLASTIES AT MULTIPLE FACILITIES--LAST CATH HERE 08/31/[address] GALE-- RCA ANGIOPLASTY -MULTIPLE CARDIAC AND PERIPHERAL INTERVENTIONS AT MULTIPLE FACILITIES--PERIPHERAL ANGIOGRAM AT [facility] 08/21/2019--ANGIOPLASTY OF DEEP FEMORAL ARTERY, STENTS X 3 TO EXTERNAL ILIAC, COMMON FEMORAL AND SUPERFICIAL FEMORAL ARTERY -S/P 3 VESSEL CABG -RIGHT TOES AND PARTIAL FOOT AMPUTATIONS (MULTIPLE SURGERIES) , EVENTUALLY FOLLOWED BY RIGHT ABOVE THE KNEE AMPUTATION 03/27/20- AT [place] - -HYSTERECTOMY -BILATERAL TUBAL LIGATION -TONSILLECTOMY ADDITIONAL PAST MEDICAL HISTORY: -VENTRICULAR ARRHYTHMIA DURING DOBUTAMINE TEST -NSTEMI 07/2019 LONG HISTORY OF NON-COMPLIANCE HX OF HOMELESSNESS UNTIL ADMITTED TO [facility] AFTER LAST HOSPITALIZATION HX OF NARCOTIC AND BENZODIAZEPAM ABUSE (PAXTON GUERRERO) Physical Exam Vital Signs Vital Signs - First Documented 10/12/21 04:26 Temp 36.8 Pulse 60 Resp 16 B/P (MAP) 206/104 (138) Pulse Ox 99 O2 Delivery Room Air (CAROLIN POTTER MD) Vital Signs Capillary Refill : Less Than 3 Seconds (PAXTNO GUERRERO) Height, Weight, BMI Height: '" Weight: lbs. oz. kg; 29.00 BMI Method: General Appearance: Chronically ill, Mild Distress, Obese Eyes: Bilateral Eye Normal Inspection, Bilateral Eye PERRL, Bilateral Eye EOMI HEENT: PERRL/EOMI, Pharynx Normal, Moist Mucous Membranes Neck: Normal Inspection, Non Tender Respiratory: Lungs Clear, Normal Breath Sounds, No Accessory Muscle Use, No R espiratory Distress Cardiovascular: Regular Rate, Rhythm, No Edema, Other Gastrointestinal: Normal Bowel Sounds, Non Tender, Soft Extremity: No Pedal Edema, Other (Right AKA left capillary refill 3 seconds.) Neurologic/Psychiatric: Alert, Oriented x3, No Motor/Sensory Deficits, Normal Mood/Affect Skin: Normal Color, Warm/Dry (PAXTON GUERRERO) Progress/Results/Core Measures Suspected Sepsis SIRS Temperature: Pulse: 60 Respiratory Rate: 16 Blood Pressure 206 /104 Mean: 138 (PAXTON GUERRERO) Results/Orders Lab Results Laboratory Tests Test 10/12/21 05:15 10/12/21 06:05 10/12/21 07:47 10/12/21 09:54 Range/Units Influenza Type A (RT-PCR) Not Detected Not Detecte Influenza Type B (RT-PCR) Not Detected Not Detecte SARS-CoV-2 RNA (RT-PCR) Not Detected Not Detecte White Blood Count 15.3 H 4.3-11.0 10^3/uL Red Blood Count 4.25 3.80-5.11 10^6/uL Hemoglobin 11.5 11.5-16.0 g/dL Hematocrit 39 35-52 % Mean Corpuscular Volume 91 80-99 fL Mean Corpuscular Hemoglobin 27 25-34 pg Mean Corpuscular Hemoglobin Concent 30 L 32-36 g/dL Red Cell Distribution Width 17.0 H 10.0-14.5 % Platelet Count 207 130-400 10^3/uL Mean Platelet Volume 11.9 9.0-12.2 fL Immature Granulocyte % (Auto) 1 % Neutrophils (%) (Auto) 86 H 42-75 % Lymphocytes (%) (Auto) 8 L 12-44 % Monocytes (%) (Auto) 4 0-12 % Eosinophils (%) (Auto) 0 0-10 % Basophils (%) (Auto) 0 0-10 % Neutrophils # (Auto) 13.1 H 1.8-7.8 10^3/uL Lymphocytes # (Auto) 1.3 1.0-4.0 10^3/uL Monocytes # (Auto) 0.6 0.0-1.0 10^3/uL Eosinophils # (Auto) 0.0 0.0-0.3 10^3/uL Basophils # (Auto) 0.0 0.0-0.1 10^3/uL Immature Granulocyte # (Auto) 0.2 H 0.0-0.1 10^3/uL Neutrophils % (Manual) 87 % Lymphocytes % (Manual) 7 % Monocytes % (Manual) 6 % Eosinophils % (Manual) 0 % Basophils % (Manual) 0 % Band Neutrophils 0 % Anisocytosis MODERATE Prothrombin Time 14.4 12.2-14.7 SEC INR Comment 1.1 0.8-1.4 Activated Partial Thromboplast Time 36 H 24-35 SEC Sodium Level 119 *L 135-145 MMOL/L Potassium Level 5.9 H 3.6-5.0 MMOL/L Chloride Level 87 L 98-107 MMOL/L Carbon Dioxide Level 17 L 21-32 MMOL/L Anion Gap 15 H 5-14 MMOL/L Blood Urea Nitrogen 51 H 7-18 MG/DL Creatinine 7.57 H 0.60-1.30 MG/DL Estimat Glomerular Filtration Rate 7 BUN/Creatinine Ratio 7 Glucose Level 793 *H 70-105 MG/DL Calcium Level 8.8 8.5-10.1 MG/DL Corrected Calcium 8.8 8.5-10.1 MG/DL Phosphorus Level 4.6 2.3-4.7 MG/DL Magnesium Level 2.5 H 1.6-2.4 MG/DL Total Bilirubin 0.4 0.1-1.0 MG/DL Aspartate Amino Transf (AST/SGOT) 17 5-34 U/L Alanine Aminotransferase (ALT/SGPT) 10 0-55 U/L Alkaline Phosphatase 187 H 40-136 U/L Total Creatine Kinase 485 H 29-168 U/L Troponin I 0.303 *H <0.028 NG/ML C-Reactive Protein High Sensitivity 2.09 H 0.00-0.50 MG/DL Total Protein 7.3 6.4-8.2 GM/DL Albumin 3.8 3.2-4.5 GM/DL Blood Gas Puncture Site RIGHT RADIAL Blood Gas Patient Temperature 35.8 Arterial Blood pH 7.27 *L 7.37-7.43 Arterial Blood Partial Pressure CO2 40 35-45 MMHG Arterial Blood Partial Pressure O2 80 79-93 MMHG Arterial Blood HCO3 18 L 23-27 MMOL/L Arterial Blood Total CO2 19.6 L 21.0-31.0 MMOL/L Arterial Blood Oxygen Saturation 94 94-100 % Arterial Blood Base Excess -7.5 L -2.5-2.5 MMOL/L Kimani Test YES-POS Blood Gas Ventilator Setting NO Blood Gas Inspired Oxygen ROOM AIR Urine Color YELLOW Urine Clarity CLEAR Urine pH 8.0 5-9 Urine Specific [place] 1.015 L 1.016-1.022 Urine Protein 3+ H NEGATIVE Urine Glucose (UA) 3+ H NEGATIVE Urine Ketones NEGATIVE NEGATIVE Urine Nitrite NEGATIVE NEGATIVE Urine Bilirubin NEGATIVE NEGATIVE Urine Urobilinogen 0.2 < = 1.0 MG/DL Urine Leukocyte Esterase NEGATIVE NEGATIVE Urine RBC (Auto) 3+ H NEGATIVE Urine RBC 2-5 H /HPF Urine WBC NONE /HPF Urine Squamous Epithelial Cells RARE /HPF Urine Crystals NONE /LPF Urine Bacteria NEGATIVE /HPF Urine Casts NONE /LPF Urine Mucus NEGATIVE /LPF Urine Culture Indicated NO Test 10/12/21 11:05 10/12/21 12:18 10/12/21 13:27 10/12/21 13:54 Range/Units Glucometer 531 *H 566 *H 542 *H 70-110 MG/DL Sodium Level 124 *L 135-145 MMOL/L Potassium Level 5.4 H 3.6-5.0 MMOL/L Chloride Level 91 L 98-107 MMOL/L Carbon Dioxide Level 17 L 21-32 MMOL/L Anion Gap 16 H 5-14 MMOL/L Blood Urea Nitrogen 53 H 7-18 MG/DL Creatinine 7.62 H 0.60-1.30 MG/DL Estimat Glomerular Filtration Rate 6 BUN/Creatinine Ratio 7 Glucose Level 513 *H 70-105 MG/DL Calcium Level 9.1 8.5-10.1 MG/DL Test 10/12/21 14:35 10/12/21 15:20 10/12/21 16:15 10/12/21 17:20 Range/Units Glucometer 415 *H 407 *H 354 H 310 H 70-110 MG/DL Test 10/12/21 17:26 10/12/21 18:16 10/12/21 19:17 10/12/21 20:12 Range/Units Sodium Level 127 L 135-145 MMOL/L Potassium Level 5.1 H 3.6-5.0 MMOL/L Chloride Level 94 L 98-107 MMOL/L Carbon Dioxide Level 16 L 21-32 MMOL/L Anion Gap 17 H 5-14 MMOL/L Blood Urea Nitrogen 52 H 7-18 MG/DL Creatinine 7.48 H 0.60-1.30 MG/DL Estimat Glomerular Filtration Rate 7 BUN/Creatinine Ratio 7 Glucose Level 295 H 70-105 MG/DL Calcium Level 8.7 8.5-10.1 MG/DL Troponin I 0.294 *H <0.028 NG/ML Glucometer 254 H 226 H 189 H 70-110 MG/DL Test 10/12/21 21:10 10/12/21 21:13 10/12/21 22:10 10/12/21 23:11 Range/Units Sodium Level 128 L 135-145 MMOL/L Potassium Level 5.0 3.6-5.0 MMOL/L Chloride Level 96 L 98-107 MMOL/L Carbon Dioxide Level 14 L 21-32 MMOL/L Anion Gap 18 H 5-14 MMOL/L Blood Urea Nitrogen 59 H 7-18 MG/DL Creatinine 8.23 #H 0.60-1.30 MG/DL Estimat Glomerular Filtration Rate 6 BUN/Creatinine Ratio 7 Glucose Level 144 H 70-105 MG/DL Calcium Level 8.7 8.5-10.1 MG/DL Glucometer 155 H 126 H 79 70-110 MG/DL Test 10/13/21 00:09 10/13/21 01:15 10/13/21 01:20 10/13/21 02:07 Range/Units Glucometer 97 107 128 H 70-110 MG/DL Sodium Level 129 L 135-145 MMOL/L Potassium Level 5.0 3.6-5.0 MMOL/L Chloride Level 96 L 98-107 MMOL/L Carbon Dioxide Level 17 L 21-32 MMOL/L Anion Gap 16 H 5-14 MMOL/L Blood Urea Nitrogen 61 H 7-18 MG/DL Creatinine 8.32 H 0.60-1.30 MG/DL Estimat Glomerular Filtration Rate 6 BUN/Creatinine Ratio 7 Glucose Level 103 70-105 MG/DL Calcium Level 8.5 8.5-10.1 MG/DL Test 10/13/21 03:04 10/13/21 04:08 10/13/21 05:14 10/13/21 05:16 Range/Units Glucometer 117 H 105 121 H 70-110 MG/DL Sodium Level 129 L 135-145 MMOL/L Potassium Level 4.9 3.6-5.0 MMOL/L Chloride Level 96 L 98-107 MMOL/L Carbon Dioxide Level 17 L 21-32 MMOL/L Anion Gap 16 H 5-14 MMOL/L Blood Urea Nitrogen 66 H 7-18 MG/DL Creatinine 8.56 H 0.60-1.30 MG/DL Estimat Glomerular Filtration Rate 6 BUN/Creatinine Ratio 8 Glucose Level 123 H 70-105 MG/DL Calcium Level 8.3 L 8.5-10.1 MG/DL Test 10/13/21 06:12 10/13/21 07:08 10/13/21 08:13 10/13/21 09:23 Range/Units Glucometer 111 H 119 H 96 42 *L 70-110 MG/DL Test 10/13/21 09:27 10/13/21 10:21 10/13/21 10:31 Range/Units Glucometer 101 98 70-110 MG/DL (CAROLIN POTTER MD) My Orders Orders - CAROLIN POTTER MD Insulin (Regular) Human (Novolin R (Per (10/12/21 06:41) Ns Iv 1000 Ml (Sodium Chloride 0.9%) (10/12/21 07:00) Calcium Gluconate 10% Inj (Calcium Glu (10/12/21 07:00) Calcium Gluconate 10% Inj (Calcium Glu (10/12/21 07:00) Furosemide Injection (Lasix Injection) (10/12/21 07:45) Arterial Blood Gas (10/12/21 07:36) Magnesium (10/12/21 07:36) Phosphorus (10/12/21 07:36) Ua Culture If Indicated (10/12/21 07:52) Chest 1 View, Ap/Pa Only (10/12/21 07:52) Insulin Regular Drip (Myxredlin 100 Unit (10/12/21 08:00) Basic Metabolic Panel (10/12/21 10:05) Troponin I Booker (10/12/21 10:05) Lidocaine 2% (Urojet) (Xylocaine Urojet) (10/12/21 09:42) Vancomycin Injection (Vancomycin Injecti (10/12/21 13:15) Sodium Polystyrene Sulfonate (Kayexalate (10/12/21 13:15) Basic Metabolic Panel (10/12/21 13:01) Cho 60g/M 0snack (16-2000 Juan Antonio) (10/12/21 Lunch) Ns Iv 1000 Ml (Sodium Chloride 0.9%) (10/12/21 14:51) Ns Iv 1000 Ml (Sodium Chloride 0.9%) (10/12/21 15:00) Apixaban Tablet (Eliquis Tablet) (10/13/21 07:30) Us Left Low Ext Arterial 91575 (10/13/21 ) Us Venous Lower Ext Lt (10/13/21 ) (CAROLIN POTTER MD) Medications Given in ED Current Medications Medications Dose Ordered Sig/Mary Jo Route Start Time Stop Time Status Last Admin Dose Admin Apixaban 5 mg ONCE ONCE PO 10/13/21 07:30 10/13/21 07:31 DC 10/13/21 07:35 5 MG (CAROLIN POTTER MD) Vital Signs/I&O 10/12/21 10/12/21 10/12/21 10/12/21 04:26 19:00 20:00 21:00 Temp 36.8 36.5 Pulse 60 70 71 71 Resp 16 16 14 16 B/P (MAP) 206/104 (138) 104/68 111/76 103/70 Pulse Ox 99 94 94 94 O2 Delivery Room Air 10/12/21 10/12/21 10/13/21 10/13/21 22:00 23:00 00:00 01:00 Pulse 72 70 70 68 Resp 14 16 14 14 B/P (MAP) 105/67 110/72 113/72 95/72 Pulse Ox 93 95 96 94 10/13/21 10/13/21 10/13/21 10/13/21 02:00 03:00 04:00 05:00 Temp 36.3 Pulse 67 67 69 65 Resp 9 12 14 14 B/P (MAP) 95/58 102/54 113/63 103/61 Pulse Ox 93 95 93 95 10/13/21 06:11 Pulse 66 Resp 9 B/P (MAP) 117/65 Pulse Ox 95 (CAROLIN POTTER MD) Vital Signs/I&O Capillary Refill : Less Than 3 Seconds (PAXTON GUERRERO) Blood Pressure Mean: 138 Progress Note #1: Time: 05:09 Progress Note Plan to get an EKG for her all over body pain. Her cramps in her legs seem to be muscle cramps will check CPK for what that is worth in a dialysis patient. We will check some labs and see if we can Doppler a pulse. Give her some hydrocodone 10 mg and plan on getting a arterial ultrasound in the morning when ultrasound gets here Progress Note #2: Time: 05:26 Progress Note While attempting to get an EKG noticed a couple short runs of a few beats of nonsustained ventricular tachycardia. Got the largest run of about 6 seconds on an EKG. The second EKG is sinus rhythm. ZOLL monitor was brought out and pads are put on her. Discussed CODE STATUS. At this time patient wishes to be full code. We will give her hydrocodone single dose instead of 2 tablets. (PAXTON GUERRERO) Progress Note : Progress Note 0620: Assumed care of the patient from Dr. Guerrero pending all labs. He has had problems with IV access and difficulty in drawing blood due to history of vasculopathy. She does have a port and this initially was not working but they have been able to access that now and labs were drawn. Monitor patient. 0650: Patient sweaty. Fingerstick blood sugar readings high. Insulin 15 units IV ordered. Pending labs. 0705. Potassium noted to be greater than 7. Calcium gluconate 2 Amps IV ordered. We will initiate normal saline. We have initiated mission control assistance for transfer she has been declined at [facility] in [facility] as well as . She does need emergent dialysis due to her elevated potassium and creatinine levels are elevated which is evidence of renal dysfunction. In the setting of EKG disturbances including QRS widening and ventricular tachycardia. Dialysis services are not available here. 0740: Blood sugar noted greater than 900. ABG ordered. We will try to collect UA. Lasix 40 mg IV ordered. I did discuss the case with our junior underwriter. He agrees with the plan thus far. 0749: I did discuss the case with Dr. Blandon. We will consider esmolol if needed for blood pressure and ectopy. He understands that we are still in the process of trying. Accomplish transfer and will follow in consult. EKG reviewed with him. We will initiate insulin drip using insulin protocol. 1250: I have discussed the case with the eICU team and have requested consultation. Case discussed in full including current findings and therapy. We have discussed adding at least 1 dose of vancomycin as she does have implanted line and this could be the cause of the hyperglycemia if there is infection. She is not febrile and no other findings of infection besides mildly elevated white count. She did have surgery to implanted shunt yesterday and that may be the cause of the elevated white count as well as the cause of her hyperglycemia. We will also give a dose of Kayexalate. We will give 500 mL normal saline bolus and then increase rate to 100 mL an hour afterwards. We would not want to do high-volume fluids on this patient but it is reasonable to increase fluid slightly to help resolve hyperkalemia and ectopy noted earlier. Currently she is in sinus rhythm without ectopy. 1433: Repeat chemistry pending completion but current potassium is down to 5.4 which is much improved. Blood sugar still pending and she is still on insulin drip that has been increased to 10 units/h. She is not hyperosmolar hyperglycemia but not diabetic ketoacidosis as there are no ketones in the urine. Monitor patient. 1722: Still pending transfer. Hyperglycemia is improving on insulin drip. Appreciate eICU assistance. Patient requested Beck catheter removal which was done earlier. She has tolerated meal and is otherwise improved currently. Monitor patient. 0835 hours 10/13/21: I have assumed care of the patient from Dr. Carrington. Patient has done well overnight. She remained stable and improved. Potassium level is now appropriate. Creatinine trending up. Hyperglycemia is well controlled with insulin drip. At this point, patient really just needs dialysis. We have talked with her dialysis center. They are able to do a treatment for a couple hours today which would greatly benefit her and then she can do her regular dialysis tomorrow. I did discuss this with the patient and she is in agreement with doing this. We did discuss this with her care facility ([facility]) and they will work on transportation. She does have ultrasound pending. 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 I did give her the morning dose of Eliquis as she is normally on this. Monitor patient pending completion evaluation and transportation. 1053: Ultrasound complete and there is no DVT. She does have arterial flow. Report pending. Her facility will be here shortly and will take her to dialysis and then continue home meds. This seems to be a reasonable option at this point as she is in an improved state and her main need now is dialysis. Discharge nursing facility to go to dialysis. She will continue her regular scheduled dialysis tomorrow. Patient agrees with plan. (CAROLIN POTTER MD) Progress Note #1: Time: 18:42 Progress Note Care was assumed from Dr. Potter at shift change and report was received. Plan to monitor labs, vitals and rhythms overnight and hopefully discharge to dialysis tomorrow was reviewed with patient. Transfer is not possible at this time due to regional bed capacity limitations. [facility] has been working to find a bed. Labs, rhythm and vitals are gradually improving. Vitals are u nremarkable. BS is finally in an acceptable range on insulin drip at 17 units/hr. Patient reports feeling much better than she did in the morning. She is agreeable to the plan. Progress Note #2: Time: 19:26 Progress Note Patient was complaining of left leg pain. She was reexamined and found to have edema of the left lower extremity. Capillary refill is about 5 seconds in the toes. She did have a faint pulse palpable posteriorly. No dorsal pulse was palpable. She was found to have pulses by Doppler and by palpation earlier in her visit as well. She received a therapeutic dose of Lovenox early this morning. She is adequately anticoagulated for 24 hours on that dose. Ultrasound has been ordered for both arterial and venous studies at first availability. Hydrocodone was ordered for pain. (MARGARITA CARRINGTON MD) ECG Initial ECG Impression Date: Oct 12, 2021 Initial ECG Impression Time: 05:16 Initial ECG Rate: 169 Initial ECG Rhythm: V.Tach Initial ECG Intervals: QT (537) Initial ECG Comparisson: Changed Comment Nonsustained ventricular tachycardia for about 6 seconds. EKG : EKG Time: 05:17 Rate: 95 Rhythm: Normal Sinus Intervals: QT (608) ECG Comparisson: Changed ECG Impression: Nonspecific Changes Comment Sinus tachycardia with some PACs and intraventricular conduction delay. LVH. (PAXTON GUERRERO) Diagnostic Imaging Diagonstic Imaging: Ultrasound Plain Films/CT/US/NM/MRI: leg Comments [facility], [place] NAME: ADWOA CUMMINGS [facility] REC#: [id number] PT STATUS: REG ER : 1985 PHYSICIAN: CAROLIN POTTER MD ADMIT DATE: 10/12/21/ER Draft Date of Exam:10/13/21 US VENOUS LOWER EXT LT PROCEDURE: US left lower extremity venous. TECHNIQUE: Multiple real-time grayscale images were obtained over the left lower extremity in various projections. Additional duplex Doppler and color Doppler images were also obtained. INDICATION: Left leg pain. FINDINGS: The veins of the left leg have good color filling and compressibility. There is phasic flow and a normal response to augmentation. IMPRESSION: Negative venous Doppler left leg. Dictated on workstation # [id number] Dict: 10/13/21 1020 Trans: 10/13/21 1023 [id number] Interpreted by: CAROLIN ABDULLAHI MD Electronically signed by: Arterial report pending but color flow noted. (CAROLIN POTTER MD) Diagonstic Imaging: Xray Plain Films/CT/US/NM/MRI: chest Comments NAME: ADWOA CUMMINGS [facility] REC#: [id number] PT STATUS: REG ER : 1985 PHYSICIAN: CAROLIN POTTER MD ADMIT DATE: 10/12/21/ER Draft Date of Exam:10/12/21 CHEST 1 VIEW, AP/PA ONLY Portable erect AP chest at 1111h. INDICATION: Weakness The heart is stable in size when compared to the prior exam of 02/22/2021. The sternotomy wires and surgical clips noted previously are again evident and no different. The lungs are generally clear. There is no sign of failure, pneumonia or a pleural effusion. The mediastinum is not widened. The previous exam did note a triple-lumen catheter in place on the right. That catheter has been removed and a new triple lumen catheter has been inserted on the left. The tip of the new catheter overlies the right atrium. Also, in the interval since the prior exam a right-sided Port-A-Cath has been inserted. The tip of the Port-A-Cath also appears to overlie the right atrium. IMPRESSION: 1. There is evidence of prior cardiac surgery but there is no sign of an acute cardiopulmonary abnormality. 2. There is now a new left-sided triple-lumen catheter and a right-sided Port-A-Cath. The tips of each of the catheters overlie the right atrium. Report was called to [facility] ER Dr. Potter by melody at 8:27am . Dictated on workstation # [id number] Dict: 10/12/21 08 Trans: 10/12/21 08 MELODY [id number] Interpreted by: DAMON COOPER MD Reviewed: Reviewed by Me (MARGARITA CARRINGTON MD) Consults Consults : Consulting Physician: RED BLANDON MD Consults Notes Discussed the case with the junior underwriter and he recommends aspirin, Lovenox one- time dose, metoprolol and encourage her to go to [facility] for her NSVT. (PAXTON GUERRERO) Critical Care Note Critical Care Start Time: 06:05 Stop Time: 08:00 Total Time (minutes) 45 min Progress Critical care time includes evaluation, diagnosis and management of hyperkalemia as well as associated ventricular ectopy as well as hyperglycemia in the setting renal failure. Time included patient evaluation, review of labs, initiation of medical therapy and consultation with cardiology. Also includes discussion with patient for management and initiation of transfer proceedings. Excludes separately billable events. (CAROLIN POTTER MD) Departure Impression Primary Impression: Acute hyperkalemia Additional Impressions: Hyperglycemia due to type 1 diabetes mellitus Chronic kidney disease with end stage renal failure on dialysis Ventricular tachycardia (paroxysmal) Elevated troponin Disposition: HOME, SELF-CARE Condition: Stable Departure-Patient Inst. Decision time for Depature: 10:54 (CAROLIN POTTER MD) Referrals: ANGELINA OROZCO (PCP) Primary Care Physician JOSE SMITH MD (Family) Primary Care Physician Patient Instructions: End Stage Kidney Disease (DC), Diabetes Type 1, Adult (DC), High Blood Sugar, Adult ED Add. Discharge Instructions: All discharge instructions reviewed with patient and/or family. Voiced understanding. It is very important that you carefully monitor your blood sugars and control per previous orders. You will need to get dialysis today and you will need to go to the dialysis center after leaving the emergency department for interim dialysis. Then you will continue your normal Saturday, and Saturday dialysis with dialysis tomorrow. Return for worse pain, fever, vomiting, weakness, breathing problems or other concerns as needed. Restart all home meds as previously prescribed. PAXTON GUERRERO Oct 12, 2021 05:04 CAROLIN POTTER MD Oct 12, 2021 07:36 MARGARITA CARRINGTON MD Oct 12, 2021 18:46
[2021-10-12] MEDS: HYDROcodone/APAP 5 MG/325 MG (LORTAB) TAB PO ONE ×2 (05:12→05:30)
[2021-10-12] MEDS ORDERED: ASPIRIN 81 MG CHEW (CHILDREN'S ASA) PO ONE (05:30)
[2021-10-12] MEDS ORDERED: ENOXAPARIN 80 MG/0.8 ML (LOVENOX) SYR SC ONE (05:30)
[2021-10-12] MEDS ORDERED: meTOproloL SUCCINATE 50 MG (TOPROL XL) TAB PO SCH (05:45)
[2021-10-12] MEDS ORDERED: ALTEPLASE 2 MG (CATHFLO) ONE (05:49)
[2021-10-12] MEDS ORDERED: ALTEPLASE 2 MG (CATHFLO) IV ONE (06:00)
[2021-10-12 06:21] LABS: BASOPHILS % (AUTO) 0 % (0-10); EOSINOPHILS % (AUTO) 0 % (0-10); HEMATOCRIT 39 % (35-52); HEMOGLOBIN 11.5 g/dL (11.5-16.0); LYMPHOCYTES # (AUTO) 1.3 10^3/uL (1.0-4.0); LYMPHOCYTES % (AUTO) 8 % (12-44); MEAN CORPUSCULAR HEMOGLOBIN 27 pg (25-34); MEAN CORPUSCULAR HGB CONC 30 g/dL (32-36); MEAN CORPUSCULAR VOLUME 91 fL (80-99); MEAN PLATELET VOLUME 11.9 fL (9.0-12.2); MONOCYTES # (AUTO) 0.6 10^3/uL (0.0-1.0); MONOCYTES % (AUTO) 4 % (0-12); NEUTROPHILS # (AUTO) 13.1 10^3/uL (1.8-7.8); NEUTROPHILS % (AUTO) 86 % (42-75); PLATELET COUNT 207 10^3/uL (130-400); WHITE BLOOD COUNT 15.3 10^3/uL (4.3-11.0)
[2021-10-12 06:32] LABS: ALBUMIN 3.8 GM/DL (3.2-4.5)
[2021-10-12 06:33] LABS: CALCIUM 8.6 MG/DL (8.5-10.1); INR 1.1 (0.8-1.4); PROTHROMBIN TIME PATIENT 14.4 SEC (12.2-14.7)
[2021-10-12 06:34] LABS: TOTAL PROTEIN 7.3 GM/DL (6.4-8.2)
[2021-10-12 06:36] LABS: BILIRUBIN,TOTAL 0.4 MG/DL (0.1-1.0)
[2021-10-12 06:38] LABS: CREATININE SERUM 7.6 MG/DL (0.60-1.30)
[2021-10-12] MEDS ORDERED: inSUlin (REGULAR) HUMAN 1 UNIT/0.01 ML (CHARGE PER UNIT) IV STA (06:41)
[2021-10-12 06:44] LABS: BAND NEUTROPHILS 0 %; NEUTROPHILS % (MANUAL) 87 %
[2021-10-12 06:45] LABS: ANISOCYTOSIS MODERATE; BASOPHILS % (MANUAL) 0 %; EOSINOPHILS % (MANUAL) 0 %; LYMPHOCYTES % (MANUAL) 7 %; MONOCYTES % (MANUAL) 6 %
[2021-10-12 06:53] LABS: POTASSIUM 7.3 MMOL/L (3.6-5.0)
[2021-10-12] MEDS ORDERED: CALCIUM GLUC. 10% 4.65 MEQ/10 ML VIAL IV ONE ×2 (07:00)
[2021-10-12] MEDS ORDERED: NS IV 1000 ML 1,000 ML IV ONE (07:00)
[2021-10-12] MEDS ORDERED: FUROSEMIDE 40 MG/4 ML INJ (LASIX) IVP ONE (07:45)
[2021-10-12 07:55] LABS: ABG BASE EXCESS -7.5 MMOL/L (-2.5-2.5); ABG OXYGEN SATURATION 94 % (94-100); ABG PCO2 40 MMHG (35-45); ABG PO2 80 MMHG (79-93); ABG TCO2 19.6 MMOL/L (21.0-31.0)
[2021-10-12 07:58] LABS: ABG PH 7.27 (7.37-7.43); ALLENS TEST YES-POS; PATIENT TEMP 35.8; VENTILATOR NO
[2021-10-12 07:59] LABS: INSPIRED O2 ROOM AIR
[2021-10-12 08:06] LABS: PHOSPHORUS 4.6 MG/DL (2.3-4.7)
[2021-10-12 08:08] LABS: MAGNESIUM 2.5 MG/DL (1.6-2.4)
--- NOTE | 2021-10-12 08:28 | Diagnostic Imaging Report ---
Portable erect AP chest at 1111h. INDICATION: Weakness The heart is stable in size when compared to the prior exam of 02/22/2021. The sternotomy wires and surgical clips noted previously are again evident and no different. The lungs are generally clear. There is no sign of failure, pneumonia or a pleural effusion. The mediastinum is not widened. The previous exam did note a triple-lumen catheter in place on the right. That catheter has been removed and a new triple lumen catheter has been inserted on the left. The tip of the new catheter overlies the right atrium. Also, in the interval since the prior exam a right-sided Port-A-Cath has been inserted. The tip of the Port-A-Cath also appears to overlie the right atrium. There is no pneumothorax. IMPRESSION: 1. There is evidence of prior cardiac surgery but there is no sign of an acute cardiopulmonary abnormality. 2. There is now a new left-sided triple-lumen catheter and a right-sided Port-A-Cath. The tips of each of the catheters overlie the right atrium. Report was called to [facility] ER Dr. Degroot by elis at 8:27am . Dictated by: Dictated on workstation # [id number]
[2021-10-12 09:30] LABS: CALCIUM 8.8 MG/DL (8.5-10.1)
[2021-10-12] MEDS ORDERED: LIDOCAINE UROJET 2% GEL 10 ML PKG ONE (09:42)
[2021-10-12 10:01] LABS: BILIRUBIN,URINE NEGATIVE (NEGATIVE); CLARITY,URINE CLEAR; COLOR,URINE YELLOW; GLUCOSE, URINE (UA) 3+ (NEGATIVE); KETONES,URINE NEGATIVE (NEGATIVE); LEUKOCYTE ESTERASE ,URINE NEGATIVE (NEGATIVE); NITRITE,URINE NEGATIVE (NEGATIVE); PROTEIN,URINE 3+ (NEGATIVE)
[2021-10-12 10:08] LABS: BACTERIA,URINE NEGATIVE /HPF; SQUAMOUS EPITHELIAL CELL,UR RARE /HPF
[2021-10-12 10:24] LABS: POTASSIUM 5.9 MMOL/L (3.6-5.0)
[2021-10-12 10:29] LABS: CREATININE SERUM 7.57 MG/DL (0.60-1.30)
[2021-10-12] MEDS ORDERED: SOD POLYSTERENE 15 GM/60 ML (KAYEXALATE) UNIT DOSE PO ONE (13:15)
--- NOTE | 2021-10-12 13:42 | Tele-ICU Progress Note ---
Progress Note TELE-ICU note in ER hold setting Patient in need of ICU care, but currently is on hold in ER , await transfer to facility with HD capabilities Tele-ICU is providing complimentary help with ICU expertise to ER / PCP physicians while patient in ER location. Endorsement received from ER MD Labs reviewed; images reviewed A/P V tach - due to hyperKalemia - correct K - if widening QRS again , will do more bicarb and consider amio gtt Hyperkalemia, severe - with arrhythmias - Tx with CA, insulin and bicarb - also received lasix follow q 4 h - need HD , while awaiting on transfer will do q 4 h check and Tc with Ca, bicarb , - cont insulin gtt - will give one dose of kayaxalate ( arrhythmias and unknown time for transfer for HD Hyperglycemia - with DM - not DKA , unknown provoking factor - insulin gtt ? infection - UA and cxr unremarkable , but has line - one dose of vanco - follow elev trop with h/o CAD - H/O CABG Jul 2018 - Card cath on 08/31/19 - , multiple stents - -Last card cath in Apr [address] Matthew: occluded stents in the mid RCA. - follow trop ICM - Echocardiogram of April 08, 2020 at [facility] document to show LVEF 35- 40%; MR and TR - no evidense of VO - on RA - 500 NS bolus - follow PAD - R AKA on March 27, 2020 h/o anemia - gb 11 now - follow PseudohypoNatremia - adjusted Ma 132 - follow Future plans depend on the clinical course and tests results, and as delineated by bedside physicians. Discussed with RN to reach out if any questions or concerns (we cannot fully and completely monitor patient in ER settings Focused Exam Height, Weight, BMI Height: '" Weight: lbs. oz. kg; 29.00 BMI Method: SHARIFA MEDINA MD Oct 12, 2021 13:42
[2021-10-12] MEDS ORDERED: inSUlin (REGULAR) HUMAN 1 UNIT/0.01 ML (CHARGE PER UNIT) IV ONE (13:45)
[2021-10-12] MEDS: VANCOMYCIN INJECTION 750 MG in NS (IVPB) 250 ML IV SCH ×2 (13:47→16:43)
[2021-10-12 14:23] LABS: POTASSIUM 5.4 MMOL/L (3.6-5.0)
[2021-10-12 14:24] LABS: CALCIUM 9.1 MG/DL (8.5-10.1)
[2021-10-12 14:29] LABS: CREATININE SERUM 7.62 MG/DL (0.60-1.30)
[2021-10-12] MEDS ORDERED: NS IV 1000 ML 1,000 ML ONE (14:51)
[2021-10-12] MEDS ORDERED: NS IV 1000 ML 1,000 ML IV SCH (15:00)
[2021-10-12 17:51] LABS: POTASSIUM 5.1 MMOL/L (3.6-5.0)
[2021-10-12 17:52] LABS: CALCIUM 8.7 MG/DL (8.5-10.1)
[2021-10-12 17:57] LABS: CREATININE SERUM 7.48 MG/DL (0.60-1.30)
[2021-10-12] MEDS ORDERED: HYDROcodone/APAP 5 MG/325 MG (LORTAB) TAB PO ONE (19:30)
[2021-10-12] MEDS ORDERED: diphenhydrAMINE 25 MG TAB (BENADRYL) PO PRN (19:45)
[2021-10-12 21:32] LABS: CALCIUM 8.7 MG/DL (8.5-10.1); CREATININE SERUM 8.23 MG/DL (0.60-1.30)
[2021-10-13 01:36] LABS: CALCIUM 8.5 MG/DL (8.5-10.1)
[2021-10-13 01:40] LABS: CREATININE SERUM 8.32 MG/DL (0.60-1.30)
[2021-10-13 05:42] LABS: POTASSIUM 4.9 MMOL/L (3.6-5.0)
[2021-10-13 05:43] LABS: CALCIUM 8.3 MG/DL (8.5-10.1)
[2021-10-13 05:48] LABS: CREATININE SERUM 8.56 MG/DL (0.60-1.30)
[2021-10-13] MEDS ORDERED: APIXABAN 5 MG (ELIQUIS) TABLET PO ONE (07:30)
--- NOTE | 2021-10-13 10:23 | Diagnostic Imaging Report ---
PROCEDURE: US left lower extremity venous. TECHNIQUE: Multiple real-time grayscale images were obtained over the left lower extremity in various projections. Additional duplex Doppler and color Doppler images were also obtained. INDICATION: Left leg pain. FINDINGS: The veins of the left leg have good color filling and compressibility. There is phasic flow and a normal response to augmentation. IMPRESSION: Negative venous Doppler left leg. Dictated by: Dictated on workstation # [id number]
[2021-10-13 10:59] LABS: POTASSIUM 5.3 MMOL/L (3.6-5.0)
[2021-10-13 11:00] LABS: CALCIUM 8.3 MG/DL (8.5-10.1)
[2021-10-13 11:04] LABS: CREATININE SERUM 8.77 MG/DL (0.60-1.30)
--- NOTE | 2021-10-13 11:09 | Diagnostic Imaging Report ---
INDICATION: Left leg pain Arterial Doppler left leg Duplex ultrasound of the arterial system of the left leg was done with grayscale, spectral wave form and color Doppler analysis There is diffuse calcific arteriosclerosis in the arterial system of the left leg. There is no significant alteration of waveforms or velocities. IMPRESSION: Diffuse atherosclerosis. No occlusion or hemodynamically significant stenosis. Dictated by: Dictated on workstation # [id number]
[2021-10-13 11:23] VITALS: BP 128/77
== END 2021-10-13 11:23 | disposition home or self-care (01) ==
LOC: EDUNIT# 04:27 → ER 04:28
DX: E10.649 Type 1 diabetes mellitus with hypoglycemia without coma (principal); E10.22 Type 1 diabetes mellitus with diabetic chronic kidney disease; I12.0 Hypertensive chronic kidney disease with stage 5 chronic kidney disease or end stage renal disease; N18.6 End stage renal disease; E87.5 Hyperkalemia; I47.2 Ventricular tachycardia; R77.8 Other specified abnormalities of plasma proteins; R60.0 Localized edema; E10.40 Type 1 diabetes mellitus with diabetic neuropathy, unspecified; I25.2 Old myocardial infarction; I25.10 Atherosclerotic heart disease of native coronary artery without angina pectoris; F41.9 Anxiety disorder, unspecified; D64.9 Anemia, unspecified; Z99.2 Dependence on renal dialysis; Z95.1 Presence of aortocoronary bypass graft; Z95.5 Presence of coronary angioplasty implant and graft; Z79.82 Long term (current) use of aspirin; Z79.899 Other long term (current) drug therapy; Z20.822 Contact with and (suspected) exposure to COVID-19
CPT/HCPCS: 36415; 51702; 71045; 80048; 80053; 81000; 82550; 82805; 82947; 83735; 84100; 84484; 85007; 85027; 85610; 85730; 86141; 87636; 93005; 93926

== ENCOUNTER → 2021-12-19 | Outpatient (CLI) | payer MEDICAID | LOC: WOUNDCARE 13:08 | PROVIDERS: ATTEND Family Medicine | DX: T81.31XA Disruption of external operation (surgical) wound, not elsewhere classified, initial encounter (principal); M86.472 Chronic osteomyelitis with draining sinus, left ankle and foot; E11.65 Type 2 diabetes mellitus with hyperglycemia; E11.621 Type 2 diabetes mellitus with foot ulcer; L97.509 Non-pressure chronic ulcer of other part of unspecified foot with unspecified severity; E11.22 Type 2 diabetes mellitus with diabetic chronic kidney disease; N18.6 End stage renal disease; Z99.2 Dependence on renal dialysis; I70.245 Atherosclerosis of native arteries of left leg with ulceration of other part of foot | CPT/HCPCS: 11042; 87070; 87077; 87205 ==

== ENCOUNTER → 2022-01-12 | Outpatient (CLI) | payer MEDICAID | LOC: WOUNDCARE 09:01 | PROVIDERS: ATTEND Family Medicine | DX: T81.31XA Disruption of external operation (surgical) wound, not elsewhere classified, initial encounter (principal); M86.472 Chronic osteomyelitis with draining sinus, left ankle and foot; E11.65 Type 2 diabetes mellitus with hyperglycemia; E11.621 Type 2 diabetes mellitus with foot ulcer; E11.22 Type 2 diabetes mellitus with diabetic chronic kidney disease; N18.6 End stage renal disease; I70.245 Atherosclerosis of native arteries of left leg with ulceration of other part of foot; Z91.19 Patient's noncompliance with other medical treatment and regimen; Z91.11 Patient's noncompliance with dietary regimen; E11.52 Type 2 diabetes mellitus with diabetic peripheral angiopathy with gangrene | CPT/HCPCS: 11044; 87070; 87205 ==

== ENCOUNTER → 2022-01-19 | Outpatient (CLI) | payer MEDICAID | LOC: WOUNDCARE 08:28 | PROVIDERS: ATTEND Family Medicine | DX: T81.31XA Disruption of external operation (surgical) wound, not elsewhere classified, initial encounter (principal); E11.621 Type 2 diabetes mellitus with foot ulcer; L89.620 Pressure ulcer of left heel, unstageable; M86.472 Chronic osteomyelitis with draining sinus, left ankle and foot; E11.65 Type 2 diabetes mellitus with hyperglycemia; E11.22 Type 2 diabetes mellitus with diabetic chronic kidney disease; N18.6 End stage renal disease; Z99.2 Dependence on renal dialysis; I70.245 Atherosclerosis of native arteries of left leg with ulceration of other part of foot; Z91.19 Patient's noncompliance with other medical treatment and regimen; Z91.11 Patient's noncompliance with dietary regimen; I70.244 Atherosclerosis of native arteries of left leg with ulceration of heel and midfoot | CPT/HCPCS: 11044 ==

== ENCOUNTER → 2022-01-26 | Outpatient (CLI) | payer MEDICAID | LOC: WOUNDCARE 08:45 | PROVIDERS: ATTEND Family Medicine | DX: T81.31XA Disruption of external operation (surgical) wound, not elsewhere classified, initial encounter (principal); M86.472 Chronic osteomyelitis with draining sinus, left ankle and foot; E11.65 Type 2 diabetes mellitus with hyperglycemia; E11.621 Type 2 diabetes mellitus with foot ulcer; E11.22 Type 2 diabetes mellitus with diabetic chronic kidney disease; N18.6 End stage renal disease; I70.245 Atherosclerosis of native arteries of left leg with ulceration of other part of foot; I70.244 Atherosclerosis of native arteries of left leg with ulceration of heel and midfoot; L89.620 Pressure ulcer of left heel, unstageable; E11.52 Type 2 diabetes mellitus with diabetic peripheral angiopathy with gangrene; Z91.19 Patient's noncompliance with other medical treatment and regimen; Z91.11 Patient's noncompliance with dietary regimen | CPT/HCPCS: 99213 ==

== ENCOUNTER → 2022-01-26 | Outpatient (CLI) | payer MEDICAID ==
--- NOTE | 2022-01-26 16:36 | Diagnostic Imaging Report ---
PROCEDURE: MR imaging left lower extremity without contrast. TECHNIQUE: Multiplanar, multisequence non-contrast enhanced MR imaging of the left lower extremity was accomplished. INDICATION: Ulceration of the left foot. COMPARISON: 08/28/2021. Radiographs from 12/23/2021. FINDINGS: There are postsurgical changes from prior amputation of the first through third toes. Resection is at the distal first and second metatarsals as well as at the third MTP joint. There is motion artifact on multiple sequences resulting in suboptimal evaluation. There is mild bone marrow edema at the second metatarsal stump and moderate edema in the third metatarsal head. There is mild bone marrow edema at the fourth metatarsal head. There does appear to be mild T1-weighted hypointensity of the second metatarsal stump. No definite T1-weighted marrow replacement is seen of the third metatarsal head, although there is a large ulceration which appears to contact the metatarsal head. No acute fracture is seen in the imaged foot. The Lisfranc ligament is intact. Visible flexor and extensor tendons demonstrate no acute abnormality. There is mild generalized muscular atrophy and edema, likely neurogenic. No drainable fluid collections are seen. IMPRESSION: 1. Amputation of the left first through third toes. Findings concerning for osteomyelitis of the second metatarsal stump. 2. Osteitis of the third metatarsal head. No definite marrow replacement is seen, but the large soft tissue ulcer does appear to contact the head which is concerning for early osteomyelitis. 3. Osteitis without osteomyelitis of the fourth metatarsal head. Dictated by: Dictated on workstation # [id number]
== END ==
LOC: RAD 13:15
PROVIDERS: ATTEND Family Medicine
DX: T81.31XA Disruption of external operation (surgical) wound, not elsewhere classified, initial encounter (principal); S98.212A Complete traumatic amputation of two or more left lesser toes, initial encounter; M86.8X8 Other osteomyelitis, other site

== ENCOUNTER → 2022-02-01 | Outpatient (CLI) | payer MEDICAID | LOC: WOUNDCARE 08:20 | PROVIDERS: ATTEND Family Medicine | DX: T81.31XA Disruption of external operation (surgical) wound, not elsewhere classified, initial encounter (principal); E11.621 Type 2 diabetes mellitus with foot ulcer; L89.620 Pressure ulcer of left heel, unstageable; E11.69 Type 2 diabetes mellitus with other specified complication; M86.472 Chronic osteomyelitis with draining sinus, left ankle and foot; E11.65 Type 2 diabetes mellitus with hyperglycemia; E11.22 Type 2 diabetes mellitus with diabetic chronic kidney disease; N18.6 End stage renal disease; Z99.2 Dependence on renal dialysis; I70.245 Atherosclerosis of native arteries of left leg with ulceration of other part of foot; Z91.19 Patient's noncompliance with other medical treatment and regimen; Z91.11 Patient's noncompliance with dietary regimen; I70.244 Atherosclerosis of native arteries of left leg with ulceration of heel and midfoot | CPT/HCPCS: 99213 ==

== ENCOUNTER → 2022-02-08 | Outpatient (CLI) | payer MEDICAID | LOC: WOUNDCARE 10:57 | PROVIDERS: ATTEND Family Medicine | DX: T81.31XA Disruption of external operation (surgical) wound, not elsewhere classified, initial encounter (principal); E11.621 Type 2 diabetes mellitus with foot ulcer; E11.65 Type 2 diabetes mellitus with hyperglycemia; L89.620 Pressure ulcer of left heel, unstageable; N18.6 End stage renal disease; E11.69 Type 2 diabetes mellitus with other specified complication; M86.472 Chronic osteomyelitis with draining sinus, left ankle and foot; E11.22 Type 2 diabetes mellitus with diabetic chronic kidney disease; I70.244 Atherosclerosis of native arteries of left leg with ulceration of heel and midfoot; I70.245 Atherosclerosis of native arteries of left leg with ulceration of other part of foot; Z91.11 Patient's noncompliance with dietary regimen; Z91.19 Patient's noncompliance with other medical treatment and regimen; Z99.2 Dependence on renal dialysis | CPT/HCPCS: 99213 ==

== ENCOUNTER → 2022-02-26 | Outpatient (CLI) | payer MEDICAID | LOC: WOUNDCARE 13:36 | PROVIDERS: ATTEND Family Medicine | DX: E11.621 Type 2 diabetes mellitus with foot ulcer (principal); L89.623 Pressure ulcer of left heel, stage 3; M86.472 Chronic osteomyelitis with draining sinus, left ankle and foot; E11.65 Type 2 diabetes mellitus with hyperglycemia; E11.22 Type 2 diabetes mellitus with diabetic chronic kidney disease; N18.6 End stage renal disease; Z99.2 Dependence on renal dialysis; I70.245 Atherosclerosis of native arteries of left leg with ulceration of other part of foot; Z91.19 Patient's noncompliance with other medical treatment and regimen; Z91.11 Patient's noncompliance with dietary regimen; I70.244 Atherosclerosis of native arteries of left leg with ulceration of heel and midfoot; E11.52 Type 2 diabetes mellitus with diabetic peripheral angiopathy with gangrene; I96 Gangrene, not elsewhere classified | CPT/HCPCS: 11042 ==

== ENCOUNTER 2022-03-06 12:11 | Outpatient (CLI) | payer MEDICAID ==
[~2022-03-06] VITALS: Ht 160 cm; Wt 78.7 kg
[2022-03-06 12:40] VITALS: BP 143/57
== END 2022-03-06 12:40 | disposition home or self-care (01) ==
LOC: SDC 12:11
PROVIDERS: ATTEND Nurse Practitioner Community Health
DX: Z45.2 Encounter for adjustment and management of vascular access device (principal)
CPT/HCPCS: 96523

== ENCOUNTER → 2022-03-06 | Outpatient (CLI) | payer MEDICAID | LOC: WOUNDCARE 11:23 | PROVIDERS: ATTEND Family Medicine | DX: M86.472 Chronic osteomyelitis with draining sinus, left ankle and foot (principal); E11.65 Type 2 diabetes mellitus with hyperglycemia; E11.621 Type 2 diabetes mellitus with foot ulcer; E11.22 Type 2 diabetes mellitus with diabetic chronic kidney disease; N18.6 End stage renal disease; I70.245 Atherosclerosis of native arteries of left leg with ulceration of other part of foot; Z91.19 Patient's noncompliance with other medical treatment and regimen; Z91.11 Patient's noncompliance with dietary regimen; I70.244 Atherosclerosis of native arteries of left leg with ulceration of heel and midfoot; L89.623 Pressure ulcer of left heel, stage 3; E11.52 Type 2 diabetes mellitus with diabetic peripheral angiopathy with gangrene | CPT/HCPCS: 11042 ==

== ENCOUNTER → 2022-03-20 | Outpatient (CLI) | payer MEDICAID | LOC: WOUNDCARE 14:42 | PROVIDERS: ATTEND Family Medicine | DX: M86.472 Chronic osteomyelitis with draining sinus, left ankle and foot (principal); E11.621 Type 2 diabetes mellitus with foot ulcer; E11.65 Type 2 diabetes mellitus with hyperglycemia; E11.52 Type 2 diabetes mellitus with diabetic peripheral angiopathy with gangrene; E11.22 Type 2 diabetes mellitus with diabetic chronic kidney disease; I70.245 Atherosclerosis of native arteries of left leg with ulceration of other part of foot; I70.244 Atherosclerosis of native arteries of left leg with ulceration of heel and midfoot; N18.6 End stage renal disease; L89.623 Pressure ulcer of left heel, stage 3; I96 Gangrene, not elsewhere classified; Z91.11 Patient's noncompliance with dietary regimen; Z91.19 Patient's noncompliance with other medical treatment and regimen | CPT/HCPCS: 11042 ==

== ENCOUNTER 2022-05-21 17:26 | Emergency (ER) | payer MEDICAID ==
[~2022-05-21] VITALS: Ht 160 cm; Wt 82.0 kg
--- NOTE | 2022-05-21 17:46 | ED Cough/URI ---
General Chief Complaint: Fever-Adult/Adol Stated Complaint: ABD PAIN Source: patient, EMS notes reviewed Exam Limitations: no limitations History of Present Illness Date Seen by Provider: May 21, 2022 Time Seen by Provider: 17:27 Initial Comments This is a 37-year-old female with a history of end-stage renal disease and dialysis on Saturday, Saturday, Saturday who presented to the ER via [facility] for elevated temperature of 104 while she was at dialysis today. Patient states that she has been having increased fatigue throughout the day and just was not feeling "right" however she did not have any specific complaints. While she was at dialysis the nursing staff noticed her temperature had spiked to 104 and she was complaining of some abdominal tenderness. They referred her to the emergency department for further evaluation. She does have significant medical history which includes coronary artery disease, hypertension, peripheral vascular disease, diabetes, CABG, NSTEMI, congestive heart failure. States that many of the residents at [facility] have been diagnose d with COVID and is concerned she may have COVID. States that she has generalized abdominal pain, nausea with no emesis, headache, and bilateral burning eyes. She has no pain or swelling at site of her fistula or her port. She is denying any cough, shortness of breath, chest pain, rashes, dysuria. She did complete full dialysis session today. Allergies and Home Medications Allergies Coded Allergies: codeine (Verified Allergy, Unknown, has received Lortab and Hydromorphone in the past, 04/22/20) nalbuphine (Verified Allergy, Unknown, 08/31/19) tramadol (Verified Allergy, Unknown, 08/31/19) Uncoded Allergies: CONTRAST (Allergy, Unknown, 08/31/19) Patient Home Medication List Home Medication List Reviewed: Yes Aspirin (Aspirin EC) 81 Mg Tablet.dr, 81 MG PO DAILY, (Reported) Entered as Reported by: EMRE JAIMES on 10/24/20 1013 Bisacodyl (Bisacodyl) 10 Mg Supp.rect, 10 MG RC DAILY PRN for CONSTIPATION-4TH LINE, (Reported) Entered as Reported by: EMRE JAIMES on 10/24/20 1020 Carvedilol (Carvedilol) 6.25 Mg Tablet, 6.25 MG PO BID, (Reported) Entered as Reported by: EMRE JAIMES on 10/24/20 101 Cholecalciferol (Vitamin D3) (Vitamin D3) 125 Mcg Tablet, 125 MCG PO MON, (Reported) Entered as Reported by: EMRE JAIMES on 10/24/20 101 Citalopram Hydrobromide (Citalopram HBr) 20 Mg Tablet, 20 MG PO DAILY, (Reported) Entered as Reported by: EMRE JAIMES on 10/24/20 101 Clopidogrel Bisulfate (Plavix) 75 Mg Tablet, 75 MG PO DAILY, (Reported) Entered as Reported by: EMRE JAIMES on 10/24/20 101 Cyanocobalamin (Vitamin B-12) (Vitamin B-12) 1,000 Mcg Tablet, 1,000 MCG PO DAILY, (Reported) Entered as Reported by: EMRE JAIMES on 10/24/20 101 Diphenhydramine HCl (Diphenhydramine HCl) 25 Mg Capsule, 25 MG PO HS, (Reported) Entered as Reported by: EMRE JAIMES on 10/24/20 101 Folic Acid (Folic Acid) 0.8 Mg Capsule, 0.8 MG PO DAILY, (Reported) Entered as Reported by: EMRE JAIMES on 10/24/20 101 Hydrocodone/Acetaminophen (Hydrocodone-Acetamin 7.5-325) 1 Each Tablet, 1 EA PO HS, (Reported) Entered as Reported by: EMRE JAIMES on 10/24/20 101 Hydrocodone/Acetaminophen (Hydrocodone-Acetamin 7.5-325) 1 Each Tablet, 1 EACH PO BID PRN for PAIN-MODERATE (5-7), (Reported) Entered as Reported by: EMRE JAIMES on 10/24/20 1020 Insulin Aspart (Novolog) 100 Unit/1 Ml Susp, 10 UNIT SQ AC, (Reported) Entered as Reported by: EMRE JAIMES on 10/24/20 102 Insulin Detemir (Levemir Flextouch) 100 Unit/1 Ml Insuln.pen, 10 UNIT SQ BID, (Reported) Entered as Reported by: EMRE JAIMES on 10/24/20 1020 Lactulose (Lactulose) 10 Gm/15 Ml Solution, 15 ML PO DAILY, (Reported) Entered as Reported by: EMRE JAIMES on 10/24/20 1013 Loperamide HCl (Imodium A-D) 2 Mg Tablet, 2-4 MG PO PRN PRN for LOOSE STOOLS, (Reported) Entered as Reported by: EMRE JAIMES on 10/24/20 1013 Melatonin (Melatonin) 3 Mg Tablet, 3 MG PO HS, (Reported) Entered as Reported by: EMRE JAIMES on 10/24/20 1013 Metolazone (Metolazone) 10 Mg Tablet, 10 MG PO DAILY, (Reported) Entered as Reported by: EMRE JAIMES on 10/24/20 1013 Ondansetron HCl (Ondansetron HCl) 4 Mg Tablet, 4 MG PO Q6H PRN for NAUSEA/VOMITING-1ST LINE, (Reported) Entered as Reported by: EMRE JAIMES on 10/24/20 1013 Pantoprazole Sodium (Pantoprazole Sodium) 40 Mg Tablet.dr, 40 MG PO DAILY, (Reported) Entered as Reported by: EMRE JAIMES on 10/24/20 101 Pregabalin (Pregabalin) 25 Mg Capsule, 25 MG PO TID, (Reported) Entered as Reported by: EMRE JAIMES on 10/24/20 101 Promethazine HCl (Promethazine Tablet) 25 Mg Tablet, 25 MG PO Q8H PRN for NAUSEA/VOMITING-2ND LINE, (Reported) Entered as Reported by: EMRE JAIMES on 10/24/20 1020 Sevelamer Carbonate (Sevelamer Carbonate) 800 Mg Tablet, 1,600 MG PO TID, (Reported) Entered as Reported by: EMRE JAIMES on 10/24/20 101 Torsemide (Torsemide) 100 Mg Tablet, 100 MG PO DAILY, (Reported) Entered as Reported by: EMRE JAIMES on 10/24/20 1013 Zinc (Zinc) 50 Mg Tablet, 50 MG PO DAILY, (Reported) Entered as Reported by: EMRE JAIMES on 10/24/20 101 Review of Systems Review of Systems Constitutional: see HPI EENTM: No blurred vision, No double vision, No throat pain, No throat swelling Respiratory: No cough, No short of breath Cardiovascular: No chest pain Gastrointestinal: see HPI Genitourinary: see HPI Musculoskeletal: no symptoms reported Skin: no symptoms reported Psychiatric/Neurological: No Symptoms Reported Hematologic/Lymphatic: No Symptoms Reported Immunological/Allergic: no symptoms reported Past Pzufiqi-Unwoho-Yalqxb Hx Immunizations Up To Date Tetanus Booster (TDap): Unknown PED Vaccines UTD: Yes First/Initial COVID19 Vaccinat: SPRING 2020 Second COVID19 Vaccination Bennie: SPRING 2020 Third COVID19 Vaccination Date: SPRING 2020 Seasonal Allergies Seasonal Allergies: No Past Medical History Surgeries: Yes (7 amputations (foot and toes, right ATK), 5 stents, LEFT GREAT TOE) Amputation, CABG, Section, Coronary Stent, Orthopedic, Tonsillectomy, 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 Respiratory: No Cardiac: Yes (5 stents; NSTEMI 07/2019, congestive heart failure) Coronary Artery Disease, Heart Attack, High Cholesterol, Hypertension, Peripheral Vascular Neurological: Yes Neuropathy 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 History: Hysterectomy, 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 Genitourinary: Yes (CKD) Bladder Infection, Renal Failure, Dialysis Gastrointestinal: Yes (CHRONIC NAUSEA/VOMITING) Irritable Bowel Musculoskeletal: Yes Amputee, Spasms Endocrine: Yes Diabetes, Insulin dep HEENT: No Cancer: No Psychosocial: Yes Anxiety Integumentary: Yes (CHRONIC FOOT WOUNDS) Blood Disorders: Yes (ANEMIA) Adverse Reaction/Blood Tranf: No Family Medical History No Pertinent Family Hx SOCIAL HISTORY: -ETOH--OCCASIONAL USE, NO RECENT USE, PER PT 07/20/20 -DRUGS-+THC USE ( ALSO HX OF OPIATES AND BENZODIAZEPINE ABUSE) -SMOKED 1 PPD, QUIT 03/2020 PAST SURGICAL HISTORY: -CARDIAC CATHS--MULTIPLE STENTS PLUS ANGIOPLASTIES AT MULTIPLE FACILITIES--LAST CATH HERE 08/31/[address] GALE-- RCA ANGIOPLASTY -MULTIPLE CARDIAC AND PERIPHERAL INTERVENTIONS AT MULTIPLE FACILITIES--PERIPHERAL ANGIOGRAM AT [facility] 08/21/2019--ANGIOPLASTY OF DEEP FEMORAL ARTERY, STENTS X 3 TO EXTERNAL ILIAC, COMMON FEMORAL AND SUPERFICIAL FEMORAL ARTERY -S/P 3 VESSEL CABG -RIGHT TOES AND PARTIAL FOOT AMPUTATIONS (MULTIPLE SURGERIES) , EVENTUALLY FOLLOWED BY RIGHT ABOVE THE KNEE AMPUTATION 03/27/20- AT [facility] - -HYSTERECTOMY -BILATERAL TUBAL LIGATION -TONSILLECTOMY ADDITIONAL PAST MEDICAL HISTORY: -VENTRICULAR ARRHYTHMIA DURING DOBUTAMINE TEST -NSTEMI 07/2019 LONG HISTORY OF NON-COMPLIANCE HX OF HOMELESSNESS UNTIL ADMITTED TO [facility] AFTER LAST HOSPITALIZATION HX OF NARCOTIC AND BENZODIAZEPAM ABUSE Physical Exam Vital Signs - First Documented 05/21/22 05/21/22 17:27 18:00 Temp 39.9 Pulse 115 Resp 20 Pulse Ox 93 O2 Delivery Room Air O2 Flow Rate 2.00 Capillary Refill : Height: '" Weight: lbs. oz. kg; 30.00 BMI Method: General Appearance: WD/WN, no apparent distress Eyes: Bilateral Eye Normal Inspection, Bilateral Eye PERRL, Bilateral Eye EOMI HEENT: PERRL/EOMI, normal ENT inspection, pharynx normal Neck: full range of motion, normal inspection Respiratory: lungs clear, normal breath sounds, no respiratory distress, no accessory muscle use Cardiovascular: regular rate, rhythm, no murmur Gastrointestinal: normal bowel sounds, soft Extremities: other (Rt AKA, Lt BKA) Neurologic/Psychiatric: no motor/sensory deficits, alert, normal mood/affect, oriented x 3 Skin: normal color, warm/dry Focused Exam Lactate Level 05/21/22 18:02: Lactic Acid Level 2.59*H 05/21/22 21:52: Lactic Acid Level 1.75 Lactic Acid Level Laboratory Tests Test 05/21/22 18:02 05/21/22 21:52 Lactic Acid Level 2.59 MMOL/L (0.50-2.00) *H 1.75 MMOL/L (0.50-2.00) Progress/Results/Core Measures Suspected Sepsis SIRS Temperature: Pulse: Respiratory Rate: Laboratory Tests 05/21/22 18:02: White Blood Count 8.8 Blood Pressure / Mean: 05/21/22 18:02: Lactic Acid Level 2.59*H 05/21/22 21:52: Lactic Acid Level 1.75 Laboratory Tests 05/21/22 18:02: Creatinine 5.96H, INR Comment 1.3, Platelet Count 223, Total Bilirubin 0.5 Results/Orders Lab Results Laboratory Tests Test 05/21/22 17:55 05/21/22 18:02 05/21/22 18:09 05/21/22 21:52 Range/Units Influenza Type A (RT-PCR) Not Detected Not Detecte Influenza Type B (RT-PCR) Not Detected Not Detecte SARS-CoV-2 RNA (RT-PCR) Not Detected Not Detecte White Blood Count 8.8 4.3-11.0 10^3/uL Red Blood Count 4.23 3.80-5.11 10^6/uL Hemoglobin 10.6 L 11.5-16.0 g/dL Hematocrit 35 35-52 % Mean Corpuscular Volume 82 80-99 fL Mean Corpuscular Hemoglobin 25 25-34 pg Mean Corpuscular Hemoglobin Concent 31 L 32-36 g/dL Red Cell Distribution Width 21.7 H 10.0-14.5 % Platelet Count 223 130-400 10^3/uL Mean Platelet Volume 10.7 9.0-12.2 fL Immature Granulocyte % (Auto) 1 % Neutrophils (%) (Auto) 72 42-75 % Lymphocytes (%) (Auto) 17 12-44 % Monocytes (%) (Auto) 8 0-12 % Eosinophils (%) (Auto) 1 0-10 % Basophils (%) (Auto) 1 0-10 % Neutrophils # (Auto) 6.4 1.8-7.8 10^3/uL Lymphocytes # (Auto) 1.5 1.0-4.0 10^3/uL Monocytes # (Auto) 0.7 0.0-1.0 10^3/uL Eosinophils # (Auto) 0.1 0.0-0.3 10^3/uL Basophils # (Auto) 0.0 0.0-0.1 10^3/uL Immature Granulocyte # (Auto) 0.1 0.0-0.1 10^3/uL Prothrombin Time 16.6 H 12.2-14.7 SEC INR Comment 1.3 0.8-1.4 Activated Partial Thromboplast Time 35 24-35 SEC Sodium Level 140 135-145 MMOL/L Potassium Level 4.6 3.6-5.0 MMOL/L Chloride Level 100 98-107 MMOL/L Carbon Dioxide Level 23 21-32 MMOL/L Anion Gap 17 H 5-14 MMOL/L Blood Urea Nitrogen 38 H 7-18 MG/DL Creatinine 5.96 H 0.60-1.30 MG/DL Estimat Glomerular Filtration Rate 9 BUN/Creatinine Ratio 6 Glucose Level 245 H 70-105 MG/DL Lactic Acid Level 2.59 *H 1.75 0.50-2.00 MMOL/L Calcium Level 9.4 8.5-10.1 MG/DL Corrected Calcium 9.6 8.5-10.1 MG/DL Total Bilirubin 0.5 0.1-1.0 MG/DL Aspartate Amino Transf (AST/SGOT) 22 5-34 U/L Alanine Aminotransferase (ALT/SGPT) 13 0-55 U/L Alkaline Phosphatase 131 40-136 U/L C-Reactive Protein High Sensitivity 2.70 H 0.00-0.50 MG/DL Total Protein 7.9 6.4-8.2 GM/DL Albumin 3.8 3.2-4.5 GM/DL Procalcitonin 1.37 H <0.10 NG/ML Urine Color YELLOW Urine Clarity SL CLOUDY Urine pH 7.0 5-9 Urine Specific Mitchell 1.010 L 1.016-1.022 Urine Protein 3+ H NEGATIVE Urine Glucose (UA) 2+ H NEGATIVE Urine Ketones NEGATIVE NEGATIVE Urine Nitrite NEGATIVE NEGATIVE Urine Bilirubin NEGATIVE NEGATIVE Urine Urobilinogen 0.2 < = 1.0 MG/DL Urine Leukocyte Esterase NEGATIVE NEGATIVE Urine RBC (Auto) 2+ H NEGATIVE Urine RBC 0-2 /HPF Urine WBC 0-2 /HPF Urine Squamous Epithelial Cells 5-10 /HPF Urine Crystals PRESENT H /LPF Urine Amorphous Sediment FEW YOLY PHOSPHATE H /LPF Urine Bacteria NEGATIVE /HPF Urine Casts NONE /LPF Urine Mucus NEGATIVE /LPF Urine Culture Indicated CULTURE PENDING My Orders Orders - DEYANIRA BERKOWITZ FINAL EXPENSE AGENT Ua Culture If Indicated (05/21/22 17:32) Covid 19 Inhouse Test (05/21/22 17:44) Influenza A And B By Pcr (05/21/22 17:44) Cbc With Automated Diff (05/21/22 17:58) Comprehensive Metabolic Panel (05/21/22 17:58) Blood Culture (05/21/22 17:58) Sputum Culture (05/21/22 17:58) Urine Culture (05/21/22 17:58) Protime With Inr (05/21/22 17:58) Partial Thromboplastin Time (05/21/22 17:58) Chest 1 View, Ap/Pa Only (05/21/22 17:58) Ed Iv/Invasive Line Start (05/21/22 17:58) Vital Signs Adult Sepsis Patie Q15M (05/21/22 17:58) O2 (05/21/22 17:58) Remove Rings In Anticipation O (05/21/22 17:58) Lactic Acid Analyzer (05/21/22 17:58) Ct Abdomen/Pelvis Wo (05/21/22 17:58) Ibuprofen Tablet (Motrin Tablet) (05/21/22 18:15) Acetaminophen Tablet (Tylenol Tablet) (05/21/22 18:15) Ns Iv 500 Ml (Sodium Chloride 0.9%) (05/21/22 19:15) Procalcitonin (Pct) (05/21/22 20:00) Hs C Reactive Protein (05/21/22 20:00) Cefepime Injection (Maxipime Injection) (05/21/22 21:00) Medications Given in ED Current Medications Medications Dose Ordered Sig/Mary Oj Route Start Time Stop Time Status Last Admin Dose Admin Acetaminophen 1,000 mg ONCE ONCE PO 05/21/22 18:15 05/21/22 18:16 DC 05/21/22 18:11 1,000 MG Cefepime HCl 1000 mg/Sodium Chloride 50 ml @ 100 mls/hr ONCE ONCE IV 05/21/22 21:00 05/21/22 21:29 DC 05/21/22 22:32 100 MLS/HR Ibuprofen 400 mg ONCE ONCE PO 05/21/22 18:15 05/21/22 18:16 DC 05/21/22 18:11 400 MG Sodium Chloride 500 ml @ 0 mls/hr Q0M ONCE IV 05/21/22 19:15 05/21/22 19:16 DC 05/21/22 20:06 0 MLS/HR Vital Signs/I&O 05/21/22 05/21/22 17:27 18:00 Temp 39.9 Pulse 115 Resp 20 B/P (MAP) Pulse Ox 93 97 O2 Delivery Room Air Nasal Cannula O2 Flow Rate 2.00 Capillary Refill : Progress Note : Progress Note Patient examined and in no acute distress. She does have elevated temperature of 39.9 C, orders placed for Tylenol and ibuprofen p.o., initiated COVID and flu swabs as well as sepsis work-up. Orders placed for normal saline 500cc bolus. Labs reviewed she has no elevation in her white count, does have an elevated lactic acid at 2.59, added procalcitonin and CRP to work-up as her chest x-ray, UA, CT abdomen pelvis without contrast was unremarkable for acute findings. She has no obvious skin breakdown, no erythema or swelling at her fistula or her right port. Concern for possible bacteremia from repeated fistula access. However since we do not have a known organism she did receive cefepime 1 g IV. Procalcitonin elevated at 1.37, CRP elevated at 2.70 which confirms clinical suspicion for possible bacteremia. Her temperature has decreased to 99.9 after Tylenol and ibuprofen. She is sitting up awake alert singing to her headphones. Her vital signs are stable with a systolic in the low 100s. Discussed the nee d to transfer patient as there are no dialysis services at this facility and she may require several day stay while pending blood cultures. Patient requested to be transferred to [facility] or [facility] in [place], would like us to try [facility] first. Contacted [facility] in [place], declined transfer due to capacity. Contacted [facility] in [place] and reviewed case with Dr. Carr, accepted transfer to medical unit. Patient informed of transfer risk and benefit, she consented to transfer via [facility]. Her vital signs are stable. Diagnostic Imaging Comments [facility], [place] NAME: ADWOA CUMMINGS Param [facility] REC#: [id number] PT STATUS: REG ER : 1985 PHYSICIAN: DEYANIRA BERKOWITZ FINAL EXPENSE AGENT ADMIT DATE: 05/21/22/ER Signed Date of Exam:05/21/22 CT ABDOMEN/PELVIS WO Clinical indications: Patient with abdominal pain and fever. Patient had dialysis this morning. Exam: CT exam of the abdomen and pelvis is performed without IV or oral contrast using stone protocol. Coronal and sagittal reformatted images were created. Auto Exposure Controls were utilized during the CT exam to meet ALARA standards for radiation dose reduction. Comparisons: CT scan of the abdomen and pelvis without contrast dated 12/23/2021. Findings: There is mild atelectasis involving the posterior aspects of both lungs. Bones show no significant abnormality. Again seen, postop change to the chest with sternotomy wires. The liver, spleen, pancreas, and adrenal glands show no acute abnormality. Gallbladder is predominantly decompressed and no significant abnormality is visualized. Both kidneys are unremarkable with no hydronephrosis, stones, or mass. Vascular calcifications involving bilateral renal hilar regions are seen. Uterus and adnexal structures noted. Slight lobulated right adnexal region seen but is not significantly enlarged for patient's age. There is no intra-abdominal free air or free fluid. Appendix is unremarkable. There is no intestinal obstruction. Moderate fluid distention with ingested material noted. There is no significant intestinal abnormality as visualized. There is small amount of fluid within the bladder, there is bladder wall thickening which is nonspecific. The extra-abdominal and extrapelvic soft tissue structures are unremarkable. There are vascular stents seen within the bilateral common iliac arteries and right external iliac artery and right common femoral artery region. IMPRESSION: 1: There is small amount of fluid within the bladder and there is bladder wall thickening which is nonspecific. Cystitis should be excluded. 2: Otherwise, CT scan of the abdomen and pelvis shows no evidence of acute abdominal or pelvic process. Dictated by: Dictated on workstation # [id number] Dict: 05/21/221940 Trans: 05/21/222328 [facility] [id number] Interpreted by: ASHOK GARCIA MD Electronically signed by: ASHOK GARCIA MD 05/21/222328 Diagonstic Imaging: Xray Comments [facility] [place] NAME: ADWOA CUMMINGS [facility] REC#: [id number] PT STATUS: REG ER : 1985 PHYSICIAN: DEYANIRA BERKOWITZ FINAL EXPENSE AGENT ADMIT DATE: 05/21/22/ER Signed Date of Exam:05/21/22 CHEST 1 VIEW, AP/PA ONLY CLINICAL INDICATION: Patient with fever and abdominal pain. EXAM: Portable chest x-ray upright view. COMPARISON: Chest x-ray dated 12/23/2021. FINDINGS: Infusaport seen overlying the right chest, stable. Previously seen vascular access catheter has been removed. Lungs/pleura: Lungs are clear. There is no pneumothorax. There is no pleural effusion. Mediastinum: Unremarkable. Pulmonary vasculature: Unremarkable. Heart: Stable cardiomegaly. Stable postop change to the chest with sternotomy wires noted.. Bones/extrathoracic soft tissue: Unremarkable. IMPRESSION: 1: There is no radiographic evidence of acute cardiopulmonary process. There is no lung infiltrate. 2: Stable cardiomegaly with no significant pulmonary vascular congestion. Dictated by: Dictated on workstation # [id number] Dict: 05/21/221934 Trans: 05/21/222327 [facility] [id number] Interpreted by: ASHOK GARCIA MD Electronically signed by: ASHOK GARCIA MD 05/21/222327 Reviewed: Reviewed by Me Departure Impression Primary Impression: Fever Additional Impression: Sepsis due to undetermined organism Disposition: XFER SHT-TRM HOSP Condition: Stable Transfer Transfer Reason: Exceeds level of care Time Spoke to Accepting Phy: 23:[address] Carr Transfer Time: 23:59 Transfer Facility: [facility] Method of Transfer: EMS Departure-Patient Inst. Referrals: [facility] (PCP/Family) Primary Care Physician DEYANIRA BERKOWITZ FINAL EXPENSE AGENT May 21, 2022 17:46
[2022-05-21] MEDS ORDERED: ACETAMINOPHEN 500 MG TAB (TYLENOL) PO ONE (18:15)
[2022-05-21] MEDS ORDERED: IBUPROFEN TABLET 200 MG TAB PO ONE (18:15)
[2022-05-21 18:18] LABS: BILIRUBIN,URINE NEGATIVE (NEGATIVE); CLARITY,URINE SL CLOUDY; COLOR,URINE YELLOW; GLUCOSE, URINE (UA) 2+ (NEGATIVE); KETONES,URINE NEGATIVE (NEGATIVE); LEUKOCYTE ESTERASE ,URINE NEGATIVE (NEGATIVE); NITRITE,URINE NEGATIVE (NEGATIVE); PROTEIN,URINE 3+ (NEGATIVE)
[2022-05-21 18:19] LABS: BASOPHILS % (AUTO) 1 % (0-10); EOSINOPHILS # (AUTO) 0.1 10^3/uL (0.0-0.3); EOSINOPHILS % (AUTO) 1 % (0-10); HEMATOCRIT 35 % (35-52); HEMOGLOBIN 10.6 g/dL (11.5-16.0); LYMPHOCYTES # (AUTO) 1.5 10^3/uL (1.0-4.0); LYMPHOCYTES % (AUTO) 17 % (12-44); MEAN CORPUSCULAR HEMOGLOBIN 25 pg (25-34); MEAN CORPUSCULAR HGB CONC 31 g/dL (32-36); MEAN CORPUSCULAR VOLUME 82 fL (80-99); MEAN PLATELET VOLUME 10.7 fL (9.0-12.2); MONOCYTES # (AUTO) 0.7 10^3/uL (0.0-1.0); MONOCYTES % (AUTO) 8 % (0-12); NEUTROPHILS # (AUTO) 6.4 10^3/uL (1.8-7.8); NEUTROPHILS % (AUTO) 72 % (42-75); PLATELET COUNT 223 10^3/uL (130-400); WHITE BLOOD COUNT 8.8 10^3/uL (4.3-11.0)
[2022-05-21 18:25] LABS: ALBUMIN 3.8 GM/DL (3.2-4.5); POTASSIUM 4.6 MMOL/L (3.6-5.0)
[2022-05-21 18:27] LABS: CALCIUM 9.4 MG/DL (8.5-10.1)
[2022-05-21 18:27] LABS: AMORPHOUS SEDIMENT,UR FEW AMOR PHOSPHATE /LPF; BACTERIA,URINE NEGATIVE /HPF; RBC,URINE 0-2 /HPF; WBC,URINE 0-2 /HPF
[2022-05-21 18:28] LABS: TOTAL PROTEIN 7.9 GM/DL (6.4-8.2)
[2022-05-21 18:30] LABS: BILIRUBIN,TOTAL 0.5 MG/DL (0.1-1.0)
[2022-05-21 18:31] LABS: CREATININE SERUM 5.96 MG/DL (0.60-1.30); INR 1.3 (0.8-1.4); PROTHROMBIN TIME PATIENT 16.6 SEC (12.2-14.7)
[2022-05-21] MEDS ORDERED: NS IV 500 ML 500 ML IV ONE (19:15)
--- NOTE | 2022-05-21 19:37 | Diagnostic Imaging Report ---
CLINICAL INDICATION: Patient with fever and abdominal pain. EXAM: Portable chest x-ray upright view. COMPARISON: Chest x-ray dated 12/23/2021. FINDINGS: Infusaport seen overlying the right chest, stable. Previously seen vascular access catheter has been removed. Lungs/pleura: Lungs are clear. There is no pneumothorax. There is no pleural effusion. Mediastinum: Unremarkable. Pulmonary vasculature: Unremarkable. Heart: Stable cardiomegaly. Stable postop change to the chest with sternotomy wires noted.. Bones/extrathoracic soft tissue: Unremarkable. IMPRESSION: 1: There is no radiographic evidence of acute cardiopulmonary process. There is no lung infiltrate. 2: Stable cardiomegaly with no significant pulmonary vascular congestion. Dictated by: Dictated on workstation # [id number]
--- NOTE | 2022-05-21 19:51 | Diagnostic Imaging Report ---
Clinical indications: Patient with abdominal pain and fever. Patient had dialysis this morning. Exam: CT exam of the abdomen and pelvis is performed without IV or oral contrast using stone protocol. Coronal and sagittal reformatted images were created. Auto Exposure Controls were utilized during the CT exam to meet ALARA standards for radiation dose reduction. Comparisons: CT scan of the abdomen and pelvis without contrast dated 12/23/2021. Findings: There is mild atelectasis involving the posterior aspects of both lungs. Bones show no significant abnormality. Again seen, postop change to the chest with sternotomy wires. The liver, spleen, pancreas, and adrenal glands show no acute abnormality. Gallbladder is predominantly decompressed and no significant abnormality is visualized. Both kidneys are unremarkable with no hydronephrosis, stones, or mass. Vascular calcifications involving bilateral renal hilar regions are seen. Uterus and adnexal structures noted. Slight lobulated right adnexal region seen but is not significantly enlarged for patient's age. There is no intra-abdominal free air or free fluid. Appendix is unremarkable. There is no intestinal obstruction. Moderate fluid distention with ingested material noted. There is no significant intestinal abnormality as visualized. There is small amount of fluid within the bladder, there is bladder wall thickening which is nonspecific. The extra-abdominal and extrapelvic soft tissue structures are unremarkable. There are vascular stents seen within the bilateral common iliac arteries and right external iliac artery and right common femoral artery region. IMPRESSION: 1: There is small amount of fluid within the bladder and there is bladder wall thickening which is nonspecific. Cystitis should be excluded. 2: Otherwise, CT scan of the abdomen and pelvis shows no evidence of acute abdominal or pelvic process. Dictated by: Dictated on workstation # [id number]
[2022-05-21] MEDS ORDERED: CEFEPIME INJECTION 1,000 MG in NS (IVPB) 50 ML IV ONE (21:00)
[2022-05-22 01:15] VITALS: BP 102/70
== END 2022-05-22 01:15 | disposition short-term general hospital (02) ==
LOC: EDUNIT# 17:26 → ER 17:26
DX: A41.9 Sepsis, unspecified organism (principal); Z87.891 Personal history of nicotine dependence; Z20.822 Contact with and (suspected) exposure to COVID-19
CPT/HCPCS: 36415; 51701; 71045; 74176; 80053; 81000; 83605; 84145; 85025; 85610; 85730; 86141; 87040; 87077; 87088; 87636

== ENCOUNTER 2022-06-13 13:07 | Emergency (ER) | payer MEDICAID ==
[~2022-06-13] VITALS: Ht 160 cm; Wt 83.0 kg
--- NOTE | 2022-06-13 13:57 | ED General ---
General Chief Complaint: COVID19 Suspect/Confirmed Stated Complaint: COVID +, HEADACHE, FEVER, NAUSEA Nursing Triage Note: PT PRESENTS TO ED VIA POV FROM [facility] FOR POSITIVE COVID TEST TODAY AT FACILITY. PT REPORTS SHE HAS HAD FEVERS, CHILLS, N/V, [place] X 3 DAYS. PT REPORTS SHE DID GET DIALYSIS TODAY. Source of Information: Patient Exam Limitations: No Limitations History of Present Illness Date Seen by Provider: Jun 13, 2022 Time Seen by Provider: 13:57 Allergies and Home Medications Allergies Coded Allergies: codeine (Verified Allergy, Unknown, has received Lortab and Hydromorphone in the past, 04/22/20) morphine (Verified Allergy, Unknown, 06/13/22) GERNALIZED SWELLING nalbuphine (Verified Allergy, Unknown, 08/31/19) tramadol (Verified Allergy, Unknown, 08/31/19) Uncoded Allergies: CONTRAST (Allergy, Unknown, 08/31/19) Patient Home Medication List Aspirin (Aspirin EC) 81 Mg Tablet.dr, 81 MG PO DAILY, (Reported) Entered as Reported by: EMRE JAIMES on 10/24/20 1013 Bisacodyl (Bisacodyl) 10 Mg Supp.rect, 10 MG RC DAILY PRN for CONSTIPATION-4TH LINE, (Reported) Entered as Reported by: EMRE JAIMES on 10/24/20 1020 Carvedilol (Carvedilol) 6.25 Mg Tablet, 6.25 MG PO BID, (Reported) Entered as Reported by: EMRE JAIMES on 10/24/20 1013 Cholecalciferol (Vitamin D3) (Vitamin D3) 125 Mcg Tablet, 125 MCG PO MON, (Reported) Entered as Reported by: EMRE JAIMES on 10/24/20 1013 Citalopram Hydrobromide (Citalopram HBr) 20 Mg Tablet, 20 MG PO DAILY, (Reported) Entered as Reported by: EMRE JAIMES on 10/24/20 1013 Clopidogrel Bisulfate (Plavix) 75 Mg Tablet, 75 MG PO DAILY, (Reported) Entered as Reported by: EMRE JAIMES on 10/24/20 1013 Cyanocobalamin (Vitamin B-12) (Vitamin B-12) 1,000 Mcg Tablet, 1,000 MCG PO DAILY, (Reported) Entered as Reported by: EMRE JAIMES on 10/24/20 1013 Diphenhydramine HCl (Diphenhydramine HCl) 25 Mg Capsule, 25 MG PO HS, (Reported) Entered as Reported by: EMRE JAIMES on 10/24/20 1013 Folic Acid (Folic Acid) 0.8 Mg Capsule, 0.8 MG PO DAILY, (Reported) Entered as Reported by: EMRE JAIMES on 10/24/20 1013 Hydrocodone/Acetaminophen (Hydrocodone-Acetamin 7.5-325) 1 Each Tablet, 1 EA PO HS, (Reported) Entered as Reported by: EMRE JAIMES on 10/24/20 1013 Hydrocodone/Acetaminophen (Hydrocodone-Acetamin 7.5-325) 1 Each Tablet, 1 EACH PO BID PRN for PAIN-MODERATE (5-7), (Reported) Entered as Reported by: EMRE JAIMES on 10/24/20 1020 Insulin Aspart (Novolog) 100 Unit/1 Ml Susp, 10 UNIT SQ AC, (Reported) Entered as Reported by: EMRE JAIMES on 10/24/20 1020 Insulin Detemir (Levemir Flextouch) 100 Unit/1 Ml Insuln.pen, 10 UNIT SQ BID, (Reported) Entered as Reported by: EMRE JAIMES on 10/24/20 1020 Lactulose (Lactulose) 10 Gm/15 Ml Solution, 15 ML PO DAILY, (Reported) Entered as Reported by: EMRE JAIMES on 10/24/20 1013 Loperamide HCl (Imodium A-D) 2 Mg Tablet, 2-4 MG PO PRN PRN for LOOSE STOOLS, (Reported) Entered as Reported by: EMRE JAIMES on 10/24/20 101 Melatonin (Melatonin) 3 Mg Tablet, 3 MG PO HS, (Reported) Entered as Reported by: EMRE JAIMES on 10/24/20 1013 Metolazone (Metolazone) 10 Mg Tablet, 10 MG PO DAILY, (Reported) Entered as Reported by: EMRE JAIMES on 10/24/20 1013 Ondansetron HCl (Ondansetron HCl) 4 Mg Tablet, 4 MG PO Q6H PRN for NAUSEA/VOMITING-1ST LINE, (Reported) Entered as Reported by: EMRE JAIMES on 10/24/20 1013 Pantoprazole Sodium (Pantoprazole Sodium) 40 Mg Tablet.dr, 40 MG PO DAILY, (Reported) Entered as Reported by: EMRE JAIMES on 10/24/20 1013 Pregabalin (Pregabalin) 25 Mg Capsule, 25 MG PO TID, (Reported) Entered as Reported by: EMRE JAIMES on 10/24/20 1013 Promethazine HCl (Promethazine Tablet) 25 Mg Tablet, 25 MG PO Q8H PRN for NAUSEA/VOMITING-2ND LINE, (Reported) Entered as Reported by: EMRE JAIMES on 10/24/20 1020 Sevelamer Carbonate (Sevelamer Carbonate) 800 Mg Tablet, 1,600 MG PO TID, (Re ported) Entered as Reported by: EMRE JAIMES on 10/24/20 1013 Torsemide (Torsemide) 100 Mg Tablet, 100 MG PO DAILY, (Reported) Entered as Reported by: EMRE JAIMES on 10/24/20 1013 Zinc (Zinc) 50 Mg Tablet, 50 MG PO DAILY, (Reported) Entered as Reported by: EMRE JAIMES on 10/24/20 1013 Past Bksmyul-Fpiqbl-Itrkgn Hx Patient Social History Tobacco Use?: No E-Cig or Vaping type used: Nicotine Use of E-Cig and/or Vaping Maurilio: Current Everyday User Substance use?: No Alcohol Use?: No Pt feels they are or have been: No Immunizations Up To Date Tetanus Booster (TDap): Unknown PED Vaccines UTD: Yes First/Initial COVID19 Vaccinat: SPRING 2020 Second COVID19 Vaccination Bennie: SPRING 2020 Third COVID19 Vaccination Date: SPRING 2020 Seasonal Allergies Seasonal Allergies: No Past Medical History Surgery/Hospitalization HX: DIALYSIS PT, IDDM, KIDNEY FAILURE, PORT, R AKA, L BKA, ABD SURG, cad, obesity, gastroparesis, neuropathy, Surgeries: Yes (7 amputations (foot and toes, right ATK), 5 stents, LEFT GREAT TOE) Amputation, CABG, Section, Coronary Stent, Orthopedic, Tonsillectomy, 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 Respiratory: No Cardiac: Yes (5 stents; NSTEMI 07/2019, congestive heart failure) Coronary Artery Disease, Heart Attack, High Cholesterol, Hypertension, Peripheral Vascular Neurological: Yes Neuropathy 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: Hysterectomy, 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 Genitourinary: Yes (CKD) Bladder Infection, Renal Failure, Dialysis Gastrointestinal: Yes (CHRONIC NAUSEA/VOMITING) Irritable Bowel Musculoskeletal: Yes Amputee, Spasms Endocrine: Yes Diabetes, Insulin dep HEENT: No Cancer: No Psychosocial: Yes Anxiety Integumentary: Yes (CHRONIC FOOT WOUNDS) Blood Disorders: Yes (ANEMIA) Adverse Reaction/Blood Tranf: No Family Medical History No Pertinent Family Hx SOCIAL HISTORY: -ETOH--OCCASIONAL USE, NO RECENT USE, PER PT 07/20/20 -DRUGS-+THC USE ( ALSO HX OF OPIATES AND BENZODIAZEPINE ABUSE) -SMOKED 1 PPD, QUIT 03/2020 PAST SURGICAL HISTORY: -CARDIAC CATHS--MULTIPLE STENTS PLUS ANGIOPLASTIES AT MULTIPLE FACILITIES--LAST CATH HERE 08/31/[address] GALE-- RCA ANGIOPLASTY -MULTIPLE CARDIAC AND PERIPHERAL INTERVENTIONS AT MULTIPLE FACILITIES--PERIPHERAL ANGIOGRAM AT [facility] 08/21/2019--ANGIOPLASTY OF DEEP FEMORAL ARTERY, STENTS X 3 TO EXTERNAL ILIAC, COMMON FEMORAL AND SUPERFICIAL FEMORAL ARTERY -S/P 3 VESSEL CABG -RIGHT TOES AND PARTIAL FOOT AMPUTATIONS (MULTIPLE SURGERIES) , EVENTUALLY FOLLOWED BY RIGHT ABOVE THE KNEE AMPUTATION 03/27/20- AT [facility] - -HYSTERECTOMY -BILATERAL TUBAL LIGATION -TONSILLECTOMY ADDITIONAL PAST MEDICAL HISTORY: -VENTRICULAR ARRHYTHMIA DURING DOBUTAMINE TEST -NSTEMI 07/2019 LONG HISTORY OF NON-COMPLIANCE HX OF HOMELESSNESS UNTIL ADMITTED TO [facility] AFTER LAST HOSPITALIZATION HX OF NARCOTIC AND BENZODIAZEPAM ABUSE Physical Exam Vital Signs Vital Signs - First Documented 06/13/22 13:15 Temp 39.7 Pulse 100 Resp 18 B/P (MAP) 120/63 (82) Pulse Ox 94 Capillary Refill : Less Than 3 Seconds Height, Weight, BMI Height: '" Weight: lbs. oz. kg; 32.00 BMI Method: Progress/Results/Core Measures Suspected Sepsis SIRS Temperature: Pulse: 100 Respiratory Rate: 18 Blood Pressure 120 /63 Mean: 82 Results/Orders Lab Results Laboratory Tests Test 06/13/22 14:08 Range/Units Influenza Type A (RT-PCR) Not Detected Not Detecte Influenza Type B (RT-PCR) Not Detected Not Detecte SARS-CoV-2 RNA (RT-PCR) Detected H Not Detecte My Orders Orders - DEYANIRA BERKOWITZ APRN Covid 19 Inhouse Test (06/13/22 13:57) Influenza A And B By Pcr (06/13/22 13:57) Bebtelovimab (Bebtelovimab) (06/13/22 15:00) Nursing Communication (Order) (06/13/22 14:46) Vital Signs/I&O 06/13/22 13:15 Temp 39.7 Pulse 100 Resp 18 B/P (MAP) 120/63 (82) Pulse Ox 94 Capillary Refill : Less Than 3 Seconds Blood Pressure Mean: 82 Departure Impression Primary Impression: COVID-19 Disposition: 03 XFER SNF Condition: Stable Departure-Patient Inst. Decision time for Depature: 15:02 Referrals: [facility] (PCP/Family) Primary Care Physician Patient Instructions: Bebtelovimab FDA Fact Sheet Add. Discharge Instructions: Plan: 1. Discharge to nursing facility. You received monoclonal antibody infusion today in ER. 2. Stay home for 5 days and then mask when in public for additional 5 days. If you are still running fever, you will need to stay home until you are fever free. 3. Wash your hands frequently, disinfect surfaces at home. Try to isolate yourself from others in the house as much as you are able. 4. Clean areas that may have blood, stool, or body fluids on them. 5. Cover your mouth and nose when you cough or sneeze, throw away tissues, and wash hands immediately. 6. Return to ER if you develop: trouble breathing, persistent pain or pressure in the chest, new confusion, inability to wake or stay awake, pale, hook, blue- colored skin, lips, or nail beds depending on skin tone. 7. Return to ER for any other new, concerning, or worsening symptoms. All discharge instructions reviewed with patient and/or family. Voiced understanding. DEYANIRA BERKOWITZ TRANSFER TABLE OPERATOR HELPER Jun 13, 2022 13:57
[2022-06-13] MEDS ORDERED: BEBTELOVIMAB 175 MG/2 ML VIAL IV ONE (15:00)
[2022-06-13 16:57] VITALS: BP 102/64
== END 2022-06-13 16:45 ==
LOC: EDUNIT# 13:07 → ER 13:09
DX: U07.1 COVID-19 (principal); E11.40 Type 2 diabetes mellitus with diabetic neuropathy, unspecified; E66.9 Obesity, unspecified; F17.290 Nicotine dependence, other tobacco product, uncomplicated; Z68.32 Body mass index [BMI] 32.0-32.9, adult; Z79.4 Long term (current) use of insulin
CPT/HCPCS: 87636; 99283

== ENCOUNTER 2022-07-05 08:23 | Emergency (ER) | payer MEDICAID ==
[~2022-07-05] VITALS: Ht 122 cm; Wt 82.0 kg
--- NOTE | 2022-07-05 08:42 | ED Cough/URI ---
General Chief Complaint: Cough/Cold/Flu Symptoms Stated Complaint: SICK Source: patient Exam Limitations: no limitations History of Present Illness Date Seen by Provider: Jul 05, 2022 Time Seen by Provider: 08:25 Initial Comments 37-year-old female with past medical history of ESRD on HD (M,W,F, last full HD on Saturday), CAD with stenting, on quis coming in due to not feeling well. Started having a cough and feeling like she was febrile over the weekend. Did not feel well enough to do dialysis on Saturday, did a full dialysis on Saturday. Did not feel well enough to dialyze yesterday as well. Has not had any Tylenol or anything for her fever. Denies any dysuria, chest pain, abdominal pain, nausea, vomiting, diarrhea, rash, or any other concerns. Had a positive COVID test less than a month ago on June 13. Have been doing well shortly after that. Otherwise denying any other acute complaints Allergies and Home Medications Allergies Coded Allergies: codeine (Verified Allergy, Unknown, has received Lortab and Hydromorphone in the past, 04/22/20) morphine (Verified Allergy, Unknown, 06/13/22) GERNALIZED SWELLING nalbuphine (Verified Allergy, Unknown, 08/31/19) tramadol (Verified Allergy, Unknown, 08/31/19) Uncoded Allergies: CONTRAST (Allergy, Unknown, 08/31/19) Patient Home Medication List Home Medication List Reviewed: Yes Aspirin (Aspirin EC) 81 Mg Tablet.dr, 81 MG PO DAILY, (Reported) Entered as Reported by: EMRE JAIMES on 10/24/20 1013 Bisacodyl (Bisacodyl) 10 Mg Supp.rect, 10 MG RC DAILY PRN for CONSTIPATION-4TH LINE, (Reported) Entered as Reported by: EMRE JAIMES on 10/24/20 1020 Carvedilol (Carvedilol) 6.25 Mg Tablet, 6.25 MG PO BID, (Reported) Entered as Reported by: EMRE JAIMES on 10/24/20 1013 Cholecalciferol (Vitamin D3) (Vitamin D3) 125 Mcg Tablet, 125 MCG PO MON, (Reported) Entered as Reported by: EMRE JAIMES on 10/24/20 1013 Citalopram Hydrobromide (Citalopram HBr) 20 Mg Tablet, 20 MG PO DAILY, (Re ported) Entered as Reported by: EMRE JAIMES on 10/24/20 1013 Clopidogrel Bisulfate (Plavix) 75 Mg Tablet, 75 MG PO DAILY, (Reported) Entered as Reported by: EMRE JAIMES on 10/24/20 101 Cyanocobalamin (Vitamin B-12) (Vitamin B-12) 1,000 Mcg Tablet, 1,000 MCG PO DAILY, (Reported) Entered as Reported by: EMRE JAIMES on 10/24/20 101 Diphenhydramine HCl (Diphenhydramine HCl) 25 Mg Capsule, 25 MG PO HS, (Reported) Entered as Reported by: EMRE JAIMES on 10/24/20 101 Folic Acid (Folic Acid) 0.8 Mg Capsule, 0.8 MG PO DAILY, (Reported) Entered as Reported by: EMRE JAIMES on 10/24/20 101 Hydrocodone/Acetaminophen (Hydrocodone-Acetamin 7.5-325) 1 Each Tablet, 1 EA PO HS, (Reported) Entered as Reported by: EMRE JAIMES on 10/24/20 101 Hydrocodone/Acetaminophen (Hydrocodone-Acetamin 7.5-325) 1 Each Tablet, 1 EACH PO BID PRN for PAIN-MODERATE (5-7), (Reported) Entered as Reported by: EMRE JAIMES on 10/24/20 1020 Insulin Aspart (Novolog) 100 Unit/1 Ml Susp, 10 UNIT SQ AC, (Reported) Entered as Reported by: EMRE JAIMES on 10/24/20 1020 Insulin Detemir (Levemir Flextouch) 100 Unit/1 Ml Insuln.pen, 10 UNIT SQ BID, (Reported) Entered as Reported by: EMRE JAIMES on 10/24/20 1020 Lactulose (Lactulose) 10 Gm/15 Ml Solution, 15 ML PO DAILY, (Reported) Entered as Reported by: EMRE JAIMES on 10/24/20 101 Loperamide HCl (Imodium A-D) 2 Mg Tablet, 2-4 MG PO PRN PRN for LOOSE STOOLS, (Reported) Entered as Reported by: EMRE JAIMES on 10/24/20 101 Melatonin (Melatonin) 3 Mg Tablet, 3 MG PO HS, (Reported) Entered as Reported by: EMRE JAIMES on 10/24/20 1013 Metolazone (Metolazone) 10 Mg Tablet, 10 MG PO DAILY, (Reported) Entered as Reported by: EMRE JAIMES on 10/24/20 1013 Ondansetron HCl (Ondansetron HCl) 4 Mg Tablet, 4 MG PO Q6H PRN for NAUSEA/VOMITING-1ST LINE, (Reported) Entered as Reported by: EMRE JAIMES on 10/24/20 1013 Pantoprazole Sodium (Pantoprazole Sodium) 40 Mg Tablet.dr, 40 MG PO DAILY, (Reported) Entered as Reported by: EMRE JAIMES on 10/24/20 1013 Pregabalin (Pregabalin) 25 Mg Capsule, 25 MG PO TID, (Reported) Entered as Reported by: EMRE JAIMES on 10/24/20 1013 Promethazine HCl (Promethazine Tablet) 25 Mg Tablet, 25 MG PO Q8H PRN for NAUSEA/VOMITING-2ND LINE, (Reported) Entered as Reported by: EMRE JAIMES on 10/24/20 1020 Sevelamer Carbonate (Sevelamer Carbonate) 800 Mg Tablet, 1,600 MG PO TID, (Reported) Entered as Reported by: EMRE JAIMES on 10/24/20 1013 Torsemide (Torsemide) 100 Mg Tablet, 100 MG PO DAILY, (Reported) Entered as Reported by: EMRE JAIMES on 10/24/20 1013 Zinc (Zinc) 50 Mg Tablet, 50 MG PO DAILY, (Reported) Entered as Reported by: EMRE JAIMES on 10/24/20 1013 Review of Systems Review of Systems Constitutional: No fever EENTM: nose congestion Respiratory: cough Cardiovascular: no symptoms reported Gastrointestinal: no symptoms reported Genitourinary: no symptoms reported Musculoskeletal: no symptoms reported Skin: no symptoms reported Psychiatric/Neurological: No Symptoms Reported Hematologic/Lymphatic: No Symptoms Reported Immunological/Allergic: no symptoms reported All Other Systems Reviewed Negative Unless Noted: Yes Past Wekbfkx-Ieuvui-Mimguu Hx Patient Social History Tobacco Use?: Yes Immunizations Up To Date Tetanus Booster (TDap): Unknown PED Vaccines UTD: Yes First/Initial COVID19 Vaccinat: SPRING 2020 Second COVID19 Vaccination Bennie: SPRING 2020 Third COVID19 Vaccination Date: SPRING 2020 Seasonal Allergies Seasonal Allergies: No Past Medical History Surgery/Hospitalization HX: DIALYSIS PT, IDDM, KIDNEY FAILURE, PORT, R AKA, L BKA, ABD SURG, cad, obesity, gastroparesis, neuropathy, Surgeries: Yes (7 amputations (foot and toes, right ATK), 5 stents, LEFT GREAT TOE) Amputation, CABG, Section, Coronary Stent, Orthopedic, Tonsillectomy, 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 Respiratory: No Cardiac: Yes (5 stents; NSTEMI 07/2019, congestive heart failure) Coronary Artery Disease, Heart Attack, High Cholesterol, Hypertension, Peripheral Vascular Neurological: Yes Neuropathy 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, 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 Genitourinary: Yes (CKD) Bladder Infection, Renal Failure, Dialysis Gastrointestinal: Yes (CHRONIC NAUSEA/VOMITING) Irritable Bowel Musculoskeletal: Yes Amputee, Spasms Endocrine: Yes Diabetes, Insulin dep HEENT: No Cancer: No Psychosocial: Yes Anxiety Integumentary: Yes (CHRONIC FOOT WOUNDS) Blood Disorders: Yes (ANEMIA) Adverse Reaction/Blood Tranf: No Family Medical History No Pertinent Family Hx SOCIAL HISTORY: -ETOH--OCCASIONAL USE, NO RECENT USE, PER PT 07/20/20 -DRUGS-+THC USE ( ALSO HX OF OPIATES AND BENZODIAZEPINE ABUSE) -SMOKED 1 PPD, QUIT 03/2020 PAST SURGICAL HISTORY: -CARDIAC CATHS--MULTIPLE STENTS PLUS ANGIOPLASTIES AT MULTIPLE FACILITIES--LAST CATH HERE 08/31/[address] GALE-- RCA ANGIOPLASTY -MULTIPLE CARDIAC AND PERIPHERAL INTERVENTIONS AT MULTIPLE FACILITIES--PERIPHERAL ANGIOGRAM AT [facility] 08/21/2019--ANGIOPLASTY OF DEEP FEMORAL ARTERY, STENTS X 3 TO EXTERNAL ILIAC, COMMON FEMORAL AND SUPERFICIAL FEMORAL ARTERY -S/P 3 VESSEL CABG -RIGHT TOES AND PARTIAL FOOT AMPUTATIONS (MULTIPLE SURGERIES) , EVENTUALLY FOLLOWED BY RIGHT ABOVE THE KNEE AMPUTATION 03/27/20- AT [facility] - -HYSTERECTOMY -BILATERAL TUBAL LIGATION -TONSILLECTOMY ADDITIONAL PAST MEDICAL HISTORY: -VENTRICULAR ARRHYTHMIA DURING DOBUTAMINE TEST -NSTEMI 07/2019 LONG HISTORY OF NON-COMPLIANCE HX OF HOMELESSNESS UNTIL ADMITTED TO [facility] AFTER LAST HOSPITALIZATION HX OF NARCOTIC AND BENZODIAZEPAM ABUSE Physical Exam Vital Signs - First Documented 07/05/22 08:39 Temp 37.7 Pulse 96 Resp 18 B/P (MAP) 166/101 (122) Pulse Ox 95 O2 Delivery Room Air Capillary Refill : Height: '" Weight: lbs. oz. kg; 32.00 BMI Method: General Appearance: WD/WN, no apparent distress Eyes: Bilateral Eye Normal Inspection HEENT: PERRL/EOMI, normal ENT inspection, pharynx normal Neck: non-tender, full range of motion, supple, normal inspection Respiratory: chest non-tender, lungs clear, normal breath sounds, no respiratory distress, no accessory muscle use Cardiovascular: regular rate, rhythm, no edema, no murmur Gastrointestinal: normal bowel sounds, non tender, soft; No distended, No guarding, No rebound Extremities: other (Left below-knee amputation right above-knee amputation, no infectious findings) Neurologic/Psychiatric: no motor/sensory deficits, alert, normal mood/affect, oriented x 3 Skin: normal color, warm/dry Lymphatic: no adenopathy Progress/Results/Core Measures Suspected Sepsis SIRS Temperature: Pulse: Respiratory Rate: Laboratory Tests 07/05/22 09:15: White Blood Count 13.7H Blood Pressure / Mean: Laboratory Tests 07/05/22 09:15: Creatinine 4.75H, INR Comment 2.2H, Platelet Count 182, Total Bilirubin 0.6 Results/Orders Lab Results Laboratory Tests Test 07/05/22 08:45 07/05/22 09:15 Range/Units Influenza Type A (RT-PCR) Not Detected Not Detecte Influenza Type B (RT-PCR) Not Detected Not Detecte White Blood Count 13.7 H 4.3-11.0 10^3/uL Red Blood Count 4.24 3.80-5.11 10^6/uL Hemoglobin 11.0 L 11.5-16.0 g/dL Hematocrit 35 35-52 % Mean Corpuscular Volume 84 80-99 fL Mean Corpuscular Hemoglobin 26 25-34 pg Mean Corpuscular Hemoglobin Concent 31 L 32-36 g/dL Red Cell Distribution Width 18.0 H 10.0-14.5 % Platelet Count 182 130-400 10^3/uL Mean Platelet Volume 9.9 9.0-12.2 fL Immature Granulocyte % (Auto) 0 % Neutrophils (%) (Auto) 76 H 42-75 % Lymphocytes (%) (Auto) 14 12-44 % Monocytes (%) (Auto) 9 0-12 % Eosinophils (%) (Auto) 1 0-10 % Basophils (%) (Auto) 0 0-10 % Neutrophils # (Auto) 10.4 H 1.8-7.8 10^3/uL Lymphocytes # (Auto) 1.9 1.0-4.0 10^3/uL Monocytes # (Auto) 1.3 H 0.0-1.0 10^3/uL Eosinophils # (Auto) 0.1 0.0-0.3 10^3/uL Basophils # (Auto) 0.1 0.0-0.1 10^3/uL Immature Granulocyte # (Auto) 0.1 0.0-0.1 10^3/uL Prothrombin Time 25.1 H 12.2-14.7 SEC INR Comment 2.2 H 0.8-1.4 Activated Partial Thromboplast Time 48 H 24-35 SEC Sodium Level 135 135-145 MMOL/L Potassium Level 4.3 3.6-5.0 MMOL/L Chloride Level 105 98-107 MMOL/L Carbon Dioxide Level 17 L 21-32 MMOL/L Anion Gap 13 5-14 MMOL/L Blood Urea Nitrogen 31 H 7-18 MG/DL Creatinine 4.75 H 0.60-1.30 MG/DL Estimat Glomerular Filtration Rate 11 BUN/Creatinine Ratio 7 Glucose Level 112 H 70-105 MG/DL Calcium Level 10.1 8.5-10.1 MG/DL Corrected Calcium 10.3 H 8.5-10.1 MG/DL Magnesium Level 2.0 1.6-2.4 MG/DL Total Bilirubin 0.6 0.1-1.0 MG/DL Aspartate Amino Transf (AST/SGOT) 15 5-34 U/L Alanine Aminotransferase (ALT/SGPT) 11 0-55 U/L Alkaline Phosphatase 105 40-136 U/L Total Protein 7.4 6.4-8.2 GM/DL Albumin 3.7 3.2-4.5 GM/DL My Orders Orders - JINNY ELDER MD Cbc With Automated Diff (07/05/22 08:38) Comprehensive Metabolic Panel (07/05/22 08:38) Magnesium (07/05/22 08:38) Protime With Inr (07/05/22 08:38) Partial Thromboplastin Time (07/05/22 08:38) Influenza A And B By Pcr (07/05/22 08:38) Ekg Tracing (07/05/22 08:38) Monitor-Rhythm Ecg Trace Only (07/05/22 08:38) Chest 1 View, Ap/Pa Only (07/05/22 08:38) Acetaminophen Tablet (Tylenol Tablet) (07/05/22 08:45) Ondansetron Injection (Zofran Injectio (07/05/22 09:15) Famotidine Tablet (Pepcid Tablet) (07/05/22 09:15) Lorazepam Tablet (Ativan Tablet) (07/05/22 09:30) Ceftriaxone 1 Gm Pre-Mix (Rocephin 1 Gm (07/05/22 09:45) Azithromycin Tablet (Zithromax Tablet) (07/05/22 09:45) Medications Given in ED Current Medications Medications Dose Ordered Sig/Mary Jo Route Start Time Stop Time Status Last Admin Dose Admin Acetaminophen 1,000 mg ONCE ONCE PO 07/05/22 08:45 07/05/22 08:46 DC 07/05/22 08:56 1,000 MG Famotidine 20 mg ONCE ONCE PO 07/05/22 09:15 07/05/22 09:16 DC 07/05/22 09:23 20 MG Ondansetron HCl 4 mg ONCE ONCE IVP 07/05/22 09:15 07/05/22 09:16 DC 07/05/22 09:23 4 MG Vital Signs/I&O 07/05/22 07/05/22 08:39 08:56 Temp 37.7 37.7 Pulse 96 Resp 18 B/P (MAP) 166/101 (122) Pulse Ox 95 O2 Delivery Room Air Capillary Refill : Progress Note : Progress Note 37-year-old female with above history coming in due to cough and elevated temperature for a couple days. ABCs were intact and vitals were stable on presentation. Physical exam reassuring with no acute abnormalities. EKG with no acute ischemic changes, appears similar to prior. Chest x-ray my interpretation with some increased patchiness in the perihilar region, could be due to her lack of dialysis versus infection. Give her ceftriaxone and azithromycin here. Basic labs obtained and are unremarkable other than a mildly elevated white blood cell count. Flu test was obtained and was negative. Avoided COVID test given she was just positive, and the PCR would likely still be positive. Overall she is well-appearing and I believe stable for discharge with outpatient follow-up and outpatient dialysis ECG Initial ECG Impression Date: Jul 05, 2022 Initial ECG Impression Time: 08:51 Initial ECG Rate: 96 Initial ECG Rhythm: Normal Sinus Comment Right axis deviation, narrow QRS, T wave inversions in the inferior leads and flattening in the lateral leads, no significant ST changes, appears similar to prior EKG Departure Impression Primary Impression: Influenza-like symptoms Disposition: 01 HOME, SELF-CARE Condition: Stable Departure-Patient Inst. Decision time for Depature: 09:49 Referrals: [facility] [place] (PCP/Family) Primary Care Physician Patient Instructions: Bacterial Upper Respiratory Infection, Adult (DC) Add. Discharge Instructions: It does seem like you have an infection. Your flu test was negative. Your labs otherwise are more reassuring. We will start you on an antibiotic for the next week. Please dialyze when you are able as this will help get extra fluid off your lungs and help you to feel better Scripts Azithromycin (Azithromycin) 250 Mg Tablet 250 MG PO DAILY, #7 TAB 0 Refills Prov: JINNY ELDER MD 07/05/22 Work/School Note: Work Release Form Date Seen in the Emergency Department: Jul 05, 2022 Return to Work: Jul 07, 2022 Restrictions: No Restrictions JINNY ELDER MD Jul 05, 2022 08:42
[2022-07-05] MEDS ORDERED: ACETAMINOPHEN 500 MG TAB (TYLENOL) PO ONE (08:45)
[2022-07-05] MEDS ORDERED: FAMOTIDINE 20 MG (PEPCID) TABLET PO ONE (09:15)
[2022-07-05] MEDS ORDERED: ONDANSETRON 4 MG/2 ML (SDV) Z0FRAN IVP ONE (09:15)
[2022-07-05 09:22] LABS: BASOPHILS # (AUTO) 0.1 10^3/uL (0.0-0.1); BASOPHILS % (AUTO) 0 % (0-10); EOSINOPHILS # (AUTO) 0.1 10^3/uL (0.0-0.3); EOSINOPHILS % (AUTO) 1 % (0-10); HEMATOCRIT 35 % (35-52); LYMPHOCYTES # (AUTO) 1.9 10^3/uL (1.0-4.0); LYMPHOCYTES % (AUTO) 14 % (12-44); MEAN CORPUSCULAR HEMOGLOBIN 26 pg (25-34); MEAN CORPUSCULAR HGB CONC 31 g/dL (32-36); MEAN CORPUSCULAR VOLUME 84 fL (80-99); MEAN PLATELET VOLUME 9.9 fL (9.0-12.2); MONOCYTES # (AUTO) 1.3 10^3/uL (0.0-1.0); MONOCYTES % (AUTO) 9 % (0-12); NEUTROPHILS # (AUTO) 10.4 10^3/uL (1.8-7.8); NEUTROPHILS % (AUTO) 76 % (42-75); PLATELET COUNT 182 10^3/uL (130-400); WHITE BLOOD COUNT 13.7 10^3/uL (4.3-11.0)
[2022-07-05] MEDS ORDERED: LORazepam 1 MG (ATIVAN) TAB PO ONE (09:30)
[2022-07-05 09:32] LABS: ALBUMIN 3.7 GM/DL (3.2-4.5); POTASSIUM 4.3 MMOL/L (3.6-5.0)
[2022-07-05 09:33] LABS: CALCIUM 10.1 MG/DL (8.5-10.1)
[2022-07-05 09:35] LABS: TOTAL PROTEIN 7.4 GM/DL (6.4-8.2)
[2022-07-05 09:37] LABS: BILIRUBIN,TOTAL 0.6 MG/DL (0.1-1.0)
[2022-07-05 09:38] LABS: CREATININE SERUM 4.75 MG/DL (0.60-1.30)
--- NOTE | 2022-07-05 09:40 | Diagnostic Imaging Report ---
INDICATION: Cough. Time of Exam: 9:23 AM Correlation is made with prior chest from 05/21/2022. Heart is enlarged and stable. There are changes of median sternotomy. A right chest wall port has tip overlying the right atrium. Lungs appear to be fairly clear. No infiltrates are seen. There is no effusion or pneumothorax. IMPRESSION: No acute cardiopulmonary process is detected. Dictated by: Dictated on workstation # [id number]
[2022-07-05 09:45] LABS: INR 2.2 (0.8-1.4); PROTHROMBIN TIME PATIENT 25.1 SEC (12.2-14.7)
[2022-07-05] MEDS ORDERED: AZITHROMYCIN 250 MG TAB (ZITHROMAX) PO ONE (09:45)
[2022-07-05] MEDS ORDERED: cefTRIAXone 1 GM PRE-MIX 50 ML IV ONE (09:45)
[2022-07-05] MEDS ORDERED: AZIT250T12 PO (09:50)
[2022-07-05 10:41] VITALS: BP 133/64
== END 2022-07-05 10:41 | disposition home or self-care (01) ==
LOC: EDUNIT# 08:23 → ER 08:26
DX: R05.1 Acute cough (principal); I25.10 Atherosclerotic heart disease of native coronary artery without angina pectoris; E11.22 Type 2 diabetes mellitus with diabetic chronic kidney disease; I12.0 Hypertensive chronic kidney disease with stage 5 chronic kidney disease or end stage renal disease; N18.6 End stage renal disease; D63.1 Anemia in chronic kidney disease; Z72.0 Tobacco use; Z99.2 Dependence on renal dialysis; Z79.4 Long term (current) use of insulin; Z79.01 Long term (current) use of anticoagulants
CPT/HCPCS: 36415; 71045; 80053; 83735; 85025; 85610; 85730; 87636; 93005; 93041

== ENCOUNTER 2022-08-15 17:39 | Emergency (ER) | payer MEDICAID ==
[~2022-08-15] VITALS: Ht 160 cm; Wt 82.0 kg
[~2022-08-15 17:39] MED LIST changes: +AZIT250T12 PO
[2022-08-15] MEDS ORDERED: ONDANSETRON 4 MG/2 ML (SDV) Z0FRAN IVP ONE (18:30)
[2022-08-15] MEDS ORDERED: fentaNYL INJ 100 MCG/2 ML AMP IVP ONE ×2 (18:30→22:15)
[2022-08-15] MEDS ORDERED: LACTATED RINGERS 1,000 ML IV ONE (18:30)
[2022-08-15] MEDS ORDERED: RT-ALBUTEROL HFA 8.5 GM INHALER IH STA (18:49)
[2022-08-15 19:01] LABS: BASOPHILS # (AUTO) 0.1 10^3/uL (0.0-0.1); BASOPHILS % (AUTO) 1 % (0-10); EOSINOPHILS % (AUTO) 0 % (0-10); HEMATOCRIT 31 % (35-52); HEMOGLOBIN 10.2 g/dL (11.5-16.0); LYMPHOCYTES # (AUTO) 1.7 10^3/uL (1.0-4.0); LYMPHOCYTES % (AUTO) 15 % (12-44); MEAN CORPUSCULAR HEMOGLOBIN 26 pg (25-34); MEAN CORPUSCULAR HGB CONC 33 g/dL (32-36); MEAN CORPUSCULAR VOLUME 81 fL (80-99); MEAN PLATELET VOLUME 10.3 fL (9.0-12.2); MONOCYTES # (AUTO) 0.8 10^3/uL (0.0-1.0); MONOCYTES % (AUTO) 8 % (0-12); NEUTROPHILS # (AUTO) 8.2 10^3/uL (1.8-7.8); NEUTROPHILS % (AUTO) 76 % (42-75); PLATELET COUNT 168 10^3/uL (130-400); WHITE BLOOD COUNT 10.9 10^3/uL (4.3-11.0)
--- NOTE | 2022-08-15 19:15 | ED Abdominal Pain ---
General Chief Complaint: Abdominal/GI Problems Stated Complaint: N/V,DIARRHEA,ABD PAIN Nursing Triage Note: PT TO TRIAGE FOR W/C PT CO OF VOMITING FOR 3 DAYS, ABD PAIN 10/10,N/V/D. POOR APPETITE, WEAKNESS. LOW GRADE FEVER. PT IS A DIALYSIS PT AND WAS UNABLE TO GO TO DIALYSIS TODAY. Source of Information: Patient, Longterm Records Exam Limitations: No Limitations History of Present Illness Date Seen by Provider: Aug 15, 2022 Time Seen by Provider: 18:20 Initial Comments This 37-year-old woman presents to the emergency room with complaints of nausea, vomiting, diarrhea, and abdominal pain for the past 3 days. She has not had a measured fever. Temperature here is 99.8. She is a dialysis patient who missed her dialysis today because she was feeling so poorly. She normally gets dialysis Saturday, Saturday, and Saturday. She additionally complains of headache, weakness, shortness of air and cough. She reports not eating any solid food s gustavo yesterday noon. 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 Giraldo is her primary care provider. Allergies and Home Medications Allergies Coded Allergies: codeine (Verified Allergy, Unknown, has received Lortab and Hydromorphone in the past, 04/22/20) morphine (Verified Allergy, Unknown, 06/13/22) GERNALIZED SWELLING nalbuphine (Verified Allergy, Unknown, 08/31/19) tramadol (Verified Allergy, Unknown, 08/31/19) Uncoded Allergies: CONTRAST (Allergy, Unknown, 08/31/19) Patient Home Medication List Home Medication List Reviewed: Yes Aspirin (Aspirin EC) 81 Mg Tablet.dr, 81 MG PO DAILY, (Reported) Entered as Reported by: EMRE JAIMES on 10/24/20 1013 Azithromycin (Azithromycin) 250 Mg Tablet, 250 MG PO DAILY Prescribed by: JINNY ELDER on 07/05/22 0950 Bisacodyl (Bisacodyl) 10 Mg Supp.rect, 10 MG RC DAILY PRN for CONSTIPATION-4TH LINE, (Reported) Entered as Reported by: EMRE JAIMES on 10/24/20 1020 Carvedilol (Carvedilol) 6.25 Mg Tablet, 6.25 MG PO BID, (Reported) Entered as Reported by: EMRE JAIMES on 10/24/20 101 Cholecalciferol (Vitamin D3) (Vitamin D3) 125 Mcg Tablet, 125 MCG PO MON, (Reported) Entered as Reported by: EMRE JAIMES on 10/24/201012 Citalopram Hydrobromide (Citalopram HBr) 20 Mg Tablet, 20 MG PO DAILY, (Reported) Entered as Reported by: EMRE JAIMES on 10/24/201012 Clopidogrel Bisulfate (Plavix) 75 Mg Tablet, 75 MG PO DAILY, (Reported) Entered as Reported by: MERE JAIMES on 10/24/20 101 Cyanocobalamin (Vitamin B-12) (Vitamin B-12) 1,000 Mcg Tablet, 1,000 MCG PO BETHANY LY, (Reported) Entered as Reported by: EMRE JAIMES on 10/24/20 101 Diphenhydramine HCl (Diphenhydramine HCl) 25 Mg Capsule, 25 MG PO HS, (Reported) Entered as Reported by: EMRE JAIMES on 10/24/201012 Folic Acid (Folic Acid) 0.8 Mg Capsule, 0.8 MG PO DAILY, (Reported) Entered as Reported by: EMRE JAIMES on 10/24/20 101 Hydrocodone/Acetaminophen (Hydrocodone-Acetamin 7.5-325) 1 Each Tablet, 1 EA PO HS, (Reported) Entered as Reported by: EMRE JAIMES on 10/24/201012 Hydrocodone/Acetaminophen (Hydrocodone-Acetamin 7.5-325) 1 Each Tablet, 1 EACH PO BID PRN for PAIN-MODERATE (5-7), (Reported) Entered as Reported by: EMRE JAIMES on 10/24/20 102 Insulin Aspart (Novolog) 100 Unit/1 Ml Susp, 10 UNIT SQ AC, (Reported) Entered as Reported by: EMRE JAIMES on 10/24/20 102 Insulin Detemir (Levemir Flextouch) 100 Unit/1 Ml Insuln.pen, 10 UNIT SQ BID, (Reported) Entered as Reported by: EMRE JAIMES on 10/24/20 1020 Lactulose (Lactulose) 10 Gm/15 Ml Solution, 15 ML PO DAILY, (Reported) Entered as Reported by: EMRE JAIMES on 10/24/20 1013 Loperamide HCl (Imodium A-D) 2 Mg Tablet, 2-4 MG PO PRN PRN for LOOSE STOOLS, (Reported) Entered as Reported by: EMRE JAIMES on 10/24/20 1013 Melatonin (Melatonin) 3 Mg Tablet, 3 MG PO HS, (Reported) Entered as Reported by: EMRE JAIMES on 10/24/20 1013 Metolazone (Metolazone) 10 Mg Tablet, 10 MG PO DAILY, (Reported) Entered as Reported by: EMRE JAIMES on 10/24/20 1013 Ondansetron HCl (Ondansetron HCl) 4 Mg Tablet, 4 MG PO Q6H PRN for NAUSEA/VOMITING-1ST LINE, (Reported) Entered as Reported by: EMRE JAIMES on 10/24/20 101 Pantoprazole Sodium (Pantoprazole Sodium) 40 Mg Tablet.dr, 40 MG PO DAILY, (Reported) Entered as Reported by: EMRE JAIMES on 10/24/20 101 Pregabalin (Pregabalin) 25 Mg Capsule, 25 MG PO TID, (Reported) Entered as Reported by: EMRE JAIMES on 10/24/20 101 Promethazine HCl (Promethazine Tablet) 25 Mg Tablet, 25 MG PO Q8H PRN for NAUSEA/VOMITING-2ND LINE, (Reported) Entered as Reported by: EMRE JAIMES on 10/24/20 1020 Sevelamer Carbonate (Sevelamer Carbonate) 800 Mg Tablet, 1,600 MG PO TID, (Reported) Entered as Reported by: EMRE JAIMES on 10/24/20 101 Torsemide (Torsemide) 100 Mg Tablet, 100 MG PO DAILY, (Reported) Entered as Reported by: EMRE JAIMES on 10/24/20 101 Zinc (Zinc) 50 Mg Tablet, 50 MG PO DAILY, (Reported) Entered as Reported by: EMRE JAIMES on 10/24/20 101 Review of Systems Review of Systems Constitutional: no symptoms reported EENTM: No Symptoms Reported Respiratory: See HPI Cardiovascular: No Symptoms Reported Gastrointestinal: See HPI Genitourinary: See HPI Musculoskeletal: no symptoms reported Skin: no symptoms reported Psychiatric/Neurological: See HPI Endocrine: No Symptoms Reported Hematologic/Lymphatic: No Symptoms Reported Past Kqkrhlf-Nnpuoj-Lqnspm Hx Patient Social History Tobacco Use?: No Use of E-Cig and/or Vaping dev: Yes E-Cig or Vaping type used: Nicotine Use of E-Cig and/or Vaping Maurilio: Current Everyday User Substance use?: No Alcohol Use?: No Pt feels they are or have been: No Immunizations Up To Date Tetanus Booster (TDap): Unknown PED Vaccines UTD: Yes Influenza Vaccine Up-to-Date: Yes; Up-to-Date First/Initial COVID19 Vaccinat: SPRING 2020 Second COVID19 Vaccination Bennie: SPRING 2020 Third COVID19 Vaccination Date: SPRING 2020 Seasonal Allergies Seasonal Allergies: No Past Medical History Surgery/Hospitalization HX: DIALYSIS PT, IDDM, KIDNEY FAILURE, PORT, R AKA, L BKA, ABD SURG, cad, obesity, gastroparesis, neuropathy, Surgeries: Yes (7 amputations (foot and toes, right ATK), 5 stents, LEFT GREAT TOE) Amputation, CABG, Section, Coronary Stent, Orthopedic, Tonsillectomy, 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 Respiratory: No Cardiac: Yes (5 stents; NSTEMI 07/2019, congestive heart failure) Coronary Artery Disease, Heart Attack, High Cholesterol, Hypertension, Peripheral Vascular Neurological: Yes Neuropathy [employer] [facility] History: Hysterectomy, 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 Genitourinary: Yes (CKD) Bladder Infection, Renal Failure, Dialysis Gastrointestinal: Yes (CHRONIC NAUSEA/VOMITING) Irritable Bowel Musculoskeletal: Yes Amputee, Spasms Endocrine: Yes Diabetes, Insulin dep HEENT: No Cancer: No Psychosocial: Yes Anxiety Integumentary: Yes (CHRONIC FOOT WOUNDS) Blood Disorders: Yes (ANEMIA) Adverse Reaction/Blood Tranf: No Family Medical History No Pertinent Family Hx SOCIAL HISTORY: -ETOH--OCCASIONAL USE, NO RECENT USE, PER PT 07/20/20 -DRUGS-+THC USE ( ALSO HX OF OPIATES AND BENZODIAZEPINE ABUSE) -SMOKED 1 PPD, QUIT 03/2020 PAST SURGICAL HISTORY: -CARDIAC CATHS--MULTIPLE STENTS PLUS ANGIOPLASTIES AT MULTIPLE FACILITIES--LAST CATH HERE 08/31/[address] GALE-- RCA ANGIOPLASTY -MULTIPLE CARDIAC AND PERIPHERAL INTERVENTIONS AT MULTIPLE FACILITIES--PERIPHERAL ANGIOGRAM AT [place] 08/21/2019--ANGIOPLASTY OF DEEP FEMORAL ARTERY, STENTS X 3 TO EXTERNAL ILIAC, COMMON FEMORAL AND SUPERFICIAL FEMORAL ARTERY -S/P 3 VESSEL CABG -RIGHT TOES AND PARTIAL FOOT AMPUTATIONS (MULTIPLE SURGERIES) , EVENTUALLY FOLLOWED BY RIGHT ABOVE THE KNEE AMPUTATION 03/27/20- AT [place] - -HYSTERECTOMY -BILATERAL TUBAL LIGATION -TONSILLECTOMY ADDITIONAL PAST MEDICAL HISTORY: -VENTRICULAR ARRHYTHMIA DURING DOBUTAMINE TEST -NSTEMI 07/2019 LONG HISTORY OF NON-COMPLIANCE HX OF HOMELESSNESS UNTIL ADMITTED TO [facility] AFTER LAST HOSPITALIZATION HX OF NARCOTIC AND BENZODIAZEPAM ABUSE Physical Exam Vital Signs Vital Signs - First Documented 08/15/22 08/15/22 17:56 18:00 Temp 37.7 Pulse 96 Resp 18 B/P (MAP) 162/87 (112) Pulse Ox 96 O2 Delivery Room Air Capillary Refill : Less Than 3 Seconds Height/Weight/BMI Height: '" Weight: lbs. oz. kg; 32.00 BMI Method: General Appearance: WD/WN, mild distress, obese HEENT: PERRL/EOMI, normal ENT inspection, other (Mucous membranes somewhat dry) Neck: normal inspection Respiratory: decreased breath sounds; No crackles; wheezing (Slight) Cardiovascular: regular rate, rhythm, no edema, no murmur Gastrointestinal: soft, abnormal bowel sounds (Decreased), distended (Moderat reta), tenderness (Across the upper abdomen) Extremities: other (Amputations of the lower extremities bilaterally. Left radial pulse strong) Neurologic/Psychiatric: no motor/sensory deficits, alert, oriented x 3 Skin: normal color, warm/dry Progress/Results/Core Measures Results/Orders Lab Results Laboratory Tests Test 08/15/22 18:52 08/15/22 21:58 Range/Units White Blood Count 10.9 4.3-11.0 10^3/uL Red Blood Count 3.86 3.80-5.11 10^6/uL Hemoglobin 10.2 L 11.5-16.0 g/dL Hematocrit 31 L 35-52 % Mean Corpuscular Volume 81 80-99 fL Mean Corpuscular Hemoglobin 26 25-34 pg Mean Corpuscular Hemoglobin Concent 33 32-36 g/dL Red Cell Distribution Width 17.0 H 10.0-14.5 % Platelet Count 168 130-400 10^3/uL Mean Platelet Volume 10.3 9.0-12.2 fL Immature Granulocyte % (Auto) 1 % Neutrophils (%) (Auto) 76 H 42-75 % Lymphocytes (%) (Auto) 15 12-44 % Monocytes (%) (Auto) 8 0-12 % Eosinophils (%) (Auto) 0 0-10 % Basophils (%) (Auto) 1 0-10 % Neutrophils # (Auto) 8.2 H 1.8-7.8 10^3/uL Lymphocytes # (Auto) 1.7 1.0-4.0 10^3/uL Monocytes # (Auto) 0.8 0.0-1.0 10^3/uL Eosinophils # (Auto) 0.0 0.0-0.3 10^3/uL Basophils # (Auto) 0.1 0.0-0.1 10^3/uL Immature Granulocyte # (Auto) 0.1 0.0-0.1 10^3/uL Sodium Level 128 L 135-145 MMOL/L Potassium Level 4.7 3.6-5.0 MMOL/L Chloride Level 92 L 98-107 MMOL/L Carbon Dioxide Level 22 21-32 MMOL/L Anion Gap 14 5-14 MMOL/L Blood Urea Nitrogen 44 H 7-18 MG/DL Creatinine 4.91 H 0.60-1.30 MG/DL Estimat Glomerular Filtration Rate 11 BUN/Creatinine Ratio 9 Glucose Level 107 H 70-105 MG/DL Calcium Level 9.1 8.5-10.1 MG/DL Corrected Calcium 9.3 8.5-10.1 MG/DL Total Bilirubin 0.8 0.1-1.0 MG/DL Aspartate Amino Transf (AST/SGOT) 20 5-34 U/L Alanine Aminotransferase (ALT/SGPT) 12 0-55 U/L Alkaline Phosphatase 109 40-136 U/L C-Reactive Protein High Sensitivity 4.31 H 0.00-0.50 MG/DL Total Protein 7.3 6.4-8.2 GM/DL Albumin 3.7 3.2-4.5 GM/DL Lipase 28 8-78 U/L Influenza Type A (RT-PCR) Not Detected Not Detecte Influenza Type B (RT-PCR) Not Detected Not Detecte SARS-CoV-2 RNA (RT-PCR) Not Detected Not Detecte Urine Color YELLOW Urine Clarity SL CLOUDY Urine pH 7.5 5-9 Urine Specific [place] 1.020 1.016-1.022 Urine Protein 3+ H NEGATIVE Urine Glucose (UA) 1+ H NEGATIVE Urine Ketones NEGATIVE NEGATIVE Urine Nitrite NEGATIVE NEGATIVE Urine Bilirubin NEGATIVE NEGATIVE Urine Urobilinogen 0.2 < = 1.0 MG/DL Urine Leukocyte Esterase NEGATIVE NEGATIVE Urine RBC (Auto) 2+ H NEGATIVE Urine RBC 2-5 H /HPF Urine WBC NONE /HPF Urine Squamous Epithelial Cells 10-25 H /HPF Urine Crystals NONE /LPF Urine Bacteria LARGE H /HPF Urine Casts NONE /LPF Urine Mucus NEGATIVE /LPF Urine Culture Indicated NO My Orders Orders - MARGARITA HUNT MD Cbc With Automated Diff (08/15/22 18:20) Comprehensive Metabolic Panel (08/15/22 18:20) Hs C Reactive Protein (08/15/22 18:20) Lipase (08/15/22 18:20) Ua Culture If Indicated (08/15/22 18:20) Ed Iv/Invasive Line Start (08/15/22 18:20) Ondansetron Injection (Zofran Injectio (08/15/22 18:30) Fentanyl Inj (Sublimaze Injection) (08/15/22 18:30) Ct Abdomen/Pelvis Wo (08/15/22 18:49) Chest 1 View, Ap/Pa Only (08/15/22 18:49) Covid 19 Inhouse Test (08/15/22 18:49) Influenza A And B By Pcr (08/15/22 18:49) Albuterol Inhaler (Albuterol) (08/15/22 18:49) Diphenhydramine Injection (Benadryl Inje (08/15/22 20:00) Promethazine Injection (Phenergan Injec (08/15/22 20:00) Fentanyl Inj (Sublimaze Injection) (08/15/22 22:15) Medications Given in ED Current Medications Medications Dose Ordered Sig/Mary Jo Route Start Time Stop Time Status Last Admin Dose Admin Diphenhydramine HCl 12.5 mg ONCE ONCE IVP 08/15/22 20:00 08/15/22 20:01 DC 08/15/22 20:05 12.5 MG Fentanyl Citrate 50 mcg ONCE ONCE IVP 08/15/22 18:30 08/15/22 18:31 DC 08/15/22 19:04 50 MCG Fentanyl Citrate 50 mcg ONCE ONCE IVP 08/15/22 22:15 08/15/22 22:16 DC 08/15/22 22:16 50 MCG Ondansetron HCl 8 mg ONCE ONCE IVP 08/15/22 18:30 08/15/22 18:31 DC 08/15/22 19:04 8 MG Promethazine HCl 12.5 mg ONCE ONCE IVP 08/15/22 20:00 08/15/22 20:01 DC 08/15/22 20:02 12.5 MG Vital Signs/I&O 08/15/22 08/15/22 17:56 18:00 Temp 37.7 Pulse 96 Resp 18 B/P (MAP) 162/87 (112) Pulse Ox 96 O2 Delivery Room Air Blood Pressure Mean: 112 Progress Progress Note : Time: 19:14 Progress Note Patient was interviewed and examined. Symptoms are being treated with Zofran and fentanyl. Viral swabs are pending. I anticipate CT scan of the abdomen and pelvis. Departure Impression Primary Impression: Upper abdominal pain Additional Impressions: Nausea & vomiting Qualified Codes: R11.2 - Nausea with vomiting, unspecified End stage renal failure on dialysis Disposition: HOME, SELF-CARE Condition: Improved Departure-Patient Inst. Decision time for Depature: 22:51 Referrals: [facility] [place] Primary Care Physician Patient Instructions: Abdominal Pain, Adult ED, Nausea and Vomiting, Adult Add. Discharge Instructions: Start with a clear liquid diet and gradually advance your diet with small quantities of bland food as tolerated. Use your hydrocodone as previously prescribed for pain. Use your Phenergan (promethazine) as previously prescribed for nausea and vomiting. If you are too nauseous to swallow the tablet, use the suppository dispensed from the emergency room. Contact dialysis first thing tomorrow morning and attempt to make up on your missed dialysis session. Return to care if you have worsening symptoms despite following these instr uctions. Follow-up with your primary care provider as soon as possible. All discharge instructions reviewed with patient and/or family. Voiced understanding. MARGARITA HUNT MD Aug 15, 2022 19:15
[2022-08-15 19:25] LABS: ALBUMIN 3.7 GM/DL (3.2-4.5); BILIRUBIN,TOTAL 0.8 MG/DL (0.1-1.0); CALCIUM 9.1 MG/DL (8.5-10.1); CREATININE SERUM 4.91 MG/DL (0.60-1.30); POTASSIUM 4.7 MMOL/L (3.6-5.0); TOTAL PROTEIN 7.3 GM/DL (6.4-8.2)
[2022-08-15] MEDS ORDERED: diphenhydrAMINE 50 MG/ML INJ (BENADRYL) IVP ONE (20:00)
[2022-08-15] MEDS ORDERED: PROMETHAZINE INJ 25 MG/ML (PHENERGAN) AMP IVP ONE (20:00)
--- NOTE | 2022-08-15 20:20 | Diagnostic Imaging Report ---
PROCEDURE: CT abdomen and pelvis without contrast. TECHNIQUE: Multiple contiguous axial images were obtained through the abdomen and pelvis without the use of intravenous contrast. Auto Exposure Controls were utilized during the CT exam to meet ALARA standards for radiation dose reduction. INDICATION: Vomiting. Abdominal pain. COMPARISON: 05/21/2022. FINDINGS: The heart is unremarkable. Trace right pleural effusion is seen with right basilar opacities. There is hepatic steatosis. The gallbladder is unremarkable. Small volume of ascites is seen in the abdomen and pelvis. The spleen, pancreas, adrenal glands, and kidneys have a normal appearance. Prominent lymph nodes are visualized in retroperitoneum. The bowel loops are nondilated. The appendix is visualized in the right lower quadrant and has a normal appearance. There is no free air. No acute osseous abnormality. Stents are seen in the bilateral common iliac arteries. Ureters and bladder are normal. There is no free air, loculated collection or adenopathy in the pelvis. IMPRESSION: 1. Small volume of ascites in the abdomen and pelvis. No free air. No bowel obstruction. Normal appendix. 2. Hepatic steatosis. 3. Prominent lymph nodes in the retroperitoneum, similar to the prior exam. Dictated by: Dictated on workstation # [id number]
--- NOTE | 2022-08-15 20:24 | Diagnostic Imaging Report ---
EXAMINATION: Chest 1 view. HISTORY: Cough. COMPARISON: 07/05/2022. FINDINGS: Stable right port. There is cardiomegaly with post CABG changes. Central pulmonary vascular congestion is noted. No pleural effusion or pneumothorax. IMPRESSION: Cardiomegaly with central pulmonary vascular congestion. Dictated by: Dictated on workstation # [id number]
[2022-08-15 22:04] LABS: BILIRUBIN,URINE NEGATIVE (NEGATIVE); CLARITY,URINE SL CLOUDY; COLOR,URINE YELLOW; GLUCOSE, URINE (UA) 1+ (NEGATIVE); KETONES,URINE NEGATIVE (NEGATIVE); LEUKOCYTE ESTERASE ,URINE NEGATIVE (NEGATIVE); NITRITE,URINE NEGATIVE (NEGATIVE); PH,URINE 7.5 (5-9); PROTEIN,URINE 3+ (NEGATIVE)
[2022-08-15 22:10] LABS: BACTERIA,URINE LARGE /HPF
[2022-08-15] MEDS ORDERED: RX-PHENERGAN 25 MG SUPP PPK#3 PR STA (22:50)
[2022-08-15 23:50] VITALS: BP 157/91
[2022-08-16] MEDS ORDERED: AZIT250T12 PO (13:44)
[2022-08-16] MEDS ORDERED: AMOX1TAB PO (13:44)
[2022-08-16] MEDS ORDERED: RT-ALBUINH INH (13:44)
== END 2022-08-15 23:50 | disposition home or self-care (01) ==
LOC: EDUNIT# 17:39 → ER 17:41
DX: I13.2 Hypertensive heart and chronic kidney disease with heart failure and with stage 5 chronic kidney disease, or end stage renal disease (principal); E11.22 Type 2 diabetes mellitus with diabetic chronic kidney disease; N18.6 End stage renal disease; I50.9 Heart failure, unspecified; E66.9 Obesity, unspecified; I25.2 Old myocardial infarction; F17.210 Nicotine dependence, cigarettes, uncomplicated; F17.290 Nicotine dependence, other tobacco product, uncomplicated; Z99.2 Dependence on renal dialysis; Z79.4 Long term (current) use of insulin; Z88.5 Allergy status to narcotic agent; Z68.32 Body mass index [BMI] 32.0-32.9, adult; Z95.5 Presence of coronary angioplasty implant and graft; Z20.822 Contact with and (suspected) exposure to COVID-19
CPT/HCPCS: 36415; 51701; 71045; 74176; 80053; 81000; 83690; 85025; 86141; 87636

== ENCOUNTER 2022-08-16 11:46 | Emergency (ER) | payer MEDICAID ==
[~2022-08-16] VITALS: Ht 160 cm; Wt 82.0 kg
[~2022-08-16 11:46] MED LIST changes: +CLOP-31 PO; -CLOP75TA69 PO
--- NOTE | 2022-08-16 12:33 | ED GI ---
General Chief Complaint: Abdominal/GI Problems Stated Complaint: WEAKNESS Source of Information: Patient Exam Limitations: No Limitations History of Present Illness Date Seen by Provider: Aug 16, 2022 Time Seen by Provider: 12:10 Initial Comments Patient is a 37-year-old female who presents to the emergency department via EMS with several days of abdominal pain as well as some cough/shortness of breath. Patient was seen here yesterday where an extensive work-up was largely unremarkable. Patient does have end-stage renal disease requiring dialysis. She was at dialysis today and was noted to have a episode of desaturation into the mid 80s. The dialysis was finished and then EMS was called to transport patient here. Patient denies any new symptoms today compared to yesterday. Allergies and Home Medications Allergies Coded Allergies: codeine (Verified Allergy, Unknown, has received Lortab and Hydromorphone in the past, 04/22/20) morphine (Verified Allergy, Unknown, 06/13/22) GERNALIZED SWELLING nalbuphine (Verified Allergy, Unknown, 08/31/19) tramadol (Verified Allergy, Unknown, 08/31/19) Uncoded Allergies: CONTRAST (Allergy, Unknown, 08/31/19) Patient Home Medication List Home Medication List Reviewed: Yes Albuterol Sulfate (Proventil Hfa) 6.7 Gm Hfa.aer.ad, 2-4 PUFF INH Q4H PRN for WHEEZING Prescribed by: Maximilian Fulton on 08/16/22 1344 Amoxicillin/Potassium Clav (Amox Tr-K Clv 250-125 mg Tab) 250 Mg-125 Mg Tablet, 1 EACH PO BID Prescribed by: Maximilian Fulton on 08/16/22 1344 Aspirin (Aspirin EC) 81 Mg Tablet.dr, 81 MG PO DAILY, (Reported) Entered as Reported by: EMRE JAIMES on 10/24/20 1013 Azithromycin (Azithromycin) 250 Mg Tablet, 250 MG PO DAILY Prescribed by: JINNY ELDER on 07/05/22 0950 Azithromycin (Azithromycin) 250 Mg Tablet, 250 MG PO UD Prescribed by: Maximilian Fulton on 08/16/22 1344 Bisacodyl (Bisacodyl) 10 Mg Supp.rect, 10 MG RC DAILY PRN for CONSTIPATION-4TH LINE, (Reported) Entered as Reported by: EMRE JAIMES on 10/24/20 1020 Carvedilol (Carvedilol) 6.25 Mg Tablet, 6.25 MG PO BID, (Reported) Entered as Reported by: EMRE JAIMES on 10/24/20 1013 Cholecalciferol (Vitamin D3) (Vitamin D3) 125 Mcg Tablet, 125 MCG PO MON, (Reported) Entered as Reported by: EMRE JAIMES on 10/24/20 1013 Citalopram Hydrobromide (Citalopram HBr) 20 Mg Tablet, 20 MG PO DAILY, (Reported) Entered as Reported by: EMRE JAIMES on 10/24/20 1013 Clopidogrel Bisulfate (Plavix) 75 Mg Tablet, 75 MG PO DAILY, (Reported) Entered as Reported by: EMRE JAIMES on 10/24/20 1013 Cyanocobalamin (Vitamin B-12) (Vitamin B-12) 1,000 Mcg Tablet, 1,000 MCG PO DAILY, (Reported) Entered as Reported by: EMRE JAIMES on 10/24/20 1013 Diphenhydramine HCl (Diphenhydramine HCl) 25 Mg Capsule, 25 MG PO HS, (Reported) Entered as Reported by: EMRE JAIMES on 10/24/20 101 Folic Acid (Folic Acid) 0.8 Mg Capsule, 0.8 MG PO DAILY, (Reported) Entered as Reported by: EMRE JAIMES on 10/24/20 1013 Hydrocodone/Acetaminophen (Hydrocodone-Acetamin 7.5-325) 1 Each Tablet, 1 EA PO HS, (Reported) Entered as Reported by: EMRE JAIMES on 10/24/20 1013 Hydrocodone/Acetaminophen (Hydrocodone-Acetamin 7.5-325) 1 Each Tablet, 1 EACH PO BID PRN for PAIN-MODERATE (5-7), (Reported) Entered as Reported by: EMRE JAIMES on 10/24/20 1020 Insulin Aspart (Novolog) 100 Unit/1 Ml Susp, 10 UNIT SQ AC, (Reported) Entered as Reported by: EMRE JAIMES on 10/24/20 1020 Insulin Detemir (Levemir Flextouch) 100 Unit/1 Ml Insuln.pen, 10 UNIT SQ BID, (Reported) Entered as Reported by: EMRE JAIMES on 10/24/20 1020 Lactulose (Lactulose) 10 Gm/15 Ml Solution, 15 ML PO DAILY, (Reported) Entered as Reported by: EMRE JAIMES on 10/24/20 1013 Loperamide HCl (Imodium A-D) 2 Mg Tablet, 2-4 MG PO PRN PRN for LOOSE STOOLS, (Reported) Entered as Reported by: EMRE JAIMES on 10/24/20 101 Melatonin (Melatonin) 3 Mg Tablet, 3 MG PO HS, (Reported) Entered as Reported by: EMRE JAIMES on 10/24/20 101 Metolazone (Metolazone) 10 Mg Tablet, 10 MG PO DAILY, (Reported) Entered as Reported by: EMRE JAIMES on 10/24/20 101 Ondansetron HCl (Ondansetron HCl) 4 Mg Tablet, 4 MG PO Q6H PRN for NAUSEA /VOMITING-1ST LINE, (Reported) Entered as Reported by: EMRE JAIMES on 10/24/20 101 Pantoprazole Sodium (Pantoprazole Sodium) 40 Mg Tablet.dr, 40 MG PO DAILY, (Reported) Entered as Reported by: EMRE JAIMES on 10/24/20 101 Pregabalin (Pregabalin) 25 Mg Capsule, 25 MG PO TID, (Reported) Entered as Reported by: EMRE JAIMES on 10/24/20 101 Promethazine HCl (Promethazine Tablet) 25 Mg Tablet, 25 MG PO Q8H PRN for NAUSEA/VOMITING-2ND LINE, (Reported) Entered as Reported by: EMRE JAIMES on 10/24/20 1020 Sevelamer Carbonate (Sevelamer Carbonate) 800 Mg Tablet, 1,600 MG PO TID, (Reported) Entered as Reported by: EMRE JAIMES on 10/24/20 101 Torsemide (Torsemide) 100 Mg Tablet, 100 MG PO DAILY, (Reported) Entered as Reported by: EMRE JAIMES on 10/24/20 101 Zinc (Zinc) 50 Mg Tablet, 50 MG PO DAILY, (Reported) Entered as Reported by: EMRE JAIMES on 10/24/20 101 Review of Systems Review of Systems Constitutional: see HPI, weakness EENTM: No Symptoms Reported Respiratory: See HPI, Cough, Shortness of Air Cardiovascular: No Symptoms Reported Gastrointestinal: See HPI, Abdominal Pain Genitourinary: No Symptoms Reported Musculoskeletal: no symptoms reported Skin: no symptoms reported Psychiatric/Neurological: No Symptoms Reported Endocrine: No Symptoms Reported Past Ixoxlqd-Egfcxx-Xjfmbj Hx Patient Social History Tobacco Use?: No Use of E-Cig and/or Vaping dev: Yes E-Cig or Vaping type used: Nicotine Use of E-Cig and/or Vaping Maurilio: Current Everyday User Substance use?: No Alcohol Use?: No Pt feels they are or have been: No Immunizations Up To Date Tetanus Booster (TDap): Unknown PED Vaccines UTD: Yes Influenza Vaccine Up-to-Date: Yes; Up-to-Date First/Initial COVID19 Vaccinat: SPRING 2020 Second COVID19 Vaccination Bennie: SPRING 2020 Third COVID19 Vaccination Date: SPRING 2020 Seasonal Allergies Seasonal Allergies: No Past Medical History Surgery/Hospitalization HX: DIALYSIS PT, IDDM, KIDNEY FAILURE, PORT, R AKA, L BKA, ABD SURG, cad, obesity, gastroparesis, neuropathy, Surgeries: Yes (7 amputations (foot and toes, right ATK), 5 stents, LEFT GREAT TOE) Amputation, CABG, Section, Coronary Stent, Orthopedic, Tonsillectomy, 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 Respiratory: No Cardiac: Yes (5 stents; NSTEMI 07/2019, congestive heart failure) Coronary Artery Disease, Heart Attack, High Cholesterol, Hypertension, Peripheral Vascular Neurological: Yes Neuropathy 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, 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 Genitourinary: Yes (CKD) Bladder Infection, Renal Failure, Dialysis Gastrointestinal: Yes (CHRONIC NAUSEA/VOMITING) Irritable Bowel Musculoskeletal: Yes Amputee, Spasms Endocrine: Yes Diabetes, Insulin dep HEENT: No Cancer: No Psychosocial: Yes Anxiety Integumentary: Yes (CHRONIC FOOT WOUNDS) Blood Disorders: Yes (ANEMIA) Adverse Reaction/Blood Tranf: No Family Medical History No Pertinent Family Hx SOCIAL HISTORY: -ETOH--OCCASIONAL USE, NO RECENT USE, PER PT 07/20/20 -DRUGS-+THC USE ( ALSO HX OF OPIATES AND BENZODIAZEPINE ABUSE) -SMOKED 1 PPD, QUIT 03/2020 PAST SURGICAL HISTORY: -CARDIAC CATHS--MULTIPLE STENTS PLUS ANGIOPLASTIES AT MULTIPLE FACILITIES--LAST CATH HERE 08/31/[address] GALE-- RCA ANGIOPLASTY -MULTIPLE CARDIAC AND PERIPHERAL INTERVENTIONS AT MULTIPLE FACILITIES--PERIPHERAL ANGIOGRAM AT [facility] 08/21/2019--ANGIOPLASTY OF DEEP FEMORAL ARTERY, STENTS X 3 TO EXTERNAL ILIAC, COMMON FEMORAL AND SUPERFICIAL FEMORAL ARTERY -S/P 3 VESSEL CABG -RIGHT TOES AND PARTIAL FOOT AMPUTATIONS (MULTIPLE SURGERIES) , EVENTUALLY FOLLOWED BY RIGHT ABOVE THE KNEE AMPUTATION 03/27/20- AT [facility] - -HYSTERECTOMY -BILATERAL TUBAL LIGATION -TONSILLECTOMY ADDITIONAL PAST MEDICAL HISTORY: -VENTRICULAR ARRHYTHMIA DURING DOBUTAMINE TEST -NSTEMI 07/2019 LONG HISTORY OF NON-COMPLIANCE HX OF HOMELESSNESS UNTIL ADMITTED TO [facility] AFTER LAST HOSPITALIZATION HX OF NARCOTIC AND BENZODIAZEPAM ABUSE Physical Exam Vital Signs Vital Signs - First Documented 08/16/22 08/16/22 11:48 13:24 Temp 38.2 Pulse 107 Resp 18 B/P (MAP) 180/114 (136) Pulse Ox 94 O2 Delivery Room Air O2 Flow Rate 1.00 Capillary Refill : Height/Weight/BMI Height: '" Weight: lbs. oz. kg; 32.00 BMI Method: General Appearance: WD/WN, no apparent distress HEENT: PERRL/EOMI, normal ENT inspection, TMs normal, pharynx normal Neck: non-tender, full range of motion Respiratory: chest non-tender, no respiratory distress, no accessory muscle use, wheezing, expiration Cardiovascular: regular rate, rhythm Gastrointestinal: normal bowel sounds, non tender, soft Extremities: normal range of motion, non-tender, normal inspection Neurologic/Psychiatric: no motor/sensory deficits, alert, normal mood/affect, oriented x 3 Skin: normal color, warm/dry Progress/Results/Core Measures Results/Orders Lab Results Laboratory Tests Test 08/16/22 12:29 Range/Units Influenza Type A (RT-PCR) Not Detected Not Detecte Influenza Type B (RT-PCR) Not Detected Not Detecte SARS-CoV-2 RNA (RT-PCR) Not Detected Not Detecte My Orders Orders - MAXIMILIAN FULTON 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 (08/16/22 13:45) Medications Given in ED Vital Signs/I&O 08/16/22 08/16/22 08/16/22 11:48 13:24 13:59 Temp 38.2 Pulse 107 106 Resp 18 20 B/P (MAP) 180/114 (136) 170/93 Pulse Ox 94 95 92 O2 Delivery Room Air Nasal Cannula Room Air O2 Flow Rate 1.00 Progress Progress Note : Progress Note Patient is nontoxic and well-hydrated on exam. No adventitious lung sounds or increased work of breathing noted. Patient not hypoxic on room air initially although with lying flat and certain position she does become mildly hypoxic to 87-88%. This resolves when she repositioned herself or sits up. Repeat COVID and flu test today are negative as they were yesterday. Patient was given a DuoNeb with significant improvement in symptoms. 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 She states that she does not see patient being on oxygen in the past although patient says she has been on oxygen in the past. Upon further review and speaking with patient's care home staff, patient currently has a as needed order for oxygen. We will discharge back to the care home with recommendations for continued use of oxygen as well as a prescription for an albuterol inhaler given the DuoNeb improved patient's shortness of air. Follow- up with PCP. Return precautions for urgent symptomology discussed. Departure Impression Primary Impression: Shortness of breath Additional Impression: Abdominal pain Qualified Codes: R10.84 - Generalized abdominal pain Disposition: 01 HOME, SELF-CARE Condition: Stable Departure-Patient Inst. Decision time for Depature: 13:40 Referrals: [facility] (PCP/Family) Primary Care Physician Patient Instructions: Shortness of Breath, Adult ED Scripts Albuterol Sulfate (Proventil Hfa) 6.7 Gm Hfa.aer.ad 2-4 PUFF INH Q4H PRN for WHEEZING, #1 EACH Prov: MAXIMILIAN FULTON APRN 08/16/22 Azithromycin (Azithromycin) 250 Mg Tablet 250 MG PO UD, #6 TAB TAKE 2 TABLETS ON DAY ONE THEN TAKE 1 TABLET DAILY FOR FOUR MORE DAYS Prov: MAXIMILIAN FULTON APRN 08/16/22 Amoxicillin/Potassium Clav (Amox Tr-K Clv 250-125 mg Tab) 250 Mg-125 Mg Tablet 1 EACH PO BID for 7 Days, #14 TAB 0 Refills Prov: MAXIMILIAN FULTON APRN 08/16/22 MAXIMILIAN FULTON APRN Aug 16, 2022 12:33
[2022-08-16] MEDS ORDERED: RT-ALBUTEROL/IPRATROPIUM 3 ML (DUONEB) VIAL INH ONE (13:00)
[2022-08-16] MEDS ORDERED: PROMETHAZINE 25 MG (PHENERGAN) TAB PO ONE (13:00)
[2022-08-16] MEDS ORDERED: AMOX1TAB PO (13:44)
[2022-08-16] MEDS ORDERED: RT-ALBUINH INH (13:44)
[2022-08-16] MEDS ORDERED: AZIT250T12 PO (13:44)
[2022-08-16] MEDS ORDERED: HYDROcodone/APAP 7.5 MG/325 MG (LORTAB, LORCET PLUS) TABLET PO ONE (13:45)
[2022-08-16 13:59] VITALS: BP 170/93
== END 2022-08-16 14:20 | disposition home or self-care (01) ==
LOC: EDUNIT# 11:46 → ER 11:47
DX: R06.02 Shortness of breath (principal); R10.9 Unspecified abdominal pain; F17.290 Nicotine dependence, other tobacco product, uncomplicated; F17.210 Nicotine dependence, cigarettes, uncomplicated; I13.0 Hypertensive heart and chronic kidney disease with heart failure and stage 1 through stage 4 chronic kidney disease, or unspecified chronic kidney disease; E10.22 Type 1 diabetes mellitus with diabetic chronic kidney disease; I50.9 Heart failure, unspecified; N18.6 End stage renal disease; Z99.2 Dependence on renal dialysis; E66.9 Obesity, unspecified; Z68.32 Body mass index [BMI] 32.0-32.9, adult; Z20.822 Contact with and (suspected) exposure to COVID-19
CPT/HCPCS: 87636; 94640

== ENCOUNTER 2023-01-20 19:50 | Emergency (ER) | payer MEDICAID ==
[~2023-01-20 19:50] MED LIST changes: +AMOX1TAB PO; +DIPH-1122 PO; -DIPH25CA48 PO; -INSU100I29 SQ; +INSU100I30 SQ; +RT-ALBUINH INH
[2023-01-20] MEDS ORDERED: ONDANSETRON 4 MG/2 ML (SDV) Z0FRAN IV PRN (20:00)
[2023-01-20] MEDS ORDERED: ACETAMINOPHEN 500 MG TAB (TYLENOL) PO PRN (20:00)
[2023-01-20] MEDS ORDERED: CEFEPIME INJECTION 1,000 MG in NS (IVPB) 50 ML IV ONE (20:00)
--- NOTE | 2023-01-20 20:03 | ED General ---
General Stated Complaint: VOMITING Source of Information: Patient, Mcc Records History of Present Illness Date Seen by Provider: January 20, 2023 Time Seen by Provider: 19:50 Initial Comments PT ARRIVES VIA EMS FROM [facility] PT HAS HAD HAD NAUSEA AND BEEN VOMITING ALL DAY--CAN'T KEEP ANY OF HER MEDICATIONS DOWN AND HAS NOT EATEN TODAY SHE ALSO HAS SEVERE UPPER ABDOMINAL PAIN ALL DAY SHE HAS NOT HAD A BM IN 3 DAYS--SHE HAD LACTULOSE EARLIER TODAY, WITHOUT RELIEF. SHE HAD ZOFRAN AND PHENERGAN ORALLY--NO RELIEF. 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 AND SHE HAS HAD FLU VACCINE FOR THIS SEASON PCP: DR. SMITH / [facility] Allergies and Home Medications Allergies Coded Allergies: codeine (Verified Allergy, Unknown, has received Lortab and Hydromorphone in the past, 04/22/20) morphine (Verified Allergy, Unknown, 06/13/22) GERNALIZED SWELLING nalbuphine (Verified Allergy, Unknown, 08/31/19) tramadol (Verified Allergy, Unknown, 08/31/19) Uncoded Allergies: CONTRAST (Allergy, Unknown, 08/31/19) Patient Home Medication List Home Medication List Reviewed: Yes Albuterol Sulfate (Proventil Hfa) 6.7 Gm Hfa.aer.ad, 2-4 PUFF INH Q4H PRN for WHEEZING Prescribed by: Maximilian Fulton on 08/16/22 1344 Amoxicillin/Potassium Clav (Amox Tr-K Clv 250-125 mg Tab) 250 Mg-125 Mg Tablet, 1 EACH PO BID Prescribed by: Maximilian Fulton on 08/16/22 1344 Aspirin (Aspirin EC) 81 Mg Tablet., 81 MG PO DAILY, (Reported) Entered as Reported by: EMRE JAIMES on 10/24/20 1013 Azithromycin (Azithromycin) 250 Mg Tablet, 250 MG PO DAILY Prescribed by: JINNY ELDER on 07/05/22 0950 Azithromycin (Azithromycin) 250 Mg Tablet, 250 MG PO UD Prescribed by: Maximilian Fulton on 08/16/22 1344 Bisacodyl (Bisacodyl) 10 Mg Supp.rect, 10 MG RC DAILY PRN for CONSTIPATION-4TH LINE, (Reported) Entered as Reported by: EMRE JAIMES on 10/24/20 1020 Carvedilol (Carvedilol) 6.25 Mg Tablet, 6.25 MG PO BID, (Reported) Entered as Reported by: EMRE JAIMES on 10/24/20 1013 Cefdinir (Cefdinir) 300 Mg Capsule, 300 MG PO BID Prescribed by: OPAL MORENO on 01/20/23 2211 Cholecalciferol (Vitamin D3) (Vitamin D3) 125 Mcg Tablet, 125 MCG PO MON, (Reported) Entered as Reported by: EMRE JAIMES on 10/24/20 1013 Citalopram Hydrobromide (Citalopram HBr) 20 Mg Tablet, 20 MG PO DAILY, (Reported) Entered as Reported by: EMRE JAIMES on 10/24/20 1013 Clopidogrel Bisulfate (Plavix) 75 Mg Tablet, 75 MG PO DAILY, (Reported) Entered as Reported by: EMRE JAIMES on 10/24/20 1013 Cyanocobalamin (Vitamin B-12) (Vitamin B-12) 1,000 Mcg Tablet, 1,000 MCG PO DAILY, (Reported) Entered as Reported by: EMRE JAIMES on 10/24/20 1013 Diphenhydramine HCl (Diphenhydramine HCl) 25 Mg Capsule, 25 MG PO HS, (Reported) Entered as Reported by: EMRE JAIMES on 10/24/20 1013 Folic Acid (Folic Acid) 0.8 Mg Capsule, 0.8 MG PO DAILY, (Reported) Entered as Reported by: EMRE JAIMES on 10/24/20 1013 Hydrocodone/Acetaminophen (Hydrocodone-Acetamin 7.5-325) 1 Each Tablet, 1 EA PO HS, (Reported) Entered as Reported by: EMRE JAIMES on 10/24/20 1013 Hydrocodone/Acetaminophen (Hydrocodone-Acetamin 7.5-325) 1 Each Tablet, 1 EACH P O BID PRN for PAIN-MODERATE (5-7), (Reported) Entered as Reported by: EMRE JAIMES on 10/24/20 1020 Insulin Aspart (Novolog) 100 Unit/1 Ml Susp, 10 UNIT SQ AC, (Reported) Entered as Reported by: EMRE JAIMES on 10/24/20 1020 Insulin Detemir (Levemir Flextouch) 100 Unit/1 Ml Insuln.pen, 10 UNIT SQ BID, (R eported) Entered as Reported by: EMRE JAIMES on 10/24/20 1020 Lactulose (Lactulose) 10 Gm/15 Ml Solution, 15 ML PO DAILY, (Reported) Entered as Reported by: EMRE JAIMES on 10/24/20 1013 Loperamide HCl (Imodium A-D) 2 Mg Tablet, 2-4 MG PO PRN PRN for LOOSE STOOLS, (Reported) Entered as Reported by: EMRE JAIMES on 10/24/20 101 Melatonin (Melatonin) 3 Mg Tablet, 3 MG PO HS, (Reported) Entered as Reported by: EMRE JAIMES on 10/24/20 101 Metolazone (Metolazone) 10 Mg Tablet, 10 MG PO DAILY, (Reported) Entered as Reported by: EMRE JAIMES on 10/24/20 101 Na Phos,M-B/Na Phos,Di-Ba (Fleet Enema Extra) 19 Gram-7 Gram/197 Ml Enema, 230 ML RC PRN Prescribed by: OPAL MORENO on 01/20/232137 Ondansetron (Ondansetron Odt) 8 Mg Tab.rapdis, 8 MG PO Q6H Prescribed by: OPAL MORENO on 01/20/232137 Ondansetron HCl (Ondansetron HCl) 4 Mg Tablet, 4 MG PO Q6H PRN for NAUSEA/VOMITING-1ST LINE, (Reported) Entered as Reported by: EMRE JAIMES on 10/24/201012 Pantoprazole Sodium (Pantoprazole Sodium) 40 Mg Tablet.dr, 40 MG PO DAILY, (Reported) Entered as Reported by: EMRE JAIMES on 10/24/201012 Polyethylene Glycol 3350 (Miralax) 17 Gram Powd.pack, 17 GM PO UD Prescribed by: OPAL MORENO on 01/20/232137 Pregabalin (Pregabalin) 25 Mg Capsule, 25 MG PO TID, (Reported) Entered as Reported by: EMRE JAIMES on 10/24/20 1013 Promethazine HCl (Promethazine Tablet) 25 Mg Tablet, 25 MG PO Q8H PRN for NAUSEA/VOMITING-2ND LINE, (Reported) Entered as Reported by: EMRE JAIMES on 10/24/20 1020 Promethazine HCl (Promethazine Suppository) 25 Mg Supp.rect, 25 MG RC Q6 Prescribed by: OPAL MORENO on 01/20/232137 Sevelamer Carbonate (Sevelamer Carbonate) 800 Mg Tablet, 1,600 MG PO TID, (Reported) Entered as Reported by: EMRE JAIMES on 10/24/20 1013 Torsemide (Torsemide) 100 Mg Tablet, 100 MG PO DAILY, (Reported) Entered as Reported by: EMRE JAIMES on 10/24/20 1013 Zinc (Zinc) 50 Mg Tablet, 50 MG PO DAILY, (Reported) Entered as Reported by: EMRE JAIMES on 10/24/20 1013 Review of Systems Review of Systems Constitutional: see HPI, fever EENTM: no symptoms reported Respiratory: see HPI; No cough; short of breath Cardiovascular: no symptoms reported; No chest pain Gastrointestinal: see HPI, abdominal pain; No diarrhea; nausea, vomiting Genitourinary: no symptoms reported Musculoskeletal: no symptoms reported Skin: no symptoms reported Psychiatric/Neurological: No Symptoms Reported Hematologic/Lymphatic: No Symptoms Reported Immunological/Allergic: no symptoms reported Past Bdfyjfw-Qopihd-Ndwvkw Hx Immunizations Up To Date Tetanus Booster (TDap): Unknown PED Vaccines UTD: Yes First/Initial COVID19 Vaccinat: SPRING 2020 Second COVID19 Vaccination Bennie: SPRING 2020 Third COVID19 Vaccination Date: SPRING 2020 Seasonal Allergies Seasonal Allergies: No Past Medical History Surgery/Hospitalization HX: DIALYSIS PT, IDDM, KIDNEY FAILURE, PORT, R AKA, L BKA, ABD SURG, cad, obesity, gastroparesis, neuropathy CARDIAC CATHS, CABG AND CARDIAC STENTS. 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, 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 Genitourinary: Yes (CKD; ESRD ON DIALYSIS -W-) Bladder Infection, Renal Failure, Dialysis Gastrointestinal: Yes (CHRONIC NAUSEA/VOMITING) Irritable Bowel Musculoskeletal: Yes Amputee, Spasms Endocrine: Yes (OBESITY) Diabetes, Insulin dep HEENT: No Cancer: No Psychosocial: Yes Anxiety Integumentary: Yes (CHRONIC FOOT WOUNDS) Blood Disorders: Yes (ANEMIA) Adverse Reaction/Blood Tranf: No Family Medical History No Pertinent Family Hx SOCIAL HISTORY: -ETOH--OCCASIONAL USE, NO RECENT USE, PER PT 07/20/20 -DRUGS-+THC USE ( ALSO HX OF OPIATES AND BENZODIAZEPINE ABUSE) -SMOKED 1 PPD, QUIT 03/2020 PAST SURGICAL HISTORY: -CARDIAC CATHS--MULTIPLE STENTS PLUS ANGIOPLASTIES AT MULTIPLE FACILITIES--LAST CATH HERE 08/31/[address] GALE-- RCA ANGIOPLASTY -MULTIPLE CARDIAC AND PERIPHERAL INTERVENTIONS AT MULTIPLE FACILITIES--PERIPHERAL ANGIOGRAM AT [place] 08/21/2019--ANGIOPLASTY OF DEEP FEMORAL ARTERY, STENTS X 3 TO EXTERNAL ILIAC, COMMON FEMORAL AND SUPERFICIAL FEMORAL ARTERY -S/P 3 VESSEL CABG -RIGHT TOES AND PARTIAL FOOT AMPUTATIONS (MULTIPLE SURGERIES) , EVENTUALLY FOLLOWED BY RIGHT ABOVE THE KNEE AMPUTATION 03/27/20- AT [place] -LEFT BELOW THE KNEE AMPUTATION - -HYSTERECTOMY -BILATERAL TUBAL LIGATION -TONSILLECTOMY -PORT RIGHT CHEST -RIGHT ARM DIALYSIS GRAFT A-V FISTULA ADDITIONAL PAST MEDICAL HISTORY: -VENTRICULAR ARRHYTHMIA DURING DOBUTAMINE TEST -NSTEMI 07/2019 LONG HISTORY OF NON-COMPLIANCE HX OF HOMELESSNESS UNTIL ADMITTED TO [facility] AFTER LAST HOSPITALIZATION HX OF NARCOTIC AND BENZODIAZEPINE ABUSE Physical Exam Vital Signs Vital Signs - First Documented 01/20/23 01/20/23 19:50 19:52 Temp 38.4 Pulse 96 Resp 16 B/P (MAP) 142/81 (101) Pulse Ox 87 O2 Delivery Room Air O2 Flow Rate 2.00 Capillary Refill : Height, Weight, BMI Height: '" Weight: lbs. oz. kg; 32.00 BMI Method: General Appearance: No Apparent Distress, Obese HEENT: PERRL/EOMI Neck: Normal Inspection Respiratory: Normal Breath Sounds, No Accessory Muscle Use, No Respiratory Distress Cardiovascular: Regular Rate, Rhythm, No Murmur Gastrointestinal: Soft, Other (ABDOMEN IS VERY LARGE, BUT APPEARS TO HAVE HEPATOMEGALY, AND IS TENDER ALL ACROSS UPPER ABDOMEN. ) Back: No CVA Tenderness Extremity: Normal Capillary Refill, Other (RIGHT AKA, LEFT BKA) Neurologic/Psychiatric: Alert, Oriented x3, No Motor/Sensory Deficits, Normal Mood/Affect, pharmacy consultant II-XII Norm as Tested Skin: Normal Color, Warm/Dry Focused Exam Sepsis Stage: Ruled Out Reason for ruling out sepsis: DOES NOT MEET CRITERIA Possible Source: Unknown Lactate Level 01/20/23 20:10: Lactic Acid Level 1.08 Time of Focused Exam: 21:15 Respiratory: Normal Breath Sounds, No Accessory Muscle Use, No Respiratory Distress Cardiovascular: Regular Rate, Rhythm, No Murmur Capillary Refill: Less Than 3 Seconds Skin: normal color, warm/dry Lactic Acid Level Laboratory Tests Test 01/20/23 20:10 Lactic Acid Level 1.08 MMOL/L (0.50-2.00) Within 3hrs of presentation: Admin ABX, Blood cultures prior to ABX's, Focus exam, Lactate level, Other (FLUIDS HELD PT IS ON DIALYSIS AND DUE FOR NEXT DIALYSIS SESSION IN THE MORNING. ) Progress/Results/Core Measures Suspected Sepsis SIRS Temperature: Pulse: Respiratory Rate: Laboratory Tests 01/20/23 20:10: White Blood Count 13.1H Blood Pressure / Mean: 01/20/23 20:10: Lactic Acid Level 1.08 Laboratory Tests 01/20/23 20:10: Creatinine 6.76H, INR Comment 1.4, Platelet Count 153, Total Bilirubin 0.6 Results/Orders Lab Results Laboratory Tests Test 01/20/23 20:10 01/20/23 20:22 01/20/23 20:32 Range/Units White Blood Count 13.1 H 4.3-11.0 10^3/uL Red Blood Count 3.48 L 3.80-5.11 10^6/uL Hemoglobin 9.5 L 11.5-16.0 g/dL Hematocrit 30 L 35-52 % Mean Corpuscular Volume 85 80-99 fL Mean Corpuscular Hemoglobin 27 25-34 pg Mean Corpuscular Hemoglobin Concent 32 32-36 g/dL Red Cell Distribution Width 17.5 H 10.0-14.5 % Platelet Count 153 130-400 10^3/uL Mean Platelet Volume 11.7 9.0-12.2 fL Immature Granulocyte % (Auto) 1 % Neutrophils (%) (Auto) 81 H 42-75 % Lymphocytes (%) (Auto) 11 L 12-44 % Monocytes (%) (Auto) 6 0-12 % Eosinophils (%) (Auto) 1 0-10 % Basophils (%) (Auto) 1 0-10 % Neutrophils # (Auto) 10.6 H 1.8-7.8 10^3/uL Lymphocytes # (Auto) 1.5 1.0-4.0 10^3/uL Monocytes # (Auto) 0.8 0.0-1.0 10^3/uL Eosinophils # (Auto) 0.1 0.0-0.3 10^3/uL Basophils # (Auto) 0.1 0.0-0.1 10^3/uL Immature Granulocyte # (Auto) 0.1 0.0-0.1 10^3/uL Erythrocyte Sedimentation Rate 42 H 0-20 MM/HR Prothrombin Time 17.7 H 12.2-14.7 SEC INR Comment 1.4 0.8-1.4 Activated Partial Thromboplast Time 35 24-35 SEC Sodium Level 136 135-145 MMOL/L Potassium Level 4.6 3.6-5.0 MMOL/L Chloride Level 95 L 98-107 MMOL/L Carbon Dioxide Level 25 21-32 MMOL/L Anion Gap 16 H 5-14 MMOL/L Blood Urea Nitrogen 69 H 7-18 MG/DL Creatinine 6.76 H 0.60-1.30 MG/DL Estimat Glomerular Filtration Rate 7 BUN/Creatinine Ratio 10 Glucose Level 153 H 70-105 MG/DL Lactic Acid Level 1.08 0.50-2.00 MMOL/L Calcium Level 9.1 8.5-10.1 MG/DL Corrected Calcium 9.1 8.5-10.1 MG/DL Total Bilirubin 0.6 0.1-1.0 MG/DL Aspartate Amino Transf (AST/SGOT) 20 5-34 U/L Alanine Aminotransferase (ALT/SGPT) 10 0-55 U/L Alkaline Phosphatase 174 H 40-136 U/L C-Reactive Protein High Sensitivity 2.94 H 0.00-0.50 MG/DL Total Protein 7.6 6.4-8.2 GM/DL Albumin 4.0 3.2-4.5 GM/DL Urine Color YELLOW Urine Clarity CLEAR Urine pH 8.0 5-9 Urine Specific [place] 1.015 L 1.016-1.022 Urine Protein 3+ H NEGATIVE Urine Glucose (UA) 1+ H NEGATIVE Urine Ketones NEGATIVE NEGATIVE Urine Nitrite NEGATIVE NEGATIVE Urine Bilirubin NEGATIVE NEGATIVE Urine Urobilinogen 0.2 < = 1.0 MG/DL Urine Leukocyte Esterase NEGATIVE NEGATIVE Urine RBC (Auto) 1+ H NEGATIVE Urine RBC 2-5 H /HPF Urine WBC RARE /HPF Urine Squamous Epithelial Cells 2-5 /HPF Urine Crystals NONE /LPF Urine Bacteria TRACE /HPF Urine Casts NONE /LPF Urine Mucus NEGATIVE /LPF Urine Culture Indicated CULTURE PENDING Influenza Type A (RT-PCR) Not Detected Not Detecte Influenza Type B (RT-PCR) Not Detected Not Detecte SARS-CoV-2 RNA (RT-PCR) Not Detected Not Detecte My Orders Orders - OPAL MORENO DO Cbc With Automated Diff (01/20/23 19:59) Comprehensive Metabolic Panel (01/20/23 19:59) Hs C Reactive Protein (01/20/23 19:59) Erythrocyte Sedimentation Rate (01/20/23 19:59) Chest 1 View, Ap/Pa Only (01/20/23 19:59) Covid 19 Inhouse Test (01/20/23 19:59) Blood Culture (01/20/23 19:59) Sputum Culture (01/20/23 19:59) Urinalysis (01/20/23 19:59) Urine Culture (01/20/23 19:59) Protime With Inr (01/20/23 19:59) Partial Thromboplastin Time (01/20/23 19:59) Acetaminophen Tablet (Tylenol Tablet) (01/20/23 20:00) Ed Iv/Invasive Line Start (01/20/23 19:59) Ed Iv/Invasive Line Start (01/20/23 19:59) Vital Signs Adult Sepsis Patie Q15M (01/20/23 19:59) Ondansetron Injection (Zofran Injectio (01/20/23 20:00) O2 (01/20/23 19:59) Remove Rings In Anticipation O (01/20/23 19:59) Lactic Acid Analyzer (01/20/23 19:59) Cefepime Injection (Maxipime Injection) (01/20/23 20:00) Monitor-Rhythm Ecg Trace Only (01/20/23 19:59) Straight Cath For Spec.-Adult (01/20/23 19:59) Influenza A And B By Pcr (01/20/23 19:59) Isolation Central Supply Req (01/20/23 19:59) Ct Chest/Abdomen/Pelvis Wo (01/20/23 19:59) Fentanyl Inj (Sublimaze Injection) (01/20/23 20:30) Medications Given in ED Current Medications Medications Dose Ordered Sig/Mary Jo Route Start Time Stop Time Status Last Admin Dose Admin Acetaminophen 1,000 mg ONCE PRN PO 01/20/23 20:00 01/20/23 20:13 DC 01/20/23 20:13 1,000 MG Cefepime HCl 1000 mg/Sodium Chloride 50 ml @ 100 mls/hr ONCE ONCE IV 01/20/23 20:00 01/20/23 20:29 DC 01/20/23 20:30 100 MLS/HR Fentanyl Citrate 50 mcg ONCE ONCE IVP 01/20/23 20:30 01/20/23 20:31 DC 01/20/23 20:27 50 MCG Ondansetron HCl 4 mg PRN PRN IV 01/20/23 20:00 01/20/23 20:13 DC 01/20/23 20:12 4 MG Vital Signs/I&O 01/20/23 01/20/23 01/20/23 19:50 19:52 22:12 Temp 38.4 37.0 Pulse 96 83 Resp 16 16 B/P (MAP) 142/81 (101) 109/32 Pulse Ox 87 95 O2 Delivery Room Air Nasal Cannula Room Air O2 Flow Rate 2.00 01/20/23 23:59 Intake Total 50 ml Balance 50 ml Capillary Refill : Progress Note : Progress Note GIVEN : -ZOFRAN -CEFEPIME- -FENTANYL FOR PAIN SYMPTOMS RESOLVED STATES SHE FEELS BETTER IV FLUIDS HELD DUE TO PT IN ESRD ON DIALYSIS, AND IS DUE FOR DIALYSIS TOMORROW. DISCUSSED TEST RESULTS, PLAN OF CARE, AND PT IS AGREEABLE TO PLAN. Diagnostic Imaging Comments CXR--PER RADIOLOGIST REPORT AT 2109 FINDINGS: The patient is status post a prior sternotomy. Right-sided Port-A-Cath is also present. There is a small right effusion. There is no evidence to suggest pneumonia. There is no pneumothorax. Pulmonary vascularity appears appropriate. IMPRESSION: Previous sternotomy changes as well as prior cardiac bypass and a coronary stent. There is no current evidence of edema. There appears to be a small right effusion. There is no pneumothorax or finding of pneumonia. CT CHEST/ABDOMEN/PELVIS--PER RADIOLOGIST REPORT AT 2121 FINDINGS: The lungs demonstrate a small right-sided effusion. There is no pneumonia. There is a calcified granuloma within the right lower lobe. There is no very subtle prominence of the basilar septal markings which may relate to mild edema or volume overload. The patient is status post sternotomy. There has been previous bypass grafting. There is stable enlargement of the cardiac silhouette. The density of the blood within the ventricles appears low suggesting anemia. There are multiple small mediastinal lymph nodes. Hepatomegaly is present. There is trace free fluid along the right hepatic margins. There is no radiodense stone or evidence of biliary dilatation. The pancreas is normal. The spleen is stable in size. There is no adrenal mass. There is no finding of urolithiasis or hydronephrosis. There is no evidence of bowel obstruction. There is moderate stool within the colon without focal bowel thickening. The appendix is normal. There is moderate ascites within the low pelvis. This is slightly increased from the prior exam. The bladder is nondistended and slightly thick walled. The uterus appears normal. Prominent central mesenteric and retroperitoneal lymph nodes appear similar to the prior exam. Note is made of prior iliac and femoral arterial stents. There is no acute osseous abnormality. There is mild body wall edema. IMPRESSION: 1. Small right effusion, mild septal thickening, abdominal ascites and body wall edema suggests 3rd spacing. 2. Low density of the blood within the ventricles suggests the possibility of anemia. 3. No finding of bowel obstruction. There is moderate stool within the colon. The appendix is normal. 4. No biliary dilatation or hydronephrosis. 5. Stable mildly prominent mesenteric and retroperitoneal lymph nodes as well as small lymph nodes throughout the mediastinum. Reviewed: Reviewed by Me Departure Communication (Admissions) 2122--SPOKE WITH DR. MA, HOSPITALIST FOR [facility]. SHE IS VERY FAMILIAR WITH PT. SHE IS AGREEABLE TO SENDING PT BACK TO [facility], AND DR. SMITH AND NEPHROLOGY CAN FOLLOW PT OUTPATIENT, PT NEEDS DIALYSIS IN THE MORNING, AND THERE IS NO EMS TRANSPORT AVAILABLE TONIGHT OR IN THE NEAR FUTURE. Impression Primary Impression: Constipation Additional Impressions: Nausea & vomiting Upper abdominal pain ESRD on dialysis IDDM (insulin dependent diabetes mellitus) Fever Disposition: SNF Condition: Improved Departure-Patient Inst. Decision time for Depature: 21:34 Referrals: JOSE SMITH MD (PCP/Family) Primary Care Physician Patient Instructions: Abdominal Pain, Adult ED, Constipation, Adult ED, Nausea and Vomiting, Adult ED Add. Discharge Instructions: CLEAR LIQUIDS--WATER, BROTH, JELLO, GATORADE NO FOOD UNTIL YOU HAVE HAD A BM YOU MAY HAVE LACTULOSE EVERY 8 HOURS NEEDED FOR BM TYLENOL NEEDED FOR PAIN OR FEVER CONTINUE WITH DIALYSIS TOMORROW PLANNED. RETURN TO ER IF SYMPTOMS WORSEN Scripts Cefdinir (Cefdinir) 300 Mg Capsule 300 MG PO BID, #20 CAP Prov: TIFFANIEJUANAA K DO 01/20/23 Ondansetron (Ondansetron Odt) 8 Mg Tab.rapdis 8 MG PO Q6H, #10 TAB Prov: TIFFANIEJUANAA K DO 01/20/23 Promethazine HCl (Promethazine Suppository) 25 Mg Supp.rect 25 MG RC Q6 for Nausea/Vomiting, #10 SUPP.RECT Prov: TIFFANIEOPAL K DO 01/20/23 Na Phos,M-B/Na Phos,Di-Ba (Fleet Enema Extra) 19 Gram-7 Gram/197 Ml Enema 230 ML RC PRN, #5 EA Prov: TIFFANIEOPAL K DO 01/20/23 Polyethylene Glycol 3350 (Miralax) 17 Gram Powd.pack 17 GM PO UD, #1 EACH MIX DIRECTED, THEN TAKE 1 DOSE EVERY 1-2 HOURS UNTIL YOU HAVE A BM, THEN USE ONCE A DAY EVERY DAY Prov: TIFFANIEOPAL K DO 01/20/23 TIFFANIEOPAL K DO January 20, 2023 20:03
[2023-01-20 20:19] LABS: BASOPHILS # (AUTO) 0.1 10^3/uL (0.0-0.1); BASOPHILS % (AUTO) 1 % (0-10); EOSINOPHILS # (AUTO) 0.1 10^3/uL (0.0-0.3); EOSINOPHILS % (AUTO) 1 % (0-10); HEMATOCRIT 30 % (35-52); HEMOGLOBIN 9.5 g/dL (11.5-16.0); LYMPHOCYTES # (AUTO) 1.5 10^3/uL (1.0-4.0); LYMPHOCYTES % (AUTO) 11 % (12-44); MEAN CORPUSCULAR HEMOGLOBIN 27 pg (25-34); MEAN CORPUSCULAR HGB CONC 32 g/dL (32-36); MEAN CORPUSCULAR VOLUME 85 fL (80-99); MEAN PLATELET VOLUME 11.7 fL (9.0-12.2); MONOCYTES # (AUTO) 0.8 10^3/uL (0.0-1.0); MONOCYTES % (AUTO) 6 % (0-12); NEUTROPHILS # (AUTO) 10.6 10^3/uL (1.8-7.8); NEUTROPHILS % (AUTO) 81 % (42-75); PLATELET COUNT 153 10^3/uL (130-400); WHITE BLOOD COUNT 13.1 10^3/uL (4.3-11.0)
[2023-01-20 20:30] LABS: INR 1.4 (0.8-1.4); PROTHROMBIN TIME PATIENT 17.7 SEC (12.2-14.7)
[2023-01-20] MEDS ORDERED: fentaNYL INJ 100 MCG/2 ML AMP IVP ONE (20:30)
[2023-01-20 20:41] LABS: BILIRUBIN,URINE NEGATIVE (NEGATIVE); CLARITY,URINE CLEAR; COLOR,URINE YELLOW; GLUCOSE, URINE (UA) 1+ (NEGATIVE); KETONES,URINE NEGATIVE (NEGATIVE); LEUKOCYTE ESTERASE ,URINE NEGATIVE (NEGATIVE); NITRITE,URINE NEGATIVE (NEGATIVE); PROTEIN,URINE 3+ (NEGATIVE)
[2023-01-20 20:42] LABS: BILIRUBIN,TOTAL 0.6 MG/DL (0.1-1.0); CALCIUM 9.1 MG/DL (8.5-10.1); CREATININE SERUM 6.76 MG/DL (0.60-1.30); POTASSIUM 4.6 MMOL/L (3.6-5.0); TOTAL PROTEIN 7.6 GM/DL (6.4-8.2)
--- NOTE | 2023-01-20 20:57 | Diagnostic Imaging Report ---
INDICATION: Fever, vomiting and shortness of breath. COMPARISON: 08/15/2022. FINDINGS: The patient is status post a prior sternotomy. Right-sided Port-A-Cath is also present. There is a small right effusion. There is no evidence to suggest pneumonia. There is no pneumothorax. Pulmonary vascularity appears appropriate. IMPRESSION: Previous sternotomy changes as well as prior cardiac bypass and a coronary stent. There is no current evidence of edema. There appears to be a small right effusion. There is no pneumothorax or finding of pneumonia. Dictated by: Dictated on workstation # [id number]
[2023-01-20 20:58] LABS: BACTERIA,URINE TRACE /HPF; WBC,URINE RARE /HPF
--- NOTE | 2023-01-20 21:10 | Diagnostic Imaging Report ---
PROCEDURE: CT chest, abdomen and pelvis without contrast. TECHNIQUE: Multiple contiguous axial images were obtained through the chest, abdomen, and pelvis without the use of intravenous contrast. Auto Exposure Controls were utilized during the CT exam to meet ALARA standards for radiation dose reduction. INDICATION: Nausea and vomiting. Pain. Constipation. COMPARISON: CT abdomen and pelvis 08/15/2022. FINDINGS: The lungs demonstrate a small right-sided effusion. There is no pneumonia. There is a calcified granuloma within the right lower lobe. There is no very subtle prominence of the basilar septal markings which may relate to mild edema or volume overload. The patient is status post sternotomy. There has been previous bypass grafting. There is stable enlargement of the cardiac silhouette. The density of the blood within the ventricles appears low suggesting anemia. There are multiple small mediastinal lymph nodes. Hepatomegaly is present. There is trace free fluid along the right hepatic margins. There is no radiodense stone or evidence of biliary dilatation. The pancreas is normal. The spleen is stable in size. There is no adrenal mass. There is no finding of urolithiasis or hydronephrosis. There is no evidence of bowel obstruction. There is moderate stool within the colon without focal bowel thickening. The appendix is normal. There is moderate ascites within the low pelvis. This is slightly increased from the prior exam. The bladder is nondistended and slightly thick walled. The uterus appears normal. Prominent central mesenteric and retroperitoneal lymph nodes appear similar to the prior exam. Note is made of prior iliac and femoral arterial stents. There is no acute osseous abnormality. There is mild body wall edema. IMPRESSION: 1. Small right effusion, mild septal thickening, abdominal ascites and body wall edema suggests 3rd spacing. 2. Low density of the blood within the ventricles suggests the possibility of anemia. 3. No finding of bowel obstruction. There is moderate stool within the colon. The appendix is normal. 4. No biliary dilatation or hydronephrosis. 5. Stable mildly prominent mesenteric and retroperitoneal lymph nodes as well as small lymph nodes throughout the mediastinum. Dictated by: Dictated on workstation # [id number]
[2023-01-20 21:26] LABS: ERYTHROCYTE SEDIMENTATION RATE 42 MM/HR (0-20)
[2023-01-20] MEDS ORDERED: NA P230E RC (21:38)
[2023-01-20] MEDS ORDERED: PROM25SU44 RC (21:38)
[2023-01-20] MEDS ORDERED: POLY17PO6 PO (21:38)
[2023-01-20] MEDS ORDERED: ONDA8TAB13 PO (21:38)
[2023-01-20] MEDS ORDERED: CEFD300C3 PO (22:11)
[2023-01-20 22:12] VITALS: BP 109/32
== END 2023-01-20 22:12 ==
LOC: EDUNIT# 19:51 → ER 19:52
DX: K59.00 Constipation, unspecified (principal); I12.0 Hypertensive chronic kidney disease with stage 5 chronic kidney disease or end stage renal disease; E11.22 Type 2 diabetes mellitus with diabetic chronic kidney disease; N18.6 End stage renal disease; R50.9 Fever, unspecified; R16.0 Hepatomegaly, not elsewhere classified; E66.9 Obesity, unspecified; Z68.32 Body mass index [BMI] 32.0-32.9, adult; Z99.2 Dependence on renal dialysis; Z79.4 Long term (current) use of insulin; Z87.891 Personal history of nicotine dependence; Z98.890 Other specified postprocedural states; Z20.822 Contact with and (suspected) exposure to COVID-19
CPT/HCPCS: 36415; 51701; 71045; 71250; 74176; 80053; 81000; 83605; 85025; 85610; 85652; 85730; 86141; 87040; 87088; 87636; 93041

== ENCOUNTER 2023-01-28 15:46 | Emergency (ER) | payer MEDICAID ==
[~2023-01-28] VITALS: Ht 160 cm; Wt 81.8 kg
[~2023-01-28 15:46] MED LIST changes: +CEFD300C3 PO; +NA P230E RC; +ONDA8TAB13 PO; +POLY17PO6 PO; +PROM25SU44 RC
[2023-01-28] MEDS ORDERED: fentaNYL INJ 100 MCG/2 ML AMP IVP ONE ×2 (16:00→23:15)
--- NOTE | 2023-01-28 16:00 | ED Chest Pain ---
General Stated Complaint: CHEST PAIN Source: patient, EMS, old records Exam Limitations: no limitations (JINNY ELDER MD) History of Present Illness Date Seen by Provider: January 28, 2023 Time Seen by Provider: 15:48 Initial Comments 38yoF with PMH of ESRD on HD, CAD, DM, HTN coming in via EMS from the dialysis center due to chest pain. The chest pain started after the dialysis, and she states she received a full dialysis today. She states in the past this has been a heart attack or from when she was fluid overloaded. The pain is severe, constant, left side of her chest radiating down her left arm. Endorses she has had a prior blood clot in her legs, and states she is on blood thinners and has not missed any doses. Denies any shortness of breath, cough, fever, or any other concerns. MS gave her full dose aspirin and placed 1 inch of Nitropaste on her. They stated her blood pressure was 150/80. (JINNY ELDER MD) Allergies and Home Medications Allergies Coded Allergies: codeine (Verified Allergy, Unknown, has received Lortab and Hydromorphone in the past, 04/22/20) morphine (Verified Allergy, Unknown, 06/13/22) GERNALIZED SWELLING nalbuphine (Verified Allergy, Unknown, 08/31/19) tramadol (Verified Allergy, Unknown, 08/31/19) Uncoded Allergies: CONTRAST (Allergy, Unknown, 08/31/19) Patient Home Medication List Home Medication List Reviewed: Yes (JINNY ELDER MD) Albuterol Sulfate (Proventil Hfa) 6.7 Gm Hfa.aer.ad, 2-4 PUFF INH Q4H PRN for WHEEZING Prescribed by: Maximilian Fulton on 08/16/22 1344 Amoxicillin/Potassium Clav (Amox Tr-K Clv 250-125 mg Tab) 250 Mg-125 Mg Tablet, 1 EACH PO BID Prescribed by: Maximilian Fulton on 08/16/22 1344 Aspirin (Aspirin EC) 81 Mg Tablet.dr, 81 MG PO DAILY, (Reported) Entered as Reported by: EMRE JAIMES on 10/24/20 1013 Azithromycin (Azithromycin) 250 Mg Tablet, 250 MG PO DAILY Prescribed by: JINNY ELDER on 07/05/22 0950 Azithromycin (Azithromycin) 250 Mg Tablet, 250 MG PO UD Prescribed by: Maximilian Fulton on 08/16/22 1344 Bisacodyl (Bisacodyl) 10 Mg Supp.rect, 10 MG RC DAILY PRN for CONSTIPATION-4TH LINE, (Reported) Entered as Reported by: EMRE JAIMES on 10/24/20 1020 Carvedilol (Carvedilol) 6.25 Mg Tablet, 6.25 MG PO BID, (Reported) Entered as Reported by: EMRE JAIMES on 10/24/20 1013 Cefdinir (Cefdinir) 300 Mg Capsule, 300 MG PO BID Prescribed by: OPAL MORENO on 01/20/23 2211 Cholecalciferol (Vitamin D3) (Vitamin D3) 125 Mcg Tablet, 125 MCG PO MON, ( Reported) Entered as Reported by: EMRE JAIMES on 10/24/20 1013 Citalopram Hydrobromide (Citalopram HBr) 20 Mg Tablet, 20 MG PO DAILY, (Reported) Entered as Reported by: EMRE JAIMES on 10/24/20 1013 Clopidogrel Bisulfate (Plavix) 75 Mg Tablet, 75 MG PO DAILY, (Reported) Entered as Reported by: EMRE JAIMES on 10/24/20 1013 Cyanocobalamin (Vitamin B-12) (Vitamin B-12) 1,000 Mcg Tablet, 1,000 MCG PO DAILY, (Reported) Entered as Reported by: EMRE JAIMES on 10/24/20 1013 Diphenhydramine HCl (Diphenhydramine HCl) 25 Mg Capsule, 25 MG PO HS, (Reported) Entered as Reported by: EMRE JAIMES on 10/24/20 1013 Folic Acid (Folic Acid) 0.8 Mg Capsule, 0.8 MG PO DAILY, (Reported) Entered as Reported by: EMRE JAIMES on 10/24/20 1013 Hydrocodone/Acetaminophen (Hydrocodone-Acetamin 7.5-325) 1 Each Tablet, 1 EA PO HS, (Reported) Entered as Reported by: EMRE JAIMES on 10/24/20 1013 Hydrocodone/Acetaminophen (Hydrocodone-Acetamin 7.5-325) 1 Each Tablet, 1 EACH PO BID PRN for PAIN-MODERATE (5-7), (Reported) Entered as Reported by: EMRE JAIMES on 10/24/20 1020 Insulin Aspart (Novolog) 100 Unit/1 Ml Susp, 10 UNIT SQ AC, (Reported) Entered as Reported by: EMRE JAIMES on 10/24/20 1020 Insulin Detemir (Levemir Flextouch) 100 Unit/1 Ml Insuln.pen, 10 UNIT SQ BID, (Reported) Entered as Reported by: EMRE JAIMES on 10/24/20 1020 Lactulose (Lactulose) 10 Gm/15 Ml Solution, 15 ML PO DAILY, (Reported) Entered as Reported by: EMRE JAIMES on 10/24/20 1013 Loperamide HCl (Imodium A-D) 2 Mg Tablet, 2-4 MG PO PRN PRN for LOOSE STOOLS, (Reported) Entered as Reported by: EMRE JAIMES on 10/24/20 101 Melatonin (Melatonin) 3 Mg Tablet, 3 MG PO HS, (Reported) Entered as Reported by: EMRE JAIMES on 10/24/201012 Metolazone (Metolazone) 10 Mg Tablet, 10 MG PO DAILY, (Reported) Entered as Reported by: EMRE JAIMES on 10/24/201012 Na Phos,M-B/Na Phos,Di-Ba (Fleet Enema Extra) 19 Gram-7 Gram/197 Ml Enema, 230 ML RC PRN Prescribed by: OPAL MORENO on 01/20/232137 Ondansetron (Ondansetron Odt) 8 Mg Tab.rapdis, 8 MG PO Q6H Prescribed by: OPAL MORENO on 01/20/232137 Ondansetron HCl (Ondansetron HCl) 4 Mg Tablet, 4 MG PO Q6H PRN for NAUSEA/VOMITING-1ST LINE, (Reported) Entered as Reported by: EMRE JAIMES on 10/24/201012 Pantoprazole Sodium (Pantoprazole Sodium) 40 Mg Tablet.dr, 40 MG PO DAILY, (Reported) Entered as Reported by: EMRE JAIMES on 10/24/201012 Polyethylene Glycol 3350 (Miralax) 17 Gram Powd.pack, 17 GM PO UD Prescribed by: OPAL MORENO on 01/20/232137 Pregabalin (Pregabalin) 25 Mg Capsule, 25 MG PO TID, (Reported) Entered as Reported by: EMRE JAIMES on 10/24/20 1013 Promethazine HCl (Promethazine Tablet) 25 Mg Tablet, 25 MG PO Q8H PRN for NAUSEA/VOMITING-2ND LINE, (Reported) Entered as Reported by: EMRE JAIMES on 10/24/20 1020 Promethazine HCl (Promethazine Suppository) 25 Mg Supp.rect, 25 MG RC Q6 Prescribed by: OPAL MORENO on 01/20/23 2138 Sevelamer Carbonate (Sevelamer Carbonate) 800 Mg Tablet, 1,600 MG PO TID, (Reported) Entered as Reported by: EMRE JAIMES on 10/24/20 1013 Torsemide (Torsemide) 100 Mg Tablet, 100 MG PO DAILY, (Reported) Entered as Reported by: EMRE JAIMES on 10/24/20 1013 Zinc (Zinc) 50 Mg Tablet, 50 MG PO DAILY, (Reported) Entered as Reported by: EMRE JAIMES on 10/24/20 1013 Review of Systems Review of Systems Constitutional: No fever EENTM: No Symptoms Reported Respiratory: No Symptoms Reported Cardiovascular: See HPI Gastrointestinal: No Symptoms Reported Genitourinary: No Symptoms Reported Musculoskeletal: no symptoms reported Skin: no symptoms reported (JINNY ELDER MD) Past Rnptdte-Nopdhb-Vzqxra Hx Patient Social History Substance use?: No (JINNY ELDER MD) Immunizations Up To Date Tetanus Booster (TDap): Unknown PED Vaccines UTD: Yes First/Initial COVID19 Vaccinat: SPRING 2020 Second COVID19 Vaccination Bennie: SPRING 2020 Third COVID19 Vaccination Date: SPRING 2020 (JINNY ELDER MD) Seasonal Allergies Seasonal Allergies: No (JINNY ELDER MD) Past Medical History Surgery/Hospitalization HX: DIALYSIS PT, IDDM, KIDNEY FAILURE, PORT, R AKA, L BKA, ABD SURG, cad, obesity, gastroparesis, neuropathy CARDIAC CATHS, CABG AND CARDIAC STENTS. 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 CELL History: Hysterectomy, 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 Genitourinary: Yes (CKD; ESRD ON DIALYSIS -W-) Bladder Infection, Renal Failure, Dialysis Gastrointestinal: Yes (CHRONIC NAUSEA/VOMITING) Irritable Bowel Musculoskeletal: Yes Amputee, Spasms Endocrine: Yes (OBESITY) Diabetes, Insulin dep HEENT: No Cancer: No Psychosocial: Yes Anxiety Integumentary: Yes (CHRONIC FOOT WOUNDS) Blood Disorders: Yes (ANEMIA) Adverse Reaction/Blood Tranf: No (JINNY ELDER MD) Family Medical History No Pertinent Family Hx SOCIAL HISTORY: -ETOH--OCCASIONAL USE, NO RECENT USE, PER PT 07/20/20 -DRUGS-+THC USE ( ALSO HX OF OPIATES AND BENZODIAZEPINE ABUSE) -SMOKED 1 PPD, QUIT 03/2020 PAST SURGICAL HISTORY: -CARDIAC CATHS--MULTIPLE STENTS PLUS ANGIOPLASTIES AT MULTIPLE FACILITIES--LAST CATH HERE 08/31/[address] GALE-- RCA ANGIOPLASTY -MULTIPLE CARDIAC AND PERIPHERAL INTERVENTIONS AT MULTIPLE FACILITIES--PERIPHERAL ANGIOGRAM AT BALL GROUND 08/21/2019--ANGIOPLASTY OF DEEP FEMORAL ARTERY, STENTS X 3 TO EXTERNAL ILIAC, COMMON FEMORAL AND SUPERFICIAL FEMORAL ARTERY -S/P 3 VESSEL CABG -RIGHT TOES AND PARTIAL FOOT AMPUTATIONS (MULTIPLE SURGERIES) , EVENTUALLY FOLLOWED BY RIGHT ABOVE THE KNEE AMPUTATION 03/27/20- AT BALL GROUND -LEFT BELOW THE KNEE AMPUTATION - -HYSTERECTOMY -BILATERAL TUBAL LIGATION -TONSILLECTOMY -PORT RIGHT CHEST -RIGHT ARM DIALYSIS GRAFT A-V FISTULA ADDITIONAL PAST MEDICAL HISTORY: -VENTRICULAR ARRHYTHMIA DURING DOBUTAMINE TEST -NSTEMI 07/2019 LONG HISTORY OF NON-COMPLIANCE HX OF HOMELESSNESS UNTIL ADMITTED TO DETENTION AFTER LAST HOSPITALIZATION HX OF NARCOTIC AND BENZODIAZEPINE ABUSE (JINNY ELDER MD) Physical Exam Vital Signs Vital Signs - First Documented (MARGARITA HUNT MD) Vital Signs Capillary Refill : (JINNY ELDER MD) Height, Weight, BMI Height: '" Weight: lbs. oz. kg; 32.00 BMI Method: General Appearance: No Apparent Distress, WD/WN HEENT: PERRL/EOMI, Normal ENT Inspection, Pharynx Normal Neck: Full Range of Motion, Normal Inspection, Non Tender, Supple Respiratory: Chest Non Tender, Lungs Clear, Normal Breath Sounds, No Accessory Muscle Use, No Respiratory Distress Cardiovascular: Regular Rate, Rhythm, No Edema, Normal Peripheral Pulses Gastrointestinal: Normal Bowel Sounds, Non Tender, Soft; No Distended, No Guarding Extremity: Other (Bilateral lower extremity amputations) Neurologic/Psychiatric: Alert, Oriented x3, No Motor/Sensory Deficits, Normal Mood/Affect Skin: Normal Color, Warm/Dry (JINNY ELDER MD) Progress/Results/Core Measures Results/Orders Lab Results Laboratory Tests Test 01/28/23 16:15 01/28/23 20:49 Range/Units White Blood Count 11.4 H 4.3-11.0 10^3/uL Red Blood Count 3.60 L 3.80-5.11 10^6/uL Hemoglobin 10.0 L 11.5-16.0 g/dL Hematocrit 31 L 35-52 % Mean Corpuscular Volume 87 80-99 fL Mean Corpuscular Hemoglobin 28 25-34 pg Mean Corpuscular Hemoglobin Concent 32 32-36 g/dL Red Cell Distribution Width 18.7 H 10.0-14.5 % Platelet Count 196 130-400 10^3/uL Mean Platelet Volume 10.9 9.0-12.2 fL Immature Granulocyte % (Auto) 2 % Neutrophils (%) (Auto) 81 H 42-75 % Lymphocytes (%) (Auto) 10 L 12-44 % Monocytes (%) (Auto) 6 0-12 % Eosinophils (%) (Auto) 1 0-10 % Basophils (%) (Auto) 1 0-10 % Neutrophils # (Auto) 9.3 H 1.8-7.8 10^3/uL Lymphocytes # (Auto) 1.2 1.0-4.0 10^3/uL Monocytes # (Auto) 0.7 0.0-1.0 10^3/uL Eosinophils # (Auto) 0.1 0.0-0.3 10^3/uL Basophils # (Auto) 0.1 0.0-0.1 10^3/uL Immature Granulocyte # (Auto) 0.2 H 0.0-0.1 10^3/uL Prothrombin Time 17.5 H 12.2-14.7 SEC INR Comment 1.4 0.8-1.4 Activated Partial Thromboplast Time 35 24-35 SEC Sodium Level 135 135-145 MMOL/L Potassium Level 3.4 L 3.6-5.0 MMOL/L Chloride Level 92 L 98-107 MMOL/L Carbon Dioxide Level 27 21-32 MMOL/L Anion Gap 16 H 5-14 MMOL/L Blood Urea Nitrogen 23 H 7-18 MG/DL Creatinine 3.71 H 0.60-1.30 MG/DL Estimat Glomerular Filtration Rate 15 BUN/Creatinine Ratio 6 Glucose Level 332 H 70-105 MG/DL Calcium Level 9.1 8.5-10.1 MG/DL Corrected Calcium 9.1 8.5-10.1 MG/DL Magnesium Level 2.0 1.6-2.4 MG/DL Total Bilirubin 0.6 0.1-1.0 MG/DL Aspartate Amino Transf (AST/SGOT) 17 5-34 U/L Alanine Aminotransferase (ALT/SGPT) 11 0-55 U/L Alkaline Phosphatase 184 H 40-136 U/L Troponin I 0.082 H 0.836 *H <0.028 NG/ML B-Type Natriuretic Peptide 631.8 H <100.0 PG/ML Total Protein 7.6 6.4-8.2 GM/DL Albumin 4.0 3.2-4.5 GM/DL Lipase 51 8-78 U/L (MARGARITA HUNT MD) My Orders Orders - MARGARITA HUNT MD Troponin I [place] (01/28/23 20:15) Hydromorphone Injection (Dilaudid Inject (01/28/23 20:00) Diphenhydramine Tablet (Benadryl Tablet) (01/28/23 21:15) Fentanyl Inj (Sublimaze Injection) (01/28/23 23:15) (MARGARITA HUNT MD) Medications Given in ED Current Medications Medications Dose Ordered Sig/Mary Jo Route Start Time Stop Time Status Last Admin Dose Admin Diphenhydramine HCl 25 mg ONCE ONCE PO 01/28/23 21:15 01/28/23 21:16 DC 01/28/23 21:42 25 MG Fentanyl Citrate 50 mcg ONCE ONCE IVP 01/28/23 16:00 01/28/23 16:01 DC 01/28/23 16:30 50 MCG Fentanyl Citrate 50 mcg ONCE ONCE IVP 01/28/23 23:15 01/28/23 23:16 DC 01/28/23 23:21 50 MCG Hydromorphone HCl 0.5 mg ONCE ONCE IV 01/28/23 17:30 01/28/23 17:31 DC 01/28/23 17:42 0.5 MG Hydromorphone HCl 0.5 mg ONCE ONCE IV 01/28/23 20:00 01/28/23 20:01 DC 01/28/23 20:01 0.5 MG (MARGARITA HUNT MD) Vital Signs/I&O 01/28/23 01/28/23 15:46 15:46 Temp 37.1 Pulse 98 Resp 18 B/P (MAP) 161/93 (115) Pulse Ox 98 98 O2 Delivery Nasal Cannula Nasal Cannula O2 Flow Rate 2.00 2.00 (MARGARITA HUNT MD) Progress Progress Note : Progress Note 38-year-old female with above history coming in due to chest pain. ABCs were intact and vitals were stable on presentation although she is mildly hypertensive. She has Nitropaste on to help with that. Her port was accessed and she was given fentanyl for pain. Basic labs including cardiac biomarkers obtained. She does have an elevated troponin. She has already received full dose aspirin, and she is on Eliquis daily. She also has taken her daily Plavix already. Chest x-ray ordered and interpreted by me showing no obvious pneumonia or pneumothorax. Pain improved after fentanyl but is still present. Her EKG which was ordered and interpreted by me shows ischemic changes in the lateral leads with ST depressions which is slightly worse from prior. She did have a T wave inversions inferiorly and mild depressions previously, but it is more pronounced today. Repeat EKG with no changes from the first. I contacted [facility] for transfer given she may need repeat dialysis and cardiac catheterization as well. Dr. Estevez accepted the patient for further evaluation and management. We are awaiting a bed assignment and then are needing to find transport since [facility] is not transporting tonight. (JINNY ELDER MD) Progress Note : Time: 23:11 Progress Note I assumed care of this patient from Dr. Elder at shift change. She is stable at this time. She has required repeat doses of Dilaudid and fentanyl to control pain. Pain is less intense at this time. Blood pressure has remained stable on her Nitropaste. Transfer to [facility] has been delayed due to lack of available transport services. [facility] out of [place] has graciously agreed to transport the patient. Repeat 4-hour troponin increased to 0.836. (MARGARITA HUNT MD) Initial ECG Impression Date: January 28, 2023 Initial ECG Impression Time: 16:02 Initial ECG Rate: 97 Initial ECG Rhythm: Normal Sinus Comment Narrow QRS, borderline right axis deviation, T wave inversions in the inferior leads, ST depressions in the lateral leads EKG : EKG Time: 16:39 Rate: 101 Rhythm: S.Tach Comment Appears similar to most recent EKG (JINNY ELDER MD) Diagnostic Imaging Diagonstic Imaging: Xray (chest) Comments NAME: ADWOA [facility]UM[facility] REC#: [id number] PT STATUS: REG ER : 1985 PHYSICIAN: JINNY ELDER MD ADMIT DATE: 01/28/23/ER Signed Date of Exam:01/28/23 CHEST 1 VIEW, AP/PA ONLY INDICATION: Chest pain. COMPARISON: 01/20/2023. FINDINGS: Tunneled catheter tip at the lower SVC. Sternal wires are midline. Upper limits heart size is noted, stable or decreased in size from prior. Given decreased penetration when compared to the prior, the lungs are felt clear. No michael edema or focal infiltrate. No effusion or pneumothorax. IMPRESSION: No acute appearing abnormality. Dictated by: Dictated on workstation # [id number] Dict: 01/28/23 1647 Trans: 01/28/23 170 [id number] Interpreted by: CHRISTI MUÑOZ Electronically signed by: CHRISTI MUÑOZ 01/28/23 5714 (JINNY ELDER MD) Departure Impression Primary Impression: NSTEMI (non-ST elevated myocardial infarction) Additional Impressions: Chest pain Qualified Codes: R07.2 - Precordial pain ESRD (end stage renal disease) Disposition: 02 XFER SHT-TRM HOSP Condition: Critical Admissions Decision to Admit/Date: January 28, 2023 Time/Decision to Admit Time: 17:00 (JINNY ELDER MD) Transfer Transfer Reason: Exceeds level of care (needs nephrology and potentially emergent dialysis) Transfer Facility: [facility] accepted via Dr. Estevez Method of Transfer: EMS (JINNY ELDER MD) Transfer Time: 23:40 (MARGARITA HUNT MD) Departure-Patient Inst. Referrals: [facility] (PCP/Family) Primary Care Physician JINNY ELDER MD January 28, 2023 16:00 MARGARITA HUNT MD January 28, 2023 23:15
[2023-01-28 16:31] LABS: BASOPHILS # (AUTO) 0.1 10^3/uL (0.0-0.1); BASOPHILS % (AUTO) 1 % (0-10); EOSINOPHILS # (AUTO) 0.1 10^3/uL (0.0-0.3); EOSINOPHILS % (AUTO) 1 % (0-10); HEMATOCRIT 31 % (35-52); LYMPHOCYTES # (AUTO) 1.2 10^3/uL (1.0-4.0); LYMPHOCYTES % (AUTO) 10 % (12-44); MEAN CORPUSCULAR HEMOGLOBIN 28 pg (25-34); MEAN CORPUSCULAR HGB CONC 32 g/dL (32-36); MEAN CORPUSCULAR VOLUME 87 fL (80-99); MEAN PLATELET VOLUME 10.9 fL (9.0-12.2); MONOCYTES # (AUTO) 0.7 10^3/uL (0.0-1.0); MONOCYTES % (AUTO) 6 % (0-12); NEUTROPHILS # (AUTO) 9.3 10^3/uL (1.8-7.8); NEUTROPHILS % (AUTO) 81 % (42-75); PLATELET COUNT 196 10^3/uL (130-400); WHITE BLOOD COUNT 11.4 10^3/uL (4.3-11.0)
[2023-01-28 16:41] LABS: POTASSIUM 3.4 MMOL/L (3.6-5.0)
[2023-01-28 16:42] LABS: CALCIUM 9.1 MG/DL (8.5-10.1)
[2023-01-28 16:43] LABS: INR 1.4 (0.8-1.4); PROTHROMBIN TIME PATIENT 17.5 SEC (12.2-14.7)
[2023-01-28 16:44] LABS: TOTAL PROTEIN 7.6 GM/DL (6.4-8.2)
[2023-01-28 16:45] LABS: BILIRUBIN,TOTAL 0.6 MG/DL (0.1-1.0)
[2023-01-28 16:47] LABS: CREATININE SERUM 3.71 MG/DL (0.60-1.30)
--- NOTE | 2023-01-28 16:51 | Diagnostic Imaging Report ---
INDICATION: Chest pain. COMPARISON: 01/20/2023. FINDINGS: Tunneled catheter tip at the lower SVC. Sternal wires are midline. Upper limits heart size is noted, stable or decreased in size from prior. Given decreased penetration when compared to the prior, the lungs are felt clear. No michael edema or focal infiltrate. No effusion or pneumothorax. IMPRESSION: No acute appearing abnormality. Dictated by: Dictated on workstation # [id number]
[2023-01-28] MEDS ORDERED: HYDROmorphone 2 MG/ML VIAL (DILAUDID) IV ONE ×2 (17:30→20:00)
[2023-01-28] MEDS ORDERED: APIXABAN 5 MG (ELIQUIS) TABLET PO SCH (21:00)
[2023-01-28] MEDS ORDERED: diphenhydrAMINE 25 MG TAB (BENADRYL) PO ONE (21:15)
[2023-01-28 23:40] VITALS: BP 157/89
== END 2023-01-28 23:40 | disposition short-term general hospital (02) ==
LOC: EDUNIT# 15:46 → ER 15:47
DX: I21.4 Non-ST elevation (NSTEMI) myocardial infarction (principal); I13.2 Hypertensive heart and chronic kidney disease with heart failure and with stage 5 chronic kidney disease, or end stage renal disease; E11.22 Type 2 diabetes mellitus with diabetic chronic kidney disease; N18.6 End stage renal disease; I50.9 Heart failure, unspecified; E11.40 Type 2 diabetes mellitus with diabetic neuropathy, unspecified; E66.9 Obesity, unspecified; Z99.2 Dependence on renal dialysis; Z79.4 Long term (current) use of insulin; Z87.891 Personal history of nicotine dependence; Z79.02 Long term (current) use of antithrombotics/antiplatelets; Z68.32 Body mass index [BMI] 32.0-32.9, adult
CPT/HCPCS: 36415; 71045; 80053; 83690; 83735; 83880; 84484; 85025; 85610; 85730; 93005; 93041

== ENCOUNTER 2023-02-20 15:57 | Emergency (ER) | payer MEDICAID ==
--- NOTE | 2023-02-20 16:08 | ED General ---
General Stated Complaint: NOT FEELING WELL Source of Information: Patient Exam Limitations: No Limitations (NOAH MADDOX MD) History of Present Illness Date Seen by Provider: Feb 20, 2023 Time Seen by Provider: 16:00 Initial Comments Patient is a 38-year-old female who presents to the emergency room from a local [facility] chief complaint of generally not feeling well, congestion and mild cough. She presents with a temperature of 103. The nurse practitioner at the [facility] at which the patient resides had stated that the patient did not go to dialysis today however she did she was there for 3-1/2 hours and they took off 5 L of fluid. Patient states that she has not made any urine today normally she goes twice a day. She denies sore throat, runny nose. She is a little congested. She does vape, does not smoke cigarettes. She is a diabetic. She is a bilateral lower extremity amputee. She chronically wears oxygen. She denies diarrhea. She has had some recent abdominal pain but feels better after dialysis. She is COVID vaccinated. Timing/Duration: 12 Hours Severity: Moderate Associated Systoms: Cough, Malaise (NOAH MADDOX MD) Allergies and Home Medications Allergies Coded Allergies: codeine (Verified Allergy, Unknown, has received Lortab and Hydromorphone in the past, 04/22/20) morphine (Verified Allergy, Unknown, 06/13/22) GERNALIZED SWELLING nalbuphine (Verified Allergy, Unknown, 08/31/19) tramadol (Verified Allergy, Unknown, 08/31/19) Uncoded Allergies: CONTRAST (Allergy, Unknown, 08/31/19) Patient Home Medication List Home Medication List Reviewed: Yes (NOAH MADDOX MD) Albuterol Sulfate (Proventil Hfa) 6.7 Gm Hfa.aer.ad, 2-4 PUFF INH Q4H PRN for WHEEZING Prescribed by: Maximilian Fulton on 08/16/22 1344 Amoxicillin/Potassium Clav (Amox Tr-K Clv 250-125 mg Tab) 250 Mg-125 Mg Tablet, 1 EACH PO BID Prescribed by: Maximilian Fulton on 08/16/22 1344 Aspirin (Aspirin EC) 81 Mg Tablet.dr, 81 MG PO DAILY, (Reported) Entered as Reported by: EMRE JAIMES on 10/24/20 1013 Azithromycin (Azithromycin) 250 Mg Tablet, 250 MG PO DAILY Prescribed by: JINNY ELDER on 07/05/22 0950 Azithromycin (Azithromycin) 250 Mg Tablet, 250 MG PO UD Prescribed by: Maximilian Fulton on 08/16/22 1344 Bisacodyl (Bisacodyl) 10 Mg Supp.rect, 10 MG RC DAILY PRN for CONSTIPATION-4TH LINE, (Reported) Entered as Reported by: EMRE JAIMES on 10/24/20 1020 Carvedilol (Carvedilol) 6.25 Mg Tablet, 6.25 MG PO BID, (Reported) Entered as Reported by: EMRE JAIMES on 10/24/20 1013 Cefdinir (Cefdinir) 300 Mg Capsule, 300 MG PO BID Prescribed by: OPAL MORENO on 01/20/23 2211 Cefdinir (Cefdinir) 300 Mg Capsule, 300 MG PO Q48H Prescribed by: NOAH MADDOX on 02/20/23 1804 Cholecalciferol (Vitamin D3) (Vitamin D3) 125 Mcg Tablet, 125 MCG PO MON, (Reported) Entered as Reported by: EMRE JAIMES on 10/24/20 1013 Citalopram Hydrobromide (Citalopram HBr) 20 Mg Tablet, 20 MG PO DAILY, (Reported) Entered as Reported by: EMRE JAIMES on 10/24/20 1013 Clopidogrel Bisulfate (Plavix) 75 Mg Tablet, 75 MG PO DAILY, (Reported) Entered as Reported by: EMRE JAIMES on 10/24/20 1013 Cyanocobalamin (Vitamin B-12) (Vitamin B-12) 1,000 Mcg Tablet, 1,000 MCG PO DAILY, (Reported) Entered as Reported by: EMRE JAIMES on 10/24/20 1013 Diphenhydramine HCl (Diphenhydramine HCl) 25 Mg Capsule, 25 MG PO HS, (Reported) Entered as Reported by: EMRE JAIMES on 10/24/20 1013 Folic Acid (Folic Acid) 0.8 Mg Capsule, 0.8 MG PO DAILY, (Reported) Entered as Reported by: EMRE JAIMES on 10/24/20 1013 Hydrocodone/Acetaminophen (Hydrocodone-Acetamin 7.5-325) 1 Each Tablet, 1 EA PO HS, (Reported) Entered as Reported by: EMRE JAIEMS on 10/24/20 1013 Hydrocodone/Acetaminophen (Hydrocodone-Acetamin 7.5-325) 1 Each Tablet, 1 EACH PO BID PRN for PAIN-MODERATE (5-7), (Reported) Entered as Reported by: EMRE JAIMES on 10/24/20 1020 Insulin Aspart (Novolog) 100 Unit/1 Ml Susp, 10 UNIT SQ AC, (Reported) Entered as Reported by: EMRE JAIMES on 10/24/20 1020 Insulin Detemir (Levemir Flextouch) 100 Unit/1 Ml Insuln.pen, 10 UNIT SQ BID, (Reported) Entered as Reported by: EMRE JAIMES on 10/24/20 1020 Lactulose (Lactulose) 10 Gm/15 Ml Solution, 15 ML PO DAILY, (Reported) Entered as Reported by: EMRE JAIMES on 10/24/20 1013 Loperamide HCl (Imodium A-D) 2 Mg Tablet, 2-4 MG PO PRN PRN for LOOSE STOOLS, (Reported) Entered as Reported by: EMRE JAIMES on 10/24/20 1013 Melatonin (Melatonin) 3 Mg Tablet, 3 MG PO HS, (Reported) Entered as Reported by: EMRE JAIMES on 10/24/20 1013 Metolazone (Metolazone) 10 Mg Tablet, 10 MG PO DAILY, (Reported) Entered as Reported by: EMRE JAIMES on 10/24/20 1013 Na Phos,M-B/Na Phos,Di-Ba (Fleet Enema Extra) 19 Gram-7 Gram/197 Ml Enema, 230 ML RC PRN Prescribed by: OPAL MORENO on 01/20/232137 Ondansetron (Ondansetron Odt) 8 Mg Tab.rapdis, 8 MG PO Q6H Prescribed by: OPAL MORENO on 01/20/232137 Ondansetron HCl (Ondansetron HCl) 4 Mg Tablet, 4 MG PO Q6H PRN for NAUSEA/VOMITING-1ST LINE, (Reported) Entered as Reported by: EMRE JAIMES on 10/24/201012 Pantoprazole Sodium (Pantoprazole Sodium) 40 Mg Tablet.dr, 40 MG PO DAILY, (Reported) Entered as Reported by: EMRE JAIMES on 10/24/20 1013 Polyethylene Glycol 3350 (Miralax) 17 Gram Powd.pack, 17 GM PO UD Prescribed by: OPAL MORENO on 01/20/232137 Pregabalin (Pregabalin) 25 Mg Capsule, 25 MG PO TID, (Reported) Entered as Reported by: EMRE JAIMES on 10/24/20 1013 Promethazine HCl (Promethazine Tablet) 25 Mg Tablet, 25 MG PO Q8H PRN for NAUSEA/VOMITING-2ND LINE, (Reported) Entered as Reported by: EMRE JAIMES on 10/24/20 1020 Promethazine HCl (Promethazine Suppository) 25 Mg Supp.rect, 25 MG RC Q6 Prescribed by: OPAL MORENO on 01/20/232137 Sevelamer Carbonate (Sevelamer Carbonate) 800 Mg Tablet, 1,600 MG PO TID, (Reported) Entered as Reported by: EMRE JAIMES on 10/24/20 1013 Torsemide (Torsemide) 100 Mg Tablet, 100 MG PO DAILY, (Reported) Entered as Reported by: EMRE JAIMES on 10/24/20 1013 Zinc (Zinc) 50 Mg Tablet, 50 MG PO DAILY, (Reported) Entered as Reported by: EMRE JAIMES on 10/24/20 1013 Review of Systems Review of Systems Constitutional: see HPI EENTM: nose congestion Respiratory: cough Cardiovascular: no symptoms reported Gastrointestinal: no symptoms reported Genitourinary: decreased output : No Musculoskeletal: back pain Skin: no symptoms reported Psychiatric/Neurological: No Symptoms Reported (NOAH MADDOX MD) Past Tzbaptl-Bnvvco-Lkqjlm Hx Immunizations Up To Date Tetanus Booster (TDap): Unknown PED Vaccines UTD: Yes First/Initial COVID19 Vaccinat: SPRING 2020 Second COVID19 Vaccination Bennie: SPRING 2020 Third COVID19 Vaccination Date: SPRING 2020 (NOAH MADDOX MD) Seasonal Allergies Seasonal Allergies: No (NOAH MADDOX MD) Past Medical History Surgery/Hospitalization HX: "In computer" Surgeries: Yes (MULT amputations (foot and toes, right AKA, LEFT BK);5 stents, L GREAT TOE) Amputation, Cardiac, CABG, Section, Coronary Stent, Dialysis, Orthopedic, Tonsillectomy, 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, Vascular Surgery Respiratory: No Cardiac: Yes (CABG;5 stents-CARDIAC & ILIAC + FEMORAL; NSTEMI 07/2019,CHF) Coronary Artery Disease, Heart Attack, High Cholesterol, Hypertension, Peripheral Vascular Neurological: Yes Neuropathy HAT AND CAP SEWER History: Hysterectomy, 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 Genitourinary: Yes (CKD; ESRD ON DIALYSIS M-W-) Bladder Infection, Renal Failure, Dialysis Gastrointestinal: Yes (CHRONIC NAUSEA/VOMITING) Irritable Bowel Musculoskeletal: Yes Amputee, Spasms Endocrine: Yes (OBESITY) Diabetes, Insulin dep HEENT: No Cancer: No Psychosocial: Yes Anxiety Integumentary: Yes (CHRONIC FOOT WOUNDS) Blood Disorders: Yes (ANEMIA) Adverse Reaction/Blood Tranf: No (NOAH MADDOX MD) Family Medical History No Pertinent Family Hx SOCIAL HISTORY: -ETOH--OCCASIONAL USE, NO RECENT USE, PER PT 07/20/20 -DRUGS-+THC USE ( ALSO HX OF OPIATES AND BENZODIAZEPINE ABUSE) -SMOKED 1 PPD, QUIT 03/2020 PAST SURGICAL HISTORY: -CARDIAC CATHS--MULTIPLE STENTS PLUS ANGIOPLASTIES AT MULTIPLE FACILITIES--LAST CATH HERE 08/31/[address] GALE-- RCA ANGIOPLASTY -MULTIPLE CARDIAC AND PERIPHERAL INTERVENTIONS AT MULTIPLE FACILITIES--PERIPHERAL ANGIOGRAM AT [facility] 08/21/2019--ANGIOPLASTY OF DEEP FEMORAL ARTERY, STENTS X 3 TO EXTERNAL ILIAC, COMMON FEMORAL AND SUPERFICIAL FEMORAL ARTERY -S/P 3 VESSEL CABG -RIGHT TOES AND PARTIAL FOOT AMPUTATIONS (MULTIPLE SURGERIES) , EVENTUALLY FOLLOWED BY RIGHT ABOVE THE KNEE AMPUTATION 03/27/20- AT [facility] -LEFT BELOW THE KNEE AMPUTATION - -HYSTERECTOMY -BILATERAL TUBAL LIGATION -TONSILLECTOMY -PORT RIGHT CHEST -RIGHT ARM DIALYSIS GRAFT A-V FISTULA ADDITIONAL PAST MEDICAL HISTORY: -VENTRICULAR ARRHYTHMIA DURING DOBUTAMINE TEST -NSTEMI 07/2019 LONG HISTORY OF NON-COMPLIANCE HX OF HOMELESSNESS UNTIL ADMITTED TO [facility] AFTER LAST HOSPITALIZATION HX OF NARCOTIC AND BENZODIAZEPINE ABUSE (NOAH MADDOX MD) Physical Exam Vital Signs Vital Signs - First Documented (TRISTAN FINN APRN) Vital Signs Capillary Refill : (NOAH MADDOX MD) Height, Weight, BMI Height: '" Weight: lbs. oz. kg; 31.00 BMI Method: General Appearance: No Apparent Distress, WD/WN, Obese Eyes: Bilateral Eye Normal Inspection, Bilateral Eye PERRL, Bilateral Eye EOMI HEENT: PERRL/EOMI, TMs Normal, Pharynx Normal, Moist Mucous Membranes Neck: Normal Inspection Respiratory: Lungs Clear, Normal Breath Sounds, No Accessory Muscle Use, No Respiratory Distress, Decreased Breath Sounds; No Rhonci, No Wheezing Cardiovascular: Regular Rate, Rhythm, Normal Peripheral Pulses (2+ radial bilaterally) Gastrointestinal: Non Tender, Soft Back: No CVA Tenderness Extremity: Normal Capillary Refill, Normal Range of Motion, Other (Right BKA; left AKA; right AV fistula Upper arm - +thrill. no tenderness) Neurologic/Psychiatric: Alert, Oriented x3, No Motor/Sensory Deficits, Normal Mood/Affect, lamp developer II-XII Norm as Tested Skin: Normal Color, Warm/Dry, Other (shallow 1.5cm ulcer right upper gluteal cleft. mildly tender to palpation. No surrounding erythema. yellowish discoloration at the base.) (NOAH MADDOX MD) Focused Exam Lactate Level 02/20/23 16:30: Lactic Acid Level 1.33 (TRISTAN FINN APRN) Lactic Acid Level Laboratory Tests Test 02/20/23 16:30 Lactic Acid Level 1.33 MMOL/L (0.50-2.00) (TRISTAN FINN APRN) Progress/Results/Core Measures Suspected Sepsis SIRS Temperature: Pulse: Respiratory Rate: Laboratory Tests 02/20/23 16:30: White Blood Count 12.7H Blood Pressure / Mean: 02/20/23 16:30: Lactic Acid Level 1.33 Laboratory Tests 02/20/23 16:30: Creatinine 4.68H, Platelet Count 270, Total Bilirubin 0.6 02/20/23 17:00: INR Comment 1.7H (NOAH MADDOX MD) Results/Orders Lab Results Laboratory Tests Test 02/20/23 16:05 02/20/23 16:30 02/20/23 17:00 Range/Units Influenza Type A (RT-PCR) Not Detected Not Detecte Influenza Type B (RT-PCR) Not Detected Not Detecte SARS-CoV-2 RNA (RT-PCR) Not Detected Not Detecte White Blood Count 12.7 H 4.3-11.0 10^3/uL Red Blood Count 2.89 L 3.80-5.11 10^6/uL Hemoglobin 7.9 L 11.5-16.0 g/dL Hematocrit 24 L 35-52 % Mean Corpuscular Volume 84 80-99 fL Mean Corpuscular Hemoglobin 27 25-34 pg Mean Corpuscular Hemoglobin Concent 33 32-36 g/dL Red Cell Distribution Width 17.2 H 10.0-14.5 % Platelet Count 270 130-400 10^3/uL Mean Platelet Volume 11.1 9.0-12.2 fL Immature Granulocyte % (Auto) 1 % Neutrophils (%) (Auto) 71 42-75 % Lymphocytes (%) (Auto) 12 12-44 % Monocytes (%) (Auto) 12 0-12 % Eosinophils (%) (Auto) 3 0-10 % Basophils (%) (Auto) 1 0-10 % Neutrophils # (Auto) 9.0 H 1.8-7.8 10^3/uL Lymphocytes # (Auto) 1.6 1.0-4.0 10^3/uL Monocytes # (Auto) 1.5 H 0.0-1.0 10^3/uL Eosinophils # (Auto) 0.4 H 0.0-0.3 10^3/uL Basophils # (Auto) 0.1 0.0-0.1 10^3/uL Immature Granulocyte # (Auto) 0.2 H 0.0-0.1 10^3/uL Sodium Level 137 135-145 MMOL/L Potassium Level 4.1 3.6-5.0 MMOL/L Chloride Level 91 L 98-107 MMOL/L Carbon Dioxide Level 29 21-32 MMOL/L Anion Gap 17 H 5-14 MMOL/L Blood Urea Nitrogen 32 H 7-18 MG/DL Creatinine 4.68 H 0.60-1.30 MG/DL Estimat Glomerular Filtration Rate 11 BUN/Creatinine Ratio 7 Glucose Level 194 H 70-105 MG/DL Lactic Acid Level 1.33 0.50-2.00 MMOL/L Calcium Level 9.7 8.5-10.1 MG/DL Corrected Calcium 9.9 8.5-10.1 MG/DL Total Bilirubin 0.6 0.1-1.0 MG/DL Aspartate Amino Transf (AST/SGOT) 32 5-34 U/L Alanine Aminotransferase (ALT/SGPT) 14 0-55 U/L Alkaline Phosphatase 190 H 40-136 U/L Total Protein 8.2 6.4-8.2 GM/DL Albumin 3.8 3.2-4.5 GM/DL Prothrombin Time 19.8 H 12.2-14.7 SEC INR Comment 1.7 H 0.8-1.4 Activated Partial Thromboplast Time 61 H 24-35 SEC (TRISTAN FINN APRN) Medications Given in ED Current Medications Medications Dose Ordered Sig/Mary Jo Route Start Time Stop Time Status Last Admin Dose Admin Acetaminophen 1,000 mg ONCE ONCE PO 02/20/23 16:15 02/20/23 16:16 DC 02/20/23 16:18 1,000 MG Fentanyl Citrate 50 mcg ONCE ONCE IVP 02/20/23 17:15 02/20/23 17:16 DC 02/20/23 17:11 50 MCG Fentanyl Citrate 50 mcg ONCE ONCE IVP 02/20/23 18:15 02/20/23 18:16 DC 02/20/23 18:41 50 MCG Piperacillin Sod/ Tazobactam Sod 4.5 gm/Sodium Chloride 100 ml @ 200 mls/hr ONCE ONCE IV 02/20/23 18:00 02/20/23 18:29 DC 02/20/23 18:42 200 MLS/HR (TRISTAN FINN APRN) Vital Signs/I&O 02/20/23 02/20/23 02/20/23 02/20/23 15:59 15:59 15:59 16:18 Temp 39.5 39.3 Pulse 110 Resp 17 B/P (MAP) 108/80 (89) Pulse Ox 94 94 O2 Delivery Nasal Cannula Nasal Cannula Nasal Cannula O2 Flow Rate 2.00 2.00 2.00 (TRISTAN FINN APRN) Vital Signs/I&O Capillary Refill : (NOAH MADDOX MD) Progress Note : Time: 17:42 Progress Note Patient feeling better. Fever broken. She has patchy/ haziness right lateral recess - may be source considering cough and right rib pains. Will bladder scan to see if her lack of urination is due to retention (which may be a clue as well to UTI) although Tambi says she never really has urinary tract infections. Evaluation today includes physical exam, "septic work-up" to include CBC, Chem- 12, magnesium, coag profile, blood cultures, lactic acid, single view chest x- ray, COVID test and flu test. Pertinent physical exam findings well-developed well-nourished female, obese no acute distress, coarse wet cough. No wheezes, diminished breath sounds throughout. No increased work of breathing or respiratory distress is noted. Abdomen exam is benign she is mildly tender in the suprapubic region. She is status post bilateral amputations in the lower extremities left below the knee, right above the knee. She does have a small shallow ulcer at the apex of the gluteal cleft just to the right. No surrounding findings concerning for cellulitis. No active drainage. Differential diagnosis based on history and physical exam, pneumonia, COVID, urinary tract infection. Labs independently interpreted by me as well as chest x-ray. CBC shows a white count of 12.7, hemoglobin of 7.9 hematocrit of 24 platelet count of 270. On chemistry the patient has a chloride of 91, gap of 17, BUN of 32 creatinine of 4.68. Serum glucose 194. Lactic acid 1.33. Coags are out with a PT of 19.8 INR 1.7 PTT of 61. She is COVID and flu negative. Chest x-ray shows hazy numbness in the right costophrenic angle. Concerning for pneumonia based on patient's complaints and physical exam. She is chronically oxygen dependent she does continue to vape. We will go ahead and treat for presumptive pneumonia. She does meet sepsis criteria however not severe sepsis. She did dialyze this morning she is not volume overloaded. She is not hypotensive/tachycardic. She is mentating normally. She feels better now that her fever is down. Bladder scan showed a volume of approximately 25 cc therefore I am not concerned with urinary retention suggesting urinary tract infection. I think if we were to cath her for a urine specimen due to her renal failure that would be potentially a false positive. Will treat with a dose of Zosyn 4.5 g here in the emergency department and send her out on cefdinir 300mg Q48H Patient is comfortable with this plan of care. I do not believe she meets inpatient admission criteria at this point. (NOAH MADDOX MD) Diagnostic Imaging Diagonstic Imaging: Xray Plain Films/CT/US/NM/MRI: chest Comments [facility] [place], [place] NAME: ADWOA [facility] REC#: [id number] PT STATUS: REG ER : 1985 PHYSICIAN: NOAH MADDOX MD ADMIT DATE: 02/20/23/ER Signed Date of Exam:02/20/23 CHEST 1 VIEW, AP/PA ONLY EXAMINATION: Chest radiograph, portable AP view. DATE: February 20, 2023 at 1711 hours. INDICATION: 38-year-old female, fever. COMPARISON: January 28, 2023. FINDINGS: Heart size and mediastinal contours are unchanged. There are median sternotomy wires. The right-sided Port-A-Cath overlies the right atrium. There is no identified pneumothorax. There is blunting of the right lateral costophrenic angle. IMPRESSION: 1. Blunting of the right lateral costophrenic angle which may relate to small effusion, atelectasis, and/or infiltrate. 2. The tip of the right-sided Port-A-Cath projects within the right atrium. Dictated by: Dictated on workstation # [id number] Dict: 02/20/231710 Trans: 02/20/231714 [facility] [id number] Interpreted by: RAVI MORA MD Electronically signed by: RAVI MORA MD 02/20/231714 (NOAH MADDOX MD) Departure Impression Primary Impression: Pneumonia Qualified Codes: J18.9 - Pneumonia, unspecified organism Additional Impressions: History of end stage renal disease Sacral decubitus ulcer Qualified Codes: L89.159 - Pressure ulcer of sacral region, unspecified stage Disposition: 01 HOME, SELF-CARE Condition: Stable Departure-Patient Inst. Decision time for Depature: 18:02 (NOAH MADDOX MD) Referrals: [facility] (PCP/Family) Primary Care Physician Patient Instructions: Pneumonia, Adult ED Add. Discharge Instructions: You have been treated for presumptive right-sided pneumonia. You have received a dose of IV antibiotics here today. You will start cefdinir 300 mg tablets 1 tablet every 48 hours x 7 doses. (the doses on dialysis days need to be given AFTER DIALYSIS IS COMPLETE. If you have worsening fever, cough, shortness of breath or any other emergent, concerning symptoms you will need to return to the emergency room for reevaluation. Please advise your dialysis team when you go to dialysis on Saturday. Scripts Cefdinir (Cefdinir) 300 Mg Capsule 300 MG PO Q48H, #7 CAP 0 Refills Prov: TRISTAN FINN APRN 02/20/23 Copy Copies To 1: ANGELINA MODI KATHRYN M MD Feb 20, 2023 16:08 TRISTAN FINN APRN Feb 20, 2023 19:23
[2023-02-20] MEDS ORDERED: ACETAMINOPHEN 500 MG TAB (TYLENOL) PO ONE (16:15)
[2023-02-20 16:43] LABS: BASOPHILS # (AUTO) 0.1 10^3/uL (0.0-0.1); BASOPHILS % (AUTO) 1 % (0-10); EOSINOPHILS # (AUTO) 0.4 10^3/uL (0.0-0.3); EOSINOPHILS % (AUTO) 3 % (0-10); HEMATOCRIT 24 % (35-52); HEMOGLOBIN 7.9 g/dL (11.5-16.0); LYMPHOCYTES # (AUTO) 1.6 10^3/uL (1.0-4.0); LYMPHOCYTES % (AUTO) 12 % (12-44); MEAN CORPUSCULAR HEMOGLOBIN 27 pg (25-34); MEAN CORPUSCULAR HGB CONC 33 g/dL (32-36); MEAN CORPUSCULAR VOLUME 84 fL (80-99); MEAN PLATELET VOLUME 11.1 fL (9.0-12.2); MONOCYTES # (AUTO) 1.5 10^3/uL (0.0-1.0); MONOCYTES % (AUTO) 12 % (0-12); NEUTROPHILS % (AUTO) 71 % (42-75); PLATELET COUNT 270 10^3/uL (130-400); WHITE BLOOD COUNT 12.7 10^3/uL (4.3-11.0)
[2023-02-20 16:54] LABS: ALBUMIN 3.8 GM/DL (3.2-4.5); POTASSIUM 4.1 MMOL/L (3.6-5.0)
[2023-02-20 16:55] LABS: CALCIUM 9.7 MG/DL (8.5-10.1)
[2023-02-20 16:57] LABS: TOTAL PROTEIN 8.2 GM/DL (6.4-8.2)
[2023-02-20 16:58] LABS: BILIRUBIN,TOTAL 0.6 MG/DL (0.1-1.0)
[2023-02-20 17:00] LABS: CREATININE SERUM 4.68 MG/DL (0.60-1.30)
--- NOTE | 2023-02-20 17:14 | Diagnostic Imaging Report ---
EXAMINATION: Chest radiograph, portable AP view. DATE: February 20, 2023 at 1711 hours. INDICATION: 38-year-old female, fever. COMPARISON: January 28, 2023. FINDINGS: Heart size and mediastinal contours are unchanged. There are median sternotomy wires. The right-sided Port-A-Cath overlies the right atrium. There is no identified pneumothorax. There is blunting of the right lateral costophrenic angle. IMPRESSION: 1. Blunting of the right lateral costophrenic angle which may relate to small effusion, atelectasis, and/or infiltrate. 2. The tip of the right-sided Port-A-Cath projects within the right atrium. Dictated by: Dictated on workstation # [id number]
[2023-02-20] MEDS ORDERED: fentaNYL INJ 100 MCG/2 ML AMP IVP ONE ×2 (17:15→18:15)
[2023-02-20 17:22] LABS: INR 1.7 (0.8-1.4); PROTHROMBIN TIME PATIENT 19.8 SEC (12.2-14.7)
[2023-02-20] MEDS ORDERED: PIPERACILLIN SODIUM/TAZOBACTAM 4.5 GM in NS (IVPB) 100 ML IV ONE (18:00)
[2023-02-20] MEDS ORDERED: CEFD300C3 PO ×2 (18:04→19:23)
[2023-02-20 19:12] VITALS: BP 132/72
== END 2023-02-20 20:10 | disposition home or self-care (01) ==
LOC: EDUNIT# 15:57 → ER 15:58
DX: J18.9 Pneumonia, unspecified organism (principal); I13.2 Hypertensive heart and chronic kidney disease with heart failure and with stage 5 chronic kidney disease, or end stage renal disease; E11.22 Type 2 diabetes mellitus with diabetic chronic kidney disease; N18.6 End stage renal disease; I50.9 Heart failure, unspecified; D63.1 Anemia in chronic kidney disease; E11.622 Type 2 diabetes mellitus with other skin ulcer; L89.159 Pressure ulcer of sacral region, unspecified stage; R33.9 Retention of urine, unspecified; E66.9 Obesity, unspecified; F17.290 Nicotine dependence, other tobacco product, uncomplicated; Z68.31 Body mass index [BMI] 31.0-31.9, adult; Z99.81 Dependence on supplemental oxygen; Z99.2 Dependence on renal dialysis; Z79.4 Long term (current) use of insulin; Z20.822 Contact with and (suspected) exposure to COVID-19
CPT/HCPCS: 36415; 71045; 80053; 83605; 85025; 85610; 85730; 87040; 87636

== ENCOUNTER 2023-02-27 07:10 | Emergency (ER) | payer MEDICAID ==
[~2023-02-27] VITALS: Ht 165 cm; Wt 86.0 kg
--- NOTE | 2023-02-27 07:17 | ED Head Injury ---
General Chief Complaint: Trauma-Non Activation Stated Complaint: FALL Nursing Triage Note: ARRIVED VIA AMB FROM [facility]. PT FELL OUT OF WC WHILE GOING UP A STEEP INCLINE HITTING HER HEAD. UNKNONWN LOC. PT COMPLAINS OF HEAD AND NECK PAIN AND BILAT EAR PAIN. PT WAS HEADING TO [facility]. PT IS ON A BLOOD THINNER. History of Present Illness Date Seen by Provider: Feb 27, 2023 Time Seen by Provider: 07:17 Initial Comments 38-year-old female with presents following a fall from a wheelchair. Patient was going up incline when she fell to the wheelchair and hit her head. She complains of pain in the back of her head little bit of neck pain and some bilateral ear pain. Patient is on a blood thinner and reports that she has had forgot dialysis. There is no loss of consciousness. Allergies and Home Medications Allergies Coded Allergies: codeine (Verified Allergy, Unknown, has received Lortab and Hydromorphone in the past, 04/22/20) morphine (Verified Allergy, Unknown, 06/13/22) GERNALIZED SWELLING nalbuphine (Verified Allergy, Unknown, 08/31/19) tramadol (Verified Allergy, Unknown, 08/31/19) Uncoded Allergies: CONTRAST (Allergy, Unknown, 08/31/19) Patient Home Medication List Home Medication List Reviewed: Yes Albuterol Sulfate (Proventil Hfa) 6.7 Gm Hfa.aer.ad, 2-4 PUFF INH Q4H PRN for WHEEZING Prescribed by: Maximilian Fulton on 08/16/22 1344 Amoxicillin/Potassium Clav (Amox Tr-K Clv 250-125 mg Tab) 250 Mg-125 Mg Tablet, 1 EACH PO BID Prescribed by: Maximilian Fulton on 08/16/22 1344 Aspirin (Aspirin EC) 81 Mg Tablet.dr, 81 MG PO DAILY, (Reported) Entered as Reported by: EMRE JAIMES on 10/24/20 1013 Azithromycin (Azithromycin) 250 Mg Tablet, 250 MG PO DAILY Prescribed by: JINNY ELDER on 07/05/22 0950 Azithromycin (Azithromycin) 250 Mg Tablet, 250 MG PO UD Prescribed by: Maximilian Fulton on 08/16/22 1344 Bisacodyl (Bisacodyl) 10 Mg Supp.rect, 10 MG RC DAILY PRN for CONSTIPATION-4TH LINE, (Reported) Entered as Reported by: EMRE JAIMES on 10/24/20 1020 Carvedilol (Carvedilol) 6.25 Mg Tablet, 6.25 MG PO BID, (Reported) Entered as Reported by: EMRE JAIMES on 10/24/20 1013 Cefdinir (Cefdinir) 300 Mg Capsule, 300 MG PO BID Prescribed by: OPAL MORENO on 01/20/232210 Cefdinir (Cefdinir) 300 Mg Capsule, 300 MG PO Q48H Prescribed by: Aida Limon on 02/20/23 192 Cholecalciferol (Vitamin D3) (Vitamin D3) 125 Mcg Tablet, 125 MCG PO MON, (Reported) Entered as Reported by: EMRE JAIMES on 10/24/20 1013 Citalopram Hydrobromide (Citalopram HBr) 20 Mg Tablet, 20 MG PO DAILY, (Reported) Entered as Reported by: EMRE JAIMES on 10/24/20 1013 Clopidogrel Bisulfate (Plavix) 75 Mg Tablet, 75 MG PO DAILY, (Reported) Entered as Reported by: EMRE JAIMES on 10/24/20 1013 Cyanocobalamin (Vitamin B-12) (Vitamin B-12) 1,000 Mcg Tablet, 1,000 MCG PO DAILY, (Reported) Entered as Reported by: EMRE JAIMES on 10/24/20 1013 Diphenhydramine HCl (Diphenhydramine HCl) 25 Mg Capsule, 25 MG PO HS, (Reported) Entered as Reported by: EMRE JAIMES on 10/24/20 1013 Folic Acid (Folic Acid) 0.8 Mg Capsule, 0.8 MG PO DAILY, (Reported) Entered as Reported by: EMRE JAIMES on 10/24/20 1013 Hydrocodone/Acetaminophen (Hydrocodone-Acetamin 7.5-325) 1 Each Tablet, 1 EA PO HS, (Reported) Entered as Reported by: EMRE JAIMES on 10/24/20 1013 Hydrocodone/Acetaminophen (Hydrocodone-Acetamin 7.5-325) 1 Each Tablet, 1 EACH PO BID PRN for PAIN-MODERATE (5-7), (Reported) Entered as Reported by: EMRE JAIMES on 10/24/20 1020 Insulin Aspart (Novolog) 100 Unit/1 Ml Susp, 10 UNIT SQ AC, (Reported) Entered as Reported by: EMRE JAIMES on 10/24/20 1020 Insulin Detemir (Levemir Flextouch) 100 Unit/1 Ml Insuln.pen, 10 UNIT SQ BID, (Reported) Entered as Reported by: EMRE JAIMES on 10/24/20 1020 Lactulose (Lactulose) 10 Gm/15 Ml Solution, 15 ML PO DAILY, (Reported) Entered as Reported by: EMRE JAIMES on 10/24/20 1013 Loperamide HCl (Imodium A-D) 2 Mg Tablet, 2-4 MG PO PRN PRN for LOOSE STOOLS, (Reported) Entered as Reported by: EMRE JAIMES on 10/24/20 1013 Melatonin (Melatonin) 3 Mg Tablet, 3 MG PO HS, (Reported) Entered as Reported by: EMRE JAIMES on 10/24/20 101 Metolazone (Metolazone) 10 Mg Tablet, 10 MG PO DAILY, (Reported) Entered as Reported by: EMRE JAIMES on 10/24/20 101 Na Phos,M-B/Na Phos,Di-Ba (Fleet Enema Extra) 19 Gram-7 Gram/197 Ml Enema, 230 ML RC PRN Prescribed by: OPAL MORENO on 01/20/232137 Ondansetron (Ondansetron Odt) 8 Mg Tab.rapdis, 8 MG PO Q6H Prescribed by: OPAL MOERNO on 01/20/232137 Ondansetron HCl (Ondansetron HCl) 4 Mg Tablet, 4 MG PO Q6H PRN for NAUSEA/VOMITING-1ST LINE, (Reported) Entered as Reported by: EMRE JAIMES on 10/24/201012 Pantoprazole Sodium (Pantoprazole Sodium) 40 Mg Tablet.dr, 40 MG PO DAILY, (Reported) Entered as Reported by: EMRE JAIMES on 10/24/201012 Polyethylene Glycol 3350 (Miralax) 17 Gram Powd.pack, 17 GM PO UD Prescribed by: OPAL MORENO on 01/20/232137 Pregabalin (Pregabalin) 25 Mg Capsule, 25 MG PO TID, (Reported) Entered as Reported by: EMRE JAIMES on 10/24/20 1013 Promethazine HCl (Promethazine Tablet) 25 Mg Tablet, 25 MG PO Q8H PRN for NAUSEA/VOMITING-2ND LINE, (Reported) Entered as Reported by: EMRE JAIMES on 10/24/20 1020 Promethazine HCl (Promethazine Suppository) 25 Mg Supp.rect, 25 MG RC Q6 Prescribed by: OPAL MORENO on 01/20/232137 Sevelamer Carbonate (Sevelamer Carbonate) 800 Mg Tablet, 1,600 MG PO TID, (Reported) Entered as Reported by: EMRE JAIMES on 10/24/20 1013 Torsemide (Torsemide) 100 Mg Tablet, 100 MG PO DAILY, (Reported) Entered as Reported by: EMRE JAIMES on 10/24/20 1013 Zinc (Zinc) 50 Mg Tablet, 50 MG PO DAILY, (Reported) Entered as Reported by: EMRE JAIMES on 10/24/20 1013 Review of Systems Review of Systems Constitutional: No chills, No fever Eyes: No Symptoms Reported Ears, Nose, Mouth, Throat: see HPI Respiratory: no symptoms reported Cardiovascular: no symptoms reported Gastrointestinal: no symptoms reported Psychiatric/Neurological: No Symptoms Reported Endocrine: No Symptoms Reported Past Myswdhw-Jwacjj-[id number] Hx Patient Social History Tobacco Use?: Yes Use of E-Cig and/or Vaping dev: Yes E-Cig or Vaping type used: Nicotine Substance use?: No Alcohol Use?: No Immunizations Up To Date Tetanus Booster (TDap): Unknown PED Vaccines UTD: Yes First/Initial COVID19 Vaccinat: SPRING 2020 Second COVID19 Vaccination Bennie: SPRING 2020 Third COVID19 Vaccination Date: SPRING 2020 Seasonal Allergies Seasonal Allergies: No Past Medical History Surgery/Hospitalization HX: "In computer" Surgeries: Yes (MULT amputations (foot and toes, right AKA, LEFT BK);5 stents, L GREAT TOE) Amputation, Cardiac, CABG, Section, Coronary Stent, Dialysis, Orthopedic, Tonsillectomy, 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, Vascular Surgery Respiratory: No Cardiac: Yes (CABG;5 stents-CARDIAC & ILIAC + FEMORAL; NSTEMI 07/2019,CHF) Coronary Artery Disease, Heart Attack, High Cholesterol, Hypertension, Peripheral Vascular Neurological: Yes Neuropathy [employer] History: Hysterectomy, 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 Genitourinary: Yes (CKD; 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) Bladder Infection, Renal Failure, Dialysis Gastrointestinal: Yes (CHRONIC NAUSEA/VOMITING) Irritable Bowel Musculoskeletal: Yes Amputee, Spasms Endocrine: Yes (OBESITY) Diabetes, Insulin dep HEENT: No Cancer: No Psychosocial: Yes Anxiety Integumentary: Yes (CHRONIC FOOT WOUNDS) Blood Disorders: Yes (ANEMIA) Adverse Reaction/Blood Tranf: No Family Medical History No Pertinent Family Hx SOCIAL HISTORY: -ETOH--OCCASIONAL USE, NO RECENT USE, PER PT 07/20/20 -DRUGS-+THC USE ( ALSO HX OF OPIATES AND BENZODIAZEPINE ABUSE) -SMOKED 1 PPD, QUIT 03/2020 PAST SURGICAL HISTORY: -CARDIAC CATHS--MULTIPLE STENTS PLUS ANGIOPLASTIES AT MULTIPLE FACILITIES--LAST CATH HERE 08/31/[address] GALE-- RCA ANGIOPLASTY -MULTIPLE CARDIAC AND PERIPHERAL INTERVENTIONS AT MULTIPLE FACILITIES--PERIPHERAL ANGIOGRAM AT [facility] 08/21/2019--ANGIOPLASTY OF DEEP FEMORAL ARTERY, STENTS X 3 TO EXTERNAL ILIAC, COMMON FEMORAL AND SUPERFICIAL FEMORAL ARTERY -S/P 3 VESSEL CABG -RIGHT TOES AND PARTIAL FOOT AMPUTATIONS (MULTIPLE SURGERIES) , EVENTUALLY FOLLOWED BY RIGHT ABOVE THE KNEE AMPUTATION 03/27/20- AT [facility] -LEFT BELOW THE KNEE AMPUTATION - -HYSTERECTOMY -BILATERAL TUBAL LIGATION -TONSILLECTOMY -PORT RIGHT CHEST -RIGHT ARM DIALYSIS GRAFT A-V FISTULA ADDITIONAL PAST MEDICAL HISTORY: -VENTRICULAR ARRHYTHMIA DURING DOBUTAMINE TEST -NSTEMI 07/2019 LONG HISTORY OF NON-COMPLIANCE HX OF HOMELESSNESS UNTIL ADMITTED TO [facility] AFTER LAST HOSPITALIZATION HX OF NARCOTIC AND BENZODIAZEPINE ABUSE Physical Exam Vital Signs Vital Signs - First Documented 02/27/23 07:12 Temp 36.3 Pulse 93 Resp 16 B/P (MAP) 131/84 (100) Pulse Ox 98 O2 Delivery Room Air Capillary Refill : Less Than 3 Seconds Height, Weight, BMI Height: '" Weight: lbs. oz. kg; 31.00 BMI Method: General Appearance: no apparent distress HEENT: TMs normal, other (mild soft tissue swelling, right periauricular, ) Neck: supple Cardiovascular: normal peripheral pulses, regular rate, rhythm Respiratory: lungs clear, normal breath sounds Gastrointestinal: non tender Extremities: other (bilateral lower extremity amputations) Psychiatric: oriented x 3 Crainal Nerves: normal hearing, normal speech Skin: normal color, warm/dry, other (Very small posterior scalp laceration nonsuturable) Progress/Results/Core Measures Results/Orders My Orders Orders - ROBERT ZENG DO Ct Head/Cervical Spine Wo (02/27/23 07:16) Hydrocodone/Apap 5/325 Tablet (Lortab 5 (02/27/23 07:45) Medications Given in ED Current Medications Medications Dose Ordered Sig/Mary Jo Route Start Time Stop Time Status Last Admin Dose Admin Acetaminophen/ Hydrocodone Bitart 1 ea ONCE ONCE PO 02/27/23 07:45 02/27/23 07:46 DC 02/27/23 08:00 1 EA Vital Signs/I&O 02/27/23 07:12 Temp 36.3 Pulse 93 Resp 16 B/P (MAP) 131/84 (100) Pulse Ox 98 O2 Delivery Room Air Blood Pressure Mean: 100 Progress Progress Note : Progress Note Patient's CTs were reviewed with final interpretation per radiology report. There is no acute findings. Patient with minor head injury, contusion. Patient can use her home medications. She is okay to dialysis today. She should follow with her primary care provider as needed. Patient had increased risk of morbidity and mortality due to her social determinants of health. She is stable upon discharge Diagnostic Imaging Diagonstic Imaging: CT Plain Films/CT/US/NM/MRI: c-spine, head Comments Date of Exam:02/27/23 CT HEAD/CERVICAL SPINE WO PROCEDURE: CT head and CT cervical spine without contrast. TECHNIQUE: Multiple contiguous axial images were obtained through the brain and cervical spine without the use of intravenous contrast. Sagittal and coronal reformations through the cervical spine were then performed. Auto Exposure Controls were utilized during the CT exam to meet ALARA standards for radiation dose reduction. INDICATION: Headache and neck pain after trauma. COMPARISON: CTA head on 12/23/2021. FINDINGS: No acute intracranial hemorrhage. The hook-white matter differentiation is preserved. The ventricles and cortical sulci are normal. No midline shift or mass effect. No intracranial mass or fluid collection. Similar mineralization within the bilateral basal ganglia. Scalp swelling in the suboccipital region. No skull fracture. The paranasal sinuses and mastoids are clear. Age-indeterminate fracture of the nasal bone. Straightening of the cervical lordosis. Normal facet joints. No acute fracture or dislocation of the cervical spine. No high density fluid within the spinal canal. No high-grade spinal canal or neural foraminal stenosis. Included views of the neck demonstrate no neck mass or lymphadenopathy. The included lung apices are normal. IMPRESSION: No acute intracranial hemorrhage. No large vascular territory lin-white loss. No intracranial mass, midline shift, or hydrocephalus. Age indeterminate fracture of the nasal bone. Suboccipital scalp swelling. No skull fracture. No acute fracture or dislocation of the cervical spine. Reviewed: Reviewed by Me, Reviewed/Discussed Departure Impression Primary Impression: Head injury, acute, without loss of consciousness Qualified Codes: S09.90XA - Unspecified injury of head, initial encounter Additional Impressions: Fall from wheelchair Qualified Codes: W05.0XXA - Fall from non-moving wheelchair, initial enc ounter Contusion Qualified Codes: S00.83XA - Contusion of other part of head, initial encounter Laceration of skin of scalp Qualified Codes: S01.01XA - Laceration without foreign body of scalp, initial encounter Disposition: HOME, SELF-CARE Condition: Stable Departure-Patient Inst. Referrals: [facility] (PCP/Family) Primary Care Physician Patient Instructions: Head Injury Observation (DC), Minor Contusion ED, Wound Care ED, Minor Head Injury Add. Discharge Instructions: Okay to continue to dialysis, follow-up with your primary care provider as needed. All discharge instructions reviewed with patient and/or family. Voiced understanding. ROBERT ZENG DO Feb 27, 2023 07:17
[2023-02-27] MEDS ORDERED: HYDROcodone/APAP 5 MG/325 MG (LORTAB) TAB PO ONE (07:45)
--- NOTE | 2023-02-27 08:00 | Diagnostic Imaging Report ---
PROCEDURE: CT head and CT cervical spine without contrast. TECHNIQUE: Multiple contiguous axial images were obtained through the brain and cervical spine without the use of intravenous contrast. Sagittal and coronal reformations through the cervical spine were then performed. Auto Exposure Controls were utilized during the CT exam to meet ALARA standards for radiation dose reduction. INDICATION: Headache and neck pain after trauma. COMPARISON: CTA head on 12/23/2021. FINDINGS: No acute intracranial hemorrhage. The hook-white matter differentiation is preserved. The ventricles and cortical sulci are normal. No midline shift or mass effect. No intracranial mass or fluid collection. Similar mineralization within the bilateral basal ganglia. Scalp swelling in the suboccipital region. No skull fracture. The paranasal sinuses and mastoids are clear. Age-indeterminate fracture of the nasal bone. Straightening of the cervical lordosis. Normal facet joints. No acute fracture or dislocation of the cervical spine. No high density fluid within the spinal canal. No high-grade spinal canal or neural foraminal stenosis. Included views of the neck demonstrate no neck mass or lymphadenopathy. The included lung apices are normal. IMPRESSION: No acute intracranial hemorrhage. No large vascular territory lin-white loss. No intracranial mass, midline shift, or hydrocephalus. Age indeterminate fracture of the nasal bone. Suboccipital scalp swelling. No skull fracture. No acute fracture or dislocation of the cervical spine. Dictated by: Dictated on workstation # [id number]
[2023-02-27 08:44] VITALS: BP 122/73
== END 2023-02-27 08:44 | disposition home or self-care (01) ==
LOC: EDUNIT# 07:10 → ER 07:11
DX: S09.90XA Unspecified injury of head, initial encounter (principal); S01.01XA Laceration without foreign body of scalp, initial encounter; I13.2 Hypertensive heart and chronic kidney disease with heart failure and with stage 5 chronic kidney disease, or end stage renal disease; E11.22 Type 2 diabetes mellitus with diabetic chronic kidney disease; N18.6 End stage renal disease; I50.9 Heart failure, unspecified; E66.9 Obesity, unspecified; F17.290 Nicotine dependence, other tobacco product, uncomplicated; Z99.2 Dependence on renal dialysis; Z79.4 Long term (current) use of insulin; Z68.31 Body mass index [BMI] 31.0-31.9, adult; W05.0XXA Fall from non-moving wheelchair, initial encounter; W22.09XA Striking against other stationary object, initial encounter
CPT/HCPCS: 70450; 72125

== ENCOUNTER 2023-04-10 08:31 | Emergency (ER) | payer MEDICAID ==
[~2023-04-10] VITALS: Ht 160 cm; Wt 85.2 kg
--- NOTE | 2023-04-10 08:33 | ED Chest Pain ---
General Stated Complaint: CHEST PAINS Source: patient, EMS Exam Limitations: no limitations History of Present Illness Date Seen by Provider: Apr 10, 2023 Time Seen by Provider: 08:33 Initial Comments Is a 38-year-old female who presents to the emergency department with a chief complaint of substernal chest pain. Patient states pain started acutely while on dialysis. She has had some substernal chest pain over the last 2 or 3 days, not as severe as today. She was 40 minutes into dialysis when the pain started. It radiates into the left arm. She is not nauseated, she is short of breath. She states she is compliant with her daily medications. No recent illnesses. She was noted to be about 3 pounds over her dry weight today. Dialysis estimated they got about a pound off. Timing/Duration: 1 hour Severity/Quality: severe Location: central Radiation: other (left arm) Activities at Onset: other (dialysis) Prior CP/Workup: cardiac cath ASA po DIAGNOSTIC TECHNICIAN: Yes NTG SL DIAGNOSTIC TECHNICIAN: Yes (nitropaste) Associated Symptoms: shortness of breath, weakness Allergies and Home Medications Allergies Coded Allergies: codeine (Verified Allergy, Unknown, has received Lortab and Hydromorphone in the past, 04/22/20) morphine (Verified Allergy, Unknown, 06/13/22) GERNALIZED SWELLING nalbuphine (Verified Allergy, Unknown, 08/31/19) tramadol (Verified Allergy, Unknown, 08/31/19) Uncoded Allergies: CONTRAST (Allergy, Unknown, 08/31/19) Patient Home Medication List Home Medication List Reviewed: Yes Albuterol Sulfate (Proventil Hfa) 6.7 Gm Hfa.aer.ad, 2-4 PUFF INH Q4H PRN for WHEEZING Prescribed by: Maximilian Fulton on 08/16/22 1344 Amoxicillin/Potassium Clav (Amox Tr-K Clv 250-125 mg Tab) 250 Mg-125 Mg Tablet, 1 EACH PO BID Prescribed by: Maximilian Fulton on 08/16/22 1344 Aspirin (Aspirin EC) 81 Mg Tablet.dr, 81 MG PO DAILY, (Reported) Entered as Reported by: EMRE JAIMES on 10/24/20 1013 Azithromycin (Azithromycin) 250 Mg Tablet, 250 MG PO DAILY Prescribed by: JINNY ELDER on 07/05/22 0950 Azithromycin (Azithromycin) 250 Mg Tablet, 250 MG PO UD Prescribed by: Maximilian Fulton on 08/16/22 1344 Bisacodyl (Bisacodyl) 10 Mg Supp.rect, 10 MG RC DAILY PRN for CONSTIPATION-4TH LINE, (Reported) Entered as Reported by: EMRE JAIMES on 10/24/20 1020 Carvedilol (Carvedilol) 6.25 Mg Tablet, 6.25 MG PO BID, (Reported) Entered as Reported by: EMRE JAIMES on 10/24/20 1013 Cefdinir (Cefdinir) 300 Mg Capsule, 300 MG PO BID Prescribed by: OPAL MORENO on 01/20/23 221 Cefdinir (Cefdinir) 300 Mg Capsule, 300 MG PO Q48H Prescribed by: Aida Limon on 02/20/23 192 Cholecalciferol (Vitamin D3) (Vitamin D3) 125 Mcg Tablet, 125 MCG PO MON, (Repo rted) Entered as Reported by: EMRE JAIMES on 10/24/20 1013 Citalopram Hydrobromide (Citalopram HBr) 20 Mg Tablet, 20 MG PO DAILY, (Reported) Entered as Reported by: EMRE JAIMES on 10/24/20 1013 Clopidogrel Bisulfate (Plavix) 75 Mg Tablet, 75 MG PO DAILY, (Reported) Entered as Reported by: EMRE JAIMES on 10/24/20 1013 Cyanocobalamin (Vitamin B-12) (Vitamin B-12) 1,000 Mcg Tablet, 1,000 MCG PO DAILY, (Reported) Entered as Reported by: EMRE JAIMES on 10/24/20 1013 Diphenhydramine HCl (Diphenhydramine HCl) 25 Mg Capsule, 25 MG PO HS, (Reported) Entered as Reported by: EMRE JAIMES on 10/24/20 1013 Folic Acid (Folic Acid) 0.8 Mg Capsule, 0.8 MG PO DAILY, (Reported) Entered as Reported by: EMRE JAIMES on 10/24/20 1013 Hydrocodone/Acetaminophen (Hydrocodone-Acetamin 7.5-325) 1 Each Tablet, 1 EA PO HS, (Reported) Entered as Reported by: EMRE JAIMES on 10/24/20 1013 Hydrocodone/Acetaminophen (Hydrocodone-Acetamin 7.5-325) 1 Each Tablet, 1 EACH PO BID PRN for PAIN-MODERATE (5-7), (Reported) Entered as Reported by: EMRE JAIMES on 10/24/20 1020 Insulin Aspart (Novolog) 100 Unit/1 Ml Susp, 10 UNIT SQ AC, (Reported) Entered as Reported by: EMRE JAIMES on 10/24/20 1020 Insulin Detemir (Levemir Flextouch) 100 Unit/1 Ml Insuln.pen, 10 UNIT SQ BID, (Reported) Entered as Reported by: EMRE JAIMES on 10/24/20 1020 Lactulose (Lactulose) 10 Gm/15 Ml Solution, 15 ML PO DAILY, (Reported) Entered as Reported by: EMRE JAIMES on 10/24/20 1013 Loperamide HCl (Imodium A-D) 2 Mg Tablet, 2-4 MG PO PRN PRN for LOOSE STOOLS, (Reported) Entered as Reported by: EMRE JAIMES on 10/24/201012 Melatonin (Melatonin) 3 Mg Tablet, 3 MG PO HS, (Reported) Entered as Reported by: EMRE JAIMES on 10/24/201012 Metolazone (Metolazone) 10 Mg Tablet, 10 MG PO DAILY, (Reported) Entered as Reported by: EMRE JAIMES on 10/24/201012 Na Phos,M-B/Na Phos,Di-Ba (Fleet Enema Extra) 19 Gram-7 Gram/197 Ml Enema, 230 ML RC PRN Prescribed by: OPAL MORENO on 01/20/232137 Ondansetron (Ondansetron Odt) 8 Mg Tab.rapdis, 8 MG PO Q6H Prescribed by: OPAL MORENO on 01/20/232137 Ondansetron HCl (Ondansetron HCl) 4 Mg Tablet, 4 MG PO Q6H PRN for NAUSEA/VOMITING-1ST LINE, (Reported) Entered as Reported by: EMRE JAIMES on 10/24/201012 Pantoprazole Sodium (Pantoprazole Sodium) 40 Mg Tablet.dr, 40 MG PO DAILY, (Reported) Entered as Reported by: EMRE JAIMES on 10/24/201012 Polyethylene Glycol 3350 (Miralax) 17 Gram Powd.pack, 17 GM PO UD Prescribed by: OPAL MORENO on 01/20/232137 Pregabalin (Pregabalin) 25 Mg Capsule, 25 MG PO TID, (Reported) Entered as Reported by: EMRE JAIMES on 10/24/20 1013 Promethazine HCl (Promethazine Tablet) 25 Mg Tablet, 25 MG PO Q8H PRN for ANSHUL SEA/VOMITING-2ND LINE, (Reported) Entered as Reported by: EMRE JAIMES on 10/24/20 1020 Promethazine HCl (Promethazine Suppository) 25 Mg Supp.rect, 25 MG RC Q6 Prescribed by: OPAL MORENO on 01/20/232137 Sevelamer Carbonate (Sevelamer Carbonate) 800 Mg Tablet, 1,600 MG PO TID, (Reported) Entered as Reported by: EMRE JAIMES on 10/24/20 1013 Torsemide (Torsemide) 100 Mg Tablet, 100 MG PO DAILY, (Reported) Entered as Reported by: EMRE JAIMES on 10/24/20 1013 Zinc (Zinc) 50 Mg Tablet, 50 MG PO DAILY, (Reported) Entered as Reported by: EMRE JAIMES on 10/24/20 1013 Review of Systems Review of Systems Constitutional: see HPI Respiratory: Shortness of Air Cardiovascular: Chest Pain Gastrointestinal: No Symptoms Reported Genitourinary: No Symptoms Reported Musculoskeletal: no symptoms reported Skin: no symptoms reported Past Spkbezv-Hssvlv-Dljukk Hx Immunizations Up To Date Tetanus Booster (TDap): Unknown PED Vaccines UTD: Yes First/Initial COVID19 Vaccinat: SPRING 2020 Second COVID19 Vaccination Bennie: SPRING 2020 Third COVID19 Vaccination Date: SPRING 2020 Seasonal Allergies Seasonal Allergies: No Past Medical History Surgery/Hospitalization HX: "In computer" Surgeries: Yes (MULT amputations (foot and toes, right AKA, LEFT BK);5 stents, L GREAT TOE) Amputation, Cardiac, CABG, Section, Coronary Stent, Dialysis, Orthopedic, Tonsillectomy, 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, Vascular Surgery Respiratory: No Cardiac: Yes (CABG;5 stents-CARDIAC & ILIAC + FEMORAL; NSTEMI 07/2019,CHF) Coronary Artery Disease, Heart Attack, High Cholesterol, Hypertension, Peripheral Vascular Neurological: Yes Neuropathy 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, 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 Genitourinary: Yes (CKD; 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) Bladder Infection, Renal Failure, Dialysis Gastrointestinal: Yes (CHRONIC NAUSEA/VOMITING) Irritable Bowel Musculoskeletal: Yes Amputee, Spasms Endocrine: Yes (OBESITY) Diabetes, Insulin dep HEENT: No Cancer: No Psychosocial: Yes Anxiety Integumentary: Yes (CHRONIC FOOT WOUNDS) Blood Disorders: Yes (ANEMIA) Adverse Reaction/Blood Tranf: No Family Medical History No Pertinent Family Hx SOCIAL HISTORY: -ETOH--OCCASIONAL USE, NO RECENT USE, PER PT 07/20/20 -DRUGS-+THC USE ( ALSO HX OF OPIATES AND BENZODIAZEPINE ABUSE) -SMOKED 1 PPD, QUIT 03/2020 PAST SURGICAL HISTORY: -CARDIAC CATHS--MULTIPLE STENTS PLUS ANGIOPLASTIES AT MULTIPLE FACILITIES--LAST CATH HERE 08/31/[address] GALE-- RCA ANGIOPLASTY -MULTIPLE CARDIAC AND PERIPHERAL INTERVENTIONS AT MULTIPLE FACILITIES--PERIPHERAL ANGIOGRAM AT [facility] 08/21/2019--ANGIOPLASTY OF DEEP FEMORAL ARTERY, STENTS X 3 TO EXTERNAL ILIAC, COMMON FEMORAL AND SUPERFICIAL FEMORAL ARTERY -S/P 3 VESSEL CABG -RIGHT TOES AND PARTIAL FOOT AMPUTATIONS (MULTIPLE SURGERIES) , EVENTUALLY FOLLOWED BY RIGHT ABOVE THE KNEE AMPUTATION 03/27/20- AT [facility] -LEFT BELOW THE KNEE AMPUTATION - -HYSTERECTOMY -BILATERAL TUBAL LIGATION -TONSILLECTOMY -PORT RIGHT CHEST -RIGHT ARM DIALYSIS GRAFT A-V FISTULA ADDITIONAL PAST MEDICAL HISTORY: -VENTRICULAR ARRHYTHMIA DURING DOBUTAMINE TEST -NSTEMI 07/2019 LONG HISTORY OF NON-COMPLIANCE HX OF HOMELESSNESS UNTIL ADMITTED TO [facility] AFTER LAST HOSPITALIZATION HX OF NARCOTIC AND BENZODIAZEPINE ABUSE Physical Exam Vital Signs Vital Signs - First Documented 04/10/23 08:31 Pulse 96 Resp 20 B/P (MAP) 116/58 (77) Pulse Ox 98 O2 Delivery Nasal Cannula O2 Flow Rate 1.00 Capillary Refill : Height, Weight, BMI Height: '" Weight: lbs. oz. kg; 31.00 BMI Method: General Appearance: WD/WN, Mild Distress, Obese HEENT: PERRL/EOMI Neck: Normal Inspection Respiratory: Lungs Clear, Normal Breath Sounds, No Accessory Muscle Use, No Respiratory Distress Cardiovascular: Regular Rate, Rhythm Gastrointestinal: Soft, Other (obese) Extremity: Other (bilateral AKA) Neurologic/Psychiatric: Alert, Oriented x3, No Motor/Sensory Deficits, Normal Mood/Affect Skin: Warm/Dry, Pallor Progress/Results/Core Measures Results/Orders Lab Results Laboratory Tests Test 04/10/23 08:50 Range/Units White Blood Count 15.2 H 4.3-11.0 10^3/uL Red Blood Count 4.07 3.80-5.11 10^6/uL Hemoglobin 10.7 L 11.5-16.0 g/dL Hematocrit 35 35-52 % Mean Corpuscular Volume 85 80-99 fL Mean Corpuscular Hemoglobin 26 25-34 pg Mean Corpuscular Hemoglobin Concent 31 L 32-36 g/dL Red Cell Distribution Width 19.2 H 10.0-14.5 % Platelet Count 231 130-400 10^3/uL Mean Platelet Volume 10.5 9.0-12.2 fL Immature Granulocyte % (Auto) 2 % Neutrophils (%) (Auto) 78 H 42-75 % Lymphocytes (%) (Auto) 13 12-44 % Monocytes (%) (Auto) 5 0-12 % Eosinophils (%) (Auto) 1 0-10 % Basophils (%) (Auto) 1 0-10 % Neutrophils # (Auto) 11.8 H 1.8-7.8 10^3/uL Lymphocytes # (Auto) 1.9 1.0-4.0 10^3/uL Monocytes # (Auto) 0.8 0.0-1.0 10^3/uL Eosinophils # (Auto) 0.2 0.0-0.3 10^3/uL Basophils # (Auto) 0.1 0.0-0.1 10^3/uL Immature Granulocyte # (Auto) 0.4 H 0.0-0.1 10^3/uL Neutrophils % (Manual) 84 % Lymphocytes % (Manual) 10 % Monocytes % (Manual) 3 % Eosinophils % (Manual) 2 % Myelocytes % 1 % Polychromasia SLIGHT Anisocytosis MODERATE Tear Drop Cells SLIGHT Prothrombin Time 17.8 H 12.2-14.7 SEC INR Comment 1.5 H 0.8-1.4 Activated Partial Thromboplast Time 38 H 24-35 SEC Sodium Level 136 135-145 MMOL/L Potassium Level 4.3 3.6-5.0 MMOL/L Chloride Level 94 L 98-107 MMOL/L Carbon Dioxide Level 24 21-32 MMOL/L Anion Gap 18 H 5-14 MMOL/L Blood Urea Nitrogen 58 H 7-18 MG/DL Creatinine 6.12 H 0.60-1.30 MG/DL Estimat Glomerular Filtration Rate 8 BUN/Creatinine Ratio 9 Glucose Level 393 H 70-105 MG/DL Calcium Level 9.7 8.5-10.1 MG/DL Corrected Calcium 9.9 8.5-10.1 MG/DL Magnesium Level 2.2 1.6-2.4 MG/DL Total Bilirubin 0.6 0.1-1.0 MG/DL Aspartate Amino Transf (AST/SGOT) 13 5-34 U/L Alanine Aminotransferase (ALT/SGPT) 9 0-55 U/L Alkaline Phosphatase 193 H 40-136 U/L Myoglobin 125.3 H 10.0-92.0 NG/ML Troponin I 0.313 *H <0.028 NG/ML Total Protein 7.3 6.4-8.2 GM/DL Albumin 3.7 3.2-4.5 GM/DL My Orders Orders - NOAH MADDOX MD Chest 1 View, Ap/Pa Only (04/10/23 08:32) Cbc With Automated Diff (04/10/23 08:32) Magnesium (04/10/23 08:32) Ekg Tracing (04/10/23 08:32) Comprehensive Metabolic Panel (04/10/23 08:32) Myoglobin Serum (04/10/23 08:32) Protime With Inr (04/10/23 08:32) Partial Thromboplastin Time (04/10/23 08:32) O2 (04/10/23 08:32) Monitor-Rhythm Ecg Trace Only (04/10/23 08:32) Ed Iv/Invasive Line Start (04/10/23 08:32) Troponin I Upson (04/10/23 08:32) Fentanyl Inj (Sublimaze Injection) (04/10/23 08:45) Manual Differential (04/10/23 08:50) Heparin Drip 46862 Unit/500ml (Heparin (04/10/23 09:15) Heparin (Bolus Per Protocol) (Heparin (B (04/10/23 09:15) Initiate Heparin Acs Protocol (04/10/23 09:07) Fentanyl Inj (Sublimaze Injection) (04/10/23 09:15) Medications Given in ED Current Medications Medications Dose Ordered Sig/Mary Jo Route Start Time Stop Time Status Last Admin Dose Admin Fentanyl Citrate 50 mcg ONCE ONCE IVP 04/10/23 08:45 04/10/23 08:46 DC 04/10/23 08:51 50 MCG Fentanyl Citrate 50 mcg ONCE ONCE IVP 04/10/23 09:15 04/10/23 09:16 DC 04/10/23 09:19 50 MCG Heparin Sodium (Porcine) ACS PROTOCOL 60 uni... PRN PRN IV 04/10/23 09:15 04/10/23 09:50 DC 04/10/23 09:21 5,000 UNIT Vital Signs/I&O 04/10/23 04/10/23 08:31 10:05 Pulse 96 101 Resp 20 16 B/P (MAP) 116/58 (77) 131/81 Pulse Ox 98 97 O2 Delivery Nasal Cannula O2 Flow Rate 1.00 Progress Progress Note : Time: 09:03 Progress Note Please discussed with Dr. Griffin, accepts the patient in transfer to [place]. Will activate Central Office Worker. Seen and evaluated by me, evaluation today includes physical exam, "chest pain protocol"CBC, Chem-12, coags, serum troponin, EKG and single view chest x-ray. Pertinent physical exam findings well-developed well-nourished obese female status post bilateral AKA who appears in mild to moderate distress due to chest pain and left arm pain. She is currently normotensive with a blood pressure of 116/58 heart rate in the upper 90s. She is on 1 L per nasal cannula satting 97%. No increased work of breathing or respiratory distress is noted. Heart is regular, abdomen is soft. She is alert and oriented. Treated prior to arrival by EMS with 324 mg of aspirin and an inch of Nitropaste. Differential diagnosis based on history and physical exam acute coronary syndrome, volume overload/pulmonary edema. EKG and chest x-ray independently reviewed and interpreted by me. Her CBC shows a total white blood count of 16.2 with hemoglobin 10.7 hematocrit of 35 platelet count of 231. Chem-12 remarkable for no failure BUN of 58 creatinine of 6.12. Her blood sugar is 393. Troponin is 0.313. Her PT is 17.8 INR 1.5 PTT 38. EKG shows widespread ST segment depression in leads I, II, aVL V5 and V6. She has ST elevation in aVR, V1 and V2. Rhythm is sinus. CXR shows increased pul vascular congestion - mild. Patient is treated with fentanyl 50 mcg x 2 IV. This seems to be controlling her pain. Case was discussed with Dr. Blandon on for cardiology here at [facility], she is not a candidate for our Central Office Worker secondary to lack of availability of hemodialysis services. I spoke with Dr. Griffin at [facility] on for cardiology at that facility who accepts the patient to their ER with Central Office Worker activation. Initial ECG Impression Date: Apr 10, 2023 Initial ECG Impression Time: 08:36 Initial ECG Rate: 98 Initial ECG Rhythm: Normal Sinus Initial ECG Intervals: Normal Comment ST depression I, II. aVL as well as leads V5, V6; elevation in aVR, V1 and V2 Diagnostic Imaging Diagonstic Imaging: Xray Plain Films/CT/US/NM/MRI: chest Comments [facility] [place] NAME: ADWOA CUMMINGS [facility] REC#: [id number] PT STATUS: DEP ER : [id number] PHYSICIAN: NOAH MADDOX MD ADMIT DATE: 04/10/23/ER Signed Date of Exam:04/10/23 CHEST 1 VIEW, AP/PA ONLY INDICATION: Chest pain and left arm tingling. TECHNIQUE/COMPARISON: A frontal chest was obtained at 0907 hours and compared with 02/20/2023. FINDINGS: There is cardiomegaly and post sternotomy change. The Port-A-Cath is unchanged. There is central vascular congestion. There is some mild infiltrate in the right base. There is no pneumothorax. Densities projecting over the cardiac silhouette are likely artifactual, suggest followup. IMPRESSION: Cardiomegaly with central vascular congestion. Mild infiltrate in the right lung base. No pneumothorax or pleural fluid. Dictated by: Dictated on workstation # [id number] Dict: 04/10/2310 Trans: 04/10/23 1003 [id number] Interpreted by: KIMMIE PURCELL MD Electronically signed by: KIMMIE PURCELL MD 04/10/23 1003 Departure Impression Primary Impression: Acute coronary syndrome Additional Impression: ESRD (end stage renal disease) on dialysis Disposition: [facility] Condition: Stable Transfer Transfer Reason: Exceeds level of care Time Spoke to Accepting Phy: 09:00 Transfer Progress Notes DIscussed with Dr Griffin Transfer Facility: [facility] Method of Transfer: EMS Departure-Patient Inst. Referrals: [facility] (PCP/Family) Primary Care Physician NOAH MADDOX MD Apr 10, 2023 08:33
[2023-04-10] MEDS ORDERED: fentaNYL INJ 100 MCG/2 ML AMP IVP ONE ×2 (08:45→09:15)
[2023-04-10 08:55] LABS: BASOPHILS # (AUTO) 0.1 10^3/uL (0.0-0.1); BASOPHILS % (AUTO) 1 % (0-10); EOSINOPHILS # (AUTO) 0.2 10^3/uL (0.0-0.3); EOSINOPHILS % (AUTO) 1 % (0-10); HEMATOCRIT 35 % (35-52); HEMOGLOBIN 10.7 g/dL (11.5-16.0); LYMPHOCYTES # (AUTO) 1.9 10^3/uL (1.0-4.0); LYMPHOCYTES % (AUTO) 13 % (12-44); MEAN CORPUSCULAR HEMOGLOBIN 26 pg (25-34); MEAN CORPUSCULAR HGB CONC 31 g/dL (32-36); MEAN CORPUSCULAR VOLUME 85 fL (80-99); MEAN PLATELET VOLUME 10.5 fL (9.0-12.2); MONOCYTES # (AUTO) 0.8 10^3/uL (0.0-1.0); MONOCYTES % (AUTO) 5 % (0-12); NEUTROPHILS # (AUTO) 11.8 10^3/uL (1.8-7.8); NEUTROPHILS % (AUTO) 78 % (42-75); PLATELET COUNT 231 10^3/uL (130-400); WHITE BLOOD COUNT 15.2 10^3/uL (4.3-11.0)
[2023-04-10 09:07] LABS: INR 1.5 (0.8-1.4); PROTHROMBIN TIME PATIENT 17.8 SEC (12.2-14.7)
[2023-04-10 09:08] LABS: ALBUMIN 3.7 GM/DL (3.2-4.5)
[2023-04-10 09:09] LABS: POTASSIUM 4.3 MMOL/L (3.6-5.0)
[2023-04-10 09:10] LABS: CALCIUM 9.7 MG/DL (8.5-10.1)
[2023-04-10 09:11] LABS: TOTAL PROTEIN 7.3 GM/DL (6.4-8.2)
[2023-04-10 09:13] LABS: BILIRUBIN,TOTAL 0.6 MG/DL (0.1-1.0)
--- NOTE | 2023-04-10 09:13 | Diagnostic Imaging Report ---
INDICATION: Chest pain and left arm tingling. TECHNIQUE/COMPARISON: A frontal chest was obtained at 0907 hours and compared with 02/20/2023. FINDINGS: There is cardiomegaly and post sternotomy change. The Port-A-Cath is unchanged. There is central vascular congestion. There is some mild infiltrate in the right base. There is no pneumothorax. Densities projecting over the cardiac silhouette are likely artifactual, suggest followup. IMPRESSION: Cardiomegaly with central vascular congestion. Mild infiltrate in the right lung base. No pneumothorax or pleural fluid. Dictated by: Dictated on workstation # [id number]
[2023-04-10 09:15] LABS: CREATININE SERUM 6.12 MG/DL (0.60-1.30)
[2023-04-10] MEDS ORDERED: HEParin DRIP 25000 UNIT/500ML 500 ML IV SCH (09:15)
[2023-04-10] MEDS ORDERED: HEParin 1000 UNIT/ML (10ML VIAL) FOR BOLUS IV PRN (09:15)
[2023-04-10 09:18] LABS: MAGNESIUM 2.2 MG/DL (1.6-2.4)
[2023-04-10 09:24] LABS: ANISOCYTOSIS MODERATE; EOSINOPHILS % (MANUAL) 2 %; LYMPHOCYTES % (MANUAL) 10 %; MONOCYTES % (MANUAL) 3 %; MYELOCYTES % 1 %; NEUTROPHILS % (MANUAL) 84 %; POLYCHROMASIA SLIGHT; TEAR DROP CELLS SLIGHT
[2023-04-10 10:05] VITALS: BP 131/81
== END 2023-04-10 09:50 | disposition short-term general hospital (02) ==
LOC: EDUNIT# 08:31 → ER 08:32
DX: R05.9 Cough, unspecified (principal)
CPT/HCPCS: 36415; 71045; 80053; 83735; 83874; 84484; 85007; 85027; 85610; 85730; 93005; 93041

== ENCOUNTER 2023-04-29 20:15 | Emergency (ER) | payer MEDICAID ==
[~2023-04-29] VITALS: Ht 160 cm; Wt 86.1 kg
--- NOTE | 2023-04-29 20:24 | ED General ---
General Chief Complaint: Abdominal/GI Problems Stated Complaint: ABD PAIN Source of Information: Patient, EMS Exam Limitations: No Limitations History of Present Illness Date Seen by Provider: Apr 29, 2023 Time Seen by Provider: 20:17 Initial Comments Patient is a 38-year-old female who presents to the emergency department with a chief complaint of abdominal pain, chest pain, nausea and vomiting. [facility] called and stated she had a fever of 100.4, on arrival her oral temp is 103. She has a history of cardiovascular disease with stents, chronic renal failure on hemodialysis. She did complete dialysis today. She states she started feeling bad about an hour prior to arrival. She denies earache. She denies sore throat or productive cough. She denies any skin wounds. She does have a moderate headache. She does reside in a penitentiary, she is fully COVID vaccinated. She does make urine daily, she states it depends on how much she drinks but its not much. She was recently at [facility] within the last 30 days for reocclusion of cardiac stents. She is chronically anticoagulated. She is status post bilateral [id number]-lmhd amputations. Timing/Duration: 1 Hour Severity: Severe Associated Systoms: Chest Pain, Fever/Chills, Headaches, Nausea/Vomiting, Weakness, Other (abdominal pain) Allergies and Home Medications Allergies Coded Allergies: codeine (Verified Allergy, Unknown, has received Lortab and Hydromorphone in the past, 04/22/20) morphine (Verified Allergy, Unknown, 06/13/22) GERNALIZED SWELLING nalbuphine (Verified Allergy, Unknown, 08/31/19) tramadol (Verified Allergy, Unknown, 08/31/19) Uncoded Allergies: CONTRAST (Allergy, Unknown, 08/31/19) Patient Home Medication List Home Medication List Reviewed: Yes Albuterol Sulfate (Proventil Hfa) 6.7 Gm Hfa.aer.ad, 2-4 PUFF INH Q4H PRN for WHEEZING Prescribed by: Maximilian Fulton on 08/16/22 1344 Amoxicillin/Potassium Clav (Amox Tr-K Clv 250-125 mg Tab) 250 Mg-125 Mg Tablet, 1 EACH PO BID Prescribed by: Maximilian Fulton on 08/16/22 1344 Aspirin (Aspirin EC) 81 Mg Tablet.dr, 81 MG PO DAILY, (Reported) Entered as Reported by: EMRE JAIMES on 10/24/20 1013 Azithromycin (Azithromycin) 250 Mg Tablet, 250 MG PO DAILY Prescribed by: JINNY ELDER on 07/05/22 0950 Azithromycin (Azithromycin) 250 Mg Tablet, 250 MG PO UD Prescribed by: Maximilian Fulton on 08/16/22 1344 Bisacodyl (Bisacodyl) 10 Mg Supp.rect, 10 MG RC DAILY PRN for CONSTIPATION-4TH LINE, (Reported) Entered as Reported by: EMRE JAIMES on 10/24/20 1020 Carvedilol (Carvedilol) 6.25 Mg Tablet, 6.25 MG PO BID, (Reported) Entered as Reported by: EMRE JAIMES on 10/24/20 1013 Cefdinir (Cefdinir) 300 Mg Capsule, 300 MG PO BID Prescribed by: OPAL MORENO on 01/20/23 221 Cefdinir (Cefdinir) 300 Mg Capsule, 300 MG PO Q48H Prescribed by: Aida Limon on 02/20/23 192 Cholecalciferol (Vitamin D3) (Vitamin D3) 125 Mcg Tablet, 125 MCG PO MON, (Reported) Entered as Reported by: EMRE JAIMES on 10/24/20 1013 Citalopram Hydrobromide (Citalopram HBr) 20 Mg Tablet, 20 MG PO DAILY, (Reported) Entered as Reported by: EMRE JAIMES on 10/24/20 1013 Clopidogrel Bisulfate (Plavix) 75 Mg Tablet, 75 MG PO DAILY, (Reported) Entered as Reported by: EMRE JAIMES on 10/24/20 1013 Cyanocobalamin (Vitamin B-12) (Vitamin B-12) 1,000 Mcg Tablet, 1,000 MCG PO DAILY, (Reported) Entered as Reported by: EMRE JAIMES on 10/24/20 1013 Diphenhydramine HCl (Diphenhydramine HCl) 25 Mg Capsule, 25 MG PO HS, (Reported) Entered as Reported by: EMRE JAIMES on 10/24/20 1013 Folic Acid (Folic Acid) 0.8 Mg Capsule, 0.8 MG PO DAILY, (Reported) Entered as Reported by: EMRE JAIMES on 10/24/20 1013 Hydrocodone/Acetaminophen (Hydrocodone-Acetamin 7.5-325) 1 Each Tablet, 1 EA PO HS, (Reported) Entered as Reported by: EMRE JAIMES on 10/24/20 1013 Hydrocodone/Acetaminophen (Hydrocodone-Acetamin 7.5-325) 1 Each Tablet, 1 EACH PO BID PRN for PAIN-MODERATE (5-7), (Reported) Entered as Reported by: EMRE JAIMES on 10/24/20 1020 Insulin Aspart (Novolog) 100 Unit/1 Ml Susp, 10 UNIT SQ AC, (Reported) Entered as Reported by: EMRE JAIMES on 10/24/20 1020 Insulin Detemir (Levemir Flextouch) 100 Unit/1 Ml Insuln.pen, 10 UNIT SQ BID, (Reported) Entered as Reported by: EMRE JAIMES on 10/24/20 1020 Lactulose (Lactulose) 10 Gm/15 Ml Solution, 15 ML PO DAILY, (Reported) Entered as Reported by: EMRE JAIMES on 10/24/20 1013 Loperamide HCl (Imodium A-D) 2 Mg Tablet, 2-4 MG PO PRN PRN for LOOSE STOOLS, (Reported) Entered as Reported by: EMRE JAIMES on 10/24/20 1013 Melatonin (Melatonin) 3 Mg Tablet, 3 MG PO HS, (Reported) Entered as Reported by: EMRE JAIMES on 10/24/20 1013 Metolazone (Metolazone) 10 Mg Tablet, 10 MG PO DAILY, (Reported) Entered as Reported by: EMRE JAIMES on 10/24/20 1013 Na Phos,M-B/Na Phos,Di-Ba (Fleet Enema Extra) 19 Gram-7 Gram/197 Ml Enema, 230 ML RC PRN Prescribed by: OPAL MORENO on 01/20/232137 Ondansetron (Ondansetron Odt) 8 Mg Tab.rapdis, 8 MG PO Q6H Prescribed by: OPAL MORENO on 01/20/232137 Ondansetron HCl (Ondansetron HCl) 4 Mg Tablet, 4 MG PO Q6H PRN for NAUSEA/VOMITING-1ST LINE, (Reported) Entered as Reported by: EMRE JAIMES on 10/24/201012 Pantoprazole Sodium (Pantoprazole Sodium) 40 Mg Tablet.dr, 40 MG PO DAILY, (Reported) Entered as Reported by: EMRE JAIMES on 10/24/20 1013 Polyethylene Glycol 3350 (Miralax) 17 Gram Powd.pack, 17 GM PO UD Prescribed by: OPAL MOERNO on 01/20/232137 Pregabalin (Pregabalin) 25 Mg Capsule, 25 MG PO TID, (Reported) Entered as Reported by: EMRE JAIMES on 10/24/20 1013 Promethazine HCl (Promethazine Tablet) 25 Mg Tablet, 25 MG PO Q8H PRN for NAUSEA/VOMITING-2ND LINE, (Reported) Entered as Reported by: EMRE JAIMES on 10/24/20 1020 Promethazine HCl (Promethazine Suppository) 25 Mg Supp.rect, 25 MG RC Q6 Prescribed by: OPAL MORENO on 01/20/232137 Sevelamer Carbonate (Sevelamer Carbonate) 800 Mg Tablet, 1,600 MG PO TID, (Reported) Entered as Reported by: EMRE JAIMES on 10/24/20 1013 Torsemide (Torsemide) 100 Mg Tablet, 100 MG PO DAILY, (Reported) Entered as Reported by: EMRE JAIMES on 10/24/20 1013 Zinc (Zinc) 50 Mg Tablet, 50 MG PO DAILY, (Reported) Entered as Reported by: EMRE JAIMES on 10/24/20 1013 Review of Systems Review of Systems Constitutional: chills, fever, malaise, weakness EENTM: no symptoms reported Respiratory: no symptoms reported Cardiovascular: chest pain Gastrointestinal: abdominal pain, nausea, vomiting Genitourinary: no symptoms reported Musculoskeletal: no symptoms reported Skin: no symptoms reported Psychiatric/Neurological: No Symptoms Reported All Other Systems Reviewed Negative Unless Noted: Yes Past Llnhque-Jxtrha-Cfacbn Hx Immunizations Up To Date Tetanus Booster (TDap): Unknown PED Vaccines UTD: Yes First/Initial COVID19 Vaccinat: SPRING 2020 Second COVID19 Vaccination Bennie: SPRING 2020 Third COVID19 Vaccination Date: SPRING 2020 Seasonal Allergies Seasonal Allergies: No Past Medical History Surgery/Hospitalization HX: BILATERA LOWER EXT AMP., DIABETES, HEART ATTACK, DIALYSIS PATIENT, SOB AND FLUID OVERLOAD BILATERAL AMPUTATIONS Surgeries: Yes (MULT amputations (foot and toes, right AKA, LEFT BK);5 stents, L GREAT TOE) Amputation, Cardiac, CABG, Section, Coronary Stent, Dialysis, Orthopedi c, Tonsillectomy, 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, Vascular Surgery Respiratory: No Cardiac: Yes (CABG;5 stents-CARDIAC & ILIAC + FEMORAL; NSTEMI 07/2019,CHF) Coronary Artery Disease, Heart Attack, High Cholesterol, Hypertension, Peripheral Vascular Neurological: Yes Neuropathy [employer]ER History: Hysterectomy, 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 Genitourinary: Yes (CKD; ESRD ON DIALYSIS -W-) Bladder Infection, Renal Failure, Dialysis Gastrointestinal: Yes (CHRONIC NAUSEA/VOMITING) Irritable Bowel Musculoskeletal: Yes Amputee, Spasms Endocrine: Yes (OBESITY) Diabetes, Insulin dep HEENT: No Cancer: No Psychosocial: Yes Anxiety Integumentary: Yes (CHRONIC FOOT WOUNDS) Blood Disorders: Yes (ANEMIA) Adverse Reaction/Blood Tranf: No Family Medical History No Pertinent Family Hx SOCIAL HISTORY: -ETOH--OCCASIONAL USE, NO RECENT USE, PER PT 07/20/20 -DRUGS-+THC USE ( ALSO HX OF OPIATES AND BENZODIAZEPINE ABUSE) -SMOKED 1 PPD, QUIT 03/2020 PAST SURGICAL HISTORY: -CARDIAC CATHS--MULTIPLE STENTS PLUS ANGIOPLASTIES AT MULTIPLE FACILITIES--LAST CATH HERE 08/31/[address] GALE-- RCA ANGIOPLASTY -MULTIPLE CARDIAC AND PERIPHERAL INTERVENTIONS AT MULTIPLE FACILITIES--PERIPHERAL ANGIOGRAM AT [facility] 08/21/2019--ANGIOPLASTY OF DEEP FEMORAL ARTERY, STENTS X 3 TO EXTERNAL ILIAC, COMMON FEMORAL AND SUPERFICIAL FEMORAL ARTERY -S/P 3 VESSEL CABG -RIGHT TOES AND PARTIAL FOOT AMPUTATIONS (MULTIPLE SURGERIES) , EVENTUALLY FOLLOWED BY RIGHT ABOVE THE KNEE AMPUTATION 03/27/20- AT [facility] -LEFT BELOW THE KNEE AMPUTATION - -HYSTERECTOMY -BILATERAL TUBAL LIGATION -TONSILLECTOMY -PORT RIGHT CHEST -RIGHT ARM DIALYSIS GRAFT A-V FISTULA ADDITIONAL PAST MEDICAL HISTORY: -VENTRICULAR ARRHYTHMIA DURING DOBUTAMINE TEST -NSTEMI 07/2019 LONG HISTORY OF NON-COMPLIANCE HX OF HOMELESSNESS UNTIL ADMITTED TO [facility]ENT[facility] AFTER LAST HOSPITALIZATION HX OF NARCOTIC AND BENZODIAZEPINE ABUSE Physical Exam Vital Signs Vital Signs - First Documented 04/29/23 20:17 Temp 39.6 Pulse 129 B/P (MAP) 161/138 (146) Pulse Ox 93 O2 Delivery Nasal Cannula O2 Flow Rate 5.00 Capillary Refill : Height, Weight, BMI Height: '" Weight: lbs. oz. kg; 33.00 BMI Method: General Appearance: WD/WN, Chronically ill, Obese Eyes: Bilateral Eye Normal Inspection, Bilateral Eye PERRL, Bilateral Eye EOMI HEENT: Other (petechial rash on hard palate; left tm occluded by cerumen) Neck: Supple Respiratory: Lungs Clear, Normal Breath Sounds, No Accessory Muscle Use, No Respiratory Distress Cardiovascular: Regular Rate, Rhythm Gastrointestinal: Soft, Other (distended/obese; no involuntary guarding) Extremity: Other (bilateral AKA without skin wounds) Neurologic/Psychiatric: Alert, Oriented x3, No Motor/Sensory Deficits, Normal Mood/Affect Skin: Normal Color, Warm/Dry Focused Exam Lactate Level 04/29/23 20:31: Lactic Acid Level 3.56*H 04/29/23 22:35: Lactic Acid Level 2.58*H Lactic Acid Level Laboratory Tests Test 04/29/23 20:31 04/29/23 22:35 Lactic Acid Level 3.56 MMOL/L (0.50-2.00) *H 2.58 MMOL/L (0.50-2.00) *H Progress/Results/Core Measures Suspected Sepsis SIRS Temperature: Pulse: Respiratory Rate: Laboratory Tests 04/29/23 20:31: White Blood Count 8.1 Blood Pressure / Mean: 04/29/23 20:31: Lactic Acid Level 3.56*H 04/29/23 22:35: Lactic Acid Level 2.58*H Laboratory Tests 04/29/23 20:31: Creatinine 4.24H, INR Comment 1.5H, Platelet Count 135, Total Bilirubin 0.8 Results/Orders Lab Results Laboratory Tests Test 04/29/23 20:31 04/29/23 20:39 04/29/23 22:35 Range/Units White Blood Count 8.1 4.3-11.0 10^3/uL Red Blood Count 4.16 3.80-5.11 10^6/uL Hemoglobin 10.8 L 11.5-16.0 g/dL Hematocrit 36 35-52 % Mean Corpuscular Volume 87 80-99 fL Mean Corpuscular Hemoglobin 26 25-34 pg Mean Corpuscular Hemoglobin Concent 30 L 32-36 g/dL Red Cell Distribution Width 19.7 H 10.0-14.5 % Platelet Count 135 130-400 10^3/uL Mean Platelet Volume 11.5 9.0-12.2 fL Immature Granulocyte % (Auto) 1 % Neutrophils (%) (Auto) 86 H 42-75 % Lymphocytes (%) (Auto) 11 L 12-44 % Monocytes (%) (Auto) 1 0-12 % Eosinophils (%) (Auto) 2 0-10 % Basophils (%) (Auto) 1 0-10 % Neutrophils # (Auto) 6.9 1.8-7.8 10^3/uL Lymphocytes # (Auto) 0.9 L 1.0-4.0 10^3/uL Monocytes # (Auto) 0.1 0.0-1.0 10^3/uL Eosinophils # (Auto) 0.1 0.0-0.3 10^3/uL Basophils # (Auto) 0.1 0.0-0.1 10^3/uL Immature Granulocyte # (Auto) 0.1 0.0-0.1 10^3/uL Percent Immature Platelet Fraction 5.9 0.0-7.6 % Prothrombin Time 17.8 H 12.2-14.7 SEC INR Comment 1.5 H 0.8-1.4 Activated Partial Thromboplast Time 41 H 24-35 SEC Sodium Level 135 135-145 MMOL/L Potassium Level 4.1 3.6-5.0 MMOL/L Chloride Level 92 L 98-107 MMOL/L Carbon Dioxide Level 26 21-32 MMOL/L Anion Gap 17 H 5-14 MMOL/L Blood Urea Nitrogen 26 H 7-18 MG/DL Creatinine 4.24 H 0.60-1.30 MG/DL Estimat Glomerular Filtration Rate 13 BUN/Creatinine Ratio 6 Glucose Level 204 H 70-105 MG/DL Lactic Acid Level 3.56 *H 2.58 *H 0.50-2.00 MMOL/L Calcium Level 9.5 8.5-10.1 MG/DL Corrected Calcium 9.5 8.5-10.1 MG/DL Total Bilirubin 0.8 0.1-1.0 MG/DL Aspartate Amino Transf (AST/SGOT) 18 5-34 U/L Alanine Aminotransferase (ALT/SGPT) 10 0-55 U/L Alkaline Phosphatase 166 H 40-136 U/L Troponin I 0.953 *H <0.028 NG/ML Total Protein 7.6 6.4-8.2 GM/DL Albumin 4.0 3.2-4.5 GM/DL Influenza Type A (RT-PCR) Not Detected Not Detecte Influenza Type B (RT-PCR) Not Detected Not Detecte SARS-CoV-2 RNA (RT-PCR) Not Detected Not Detecte Group A Streptococcus Screen NEGATIVE NEGATIVE My Orders Orders - NOAH MADDOX MD Cbc With Automated Diff (04/29/23 20:22) Comprehensive Metabolic Panel (04/29/23 20:22) Blood Culture (04/29/23 20:22) Sputum Culture (04/29/23 20:22) Protime With Inr (04/29/23 20:22) Partial Thromboplastin Time (04/29/23 20:22) Chest 1 View, Ap/Pa Only (04/29/23 20:22) Ed Iv/Invasive Line Start (04/29/23 20:22) Ed Iv/Invasive Line Start (04/29/23 20:22) Vital Signs Adult Sepsis Patie Q15M (04/29/23 20:22) O2 (04/29/23 20:22) Remove Rings In Anticipation O (04/29/23 20:22) Lactic Acid Analyzer (04/29/23 20:22) Acetaminophen Tablet (Acetaminophen Ta (04/29/23 20:30) Covid 19 Inhouse Test (04/29/23 20:22) Influenza A And B By Pcr (04/29/23 20:22) Ekg Tracing (04/29/23 20:36) Troponin I Booker (04/29/23 20:36) Fentanyl Injection (Fentanyl Injection (04/29/23 20:45) Promethazine Injection (Phenergan Injec (04/29/23 20:45) Rapid Strep A Screen (04/29/23 20:41) Throat Culture Strep A Confirm (04/29/23 20:39) Piperacillin Sodium/Tazobactam (Zosyn Vi (04/29/23 21:30) Fentanyl Injection (Fentanyl Injection (04/29/23 22:15) Ua Culture If Indicated (04/29/23 22:12) Ct Abdomen/Pelvis Wo (04/29/23 22:49) Ns (Ivpb) 250 Ml (Sodium Chloride 0.9% 2 (04/30/23 00:00) Norepinephrine 8 Mg/250 Ml (Norepinephri (04/30/23 00:15) Norepinephrine 8 Mg/250 Ml (Norepinephri (04/30/23 00:05) Norepinephrine 8 Mg/250 Ml (Norepinephri (04/30/23 00:06) Medications Given in ED Current Medications Medications Dose Ordered Sig/Mary Jo Route Start Time Stop Time Status Last Admin Dose Admin Acetaminophen 1,000 mg ONCE ONCE PO 04/29/23 20:30 04/29/23 20:31 DC 04/29/23 21:07 1,000 MG Fentanyl Citrate 50 mcg ONCE ONCE IVP 04/29/23 20:45 04/29/23 20:46 DC 04/29/23 20:42 50 MCG Fentanyl Citrate 50 mcg ONCE ONCE IVP 04/29/23 22:15 04/29/23 22:16 DC 04/29/23 22:14 50 MCG Piperacillin Sod/ Tazobactam Sod 4.5 gm/Sodium Chloride 100 ml @ 200 mls/hr ONCE ONCE IV 04/29/23 21:30 04/29/23 21:59 DC 04/29/23 21:48 200 MLS/HR Promethazine HCl 12.5 mg ONCE ONCE IVP 04/29/23 20:45 04/29/23 20:46 DC 04/29/23 20:48 12.5 MG Sodium Chloride 250 ml @ 999 mls/hr Q16M ONCE IV 04/30/23 00:00 04/30/23 00:15 DC 04/30/23 00:11 999 MLS/HR Vital Signs/I&O 04/29/23 04/29/23 04/29/23 04/30/23 20:17 20:17 21:07 00:12 Temp 39.6 39.6 Pulse 129 112 B/P (MAP) 161/138 (146) 73/49 Pulse Ox 93 97 O2 Delivery Nasal Cannula Nasal Cannula O2 Flow Rate 5.00 5.00 04/30/23 00:00 Intake Total 100 ml Balance 100 ml Capillary Refill : Progress Note #1: Time: 22:00 Progress Note Initial call made to [facility] Direct call - Med Surg divert but have ICU beds available. Direct call speaking to Dr Livingston (hospitalist) to see if she would be a candidate for their ICU Progress Note #2: Time: 23:45 Progress Note Patient seen and evaluated by me. Evaluation today includes physical exam, "sepsis work-up" to include CBC, Chem-12, blood cultures, lactic acid, urinalysis, single view chest x-ray. The patient also had EKG and troponin performed. Pertinent physical exam findings morbidly obese female in moderate to significant distress secondary to acute nausea and vomiting. She is quite hypertensive on arrival with a blood pressure of 161/138, however she is in distress so this may be artificially elevated. Her pulse is in the 130s, she is febrile at 39.6. 96% on 5 L of oxygen per nasal cannula. Heart reveals tachycardic rate, lungs demonstrate mild rales, no wheezes. Abdomen is distended, soft without focal tenderness. She does have bowel sounds. She is status post bilateral [id number]-jtz-ivby amputations. No obvious skin wounds are observed. She does have a fairly significant petechial rash noted on the hard palate. I did examine the right ear, no effusion or erythema. The left TM is occluded by cerumen. No lymphadenopathy in the head and neck. Differential diagnosis based on history and physical exam, sepsis due to possibly pneumonia, urinary tract infection. Consideration for intra-abdominal pathology secondary to the nausea and vomiting. Labs independently reviewed and interpreted by me. CBC shows a total white blood cell count of 8.1 with 86% segmented neutrophils. Hemoglobin is 10.8 hematocrit of 36 platelet count of 135. Her sodium is 135 her potassium is normal at 4.1. Chloride of 92 bicarb of 26. Her BUN is 26 her creatinine is 4.24 consistent with her chronic renal failure. Her glucose is elevated at 204. Lactic acid initially quite elevated at 3.56, repeat is down to 2.58. Her alk phos is slightly elevated at 166 her LFTs are normal. Her troponin is elevated at 0.953. This may be related to her chronic kidney disease. Her coags are all out with a PT elevated at 17.8 INR elevated at 1.5 and PTT elevated at 41. Her COVID flu and strep screens are all negative. Radiology read her chest x-ray consistent with increased pulmonary vascular congestion. She had a noncontrasted CT abdomen and pelvis which was generally unremarkable except for some right-sided colon thickening and a little increase in a right-sided pleural effusion, no other acute pathology. She was treated in the emergency department with 2 doses of 50 mcg of fentanyl. She did have 8 mg of Zofran IV. She was given 4.5g of IV Zosyn as well. She was also given 1 g of Tylenol p.o. Blood pressure has noted to be trending down as is her heart rate. Her pulse is currently 109 blood pressure of 89/53. Will give a small fluid bolus of 250 cc of normal saline. I discussed the case with Dr. Livingston hospitalist at [facility] who accepts the patient for transfer to the TCU at [facility]. With this trending downward of her blood pressure however we may need to upgrade her to ICU. I will call and update them after rechecking vital signs. Progress Note #3: Time: 00:09 Progress Note Noted since approximately 2315 that the patient's blood pressure has continued to trend downward. At 1145 her blood pressure was 89/53, repeat at midnight 80/ 42. At this point I went into the patient's room myself to reassess. She was resting comfortably on her right side, no longer nauseous, no pain. Her blood pressure cycled at 71/42 after some readjustment of the blood pressure cuff. Heart rate is at 110. Mentation remains normal. Awake alert. I called and spoke with [facility] Direct Call and advised her of this deterioration in her condition. We are starting Levophed at this point, they will transition her accepting physician from hospitalist to Dr. Joiner with ICU critical care. Urine still pending ECG Initial ECG Impression Date: Apr 29, 2023 Initial ECG Impression Time: 21:02 Initial ECG Rate: 117 Initial ECG Rhythm: S.Tach Initial ECG Intervals VA 140 QRS 91 QTc 343 Comment No ectopy; 1mm ST elevation aVR, V1; ST depression I, II and V5 and V6 (EKG appears similar to previous) Diagnostic Imaging Diagonstic Imaging: Xray Plain Films/CT/US/NM/MRI: chest Comments [facility] [place] NAME: ADWOA CUMMINGS Param [facility] REC#: [id number] PT STATUS: REG ER : 1985 PHYSICIAN: NOAH MADDOX MD ADMIT DATE: 04/29/23/ER Draft Date of Exam:04/29/23 CHEST 1 VIEW, AP/PA ONLY EXAM: CHEST 1 VIEW, AP/PA ONLY INDICATION: Fever. COMPARISON: 04/10/2023. FINDINGS: Cardiomegaly with increased pulmonary vascular congestion. Right IJ tunneled port CVC tip in the RA. Coronary stents. Small right pleural effusion. No pneumothorax. IMPRESSION: Cardiomegaly with increasing pulmonary vascular congestion and small right pleural effusion. Dictated on workstation # [id number] Dict: 04/29/232134 Trans: 04/29/232136 [facility] [id number] Interpreted by: MARINA ROSALES MD Electronically signed by: Leanne Imaging: CT Comments CT Abdomen and pelvis without IV contrast - read by Stat Rad : Slight thickening of the garcia of the right colon and helatic flexure; slight increase in right pleural effusion. New nodule right lung base; other multiple chronic findings Critical Care Note Critical Care Start Time: 22:45 Stop Time: 00:27 Total Time (minutes) 30min critical care in the eval and management of this patient with sepsis. time includes initial eval with management of n/v/fever with review of previous medical records, review and interpetation of labs/imaging. serial re-evaluations of patient. Discussion with transferring facility hospitalist, discussion with critical care. Initiation of abx, small fluid bolus and management of pressors. Departure Impression Primary Impression: Sepsis due to undetermined organism Additional Impression: ESRD (end stage renal disease) on dialysis Disposition: XFER SHT-TRM HOSP Condition: Critical Transfer Transfer Reason: Exceeds level of care Time Spoke to Accepting Phy: 00:26 Transfer Progress Notes Discussed with Dr Hussein - ICU Critical Care Transfer Facility: [facility] ICU Method of Transfer: EMS Departure-Patient Inst. Referrals: [facility] (PCP/Family) Primary Care Physician NOAH MADDOX MD Apr 29, 2023 20:24
[2023-04-29] MEDS ORDERED: ACETAMINOPHEN 500 MG TABLET PO ONE (20:30)
[2023-04-29 20:38] LABS: EOSINOPHILS # (AUTO) 0.1 10^3/uL (0.0-0.3); MEAN CORPUSCULAR HEMOGLOBIN 26 pg (25-34); MONOCYTES # (AUTO) 0.1 10^3/uL (0.0-1.0)
[2023-04-29 20:40] LABS: BASOPHILS # (AUTO) 0.1 10^3/uL (0.0-0.1); BASOPHILS % (AUTO) 1 % (0-10); EOSINOPHILS % (AUTO) 2 % (0-10); HEMATOCRIT 36 % (35-52); HEMOGLOBIN 10.8 g/dL (11.5-16.0); LYMPHOCYTES # (AUTO) 0.9 10^3/uL (1.0-4.0); LYMPHOCYTES % (AUTO) 11 % (12-44); MEAN CORPUSCULAR HGB CONC 30 g/dL (32-36); MEAN CORPUSCULAR VOLUME 87 fL (80-99); MEAN PLATELET VOLUME 11.5 fL (9.0-12.2); MONOCYTES % (AUTO) 1 % (0-12); NEUTROPHILS # (AUTO) 6.9 10^3/uL (1.8-7.8); NEUTROPHILS % (AUTO) 86 % (42-75); PLATELET COUNT 135 10^3/uL (130-400); WHITE BLOOD COUNT 8.1 10^3/uL (4.3-11.0)
[2023-04-29] MEDS ORDERED: PROMETHAZINE INJ 25 MG/ML (PHENERGAN) AMP IVP ONE (20:45)
[2023-04-29] MEDS ORDERED: fentaNYL INJECTION 100 MCG/2 ML VIAL IVP ONE ×2 (20:45→22:15)
[2023-04-29 20:57] LABS: BILIRUBIN,TOTAL 0.8 MG/DL (0.1-1.0); CALCIUM 9.5 MG/DL (8.5-10.1); CREATININE SERUM 4.24 MG/DL (0.60-1.30); POTASSIUM 4.1 MMOL/L (3.6-5.0); TOTAL PROTEIN 7.6 GM/DL (6.4-8.2)
[2023-04-29 21:00] LABS: INR 1.5 (0.8-1.4); PROTHROMBIN TIME PATIENT 17.8 SEC (12.2-14.7)
[2023-04-29] MEDS ORDERED: PIPERACILLIN SODIUM/TAZOBACTAM 4.5 GM in NS (IVPB) 100 ML 100 ML IV ONE (21:30)
--- NOTE | 2023-04-29 21:38 | Diagnostic Imaging Report ---
EXAM: CHEST 1 VIEW, AP/PA ONLY INDICATION: Fever. COMPARISON: 04/10/2023. FINDINGS: Cardiomegaly with increased pulmonary vascular congestion. Right IJ tunneled port CVC tip in the RA. Coronary stents. Small right pleural effusion. No pneumothorax. IMPRESSION: Cardiomegaly with increasing pulmonary vascular congestion and small right pleural effusion. Dictated by: Dictated on workstation # [id number]
[2023-04-30] MEDS ORDERED: NS (IVPB) 250 ML 250 ML IV ONE
[2023-04-30] MEDS ORDERED: NOREPINEPHRINE 8 MG/250 ML 250 ML IV ONE ×2 (00:05→00:06)
[2023-04-30] MEDS ORDERED: NOREPINEPHRINE 8 MG/250 ML 250 ML IV SCH (00:15)
[2023-04-30 01:17] VITALS: BP 127/83
--- NOTE | 2023-04-30 08:06 | Diagnostic Imaging Report ---
PROCEDURE: CT abdomen and pelvis without contrast. TECHNIQUE: Multiple contiguous axial images were obtained through the abdomen and pelvis without the use of intravenous contrast. Auto Exposure Controls were utilized during the CT exam to meet ALARA standards for radiation dose reduction. INDICATION: 38-year-old female, abdominal pain, nausea, vomiting, sepsis, fever. CORRELATION STUDY: 01/20/2023 FINDINGS: LOWER THORAX: Small to moderate right pleural effusion, slightly increased from prior. Trace left pleural effusion. Nodular calcified 16mm dense posterior right lower lobe. Minimal basilar atelectasis. Heart size enlarged with coronary artery calcification and sternal wires. LIVER: Enlarged 22.6 cm with mild steatosis. GALLBLADDER: Present and unremarkable. No bile duct dilatation. SPLEEN: Unremarkable. PANCREAS: Unremarkable. ADRENAL GLANDS: Unremarkable. KIDNEYS: Normal configuration. No calcification or obstruction. ABDOMINAL AORTA: Unremarkable, nonaneurysmal. Prominent central mesenteric and retroperitoneal lymph nodes along with slight haziness in the retroperitoneal fat, generally stable. Note is made of prior iliac and femoral arterial stent. GASTROINTESTINAL TRACT: No gastrointestinal tract obstruction. Slight thickening the garcia of the right colon and hepatic flexure not suggested previously. However, incompletely distended. URINARY BLADDER: Unremarkable. REPRODUCTIVE: Uterus and adnexa unremarkable. OSSEOUS STRUCTURES: No acute abnormality. OTHER: None. IMPRESSION: 1. Questionable wall thickening the garcia of the proximal colon to the hepatic flexure. Maybe owing to incomplete distention versus colitis. 2. Slight increase in right pleural effusion. New nodule right lung base appears calcified. Question potential aspiration. 3. Other chronic changes as above. A preliminary report was provided by [employer]. Dictated by: Dictated on workstation # [id number]
== END 2023-04-30 01:17 | disposition short-term general hospital (02) ==
LOC: EDUNIT# 20:15 → ER 20:16
DX: A41.9 Sepsis, unspecified organism (principal); R65.20 Severe sepsis without septic shock; E11.22 Type 2 diabetes mellitus with diabetic chronic kidney disease; I13.2 Hypertensive heart and chronic kidney disease with heart failure and with stage 5 chronic kidney disease, or end stage renal disease; I50.9 Heart failure, unspecified; N18.6 End stage renal disease; R79.1 Abnormal coagulation profile; R74.02 Elevation of levels of lactic acid dehydrogenase [LDH]; E66.01 Morbid (severe) obesity due to excess calories; Z99.2 Dependence on renal dialysis; Z79.4 Long term (current) use of insulin; Z87.891 Personal history of nicotine dependence; Z68.33 Body mass index [BMI] 33.0-33.9, adult; Z95.5 Presence of coronary angioplasty implant and graft; Z88.5 Allergy status to narcotic agent; Z88.6 Allergy status to analgesic agent; Z20.822 Contact with and (suspected) exposure to COVID-19
CPT/HCPCS: 36415; 71045; 74176; 80053; 83605; 84484; 85025; 85610; 85730; 87040; 87430; 87636; 93005

== ENCOUNTER 2023-05-26 01:17 | Emergency (ER) | payer MEDICAID ==
[2023-05-26 01:36] LABS: BASOPHILS # (AUTO) 0.1 10^3/uL (0.0-0.1); BASOPHILS % (AUTO) 1 % (0-10); EOSINOPHILS # (AUTO) 0.5 10^3/uL (0.0-0.3); EOSINOPHILS % (AUTO) 5 % (0-10); HEMATOCRIT 29 % (35-52); HEMOGLOBIN 8.8 g/dL (11.5-16.0); LYMPHOCYTES # (AUTO) 1.9 10^3/uL (1.0-4.0); LYMPHOCYTES % (AUTO) 21 % (12-44); MEAN CORPUSCULAR HEMOGLOBIN 26 pg (25-34); MEAN CORPUSCULAR HGB CONC 30 g/dL (32-36); MEAN CORPUSCULAR VOLUME 88 fL (80-99); MEAN PLATELET VOLUME 11.4 fL (9.0-12.2); MONOCYTES # (AUTO) 0.9 10^3/uL (0.0-1.0); MONOCYTES % (AUTO) 10 % (0-12); NEUTROPHILS # (AUTO) 5.8 10^3/uL (1.8-7.8); NEUTROPHILS % (AUTO) 63 % (42-75); PLATELET COUNT 156 10^3/uL (130-400); WHITE BLOOD COUNT 9.1 10^3/uL (4.3-11.0)
[2023-05-26 01:57] LABS: ALBUMIN 3.5 GM/DL (3.2-4.5); BILIRUBIN,TOTAL 0.6 MG/DL (0.1-1.0); CALCIUM 9.1 MG/DL (8.5-10.1); CREATININE SERUM 4.59 MG/DL (0.60-1.30); MAGNESIUM 2.3 MG/DL (1.6-2.4); POTASSIUM 4.3 MMOL/L (3.6-5.0); TOTAL PROTEIN 6.6 GM/DL (6.4-8.2)
--- NOTE | 2023-05-26 02:30 | ED General ---
General Chief Complaint: Glucose Problems Stated Complaint: BENADRYL OVERDOSE,LOW BLOOD SUGAR Nursing Triage Note: BROUGHT IN BY [facility] FOR ALTERED MENTAL STATUS, LOW BLOOD GLUCOSE, INGESTION OF 6 BENADRYL. INITIAL GLUCOSE 35. ORAL GLUCOSE, D10 ADMINISTERED BY EMS Source of Information: Patient (VERY LIMITED HISTORIAN), EMS, Detention Records, Old Records History of Present Illness Date Seen by Provider: May 26, 2023 Allergies and Home Medications Allergies Coded Allergies: codeine (Verified Allergy, Unknown, has received Lortab and Hydromorphone in the past, 04/22/20) morphine (Verified Allergy, Unknown, 06/13/22) GERNALIZED SWELLING nalbuphine (Verified Allergy, Unknown, 08/31/19) tramadol (Verified Allergy, Unknown, 08/31/19) Uncoded Allergies: CONTRAST (Allergy, Unknown, 08/31/19) Patient Home Medication List Albuterol Sulfate (Proventil Hfa) 6.7 Gm Hfa.aer.ad, 2-4 PUFF INH Q4H PRN for WHEEZING Prescribed by: Maximilian Fulton on 08/16/22 1344 Aspirin (Aspirin EC) 81 Mg Tablet.dr, 81 MG PO DAILY, (Reported) Entered as Reported by: EMRE JAIMES on 10/24/20 1013 Bisacodyl (Bisacodyl) 10 Mg Supp.rect, 10 MG RC DAILY PRN for CONSTIPATION-4TH LINE, (Reported) Entered as Reported by: EMRE JAIMES on 10/24/20 1020 Carvedilol (Carvedilol) 6.25 Mg Tablet, 6.25 MG PO BID, (Reported) Entered as Reported by: EMRE JAIMES on 10/24/20 1013 Cholecalciferol (Vitamin D3) (Vitamin D3) 125 Mcg Tablet, 125 MCG PO MON, (Reported) Entered as Reported by: EMRE JAIMES on 10/24/20 1013 Citalopram Hydrobromide (Citalopram HBr) 20 Mg Tablet, 20 MG PO DAILY, (Reported) Entered as Reported by: EMRE JAIMES on 10/24/20 1013 Clopidogrel Bisulfate (Plavix) 75 Mg Tablet, 75 MG PO DAILY, (Reported) Entered as Reported by: EMRE JAIMES on 10/24/20 1013 Cyanocobalamin (Vitamin B-12) (Vitamin B-12) 1,000 Mcg Tablet, 1,000 MCG PO DAILY, (Reported) Entered as Reported by: EMRE JAIMES on 10/24/20 1013 Diphenhydramine HCl (Diphenhydramine HCl) 25 Mg Capsule, 25 MG PO HS, (Reported) Entered as Reported by: EMRE JAIMES on 10/24/20 1013 Folic Acid (Folic Acid) 0.8 Mg Capsule, 0.8 MG PO DAILY, (Reported) Entered as Reported by: EMRE JAIMES on 10/24/20 1013 Hydrocodone/Acetaminophen (Hydrocodone-Acetamin 7.5-325) 1 Each Tablet, 1 EA PO HS, (Reported) Entered as Reported by: EMRE JAIMES on 10/24/20 1013 Insulin Aspart (Novolog) 100 Unit/1 Ml Susp, 10 UNIT SQ AC, (Reported) Entered as Reported by: EMRE JAIMES on 10/24/20 1020 Insulin Detemir (Levemir Flextouch) 100 Unit/1 Ml Insuln.pen, 10 UNIT SQ BID, (Reported) Entered as Reported by: EMRE JAIMES on 10/24/20 1020 Lactulose (Lactulose) 10 Gm/15 Ml Solution, 15 ML PO DAILY, (Reported) Entered as Reported by: EMRE JAIMES on 10/24/20 1013 Loperamide HCl (Imodium A-D) 2 Mg Tablet, 2-4 MG PO PRN PRN for LOOSE STOOLS, (Reported) Entered as Reported by: EMRE JAIMES on 10/24/20 1013 Melatonin (Melatonin) 3 Mg Tablet, 3 MG PO HS, (Reported) Entered as Reported by: EMRE JAIMES on 10/24/20 1013 Metolazone (Metolazone) 10 Mg Tablet, 10 MG PO DAILY, (Reported) Entered as Reported by: EMRE JAIMES on 10/24/20 1013 Na Phos,M-B/Na Phos,Di-Ba (Fleet Enema Extra) 19 Gram-7 Gram/197 Ml Enema, 230 ML RC PRN Prescribed by: OPAL MORENO on 01/20/232137 Ondansetron (Ondansetron Odt) 8 Mg Tab.rapdis, 8 MG PO Q6H Prescribed by: OPAL MORENO on 01/20/232137 Pantoprazole Sodium (Pantoprazole Sodium) 40 Mg Tablet.dr, 40 MG PO DAILY, (Reported) Entered as Reported by: EMRE JAIMES on 10/24/201012 Polyethylene Glycol 3350 (Miralax) 17 Gram Powd.pack, 17 GM PO UD Prescribed by: OPAL MORENO on 01/20/232137 Pregabalin (Pregabalin) 25 Mg Capsule, 25 MG PO TID, (Reported) Entered as Reported by: EMRE JAIMES on 10/24/20 101 Promethazine HCl (Promethazine Tablet) 25 Mg Tablet, 25 MG PO Q8H PRN for NAUSEA/VOMITING-2ND LINE, (Reported) Entered as Reported by: EMRE JAIMES on 10/24/20 1020 Promethazine HCl (Promethazine Suppository) 25 Mg Supp.rect, 25 MG RC Q6 Prescribed by: OPAL MORENO on 01/20/232137 Sevelamer Carbonate (Sevelamer Carbonate) 800 Mg Tablet, 1,600 MG PO TID, (Reported) Entered as Reported by: EMRE JAIMES on 10/24/20 101 Torsemide (Torsemide) 100 Mg Tablet, 100 MG PO DAILY, (Reported) Entered as Reported by: EMRE JAIMES on 10/24/201012 Zinc (Zinc) 50 Mg Tablet, 50 MG PO DAILY, (Reported) Entered as Reported by: EMRE JAIMES on 10/24/20 101 Discontinued Medications Amoxicillin/Potassium Clav (Amox Tr-K Clv 250-125 mg Tab) 250 Mg-125 Mg Tablet, 1 EACH PO BID Discontinued Reason: No Longer Taking Prescribed by: Maximilian Fulton on 08/16/22 1344 Last Action: Discontinued Azithromycin (Azithromycin) 250 Mg Tablet, 250 MG PO DAILY Discontinued Reason: No Longer Taking Prescribed by: JINNY ELDER on 07/05/22 0950 Last Action: Discontinued Azithromycin (Azithromycin) 250 Mg Tablet, 250 MG PO UD Discontinued Reason: No Longer Taking Prescribed by: Maximilian Fulton on 08/16/22 1344 Last Action: Discontinued Cefdinir (Cefdinir) 300 Mg Capsule, 300 MG PO BID Discontinued Reason: No Longer Taking Prescribed by: OPAL MORENO on 01/20/23 2211 Last Action: Discontinued Cefdinir (Cefdinir) 300 Mg Capsule, 300 MG PO Q48H Discontinued Reason: No Longer Taking Prescribed by: Aida Limon on 02/20/23 1923 Last Action: Discontinued Hydrocodone/Acetaminophen (Hydrocodone-Acetamin 7.5-325) 1 Each Tablet, 1 EACH PO BID PRN for PAIN-MODERATE (5-7), (Reported) Discontinued Reason: No Longer Taking Entered as Reported by: EMRE JAIMES on 10/24/20 1020 Last Action: Discontinued Ondansetron HCl (Ondansetron HCl) 4 Mg Tablet, 4 MG PO Q6H PRN for NAUSEA/VOMITING-1ST LINE, (Reported) Discontinued Reason: No Longer Taking Entered as Reported by: EMRE JAIMES on 10/24/20 1013 Last Action: Discontinued Past Pingwjq-Fcmiry-Rirzcx Hx Patient Social History Tobacco Use?: Yes Substance use?: Yes Alcohol Use?: No Pt feels they are or have been: No Immunizations Up To Date Tetanus Booster (TDap): Unknown PED Vaccines UTD: Yes First/Initial COVID19 Vaccinat: SPRING 2020 Second COVID19 Vaccination Bennie: SPRING 2020 Third COVID19 Vaccination Date: SPRING 2020 Seasonal Allergies Seasonal Allergies: No Past Medical History Surgery/Hospitalization HX: BILATERA LOWER EXT AMP., DIABETES, HEART ATTACK, DIALYSIS PATIENT, SOB AND FLUID OVERLOAD BILATERAL AMPUTATIONS, cardiac stents BILATERAL UPPER EXT AV FISTULAS Surgeries: Yes (MULT amputations (foot and toes, right AKA, LEFT BK);5 stents, L GREAT TOE) Amputation, Cardiac, CABG, Section, Coronary Stent, Dialysis, Orthopedic, Tonsillectomy, 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, Vascular Surgery Respiratory: No Cardiac: Yes (CABG;5 stents-CARDIAC & ILIAC + FEMORAL; NSTEMI 07/2019,CHF) Coronary Artery Disease, Heart Attack, High Cholesterol, Hypertension, Peripheral Vascular Neurological: Yes Neuropathy [employer] History: Hysterectomy, 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 Genitourinary: Yes (CKD; 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) Bladder Infection, Renal Failure, Dialysis Gastrointestinal: Yes (CHRONIC NAUSEA/VOMITING) Irritable Bowel Musculoskeletal: Yes Amputee, Spasms Endocrine: Yes (OBESITY) Diabetes, Insulin dep HEENT: No Cancer: No Psychosocial: Yes Anxiety Integumentary: Yes (CHRONIC FOOT WOUNDS) Blood Disorders: Yes (ANEMIA) Adverse Reaction/Blood Tranf: No Family Medical History No Pertinent Family Hx SOCIAL HISTORY: -ETOH--OCCASIONAL USE, NO RECENT USE, PER PT 07/20/20 -DRUGS-+THC USE ( ALSO HX OF OPIATES AND BENZODIAZEPINE ABUSE) -SMOKED 1 PPD, QUIT 03/2020 PAST SURGICAL HISTORY: -CARDIAC CATHS--MULTIPLE STENTS PLUS ANGIOPLASTIES AT MULTIPLE FACILITIES--LAST CATH HERE 08/31/[address] GALE-- RCA ANGIOPLASTY -MULTIPLE CARDIAC AND PERIPHERAL INTERVENTIONS AT MULTIPLE FACILITIES--PERIPHERAL ANGIOGRAM AT [facility] 08/21/2019--ANGIOPLASTY OF DEEP FEMORAL ARTERY, STENTS X 3 TO EXTERNAL ILIAC, COMMON FEMORAL AND SUPERFICIAL FEMORAL ARTERY -S/P 3 VESSEL CABG -RIGHT TOES AND PARTIAL FOOT AMPUTATIONS (MULTIPLE SURGERIES) , EVENTUALLY FOLLOWED BY RIGHT ABOVE THE KNEE AMPUTATION 03/27/20- AT [facility] -LEFT BELOW THE KNEE AMPUTATION - -HYSTERECTOMY -BILATERAL TUBAL LIGATION -TONSILLECTOMY -PORT RIGHT CHEST -RIGHT ARM DIALYSIS GRAFT A-V FISTULA ADDITIONAL PAST MEDICAL HISTORY: -VENTRICULAR ARRHYTHMIA DURING DOBUTAMINE TEST -NSTEMI 07/2019 LONG HISTORY OF NON-COMPLIANCE HX OF HOMELESSNESS UNTIL ADMITTED TO ALF AFTER LAST HOSPITALIZATION HX OF NARCOTIC AND BENZODIAZEPINE ABUSE Physical Exam Vital Signs Vital Signs - First Documented 05/26/23 01:17 Temp 36.6 Pulse 69 Resp 16 B/P (MAP) 111/76 (88) Pulse Ox 98 O2 Delivery Nasal Cannula O2 Flow Rate 2.00 Capillary Refill : Height, Weight, BMI Height: '" Weight: lbs. oz. kg; 33.00 BMI Method: Progress/Results/Core Measures Suspected Sepsis SIRS Temperature: Pulse: 69 Respiratory Rate: 16 Laboratory Tests 05/26/23 01:20: White Blood Count 9.1 Blood Pressure 111 /76 Mean: 88 Laboratory Tests 05/26/23 01:20: Platelet Count 156 05/26/23 01:30: Creatinine 4.59H, Total Bilirubin 0.6 Results/Orders Lab Results Laboratory Tests Test 05/26/23 01:20 05/26/23 01:23 05/26/23 01:30 05/26/23 02:52 Range/Units White Blood Count 9.1 4.3-11.0 10^3/uL Red Blood Count 3.33 L 3.80-5.11 10^6/uL Hemoglobin 8.8 L 11.5-16.0 g/dL Hematocrit 29 L 35-52 % Mean Corpuscular Volume 88 80-99 fL Mean Corpuscular Hemoglobin 26 25-34 pg Mean Corpuscular Hemoglobin Concent 30 L 32-36 g/dL Red Cell Distribution Width 18.1 H 10.0-14.5 % Platelet Count 156 130-400 10^3/uL Mean Platelet Volume 11.4 9.0-12.2 fL Immature Granulocyte % (Auto) 0 % Neutrophils (%) (Auto) 63 42-75 % Lymphocytes (%) (Auto) 21 12-44 % Monocytes (%) (Auto) 10 0-12 % Eosinophils (%) (Auto) 5 0-10 % Basophils (%) (Auto) 1 0-10 % Neutrophils # (Auto) 5.8 1.8-7.8 10^3/uL Lymphocytes # (Auto) 1.9 1.0-4.0 10^3/uL Monocytes # (Auto) 0.9 0.0-1.0 10^3/uL Eosinophils # (Auto) 0.5 H 0.0-0.3 10^3/uL Basophils # (Auto) 0.1 0.0-0.1 10^3/uL Immature Granulocyte # (Auto) 0.0 0.0-0.1 10^3/uL Serum Test, Qualitative NEGATIVE NEGATIVE Glucometer 146 H 62 L 70-110 MG/DL Sodium Level 129 L 135-145 MMOL/L Potassium Level 4.3 3.6-5.0 MMOL/L Chloride Level 90 L 98-107 MMOL/L Carbon Dioxide Level 23 21-32 MMOL/L Anion Gap 16 H 5-14 MMOL/L Blood Urea Nitrogen 35 H 7-18 MG/DL Creatinine 4.59 H 0.60-1.30 MG/DL Estimat Glomerular Filtration Rate 12 BUN/Creatinine Ratio 8 Glucose Level 182 H 70-105 MG/DL Calcium Level 9.1 8.5-10.1 MG/DL Corrected Calcium 9.5 8.5-10.1 MG/DL Magnesium Level 2.3 1.6-2.4 MG/DL Total Bilirubin 0.6 0.1-1.0 MG/DL Aspartate Amino Transf (AST/SGOT) 22 5-34 U/L Alanine Aminotransferase (ALT/SGPT) 11 0-55 U/L Alkaline Phosphatase 183 H 40-136 U/L Ammonia 68 H 11-32 UMOL/L Total Protein 6.6 6.4-8.2 GM/DL Albumin 3.5 3.2-4.5 GM/DL Amylase Level 81 25-125 U/L Lipase 49 8-78 U/L Acetaminophen Level 33 H 10-30 UG/ML Serum Alcohol 11 H <10 MG/DL My Orders Orders - OPAL MORENO DO Ed Iv/Invasive Line Start (05/26/23 01:19) Monitor-Rhythm Ecg Trace Only (05/26/23 01:19) Straight Cath For Spec.-Adult (05/26/23:19) Acetaminophen (05/26/23:19) Alcohol (05/26/23:19) Ammonia (05/26/23:19) Amylase (05/26/23:19) Cbc With Automated Diff (05/26/23:) Comprehensive Metabolic Panel (05/26/23:19) Drug Screen Stat (Urine) (05/26/23 01:19) Hcg,Qualitative Serum (05/26/23:) Lipase (05/26/23:19) Magnesium (05/26/23:19) Ua Culture If Indicated (05/26/23:19) Ed Iv/Invasive Line Start (05/26/23 01:19) Chest 1 View, Ap/Pa Only (05/26/23 01:30) Accucheck Stat ONCE (05/26/23 02:30) D50w (Emergency) Syringe (Dextrose 50% 5 (05/26/23 03:15) Accucheck Stat ONCE (05/26/23 03:19) Medications Given in ED Current Medications Medications Dose Ordered Sig/Mary Jo Route Start Time Stop Time Status Last Admin Dose Admin Dextrose 50 ml ONCE ONCE IV 05/26/23 03:15 05/26/23 03:16 DC 05/26/23 03:10 50 ML Vital Signs/I&O 05/26/23 01:17 Temp 36.6 Pulse 69 Resp 16 B/P (MAP) 111/76 (88) Pulse Ox 98 O2 Delivery Nasal Cannula O2 Flow Rate 2.00 Capillary Refill : Blood Pressure Mean: 88 Point of Care Testing Finger Stick Blood Glucose: 146 Blood Glucose Action Taken: RN NOTIFIED Departure Impression Primary Impression: NON-SUICIDAL BENADRYL OVERDOSE Additional Impressions: ESRD on dialysis ALTERED MENTAL STATUS DUE TO EXCESSIVE MEDICATION USE IDDM (insulin dependent diabetes mellitus) Hypoglycemia associated with diabetes Disposition: 03 XFER SNF Condition: Stable Departure-Patient Inst. Decision time for Depature: 03:09 Referrals: [facility] (PCP/Family) Primary Care Physician Patient Instructions: Accidental Overdose (DC), Low Blood Sugar, Adult ED, Type 2 Diabetes (DC) Add. Discharge Instructions: PLEASE DO NOT ALLOW ANY MEDICATIONS OF ANY KIND TO BE AT PT'S BEDSIDE. NO BENADRYL FOR 24 HOURS CONTINUE REGULAR MEDICATIONS PRESCRIBED FOLLOW UP WITH YOUR DR NEEDED RETURN TO ER IF SYMPTOMS WORSEN All discharge instructions reviewed with patient and/or family. Voiced understanding. OPAL MORENO DO May 26, 2023 02:30
[2023-05-26] MEDS ORDERED: DEXTROSE 50% 50 ML (IMS) SYR IV ONE (03:15)
[2023-05-26 03:25] VITALS: BP 155/84
--- NOTE | 2023-05-26 07:32 | Diagnostic Imaging Report ---
INDICATION: Altered mental status, dyspnea. COMPARISON: 04/29/2023. DISCUSSION: Single portable upright view of the chest was obtained. Low lung volumes. Cardiomegaly is stable. Median sternotomy and right-sided port are stable. There is new infiltrate throughout the right [id number]-mh-[id number] lung which could be seen with edema or pneumonia. There is likely a small right effusion now present. No pneumothorax or osseous abnormality. IMPRESSION: 1. Cardiomegaly with new small right effusion. Additional new infiltrates on the right could be seen with edema or pneumonia. Dictated by: Dictated on workstation # [id number]
== END 2023-05-26 03:38 ==
LOC: EDUNIT# 01:17 → ER 01:18
DX: T45.0X1A Poisoning by antiallergic and antiemetic drugs, accidental (unintentional), initial encounter (principal); E11.649 Type 2 diabetes mellitus with hypoglycemia without coma; D63.1 Anemia in chronic kidney disease; E11.22 Type 2 diabetes mellitus with diabetic chronic kidney disease; I12.0 Hypertensive chronic kidney disease with stage 5 chronic kidney disease or end stage renal disease; N18.6 End stage renal disease; E66.9 Obesity, unspecified; Z99.2 Dependence on renal dialysis; Z87.891 Personal history of nicotine dependence; Z68.33 Body mass index [BMI] 33.0-33.9, adult; Z79.4 Long term (current) use of insulin
CPT/HCPCS: 36415; 71045; 80053; 80320; 80329; 82140; 82150; 82947; 83690; 83735; 84703; 85025; 93041

== ENCOUNTER → 2023-05-30 | Emergency (ER) | payer MEDICAID ==
[~2023-05-30] MED LIST changes: +ASPIRIN 81 MG CHEWABLE TABLET PO ONE; +proPOfol INJECTION 200 MG/20 ML VIAL IV ONE
--- NOTE | 2023-05-30 12:58 | ED Chest Pain ---
General Chief Complaint: Chest Pain Stated Complaint: CHEST PAINS Source: patient Exam Limitations: no limitations History of Present Illness Date Seen by Provider: May 30, 2023 Time Seen by Provider: 12:48 Initial Comments 38-year-old female presents emergency department today stating "I am having chest pain really bad." Symptoms started couple of hours ago and have been constant in her midsternal chest without radiation. No obvious aggravating or alleviating factors. She does have a history of coronary artery disease and record review shows that she was transferred to [place] as a STEMI on 04/07 of this year. She also has a history of end-stage renal disease on hemodialysis. She denies any current cough or shortness of breath. No abdominal pain or changes in bowel or bladder habits. All other systems reviewed and negative except documented per HPI. Voice recognition software was used to help create this chart Allergies and Home Medications Allergies Coded Allergies: codeine (Verified Allergy, Unknown, has received Lortab and Hydromorphone in the past, 04/22/20) morphine (Verified Allergy, Unknown, 06/13/22) GERNALIZED SWELLING nalbuphine (Verified Allergy, Unknown, 08/31/19) tramadol (Verified Allergy, Unknown, 08/31/19) Uncoded Allergies: CONTRAST (Allergy, Unknown, 08/31/19) Patient Home Medication List Home Medication List Reviewed: Yes Albuterol Sulfate (Proventil Hfa) 6.7 Gm Hfa.aer.ad, 2-4 PUFF INH Q4H PRN for WHEEZING Prescribed by: Maximilian Fulton on 08/16/22 1344 Aspirin (Aspirin EC) 81 Mg Tablet.dr, 81 MG PO DAILY, (Reported) Entered as Reported by: EMRE JAIMES on 10/24/20 1013 Bisacodyl (Bisacodyl) 10 Mg Supp.rect, 10 MG RC DAILY PRN for CONSTIPATION-4TH LINE, (Reported) Entered as Reported by: EMRE JAIMES on 10/24/20 1020 Carvedilol (Carvedilol) 6.25 Mg Tablet, 6.25 MG PO BID, (Reported) Entered as Reported by: EMRE JAIMES on 10/24/20 1013 Cholecalciferol (Vitamin D3) (Vitamin D3) 125 Mcg Tablet, 125 MCG PO MON, (Reported) Entered as Reported by: EMRE JAIMES on 10/24/20 101 Citalopram Hydrobromide (Citalopram HBr) 20 Mg Tablet, 20 MG PO DAILY, (Reported) Entered as Reported by: EMRE JAIMES on 10/24/20 101 Clopidogrel Bisulfate (Plavix) 75 Mg Tablet, 75 MG PO DAILY, (Reported) Entered as Reported by: EMRE JAIMES on 10/24/20 101 Cyanocobalamin (Vitamin B-12) (Vitamin B-12) 1,000 Mcg Tablet, 1,000 MCG PO DAILY, (Reported) Entered as Reported by: EMRE JAIMES on 10/24/20 101 Diphenhydramine HCl (Diphenhydramine HCl) 25 Mg Capsule, 25 MG PO HS, (Reported) Entered as Reported by: EMRE JAIMES on 10/24/20 101 Folic Acid (Folic Acid) 0.8 Mg Capsule, 0.8 MG PO DAILY, (Reported) Entered as Reported by: EMRE JAIMES on 10/24/20 101 Hydrocodone/Acetaminophen (Hydrocodone-Acetamin 7.5-325) 1 Each Tablet, 1 EA PO HS, (Reported) Entered as Reported by: EMRE JAIMES on 10/24/20 101 Insulin Aspart (Novolog) 100 Unit/1 Ml Susp, 10 UNIT SQ AC, (Reported) Entered as Reported by: EMRE JAIMES on 10/24/20 102 Insulin Detemir (Levemir Flextouch) 100 Unit/1 Ml Insuln.pen, 10 UNIT SQ BID, (Reported) Entered as Reported by: EMRE JAIMES on 10/24/20 1020 Lactulose (Lactulose) 10 Gm/15 Ml Solution, 15 ML PO DAILY, (Reported) Entered as Reported by: EMRE JAIMES on 10/24/20 101 Loperamide HCl (Imodium A-D) 2 Mg Tablet, 2-4 MG PO PRN PRN for LOOSE STOOLS, (Reported) Entered as Reported by: EMRE JAIMES on 10/24/20 101 Melatonin (Melatonin) 3 Mg Tablet, 3 MG PO HS, (Reported) Entered as Reported by: EMRE JAIMES on 10/24/20 101 Metolazone (Metolazone) 10 Mg Tablet, 10 MG PO DAILY, (Reported) Entered as Reported by: EMRE JAIMES on 10/24/20 1013 Na Phos,M-B/Na Phos,Di-Ba (Fleet Enema Extra) 19 Gram-7 Gram/197 Ml Enema, 230 ML RC PRN Prescribed by: OPAL MORENO on 01/20/232137 Ondansetron (Ondansetron Odt) 8 Mg Tab.rapdis, 8 MG PO Q6H Prescribed by: OPAL MORENO on 01/20/232137 Pantoprazole Sodium (Pantoprazole Sodium) 40 Mg Tablet.dr, 40 MG PO DAILY, (Reported) Entered as Reported by: EMRE JAIMES on 10/24/201012 Polyethylene Glycol 3350 (Miralax) 17 Gram Powd.pack, 17 GM PO UD Prescribed by: OPAL MORENO on 01/20/232137 Pregabalin (Pregabalin) 25 Mg Capsule, 25 MG PO TID, (Reported) Entered as Reported by: EMRE JAIMES on 10/24/20 1013 Promethazine HCl (Promethazine Tablet) 25 Mg Tablet, 25 MG PO Q8H PRN for NAUSEA/VOMITING-2ND LINE, (Reported) Entered as Reported by: EMRE JAIMES on 10/24/20 1020 Promethazine HCl (Promethazine Suppository) 25 Mg Supp.rect, 25 MG RC Q6 Prescribed by: OPAL MORENO on 01/20/232137 Sevelamer Carbonate (Sevelamer Carbonate) 800 Mg Tablet, 1,600 MG PO TID, (Reported) Entered as Reported by: EMRE JAIMES on 10/24/20 1013 Torsemide (Torsemide) 100 Mg Tablet, 100 MG PO DAILY, (Reported) Entered as Reported by: EMRE JAIMES on 10/24/20 1013 Zinc (Zinc) 50 Mg Tablet, 50 MG PO DAILY, (Reported) Entered as Reported by: EMRE JAIMES on 10/24/20 1013 Discontinued Medications Amoxicillin/Potassium Clav (Amox Tr-K Clv 250-125 mg Tab) 250 Mg-125 Mg Tablet, 1 EACH PO BID Discontinued Reason: No Longer Taking Prescribed by: Maximilian Fulton on 08/16/22 1344 Azithromycin (Azithromycin) 250 Mg Tablet, 250 MG PO DAILY Discontinued Reason: No Longer Taking Prescribed by: JINNY ELDER on 07/05/22 0950 Azithromycin (Azithromycin) 250 Mg Tablet, 250 MG PO UD Discontinued Reason: No Longer Taking Prescribed by: Maximilian Fulton on 08/16/22 1344 Cefdinir (Cefdinir) 300 Mg Capsule, 300 MG PO BID Discontinued Reason: No Longer Taking Prescribed by: OPAL MORENO on 01/20/23 2211 Cefdinir (Cefdinir) 300 Mg Capsule, 300 MG PO Q48H Discontinued Reason: No Longer Taking Prescribed by: Aida Limon on 02/20/23 1923 Hydrocodone/Acetaminophen (Hydrocodone-Acetamin 7.5-325) 1 Each Tablet, 1 EACH PO BID PRN for PAIN-MODERATE (5-7), (Reported) Discontinued Reason: No Longer Taking Entered as Reported by: EMRE JAIMES on 10/24/20 1020 Ondansetron HCl (Ondansetron HCl) 4 Mg Tablet, 4 MG PO Q6H PRN for NAUSEA/VOMITING-1ST LINE, (Reported) Discontinued Reason: No Longer Taking Entered as Reported by: EMRE JAIMES on 10/24/20 1013 Review of Systems Review of Systems Constitutional: see HPI Past Lyipshe-Yievom-Qgxwcu Hx Patient Social History Tobacco Use?: Yes Tobacco type used: Cigarettes Use of E-Cig and/or Vaping dev: Yes E-Cig or Vaping type used: Nicotine Substance use?: No Alcohol Use?: No Immunizations Up To Date Tetanus Booster (TDap): Unknown PED Vaccines UTD: Yes First/Initial COVID19 Vaccinat: SPRING 2020 Second COVID19 Vaccination Bennie: SPRING 2020 Third COVID19 Vaccination Date: SPRING 2020 Seasonal Allergies Seasonal Allergies: No Past Medical History Surgery/Hospitalization HX: BILATERA LOWER EXT AMP., DIABETES, HEART ATTACK, DIALYSIS PATIENT, SOB AND FLUID OVERLOAD BILATERAL AMPUTATIONS, cardiac stents BILATERAL UPPER EXT AV FISTULAS Surgeries: Yes (MULT amputations (foot and toes, right AKA, LEFT BK);5 stents, L GREAT TOE) Amputation, Cardiac, CABG, Section, Coronary Stent, Dialysis, Orthopedic, Tonsillectomy, 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, Vascular Surgery Respiratory: No Cardiac: Yes (CABG;5 stents-CARDIAC & ILIAC + FEMORAL; NSTEMI 07/2019,CHF) Coronary Artery Disease, Heart Attack, High Cholesterol, Hypertension, Peripheral Vascular Neurological: Yes Neuropathy [employer] History: Hysterectomy, 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 Genitourinary: Yes (CKD; ESRD ON DIALYSIS --) Bladder Infection, Renal Failure, Dialysis Gastrointestinal: Yes (CHRONIC NAUSEA/VOMITING) Irritable Bowel Musculoskeletal: Yes Amputee, Spasms Endocrine: Yes (OBESITY) Diabetes, Insulin dep HEENT: No Cancer: No Psychosocial: Yes Anxiety Integumentary: Yes (CHRONIC FOOT WOUNDS) Blood Disorders: Yes (ANEMIA) Adverse Reaction/Blood Tranf: No Family Medical History No Pertinent Family Hx SOCIAL HISTORY: -ETOH--OCCASIONAL USE, NO RECENT USE, PER PT 07/20/20 -DRUGS-+THC USE ( ALSO HX OF OPIATES AND BENZODIAZEPINE ABUSE) -SMOKED 1 PPD, QUIT 03/2020 PAST SURGICAL HISTORY: -CARDIAC CATHS--MULTIPLE STENTS PLUS ANGIOPLASTIES AT MULTIPLE FACILITIES--LAST CATH HERE 08/31/[address] GALE-- RCA ANGIOPLASTY -MULTIPLE CARDIAC AND PERIPHERAL INTERVENTIONS AT MULTIPLE FACILITIES--PERIPHERAL ANGIOGRAM AT [facility] 08/21/2019--ANGIOPLASTY OF DEEP FEMORAL ARTERY, STENTS X 3 TO EXTERNAL ILIAC, COMMON FEMORAL AND SUPERFICIAL FEMORAL ARTERY -S/P 3 VESSEL CABG -RIGHT TOES AND PARTIAL FOOT AMPUTATIONS (MULTIPLE SURGERIES) , EVENTUALLY FOLLOWED BY RIGHT ABOVE THE KNEE AMPUTATION 03/27/20- AT [place] -LEFT BELOW THE KNEE AMPUTATION - -HYSTERECTOMY -BILATERAL TUBAL LIGATION -TONSILLECTOMY -PORT RIGHT CHEST -RIGHT ARM DIALYSIS GRAFT A-V FISTULA ADDITIONAL PAST MEDICAL HISTORY: -VENTRICULAR ARRHYTHMIA DURING DOBUTAMINE TEST -NSTEMI 07/2019 LONG HISTORY OF NON-COMPLIANCE HX OF HOMELESSNESS UNTIL ADMITTED TO CARE HOME AFTER LAST HOSPITALIZATION HX OF NARCOTIC AND BENZODIAZEPINE ABUSE Physical Exam Vital Signs Capillary Refill : Height, Weight, BMI Height: '" Weight: lbs. oz. kg; 33.00 BMI Method: General Appearance: No Apparent Distress HEENT: Normal ENT Inspection, Pharynx Normal Neck: Normal Inspection, Non Tender, Supple Respiratory: Chest Non Tender, Lungs Clear, Normal Breath Sounds, No Accessory Muscle Use Cardiovascular: No Murmur, Normal Peripheral Pulses Gastrointestinal: Normal Bowel Sounds, No Organomegaly, Non Tender, Soft Extremity: Normal Capillary Refill, Other (Bilateral pxowb-[id number] amputation) Neurologic/Psychiatric: Alert, Oriented x3 Skin: Normal Color, Warm/Dry Progress/Results/Core Measures Results/Orders Lab Results Laboratory Tests Test 05/30/23 13:11 Range/Units White Blood Count 8.0 4.3-11.0 10^3/uL Red Blood Count 3.11 L 3.80-5.11 10^6/uL Hemoglobin 8.4 L 11.5-16.0 g/dL Hematocrit 28 L 35-52 % Mean Corpuscular Volume 90 80-99 fL Mean Corpuscular Hemoglobin 27 25-34 pg Mean Corpuscular Hemoglobin Concent 30 L 32-36 g/dL Red Cell Distribution Width 18.6 H 10.0-14.5 % Platelet Count 137 130-400 10^3/uL Mean Platelet Volume 10.4 9.0-12.2 fL Immature Granulocyte % (Auto) 1 % Neutrophils (%) (Auto) 63 42-75 % Lymphocytes (%) (Auto) 24 12-44 % Monocytes (%) (Auto) 9 0-12 % Eosinophils (%) (Auto) 3 0-10 % Basophils (%) (Auto) 1 0-10 % Neutrophils # (Auto) 5.1 1.8-7.8 10^3/uL Lymphocytes # (Auto) 1.9 1.0-4.0 10^3/uL Monocytes # (Auto) 0.7 0.0-1.0 10^3/uL Eosinophils # (Auto) 0.3 0.0-0.3 10^3/uL Basophils # (Auto) 0.1 0.0-0.1 10^3/uL Immature Granulocyte # (Auto) 0.1 0.0-0.1 10^3/uL Prothrombin Time 22.3 H 12.2-14.7 SEC INR Comment 2.0 H 0.8-1.4 Activated Partial Thromboplast Time 43 H 24-35 SEC Sodium Level 131 L 135-145 MMOL/L Potassium Level 3.7 3.6-5.0 MMOL/L Chloride Level 93 L 98-107 MMOL/L Carbon Dioxide Level 24 21-32 MMOL/L Anion Gap 14 5-14 MMOL/L Blood Urea Nitrogen 20 H 7-18 MG/DL Creatinine 3.95 #H 0.60-1.30 MG/DL Estimat Glomerular Filtration Rate 14 BUN/Creatinine Ratio 5 Glucose Level 99 70-105 MG/DL Calcium Level 8.6 8.5-10.1 MG/DL Corrected Calcium 9.2 8.5-10.1 MG/DL Magnesium Level 1.8 1.6-2.4 MG/DL Total Bilirubin 0.5 0.1-1.0 MG/DL Aspartate Amino Transf (AST/SGOT) 16 5-34 U/L Alanine Aminotransferase (ALT/SGPT) 9 0-55 U/L Alkaline Phosphatase 206 H 40-136 U/L Total Protein 6.3 L 6.4-8.2 GM/DL Albumin 3.2 3.2-4.5 GM/DL My Orders Orders - HECTORCALIXTO L DO Cbc With Automated Diff (05/30/23 12:54) Magnesium (05/30/23 12:54) Chest 1 View, Ap/Pa Only (05/30/23 12:54) Ekg Tracing (05/30/23 12:54) Comprehensive Metabolic Panel (05/30/23 12:54) Protime With Inr (05/30/23 12:54) Partial Thromboplastin Time (05/30/23 12:54) O2 (05/30/23 12:54) Ed Iv/Invasive Line Start (05/30/23 12:54) Troponin I [place] (05/30/23 12:54) Aspirin Chewable Tablet (Aspirin Chewabl (05/30/23 13:00) Medications Given in ED Current Medications Medications Dose Ordered Sig/Mary Jo Route Start Time Stop Time Status Last Admin Dose Admin Aspirin 324 mg ONCE ONCE PO 05/30/23 13:00 05/30/23 13:01 DC 05/30/23 13: 324 MG Departure Communication (Admissions) The patient is hemodynamically stable. EKG is nonischemic. While awaiting the remainder of her labs including her troponin she request to sign out AGAINST MEDICAL ADVICE. This was after she pushed her call light literally 10 times in the span of 30 minutes. Once was asked to be set up in bed, wants was to asked to be placed on oxygen as it "helps me breathe." Her oxygen saturation was 98% at that time. She is repeatedly asked for "liquid pain medicine "and "IV Benadryl." I advised her on several times that I did not think would be appropriate and she continually pushed her call light to ask. I went and again and politely asked her not to place her call light unless it was an emergent need as the nurses were quite busy in her ER is quite full. Less than 30 seconds after I left the room she pushed it again asking if we can increase her oxygen from 2 to 3 L when again her oxygen is 100%. I advised that there is no indication for this. She again asked me for liquid pain medication and IV Benadryl. I declined and she request to leave AGAINST MEDICAL ADVICE. I advised her that the risks include and disability and she states understanding. She is alert and oriented and has capacity make her own medical decisions at this time. Impression Primary Impression: Chest pain Qualified Codes: R07.9 - Chest pain, unspecified Disposition: 07 AGAINST MEDICAL ADVICE Condition: Against Medical Advice Departure-Patient Inst. Referrals: [facility] (PCP/Family) Primary Care Physician CALIXTO YOUNG DO May 30, 2023 12:58
[2023-05-30 13:23] LABS: BASOPHILS # (AUTO) 0.1 10^3/uL (0.0-0.1); BASOPHILS % (AUTO) 1 % (0-10); EOSINOPHILS # (AUTO) 0.3 10^3/uL (0.0-0.3); EOSINOPHILS % (AUTO) 3 % (0-10); HEMATOCRIT 28 % (35-52); HEMOGLOBIN 8.4 g/dL (11.5-16.0); LYMPHOCYTES # (AUTO) 1.9 10^3/uL (1.0-4.0); LYMPHOCYTES % (AUTO) 24 % (12-44); MEAN CORPUSCULAR HEMOGLOBIN 27 pg (25-34); MEAN CORPUSCULAR HGB CONC 30 g/dL (32-36); MEAN CORPUSCULAR VOLUME 90 fL (80-99); MEAN PLATELET VOLUME 10.4 fL (9.0-12.2); MONOCYTES # (AUTO) 0.7 10^3/uL (0.0-1.0); MONOCYTES % (AUTO) 9 % (0-12); NEUTROPHILS # (AUTO) 5.1 10^3/uL (1.8-7.8); NEUTROPHILS % (AUTO) 63 % (42-75); PLATELET COUNT 137 10^3/uL (130-400)
[2023-05-30 13:34] LABS: ALBUMIN 3.2 GM/DL (3.2-4.5); POTASSIUM 3.7 MMOL/L (3.6-5.0)
--- NOTE | 2023-05-30 13:34 | Diagnostic Imaging Report ---
Indication: Chest pain Frontal chest obtained at 0131 p.m. COMPARISON: 05/26/2023 There is cardiomegaly with post sternotomy change. There is no change in Port-A-Cath device. The central vascular congestion with improving right perihilar infiltrate compared to the prior study. There is no pneumothorax or pleural fluid. IMPRESSION: Cardiomegaly and central vascular congestion. Improving right perihilar infiltrate compared to the prior study. Dictated by: Dictated on workstation # [id number]
[2023-05-30 13:35] LABS: CALCIUM 8.6 MG/DL (8.5-10.1)
[2023-05-30 13:36] LABS: TOTAL PROTEIN 6.3 GM/DL (6.4-8.2)
[2023-05-30 13:38] LABS: BILIRUBIN,TOTAL 0.5 MG/DL (0.1-1.0)
[2023-05-30 13:40] LABS: CREATININE SERUM 3.95 MG/DL (0.60-1.30)
[2023-05-30 13:42] LABS: PROTHROMBIN TIME PATIENT 22.3 SEC (12.2-14.7)
[2023-05-30 13:43] LABS: MAGNESIUM 1.8 MG/DL (1.6-2.4)
== END ==
LOC: EDUNIT# 12:43 → ER 12:44
DX: R07.2 Precordial pain (principal); E11.22 Type 2 diabetes mellitus with diabetic chronic kidney disease; I13.2 Hypertensive heart and chronic kidney disease with heart failure and with stage 5 chronic kidney disease, or end stage renal disease; I50.9 Heart failure, unspecified; N18.6 End stage renal disease; E66.9 Obesity, unspecified; F17.290 Nicotine dependence, other tobacco product, uncomplicated; F17.210 Nicotine dependence, cigarettes, uncomplicated; Z99.2 Dependence on renal dialysis; Z79.4 Long term (current) use of insulin; Z88.6 Allergy status to analgesic agent; Z68.33 Body mass index [BMI] 33.0-33.9, adult
CPT/HCPCS: 36415; 36556; 71045; 80053; 83735; 84484; 85025; 85610; 85730; 93005

== ENCOUNTER 2023-05-31 03:13 | Emergency (ER) | payer MEDICAID ==
[~2023-05-31 03:13] MED LIST changes: -ASPIRIN 81 MG CHEWABLE TABLET PO ONE; -proPOfol INJECTION 200 MG/20 ML VIAL IV ONE
[2023-05-31] MEDS ORDERED: MIDAZOLAM INJ 5 MG/5 ML VIAL IJ ONE (03:15)
[2023-05-31] MEDS ORDERED: ROCURONIUM 50 MG/5 ML VIAL IV ONE (03:15)
[2023-05-31] MEDS ORDERED: SUCCINYLCHOLINE INJ 20 MG/1 ML 10 ML VIAL INJ ONE (03:15)
[2023-05-31] MEDS ORDERED: LIDOCAINE UROJET 2% GEL 10 ML PKG TOP ONE (03:15)
[2023-05-31] MEDS: NS IV 1000 ML 1,000 ML ONE ×2 (03:40→05:49)
--- NOTE | 2023-05-31 04:23 | ED General ---
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 SHE WAS HERE ON 05/26/23 FOR OVERDOSE OF BENADRYL--PT HAD BENADRYL AT THE BEDSIDE IN HER ROOM AT THE [facility] AT THAT TIME. SHE WAS SEEN HERE DURING THE DAY 05/30/23 FOR CHEST PAIN , WORK UP AT THAT TIME WAS BENIGN AND PT WAS SENT BACK TO [facility] PT IS DIALYSIS PATIENT--DIALYSIS [id number] AND IS DUE TODAY ( SATURDAY ) SHE HAS BILATERAL ARM FISTULAS--RIGHT ARM IS THE CURRENT SITE FOR DIALYSIS, LEFT ARM IS NON-FUNCTIONAL PT HAS HAD BILATERAL LEG AMPUTATION--RIGHT ABOVE THE KNEE AMPUTATION, LEFT BELOW THE KNEE AMPUTATION SHE HAS PORT IN RIGHT CHEST. PCP: DR. SMITH/[facility] Allergies and Home Medications Allergies Coded Allergies: codeine (Verified Allergy, Unknown, has received Lortab and Hydromorphone in the past, 04/22/20) morphine (Verified Allergy, Unknown, 06/13/22) GERNALIZED SWELLING nalbuphine (Verified Allergy, Unknown, 08/31/19) tramadol (Verified Allergy, Unknown, 08/31/19) Uncoded Allergies: CONTRAST (Allergy, Unknown, 08/31/19) Patient Home Medication List Albuterol Sulfate (Proventil Hfa) 6.7 Gm Hfa.aer.ad, 2-4 PUFF INH Q4H PRN for WHEEZING Prescribed by: Maximilian Fulton on 08/16/22 1344 Aspirin (Aspirin EC) 81 Mg Tablet.dr, 81 MG PO DAILY, (Reported) Entered as Reported by: EMRE JAIMES on 10/24/20 1013 Bisacodyl (Bisacodyl) 10 Mg Supp.rect, 10 MG RC DAILY PRN for CONSTIPATION-4TH LINE, (Reported) Entered as Reported by: EMRE JAIMES on 10/24/20 1020 Carvedilol (Carvedilol) 6.25 Mg Tablet, 6.25 MG PO BID, (Reported) Entered as Reported by: EMRE JAIMES on 10/24/20 1013 Cholecalciferol (Vitamin D3) (Vitamin D3) 125 Mcg Tablet, 125 MCG PO MON, (Reported) Entered as Reported by: EMRE JAIMES on 10/24/20 1013 Citalopram Hydrobromide (Citalopram HBr) 20 Mg Tablet, 20 MG PO DAILY, (Reported) Entered as Reported by: EMRE JAIMES on 10/24/20 1013 Clopidogrel Bisulfate (Plavix) 75 Mg Tablet, 75 MG PO DAILY, (Reported) Entered as Reported by: EMRE JAIMES on 10/24/20 1013 Cyanocobalamin (Vitamin B-12) (Vitamin B-12) 1,000 Mcg Tablet, 1,000 MCG PO DAILY, (Reported) Entered as Reported by: EMRE JAIMES on 10/24/20 1013 Diphenhydramine HCl (Diphenhydramine HCl) 25 Mg Capsule, 25 MG PO HS, (Reported) Entered as Reported by: EMRE JAIMES on 10/24/20 101 Folic Acid (Folic Acid) 0.8 Mg Capsule, 0.8 MG PO DAILY, (Reported) Entered as Reported by: EMRE JAIMES on 10/24/20 1013 Hydrocodone/Acetaminophen (Hydrocodone-Acetamin 7.5-325) 1 Each Tablet, 1 EA PO HS, (Reported) Entered as Reported by: EMRE JAIMES on 10/24/20 1013 Insulin Aspart (Novolog) 100 Unit/1 Ml Susp, 10 UNIT SQ AC, (Reported) Entered as Reported by: EMRE JAIMES on 10/24/20 1020 Insulin Detemir (Levemir Flextouch) 100 Unit/1 Ml Insuln.pen, 10 UNIT SQ BID, (Reported) Entered as Reported by: EMRE JAIMES on 10/24/20 1020 Lactulose (Lactulose) 10 Gm/15 Ml Solution, 15 ML PO DAILY, (Reported) Entered as Reported by: EMRE JAIMES on 10/24/20 1013 Loperamide HCl (Imodium A-D) 2 Mg Tablet, 2-4 MG PO PRN PRN for LOOSE STOOLS, (Reported) Entered as Reported by: EMRE JAIMES on 10/24/20 101 Melatonin (Melatonin) 3 Mg Tablet, 3 MG PO HS, (Reported) Entered as Reported by: EMRE JAIMES on 10/24/20 101 Metolazone (Metolazone) 10 Mg Tablet, 10 MG PO DAILY, (Reported) Entered as Reported by: EMRE JAIMES on 10/24/20 101 Na Phos,M-B/Na Phos,Di-Ba (Fleet Enema Extra) 19 Gram-7 Gram/197 Ml Enema, 230 ML RC PRN Prescribed by: OPAL MORENO on 01/20/232137 Ondansetron (Ondansetron Odt) 8 Mg Tab.rapdis, 8 MG PO Q6H Prescribed by: OPAL MORENO on 01/20/232137 Pantoprazole Sodium (Pantoprazole Sodium) 40 Mg Tablet.dr, 40 MG PO DAILY, (Reported) Entered as Reported by: EMRE JAIMES on 10/24/201012 Polyethylene Glycol 3350 (Miralax) 17 Gram Powd.pack, 17 GM PO UD Prescribed by: OPAL MORENO on 01/20/232137 Pregabalin (Pregabalin) 25 Mg Capsule, 25 MG PO TID, (Reported) Entered as Reported by: EMRE JAIMES on 10/24/20 101 Promethazine HCl (Promethazine Tablet) 25 Mg Tablet, 25 MG PO Q8H PRN for NAUSEA/VOMITING-2ND LINE, (Reported) Entered as Reported by: EMRE JAIMES on 10/24/20 1020 Promethazine HCl (Promethazine Suppository) 25 Mg Supp.rect, 25 MG RC Q6 Prescribed by: OPAL MORENO on 01/20/232137 Sevelamer Carbonate (Sevelamer Carbonate) 800 Mg Tablet, 1,600 MG PO TID, (Re ported) Entered as Reported by: EMRE JAIMES on 10/24/20 101 Torsemide (Torsemide) 100 Mg Tablet, 100 MG PO DAILY, (Reported) Entered as Reported by: EMRE JAIMES on 10/24/20 101 Zinc (Zinc) 50 Mg Tablet, 50 MG PO DAILY, (Reported) Entered as Reported by: EMRE JAIMES on 10/24/20 1013 Discontinued Medications Amoxicillin/Potassium Clav (Amox Tr-K Clv 250-125 mg Tab) 250 Mg-125 Mg Tablet, 1 EACH PO BID Discontinued Reason: No Longer Taking Prescribed by: Maximilian Fulton on 08/16/22 1344 Azithromycin (Azithromycin) 250 Mg Tablet, 250 MG PO DAILY Discontinued Reason: No Longer Taking Prescribed by: JINNY ELDER on 07/05/22 0950 Azithromycin (Azithromycin) 250 Mg Tablet, 250 MG PO UD Discontinued Reason: No Longer Taking Prescribed by: Maximilian Fulton on 08/16/22 1344 Cefdinir (Cefdinir) 300 Mg Capsule, 300 MG PO BID Discontinued Reason: No Longer Taking Prescribed by: OPAL MORENO on 01/20/23 2211 Cefdinir (Cefdinir) 300 Mg Capsule, 300 MG PO Q48H Discontinued Reason: No Longer Taking Prescribed by: Aiad Limon on 02/20/23 1923 Hydrocodone/Acetaminophen (Hydrocodone-Acetamin 7.5-325) 1 Each Tablet, 1 EACH PO BID PRN for PAIN-MODERATE (5-7), (Reported) Discontinued Reason: No Longer Taking Entered as Reported by: EMRE JAIMES on 10/24/20 1020 Ondansetron HCl (Ondansetron HCl) 4 Mg Tablet, 4 MG PO Q6H PRN for NAUSEA/VOMITING-1ST LINE, (Reported) Discontinued Reason: No Longer Taking Entered as Reported by: EMRE JAIMES on 10/24/20 1013 Review of Systems Review of Systems Constitutional: see HPI Past [id number] Hx Immunizations Up To Date Tetanus Booster (TDap): Unknown PED Vaccines UTD: Yes First/Initial COVID19 Vaccinat: SPRING 2020 Second COVID19 Vaccination Bennie: SPRING 2020 Third COVID19 Vaccination Date: SPRING 2020 Seasonal Allergies Seasonal Allergies: No Past Medical History Surgery/Hospitalization HX: BILATERA LOWER EXT AMP., DIABETES, HEART ATTACK, DIALYSIS PATIENT, SOB AND FLUID OVERLOAD BILATERAL AMPUTATIONS, cardiac stents BILATERAL UPPER EXT AV FISTULAS Surgeries: Yes (MULT amputations (foot and toes, right AKA, LEFT BK);5 stents, L GREAT TOE) Amputation, Cardiac, CABG, Section, Coronary Stent, Dialysis, Orthopedic, Tonsillectomy, 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, Vascular Surgery Respiratory: No Cardiac: Yes (CABG;5 stents-CARDIAC & ILIAC + FEMORAL; NSTEMI 07/2019,CHF) Coronary Artery Disease, Heart Attack, High Cholesterol, Hypertension, Peripheral Vascular Neurological: Yes Neuropathy 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, 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 Genitourinary: Yes (CKD; 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) Bladder Infection, Renal Failure, Dialysis Gastrointestinal: Yes (CHRONIC NAUSEA/VOMITING) Irritable Bowel Musculoskeletal: Yes Amputee, Spasms Endocrine: Yes (OBESITY) Diabetes, Insulin dep HEENT: No Cancer: No Psychosocial: Yes Anxiety Integumentary: Yes (CHRONIC FOOT WOUNDS) Blood Disorders: Yes (ANEMIA) Adverse Reaction/Blood Tranf: No Family Medical History No Pertinent Family Hx SOCIAL HISTORY: -ETOH--OCCASIONAL USE, NO RECENT USE, PER PT 07/20/20 -DRUGS-+THC USE ( ALSO HX OF OPIATES AND BENZODIAZEPINE ABUSE) -SMOKED 1 PPD, QUIT 03/2020 PAST SURGICAL HISTORY: -CARDIAC CATHS--MULTIPLE STENTS PLUS ANGIOPLASTIES AT MULTIPLE FACILITIES--LAST CATH HERE 08/31/[address] GALE-- RCA ANGIOPLASTY -MULTIPLE CARDIAC AND PERIPHERAL INTERVENTIONS AT MULTIPLE FACILITIES--PERIPHERAL ANGIOGRAM AT [facility] 08/21/2019--ANGIOPLASTY OF DEEP FEMORAL ARTERY, STENTS X 3 TO EXTERNAL ILIAC, COMMON FEMORAL AND SUPERFICIAL FEMORAL ARTERY -S/P 3 VESSEL CABG -RIGHT TOES AND PARTIAL FOOT AMPUTATIONS (MULTIPLE SURGERIES) , EVENTUALLY FOLLOWED BY RIGHT ABOVE THE KNEE AMPUTATION 03/27/20- AT [facility] -LEFT BELOW THE KNEE AMPUTATION - -HYSTERECTOMY -BILATERAL TUBAL LIGATION -TONSILLECTOMY -PORT RIGHT CHEST -RIGHT ARM DIALYSIS GRAFT A-V FISTULA ; LEFT ARM DIALYSIS GRAFT A-V [id number] ADDITIONAL PAST MEDICAL HISTORY: -VENTRICULAR ARRHYTHMIA DURING DOBUTAMINE TEST -NSTEMI 07/2019 LONG HISTORY OF NON-COMPLIANCE HX OF HOMELESSNESS UNTIL ADMITTED TO [facility] AFTER LAST HOSPITALIZATION HX OF NARCOTIC AND BENZODIAZEPINE ABUSE Physical Exam Vital Signs Vital Signs - First Documented 05/31/23 04:56 Pulse 56 Resp 16 Pulse Ox 100 FiO2 70 Capillary Refill : Height, Weight, BMI Height: '" Weight: lbs. oz. kg; 33.00 BMI Method: General Appearance: Obese, Severe Distress, Other (PT IS OBTUNDED, OCCASIONALLY BARELY MOANS, OTHERWISE UNRESPONSIVE. PT IS COLD, MOTTLED AND PROFUSELY DIAPHORETIC. ) HEENT: Other (PUPILS DILATED BUT EQUAL AND REACTIVE BUT SLUGGISH; JAWS ARE CLAMPED SHUT--UNABLE TO PRY OPEN BY 2 PERSON ATTEMPT. ) Respiratory: No Accessory Muscle Use, Other (SHALLOW BREATHING/POOR AERATION, NO WHEEZING, RALES OR RHONCHI) Cardiovascular: Regular Rate, Rhythm, No Murmur Gastrointestinal: Soft; No Distended Extremity: Slow Capillary Refill Neurologic/Psychiatric: Other (GCS 3) Skin: Cool, Diaphoresis, Mottled Focused Exam Reason for ruling out sepsis: POSSIBLE Possible Source: Unknown Lactate Level 05/31/23 05:20: Lactic Acid Level 0.84 Time of Focused Exam: 05:45 Respiratory: Other (INTUBATED) Cardiovascular: Bradycardia Lactic Acid Level Laboratory Tests Test 05/31/23 05:20 Lactic Acid Level 0.84 MMOL/L (0.50-2.00) Within 3hrs of presentation: Admin ABX, Blood cultures prior to ABX's, Focus exam, Lactate level Progress/Results/Core Measures Suspected Sepsis SIRS Temperature: Pulse: Respiratory Rate: Laboratory Tests 05/31/23 05:20: White Blood Count 7.6 Blood Pressure / Mean: 05/31/23 05:20: Lactic Acid Level 0.84 Laboratory Tests 05/31/23 05:20: Creatinine 4.21H, INR Comment 1.9H, Platelet Count 125L, Total Bilirubin 0.6 Results/Orders Lab Results Laboratory Tests Test 05/31/23 04:03 05/31/23 05:20 Range/Units Urine Color YELLOW Urine Clarity CLEAR Urine pH 8.5 5-9 Urine Specific [place] 1.020 1.016-1.022 Urine Protein 3+ H NEGATIVE Urine Glucose (UA) NEGATIVE NEGATIVE Urine Ketones NEGATIVE NEGATIVE Urine Nitrite NEGATIVE NEGATIVE Urine Bilirubin NEGATIVE NEGATIVE Urine Urobilinogen 0.2 < = 1.0 MG/DL Urine Leukocyte Esterase NEGATIVE NEGATIVE Urine RBC (Auto) NEGATIVE NEGATIVE Urine RBC RARE /HPF Urine WBC RARE /HPF Urine Squamous Epithelial Cells RARE /HPF Urine Crystals NONE /LPF Urine Bacteria NEGATIVE /HPF Urine Casts NONE /LPF Urine Mucus NEGATIVE /LPF Urine Culture Indicated NO Urine Opiates Screen NEGATIVE NEGATIVE Urine Oxycodone Screen NEGATIVE NEGATIVE Urine Methadone Screen NEGATIVE NEGATIVE Urine Propoxyphene Screen NEGATIVE NEGATIVE Urine Barbiturates Screen NEGATIVE NEGATIVE Ur Tricyclic Antidepressants Screen NEGATIVE NEGATIVE Urine Phencyclidine Screen NEGATIVE NEGATIVE Urine Amphetamines Screen NEGATIVE NEGATIVE Urine Methamphetamines Screen NEGATIVE NEGATIVE Urine Benzodiazepines Screen POSITIVE H NEGATIVE Urine Cocaine Screen NEGATIVE NEGATIVE Urine Cannabinoids Screen NEGATIVE NEGATIVE White Blood Count 7.6 4.3-11.0 10^3/uL Red Blood Count 3.33 L 3.80-5.11 10^6/uL Hemoglobin 8.9 L 11.5-16.0 g/dL Hematocrit 29 L 35-52 % Mean Corpuscular Volume 88 80-99 fL Mean Corpuscular Hemoglobin 27 25-34 pg Mean Corpuscular Hemoglobin Concent 31 L 32-36 g/dL Red Cell Distribution Width 18.4 H 10.0-14.5 % Platelet Count 125 L 130-400 10^3/uL Mean Platelet Volume 10.6 9.0-12.2 fL Immature Granulocyte % (Auto) 1 % Neutrophils (%) (Auto) 91 H 42-75 % Lymphocytes (%) (Auto) 7 L 12-44 % Monocytes (%) (Auto) 1 0-12 % Eosinophils (%) (Auto) 0 0-10 % Basophils (%) (Auto) 0 0-10 % Neutrophils # (Auto) 6.9 1.8-7.8 10^3/uL Lymphocytes # (Auto) 0.5 L 1.0-4.0 10^3/uL Monocytes # (Auto) 0.1 0.0-1.0 10^3/uL Eosinophils # (Auto) 0.0 0.0-0.3 10^3/uL Basophils # (Auto) 0.0 0.0-0.1 10^3/uL Immature Granulocyte # (Auto) 0.1 0.0-0.1 10^3/uL Neutrophils % (Manual) 82 % Lymphocytes % (Manual) 9 % Eosinophils % (Manual) 1 % Metamyelocytes % 1 % Band Neutrophils 7 % Toxic Granulation 1+ Hypochromasia MODERATE Anisocytosis SLIGHT Microcytosis SLIGHT Target Cells SLIGHT Prothrombin Time 21.7 H 12.2-14.7 SEC INR Comment 1.9 H 0.8-1.4 Activated Partial Thromboplast Time 49 H 24-35 SEC Sodium Level 131 L 135-145 MMOL/L Potassium Level 4.1 3.6-5.0 MMOL/L Chloride Level 93 L 98-107 MMOL/L Carbon Dioxide Level 20 L 21-32 MMOL/L Anion Gap 18 H 5-14 MMOL/L Blood Urea Nitrogen 28 H 7-18 MG/DL Creatinine 4.21 H 0.60-1.30 MG/DL Estimat Glomerular Filtration Rate 13 BUN/Creatinine Ratio 7 Glucose Level 9 *L 70-105 MG/DL Lactic Acid Level 0.84 0.50-2.00 MMOL/L Calcium Level 8.9 8.5-10.1 MG/DL Corrected Calcium 9.5 8.5-10.1 MG/DL Magnesium Level 1.9 1.6-2.4 MG/DL Total Bilirubin 0.6 0.1-1.0 MG/DL Aspartate Amino Transf (AST/SGOT) 22 5-34 U/L Alanine Aminotransferase (ALT/SGPT) 10 0-55 U/L Alkaline Phosphatase 184 H 40-136 U/L Ammonia 31 11-32 UMOL/L Troponin I 0.052 H <0.028 NG/ML Total Protein 6.5 6.4-8.2 GM/DL Albumin 3.3 3.2-4.5 GM/DL Salicylates Level < 5.0 L 5.0-20.0 MG/DL Acetaminophen Level 48 *H 10-30 UG/ML Serum Alcohol < 10 <10 MG/DL Influenza Type A (RT-PCR) Not Detected Not Detecte Influenza Type B (RT-PCR) Not Detected Not Detecte SARS-CoV-2 RNA (RT-PCR) Detected H Not Detecte My Orders Orders - OPAL MORENO DO Accucheck Stat ONCE (05/31/23 03:14) Ed Iv/Invasive Line Start (05/31/23 03:14) Ekg Tracing (05/31/23 03:14) Catheter(Urinary) Insert & Ass 03,15 (05/31/23 03:14) O2 (05/31/23 03:14) Monitor-Rhythm Ecg Trace Only (05/31/23 03:14) Acetaminophen (05/31/23 03:14) Alcohol (05/31/23 03:14) Ammonia (05/31/23 03:14) Arterial Blood Gas (05/31/23 03:14) Cbc With Automated Diff (05/31/23 03:14) Comprehensive Metabolic Panel (05/31/23 03:14) Drug Screen Stat (Urine) (05/31/23 03:14) Magnesium (05/31/23 03:14) Salicylate (05/31/23 03:14) Ua Culture If Indicated (05/31/23 03:14) Chest 1 View, Ap/Pa Only (05/31/23 03:14) Ct Head Wo-R/O Stroke (05/31/23 03:14) Lidocaine 2% (Urojet) (Lidocaine 2% (Uro (05/31/23 03:15) Ns Iv 1000 Ml (Ns Iv 1000 Ml) (05/31/23 03:19) Ng Tube Insert & Assessment (05/31/23 04:19) Covid 19 Inhouse Test (05/31/23 05:20) Blood Culture (05/31/23 05:20) Sputum Culture (05/31/23 05:20) Protime With Inr (05/31/23 05:20) Partial Thromboplastin Time (05/31/23 05:20) Ed Iv/Invasive Line Start (05/31/23 05:20) Vital Signs Adult Sepsis Patie Q15M (05/31/23 05:20) Remove Rings In Anticipation O (05/31/23 05:20) Lactic Acid Analyzer (05/31/23 05:20) Cefepime Injection (Cefepime Injection) (05/31/23 05:30) Influenza A And B By Pcr (05/31/23 05:20) Manual Differential (05/31/23 05:20) D50w (Emergency) Syringe (Dextrose 50% 5 (05/31/23 06:30) Dextrose 10% Iv 250 Ml (D10w 250 Ml Iv S (05/31/23 06:30) D50w (Emergency) Syringe (Dextrose 50% 5 (05/31/23 06:23) D5w 1,000 Ml Iv Solution (Dextrose 5% Wa (05/31/23 06:23) Troponin I Booker (05/31/23 06:31) Dextrose 10% Iv 1,000 Ml (D10w 1,000 Ml (05/31/23 06:30) Accucheck Stat ONCE (05/31/23 06:51) Medications Given in ED Current Medications Medications Dose Ordered Sig/Mary Jo Route Start Time Stop Time Status Last Admin Dose Admin Cefepime HCl 1000 mg/Sodium Chloride 50 ml @ 100 mls/hr ONCE ONCE IV 05/31/23 05:30 05/31/23 05:59 DC 05/31/23 05:49 100 MLS/HR Dextrose 100 ml ONCE ONCE IV 05/31/23 06:30 05/31/23 06:31 DC 05/31/23 06:29 100 ML Dextrose 1,000 ml @ ud STK-MED ONCE IV 05/31/23 06:30 05/31/23 06:33 DC 05/31/23 06:38 999 MLS/HR Dextrose/Water 1,000 ml @ ud STK-MED ONCE .ROUTE 05/31/23 06:23 05/31/23 06:27 DC 05/31/23 06:28 999 MLS/HR Vital Signs/I&O 05/31/23 04:56 Pulse 56 Resp 16 Pulse Ox 100 FiO2 70 Capillary Refill : Progress Note : Progress Note PT WITH EXTREMELY POOR IV ACCESS, PORT TO RIGHT CHEST ACCESSED, BUT APPEARS TO BE INFILTRATING ATTEMPTED TO RSI PT WITH VERSED, ROCURONIUM AND SUCCINYLCHOLINE WITHOUT ANY SUCCESS--PT WITH CONTINUED CLAMPING OF MOUTH. DR. TAFOYA, GENERAL SURGEON CONTACTED TO ASSIST WITH CENTRAL LINE PLACEMENT LEAD FORMER CONTACTED TO ASSIST WITH INTUBATION. IV FLUIDS HELD DUE ESRD ON DIALYSIS WITH FLUID OVERLOAD GIVEN: -CEFEPIME ECG Initial ECG Impression Date: May 31, 2023 Initial ECG Impression Time: 04:05 Initial ECG Rate: 64 Initial ECG Rhythm: Normal Sinus Initial ECG Intervals OR 193 QRS 108 QT/QTC 476/486 Initial ECG Impression: Nonspecific Changes (T WAVE INVERSION INFERIORLY, VERY SLIGHT ST DEPRRESSION LATERALLY) Initial ECG Comparisson: Changed Comment INTERPRETED BY ME Diagnostic Imaging Comments CXR--FLUID OVERLOAD, LINES/TUBES IN ADEQUATE LOCATION, PENDING RADIOLOGIST REV IEW CT HEAD-- -NO ACUTE PROCESS, PER [facility] RADIOLOGIST VIA PHONE AT [phone] AND VIA FAX AT [phone] [place] RADIOLOGIST REPORT AT 0600: There were no extra-axial fluid collections. No intracranial hemorrhage. No intracranial mass or mass effect. No midline shift. The ventricles are normal in size and position. There were no focal parenchymal abnormalities in the brain. There are physiologic calcifications of the basal ganglia. Calvarial windows were unremarkable. IMPRESSION: No acute intracranial abnormality. Reviewed: Reviewed by [place] Departure Communication (Admissions) 0400--CONTACTED [facility], THEY DO HAVE CRITICAL CARE BED AT THIS TIME. WILL CALL THEM BACK WHEN WE HAVE MORE INFORMATION / TEST RESULTS. 0619--CALLED [facility] [employer]ST[employer] INSPECTOR REPAIRER 06--SPOKE WITH DR. JEAN BAPTISTE, [employer]ANDSTONE INSPECTOR REPAIRER, ACCEPTS PT FOR ADMIT. ER STAFF CONTACTING [employer] 0715--[employer]IR [employer] CREW HERE--THEIR AIRCRAFT JUST BROKE DOWN. THEY WILL ATTEMPT TO ARRANGE ALTERNATIVE TRANSPORTATION. Impression Primary Impression: Altered mental status Additional Impressions: ESRD on dialysis POOR VASCULAR ACCESS CAD WITH CABG Hypothermia ISCHEMIC CHANGES ON EKG SEVERE HYPOGLYCEMIA Disposition: XFER SHT-TRM HOSP Condition: Critical Transfer Transfer Reason: Exceeds level of care (NEED FOR DIALYSIS) Transfer Facility: [facility] Method of Transfer: Air Departure-Patient Inst. Referrals: [facility] (PCP/Family) Primary Care Physician OPAL MORENO DO May 31, 2023 04:23
[2023-05-31 04:29] LABS: AMPHETAMINE SCREEN, URINE NEGATIVE (NEGATIVE); BARBITURATE SCREEN URINE NEGATIVE (NEGATIVE); BENZODIAZEPINES SCREEN URINE POSITIVE (NEGATIVE); CANNABINOID SCREEN, URINE NEGATIVE (NEGATIVE); COCAINE SCREEN URINE NEGATIVE (NEGATIVE); METHADONE STAT NEGATIVE (NEGATIVE); OPIATE SCREEN URINE NEGATIVE (NEGATIVE); OXYCODONE STAT NEGATIVE (NEGATIVE); PROPOXYPHENE STAT NEGATIVE (NEGATIVE); TRICYCLIC ANTIDEPRESSANTS SCRE NEGATIVE (NEGATIVE)
[2023-05-31 04:30] LABS: BACTERIA,URINE NEGATIVE /HPF; BILIRUBIN,URINE NEGATIVE (NEGATIVE); CLARITY,URINE CLEAR; COLOR,URINE YELLOW; GLUCOSE, URINE (UA) NEGATIVE (NEGATIVE); KETONES,URINE NEGATIVE (NEGATIVE); LEUKOCYTE ESTERASE ,URINE NEGATIVE (NEGATIVE); NITRITE,URINE NEGATIVE (NEGATIVE); PH,URINE 8.5 (5-9); PROTEIN,URINE 3+ (NEGATIVE); RBC,URINE RARE /HPF; SQUAMOUS EPITHELIAL CELL,UR RARE /HPF; WBC,URINE RARE /HPF
--- NOTE | 2023-05-31 04:32 | Anesthesia-Procedure Note ---
Procedures/Interventions Procedure Start/Stop/Diagnosis Date of Procedure: May 31, 2023 Start Time: 04:08 Referring Physician: Magdy Preprocedural Diagnosis: ARF Brief History Renal failure/Respiratory Failure. Called to assist with difficult intubation. Stop Time: 04:20 Intubation RSI: Yes 100% pre-Ox, [id number]: Yes Intubation Method: orotracheal (7.0) Videoscope used: Yes (Laws X) Grade View: 1 Medications: Propofol (80mg) Mask Ventilation: positive Positive End Tide CO2: Yes Breath Sounds after Intubation: bilateral-equal (diminished throughout) ETT Securred @ (cm): 22 Intubated with ease: Yes Intubation Complications: no complications Progress Called to assist with intubation due to some difficulty with securing ETT with previous attempts. Upon my arrival, patient SPO2 100%. PPV by RT staff with ambu and 90cm OPA in place. Report received from Dr. Curran. Patient was given multiple medications previously in preparation for intubation through what they now believe to be a malfunctioning port. Patient's jaw clamped down and vomited at some point during previous attempts. Dr. Parsons @ bedside now to assess and establish venous access. 24g peripheral started by ER in left wrist. Propofol 80mg given by myself and flushed through that peripheral. Laws x 1 with good view. No blood noted in oropharynx. ETT passed with ease. No complications noted. RT x 2 and RNs to resume care. CODY RAO CRNA May 31, 2023 04:32
[2023-05-31 04:56] VITALS: BP 116/89
--- NOTE | 2023-05-31 04:59 | Consultation - Surgery ---
History of Present Illness History of Present Illness Patient Consulted On(darien/time) 05/31/23 04:48 Date Seen by Provider: May 31, 2023 Time Seen by Provider: 04:00 Reason for Visit: Altered mental status History of Present Illness Patient presents to the ED with altered mental status. Was noted to be bradycardic and in critical condition. Thought to be secondary to possible o verdose. Patient has a port in the right side of her chest as she is a dialysis patient however port appears to have thrombosed and thus patient had no central access. In addition, patient is on anticoagulation. Thus general surgery was consulted for central line access. CONSULT requested by Dr. Curran. Seen and evaluated in ED. Patient with altered mental status. Peripheral access was able to be obtained however do not feel it will maintain. Patient was intubated. Patient requires dialysis. Has a port in right upper chest and not able to be accessed. Is on anticoagulation. No family at bedside. Allergies and Home Medications Allergies Coded Allergies: codeine (Verified Allergy, Unknown, has received Lortab and Hydromorphone in the past, 04/22/20) morphine (Verified Allergy, Unknown, 06/13/22) GERNALIZED SWELLING nalbuphine (Verified Allergy, Unknown, 08/31/19) tramadol (Verified Allergy, Unknown, 08/31/19) Uncoded Allergies: CONTRAST (Allergy, Unknown, 08/31/19) Patient Home Medication List Home Medication List Reviewed: Yes Albuterol Sulfate (Proventil Hfa) 6.7 Gm Hfa.aer.ad, 2-4 PUFF INH Q4H PRN for WHEEZING Prescribed by: Maximilian Fulton on 08/16/22 1344 Aspirin (Aspirin EC) 81 Mg Tablet.dr, 81 MG PO DAILY, (Reported) Entered as Reported by: EMRE JAIMES on 10/24/20 1013 Bisacodyl (Bisacodyl) 10 Mg Supp.rect, 10 MG RC DAILY PRN for CONSTIPATION-4TH LINE, (Reported) Entered as Reported by: EMRE JAIMES on 10/24/20 1020 Carvedilol (Carvedilol) 6.25 Mg Tablet, 6.25 MG PO BID, (Reported) Entered as Reported by: EMRE JAIMES on 10/24/20 1013 Cholecalciferol (Vitamin D3) (Vitamin D3) 125 Mcg Tablet, 125 MCG PO MON, (Reported) Entered as Reported by: EMRE JAIMES on 10/24/20 101 Citalopram Hydrobromide (Citalopram HBr) 20 Mg Tablet, 20 MG PO DAILY, (Reported) Entered as Reported by: EMRE JAIMES on 10/24/20 101 Clopidogrel Bisulfate (Plavix) 75 Mg Tablet, 75 MG PO DAILY, (Reported) Entered as Reported by: EMRE JAIMES on 10/24/20 101 Cyanocobalamin (Vitamin B-12) (Vitamin B-12) 1,000 Mcg Tablet, 1,000 MCG PO DAILY, (Reported) Entered as Reported by: EMRE JAIMES on 10/24/20 101 Diphenhydramine HCl (Diphenhydramine HCl) 25 Mg Capsule, 25 MG PO HS, (Reported) Entered as Reported by: EMRE JAIMES on 10/24/20 101 Folic Acid (Folic Acid) 0.8 Mg Capsule, 0.8 MG PO DAILY, (Reported) Entered as Reported by: EMRE JAIMES on 10/24/20 101 Hydrocodone/Acetaminophen (Hydrocodone-Acetamin 7.5-325) 1 Each Tablet, 1 EA PO HS, (Reported) Entered as Reported by: EMRE JAIMES on 10/24/20 101 Insulin Aspart (Novolog) 100 Unit/1 Ml Susp, 10 UNIT SQ AC, (Reported) Entered as Reported by: EMRE JAIMES on 10/24/20 1020 Insulin Detemir (Levemir Flextouch) 100 Unit/1 Ml Insuln.pen, 10 UNIT SQ BID, (Reported) Entered as Reported by: EMRE JAIMES on 10/24/20 1020 Lactulose (Lactulose) 10 Gm/15 Ml Solution, 15 ML PO DAILY, (Reported) Entered as Reported by: EMRE JAIMES on 10/24/20 101 Loperamide HCl (Imodium A-D) 2 Mg Tablet, 2-4 MG PO PRN PRN for LOOSE STOOLS, (Reported) Entered as Reported by: EMRE JAIMES on 10/24/20 101 Melatonin (Melatonin) 3 Mg Tablet, 3 MG PO HS, (Reported) Entered as Reported by: EMRE JAIMES on 10/24/20 1013 Metolazone (Metolazone) 10 Mg Tablet, 10 MG PO DAILY, (Reported) Entered as Reported by: EMRE JAIMES on 10/24/20 101 Na Phos,M-B/Na Phos,Di-Ba (Fleet Enema Extra) 19 Gram-7 Gram/197 Ml Enema, 230 ML RC PRN Prescribed by: OPAL CURRAN on 01/20/232137 Ondansetron (Ondansetron Odt) 8 Mg Tab.rapdis, 8 MG PO Q6H Prescribed by: OPAL CURRAN on 01/20/232137 Pantoprazole Sodium (Pantoprazole Sodium) 40 Mg Tablet.dr, 40 MG PO DAILY, (Reported) Entered as Reported by: EMRE JAIMES on 10/24/201012 Polyethylene Glycol 3350 (Miralax) 17 Gram Powd.pack, 17 GM PO UD Prescribed by: OPAL CURRAN on 01/20/232137 Pregabalin (Pregabalin) 25 Mg Capsule, 25 MG PO TID, (Reported) Entered as Reported by: EMRE JAIMES on 10/24/201012 Promethazine HCl (Promethazine Tablet) 25 Mg Tablet, 25 MG PO Q8H PRN for NAUSEA/VOMITING-2ND LINE, (Reported) Entered as Reported by: EMRE JAIMES on 10/24/20 1020 Promethazine HCl (Promethazine Suppository) 25 Mg Supp.rect, 25 MG RC Q6 Prescribed by: OPAL CURRAN on 01/20/232137 Sevelamer Carbonate (Sevelamer Carbonate) 800 Mg Tablet, 1,600 MG PO TID, (Reported) Entered as Reported by: EMRE JAIMES on 10/24/20 101 Torsemide (Torsemide) 100 Mg Tablet, 100 MG PO DAILY, (Reported) Entered as Reported by: EMRE JAIMES on 10/24/20 1013 Zinc (Zinc) 50 Mg Tablet, 50 MG PO DAILY, (Reported) Entered as Reported by: EMRE JAIMES on 10/24/20 1013 Discontinued Medications Amoxicillin/Potassium Clav (Amox Tr-K Clv 250-125 mg Tab) 250 Mg-125 Mg Tablet, 1 EACH PO BID Discontinued Reason: No Longer Taking Prescribed by: Maximilian Fulton on 08/16/22 1344 Azithromycin (Azithromycin) 250 Mg Tablet, 250 MG PO DAILY Discontinued Reason: No Longer Taking Prescribed by: JINNY ELDER on 07/05/22 0950 Azithromycin (Azithromycin) 250 Mg Tablet, 250 MG PO UD Discontinued Reason: No Longer Taking Prescribed by: Maximilian Fulton on 08/16/22 1344 Cefdinir (Cefdinir) 300 Mg Capsule, 300 MG PO BID Discontinued Reason: No Longer Taking Prescribed by: OPAL CURRAN on 01/20/23 2211 Cefdinir (Cefdinir) 300 Mg Capsule, 300 MG PO Q48H Discontinued Reason: No Longer Taking Prescribed by: Aida Limon on 02/20/23 1923 Hydrocodone/Acetaminophen (Hydrocodone-Acetamin 7.5-325) 1 Each Tablet, 1 EACH PO BID PRN for PAIN-MODERATE (5-7), (Reported) Discontinued Reason: No Longer Taking Entered as Reported by: EMRE JAIMES on 10/24/20 1020 Ondansetron HCl (Ondansetron HCl) 4 Mg Tablet, 4 MG PO Q6H PRN for NAUSEA/VOMI TING-1ST LINE, (Reported) Discontinued Reason: No Longer Taking Entered as Reported by: EMRE JAIMES on 10/24/20 1013 Past Mnlfene-Cskrim-Teimdo Hx Patient Social History Drug of Choice: THC Former Smoker, Quit: Feb 24, 2020 Type Used: Cigarettes 2nd Hand Smoke Exposure: Yes Recent Hopitalizations: No Immunizations Up To Date Tetanus Booster (TDap): Unknown PED Vaccines UTD: Yes Date of Pneumonia Vaccine: Jul 25, 2018 Seasonal Allergies Seasonal Allergies: No Surgeries History of Surgeries: Yes (MULT amputations (foot and toes, right AKA, LEFT BK);5 stents, L GREAT TOE) Surgeries: Amputation, Cardiac, CABG, Section, Coronary Stent, Dialysis, Orthopedic, Tonsillectomy, 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, Vascular Surgery Respiratory History of Respiratory Disorde: No Cardiovascular History of Cardiac Disorders: Yes (CABG;5 stents-CARDIAC & ILIAC + FEMORAL; NSTEMI 07/2019,CHF) Cardiac Disorders: Coronary Artery Disease, Heart Attack, High Cholesterol, Hypertension, Peripheral Vascular Neurological History of Neurological Disord: Yes Neurological Disorders: Neuropathy 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, 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 Genitourinary History of Genitourinary Disor: Yes (CKD; 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) Genitourinary Disorders: Bladder Infection, Renal Failure, Dialysis Gastrointestinal History of Gastrointestinal Di: Yes (CHRONIC NAUSEA/VOMITING) Gastrointestinal Disorders: Irritable Bowel Musculoskeletal History of Musculoskeletal Dis: Yes Musculoskeletal Disorders: Amputee, Spasms Endocrine History of Endocrine Disorders: Yes (OBESITY) Endocrine Disorders: Diabetes, Insulin dep HEENT History of HEENT Disorders: No Cancer History of Cancer: No Psychosocial History of Psychiatric Problem: Yes Behavioral Health Disorders: Anxiety Integumentary History of Skin or Integumenta: Yes (CHRONIC FOOT WOUNDS) Blood Transfusions History of Blood Disorders: Yes (ANEMIA) Adverse Reaction to a Blood Tr: No Reviewed Nursing Assessment Reviewed/Agree w Nursing PMH: Yes Family Medical History Significant Family History: No Pertinent Family Hx Review of Systems-General ROS-Unable to Obtain: Patient is not alert and oriented. Unable to parti cipate. Physical Exam-General Problems Physical Exam Vital Signs Capillary Refill : General Appearance: severe distress, other (altered mental status/intubated) Neck: non-tender, limited range of motion Respiratory: chest non-tender, no respiratory distress, no accessory muscle use Cardiovascular: regular rate, rhythm Gastrointestinal: soft, no organomegaly Back: normal inspection Extremities: other (Bilateral lower extremity amputee) Neurologic/Psychiatric: other (altered mental status) Skin: normal color, warm/dry Lymphatic: no adenopathy Data Review Labs Laboratory Tests 05/31/23 04:03: Urine Color YELLOW, Urine Clarity CLEAR, Urine pH 8.5, Urine Specific [place] 1.020, Urine Protein 3+H, Urine Glucose (UA) NEGATIVE, Urine Ketones NEGATIVE, Urine Nitrite NEGATIVE, Urine Bilirubin NEGATIVE, Urine Urobilinogen 0.2, Urine Leukocyte Esterase NEGATIVE, Urine RBC (Auto) NEGATIVE, Urine RBC RARE, Urine WBC RARE, Urine Squamous Epithelial Cells RARE, Urine Crystals NONE, Urine Bacteria NEGATIVE, Urine Casts NONE, Urine Mucus NEGATIVE, Urine Culture Indicated NO, Urine Opiates Screen NEGATIVE, Urine Oxycodone Screen NEGATIVE, Urine Methadone Screen NEGATIVE, Urine Propoxyphene Screen NEGATIVE, Urine Barbiturates Screen NEGATIVE, Ur Tricyclic Antidepressants Screen NEGATIVE, Urine Phencyclidine Screen NEGATIVE, Urine Amphetamines Screen NEGATIVE, Urine Methamphetamines Screen NEGATIVE, Urine Benzodiazepines Screen POSITIVEH, Urine Cocaine Screen NEGATIVE, Urine Cannabinoids Screen NEGATIVE Assessment/Plan Assessment/Plan Assessment/Plan Central line placement -This is a 38-year-old patient with past medical history of ESRD and on anticoagulation. Given that patient was in critical condition due to bradycardia, central line access was needed. Unfortunately patient no longer had central access as port in her right side of her chest not able to be accesssed. General surgery was thus consulted for central line placement. =Unable to do femoral line placement given the patient had a yeast infection in groins. Thus central line was placed in the right IJ as described below. Procedure note: The right internal jugular vein was identified using ultrasound. Sterile gown and gloves were worn and sterile field was set up for placement of central line. Anesthesia was not required given that patient had already received propofol for the purpose of intubation. After covering ultrasound probe with a sterile cover, right internal jugular vein was identified using the ultrasound and introducer needle was inserted into the right internal jugular vein under direct ultrasound visualization. Dark pulsatile blood was noted to be coming out from introducer needle. Guidewire was then advanced into the introducer needle. A small incision was made using a scalpel and the dilator was introduced over the guidewire and appropriate dilation was obtained. Dilator was then removed and three-lumen catheter was advanced over the guidewire. The guidewire was then removed. Each lumen was flushed with saline. The central line was then secured in place by 2 sutures. A sterile dressing was placed over the central line to keep it in place. Chest x-ray is pending Patient history, exam and procedure done with resident. Verification and Attestation of Medical Student E/M Service A resident physician performed and documented this service in my presence. I reviewed and verified all information documented by the resident physician and made modifications to such information, when appropriate. I personally performed the physical exam and medical decision making and assisting with procedure. Mike Tafoya, May 31, 2023,20:50 RADHA NUNEZ MD, RESIDENT May 31, 2023 04:59 MIKE TAFOYA DO May 31, 2023 20:45
[2023-05-31] MEDS ORDERED: CEFEPIME INJECTION 1,000 MG in NS (IVPB) 50 ML 50 ML IV ONE (05:30)
[2023-05-31 05:41] LABS: BASOPHILS % (AUTO) 0 % (0-10); EOSINOPHILS % (AUTO) 0 % (0-10); HEMATOCRIT 29 % (35-52); HEMOGLOBIN 8.9 g/dL (11.5-16.0); LYMPHOCYTES # (AUTO) 0.5 10^3/uL (1.0-4.0); LYMPHOCYTES % (AUTO) 7 % (12-44); MEAN CORPUSCULAR HEMOGLOBIN 27 pg (25-34); MEAN CORPUSCULAR HGB CONC 31 g/dL (32-36); MEAN CORPUSCULAR VOLUME 88 fL (80-99); MEAN PLATELET VOLUME 10.6 fL (9.0-12.2); MONOCYTES # (AUTO) 0.1 10^3/uL (0.0-1.0); MONOCYTES % (AUTO) 1 % (0-12); NEUTROPHILS # (AUTO) 6.9 10^3/uL (1.8-7.8); NEUTROPHILS % (AUTO) 91 % (42-75); PLATELET COUNT 125 10^3/uL (130-400); WHITE BLOOD COUNT 7.6 10^3/uL (4.3-11.0)
[2023-05-31 05:47] LABS: ALBUMIN 3.3 GM/DL (3.2-4.5); CHLORIDE 93 MMOL/L (98-107); POTASSIUM 4.1 MMOL/L (3.6-5.0); SODIUM 131 MMOL/L (135-145)
[2023-05-31 05:48] LABS: INR 1.9 (0.8-1.4); PROTHROMBIN TIME PATIENT 21.7 SEC (12.2-14.7)
[2023-05-31 05:49] LABS: AMMONIA 31 UMOL/L (11-32); CALCIUM 8.9 MG/DL (8.5-10.1)
[2023-05-31 05:50] LABS: TOTAL PROTEIN 6.5 GM/DL (6.4-8.2)
[2023-05-31 05:51] LABS: CARBON DIOXIDE 20 MMOL/L (21-32)
[2023-05-31 05:52] LABS: BILIRUBIN,TOTAL 0.6 MG/DL (0.1-1.0)
[2023-05-31 05:54] LABS: ALKALINE PHOSPHATASE 184 U/L (40-136); CREATININE SERUM 4.21 MG/DL (0.60-1.30); GFR ESTIMATED 13
--- NOTE | 2023-05-31 05:54 | Diagnostic Imaging Report ---
INDICATION: Stroke, patient found unresponsive. TECHNIQUE: Multiple contiguous axial images were obtained through the brain without the use of intravenous contrast. Auto Exposure Controls were utilized during the CT exam to meet ALARA standards for radiation dose reduction. Comparison made to 02/27/2023. There were no extra-axial fluid collections. No intracranial hemorrhage. No intracranial mass or mass effect. No midline shift. The ventricles are normal in size and position. There were no focal parenchymal abnormalities in the brain. There are physiologic calcifications of the basal ganglia. Calvarial windows were unremarkable. IMPRESSION: No acute intracranial abnormality. Dictated by: Dictated on workstation # [id number]
[2023-05-31 05:55] LABS: BUN/CREATININE RATIO 7
[2023-05-31 05:56] LABS: SALICYLATE < 5.0 MG/DL (5.0-20.0)
[2023-05-31 05:57] LABS: ALANINE AMINOTRANSFERASE 10 U/L (0-55); MAGNESIUM 1.9 MG/DL (1.6-2.4)
[2023-05-31 06:19] LABS: BAND NEUTROPHILS 7 %; EOSINOPHILS % (MANUAL) 1 %; LYMPHOCYTES % (MANUAL) 9 %; NEUTROPHILS % (MANUAL) 82 %
[2023-05-31 06:21] LABS: ACETAMINOPHEN 48 UG/ML (10-30); ANISOCYTOSIS SLIGHT; GLUCOSE 9 MG/DL (70-105); HYPOCHROMASIA MODERATE; METAMYELOCYTES % 1 %; MICROCYTOSIS SLIGHT; TARGET CELLS SLIGHT; TOXIC GRANULATION/VACUOLAZATIO 1+
[2023-05-31] MEDS ORDERED: DEXTROSE 50% 50 ML (IMS) SYR ONE (06:23)
[2023-05-31] MEDS: D5W 1,000 ML IV SOLUTION 1,000 ML ONE ×2 (06:28→06:30)
[2023-05-31] MEDS ORDERED: DEXTROSE 50% 50 ML (IMS) SYR IV ONE (06:30)
[2023-05-31] MEDS: DEXTROSE 10% IV 1,000 ML 1,000 ML IV ONE ×2 (06:36→06:38)
[2023-05-31] MEDS: DEXTROSE 10% IV 250 ML 250 ML IV SCH ×2 (06:37→06:38)
--- NOTE | 2023-05-31 08:04 | Diagnostic Imaging Report ---
INDICATION: Unresponsive, altered mental status, intubated TECHNIQUE: Single view chest 4:38 AM CORRELATION STUDY: 05/30/2023 FINDINGS: Endotracheal tube has been placed. Gretchen not well-visualized but is positioned above the gretchen. A right IJ [id number]-[id number] catheter is also present. Tip largely obscured. Gastric tube appears to pass below left hemidiaphragm and extends beyond the area imaged. Additional nonspecified tubing over the right neck. Poststernotomy changes along with coronary artery stent. Heart size and mediastinum are enlarged and prominent and there is pulmonary vascular congestion and edema. Opacity of both lung robison right greater than left. Somewhat veil-like appearance on the right may reflective underlying effusion as well. IMPRESSION: 1. Intubation as well as the placement of nasogastric tube. 2. Findings do suggest likely extensive fluid overload and/or failure. Disproportionate opacity right lung likely effusion. Dictated by: Dictated on workstation # [id number]
[2023-05-31 08:19] VITALS: BP 166/113
[2023-05-31] MEDS ORDERED: NS IV 1000 ML 1,000 ML ONE (09:28)
== END 2023-05-31 08:19 | disposition short-term general hospital (02) ==
LOC: EDUNIT# 03:13 → ER 03:14
DX: R41.82 Altered mental status, unspecified (principal); U07.1 COVID-19; T68.XXXA Hypothermia, initial encounter; I13.2 Hypertensive heart and chronic kidney disease with heart failure and with stage 5 chronic kidney disease, or end stage renal disease; E11.22 Type 2 diabetes mellitus with diabetic chronic kidney disease; N18.6 End stage renal disease; I50.9 Heart failure, unspecified; E11.40 Type 2 diabetes mellitus with diabetic neuropathy, unspecified; E66.9 Obesity, unspecified; E11.649 Type 2 diabetes mellitus with hypoglycemia without coma; G93.41 Metabolic encephalopathy; R94.31 Abnormal electrocardiogram [ECG] [EKG]; F17.210 Nicotine dependence, cigarettes, uncomplicated; Z99.2 Dependence on renal dialysis; Z79.4 Long term (current) use of insulin; Z95.1 Presence of aortocoronary bypass graft; Z68.33 Body mass index [BMI] 33.0-33.9, adult
CPT/HCPCS: 31500; 36415; 51702; 70450; 71045; 80053; 80306; 80320; 80329; 81000; 82140; 82947; 83605; 83735; 84484; 85007; 85027; 85610; 85730; 87040; 87077; 87186; 87636; 93005; 93041; 94002; 99291